=== PATIENT | male | born 1955 | race Caucasian/White ===

== ENCOUNTER 2017-10-03 21:43 | Emergency (ER) | payer MEDICARE, OTHER ==
[~2017-10-03] VITALS: Ht 185.4 cm; Wt 75.0 kg
[2017-10-03 22:13] VITALS: Ht 185.4 cm; Wt 75.0 kg
[2017-10-03] MEDS ORDERED: CEREFOLIN TAB1 TAB PO (22:23)
[2017-10-03] MEDS ORDERED: VIT D (22:23)
[2017-10-03] MEDS ORDERED: IRON PILL (22:23)
[2017-10-03] MEDS ORDERED: VIT C (22:23)
[2017-10-03] MEDS ORDERED: MYSOLINE 50 MG50 MG PO ×2 (22:24→22:31)
[2017-10-03] MEDS ORDERED: GLUCOPHAGE1000 MG PO (22:25)
[2017-10-03] MEDS ORDERED: TOPROL XL200 MG (22:25)
[2017-10-03] MEDS ORDERED: PROTONIX40 MG PO (22:26)
[2017-10-03] MEDS ORDERED: LYRICA100 MG PO (22:27)
[2017-10-03] MEDS ORDERED: BENADRYL25 MG PO (22:28)
[2017-10-03] MEDS ORDERED: LATUDA40 MG PO (22:29)
[2017-10-03] MEDS ORDERED: NORVASC10 MG PO (22:30)
[2017-10-03] MEDS ORDERED: LIPITOR80 MG PO (22:31)
[2017-10-03] MEDS ORDERED: MELATONIN10 M1 PO (22:33)
[2017-10-03] MEDS ORDERED: BAYER CHEWABLE81 MG PO (22:33)
[2017-10-03] MEDS ORDERED: LEVEMIR100 U/M1 SC (22:35)
[2017-10-03] MEDS ORDERED: SYMBICORT 16010.2 GM INH (22:39)
[2017-10-03] MEDS ORDERED: PROVENTIL/2.5 MG/3 M INH (22:39)
[2017-10-03 23:08] LABS: BASOPHILS 0.2 % (0-2); EOSINOPHILS 5.6 % (0-7); HEMATOCRIT 30.4 % (42.0-54.0); HEMOGLOBIN 9.5 g/dL (13.5-17.5); IMMATURE GRANULOCYTES 0.4 % (0-5); LYMPHOCYTES 27.8 % (15-50); MCH 29.9 pg (26.0-34.0); MCHC 31.3 g/dL (31.0-37.0); MCV 95.6 fL (80.0-100.0); MEAN PLATELET VOLUME 13.2 fL (7.4-10.4); MONOCYTES 7.3 % (2-11); NEUTROPHILS 58.7 % (40-80); PLATELET COUNT 94 10x3/uL (130-400); RBC 3.18 10x6/uL (4.20-6.10); RDW 14.5 % (11.5-14.5); WBC 5.3 10x3/uL (4.8-10.8)
[2017-10-03 23:21] LABS: APTT 29.6 SECONDS (22.8-39.4); INR 1.07 (0.85-1.17); PROTIME 13.5 SECONDS (11.6-15.0)
[2017-10-03 23:22] LABS: D-DIMER-QUANTITATIVE 0.76 ug/mLFEU (0.20-0.54)
[2017-10-03 23:38] LABS: ALKALINE PHOSPHATASE 154 U/L (46-116); ALT (SGPT) 38 U/L (10-68); CALC OSMOLALITY 297 mosm/kg (275-300); CALCIUM 8.1 mg/dL (8.5-10.1); CARBON DIOXIDE 25.2 mmol/L (21.0-32.0); CHLORIDE - SERUM 109 mmol/L (98-107); CREATININE - SERUM 1.6 mg/dL (0.6-1.3); GLUCOSE 253 mg/dL (74-106); POTASSIUM - SERUM 4.8 mmol/L (3.5-5.1); PROTEIN - SERUM 6.6 g/dL (6.4-8.2); SODIUM 142 mmol/L (136-145); UREA NITROGEN 28 mg/dL (7-18); eGFR NON AFRICAN AMERICAN 47 mL/min (90-120)
[2017-10-04 00:06] LABS: CKMB 3.9 U/L (0.0-3.6); CREATINE KINASE 236 UL (21-232); PRO BNP 5382 pg/mL (0-125); TROPONIN-I < 0.017 ng/mL (0.000-0.060)
[2017-10-04 01:44] LABS: CREATINE KINASE 210 UL (21-232); PRO BNP 5250 pg/mL (0-125)
[2017-10-04 01:45] LABS: TROPONIN-I < 0.017 ng/mL (0.000-0.060)
[2017-10-04 08:46] VITALS: BP 156/64
[2017-11-17 13:50] VITALS: Ht 185.4 cm; Wt 75.0 kg
== END 2017-10-04 08:48 | disposition other institution (70) ==
LOC: D.ER 21:43
PROVIDERS: Family Medicine
DX: I50.9 Heart failure, unspecified (principal); E87.70 Fluid overload, unspecified; R06.02 Shortness of breath; R00.1 Bradycardia, unspecified

== ENCOUNTER 2017-11-02 19:40 | Emergency (ER) | payer OTHER ==
[~2017-11-02] VITALS: Ht 185.4 cm; Wt 80.9 kg
[~2017-11-02 19:40] MED LIST: BAYER CHEWABLE81 MG PO; BENADRYL25 MG PO; CEREFOLIN TAB1 TAB PO; GLUCOPHAGE1000 MG PO; IRON PILL; LATUDA40 MG PO; LEVEMIR100 U/M1 SC; LIPITOR80 MG PO; LYRICA100 MG PO; MELATONIN10 M1 PO; MYSOLINE 50 MG50 MG PO; NORVASC10 MG PO; PROTONIX40 MG PO; PROVENTIL/2.5 MG/3 M INH; SYMBICORT 16010.2 GM INH; TOPROL XL200 MG; VIT C; VIT D
[2017-11-02 19:55] VITALS: Ht 185.4 cm; Wt 80.9 kg
[2017-11-02] MEDS ORDERED: SPIRIVA18 MCG INH (19:59)
[2017-11-02 22:27] LABS: BASOPHILS 0.2 % (0-2); EOSINOPHILS 7.9 % (0-7); HEMATOCRIT 28.5 % (42.0-54.0); HEMOGLOBIN 9.1 g/dL (13.5-17.5); IMMATURE GRANULOCYTES 0.2 % (0-5); LYMPHOCYTES 33.6 % (15-50); MCH 30.4 pg (26.0-34.0); MCHC 31.9 g/dL (31.0-37.0); MCV 95.3 fL (80.0-100.0); MEAN PLATELET VOLUME 13.3 fL (7.4-10.4); MONOCYTES 7.7 % (2-11); NEUTROPHILS 50.4 % (40-80); RBC 2.99 10x6/uL (4.20-6.10); RDW 15.5 % (11.5-14.5); WBC 4.9 10x3/uL (4.8-10.8)
[2017-11-02 22:31] LABS: PLATELET COUNT 73 10x3/uL (130-400)
[2017-11-02 22:46] LABS: ALBUMIN 2.9 g/dL (3.4-5.0); ALKALINE PHOSPHATASE 143 U/L (46-116); ALT (SGPT) 26 U/L (10-68); BILIRUBIN - TOTAL 0.26 mg/dL (0.2-1.3); CALC OSMOLALITY 299 mosm/kg (275-300); CALCIUM 7.8 mg/dL (8.5-10.1); CARBON DIOXIDE 22.1 mmol/L (21.0-32.0); CHLORIDE - SERUM 110 mmol/L (98-107); CREATININE - SERUM 2.5 mg/dL (0.6-1.3); POTASSIUM - SERUM 5.7 mmol/L (3.5-5.1); PROTEIN - SERUM 6.5 g/dL (6.4-8.2); SODIUM 141 mmol/L (136-145); UREA NITROGEN 55 mg/dL (7-18); eGFR NON AFRICAN AMERICAN 28 mL/min (90-120)
[2017-11-02 22:47] LABS: GLUCOSE 171 mg/dL (74-106)
[2017-11-02 22:49] LABS: AMYLASE - SERUM 44 U/L (25-115); CREATINE KINASE 168 UL (21-232); LIPASE 148 U/L (73-393); MAGNESIUM - SERUM 1.5 mg/dL (1.8-2.4); TROPONIN-I < 0.017 ng/mL (0.000-0.060)
[2017-11-02 23:37] VITALS: BP 142/67
[2017-12-11 13:32] VITALS: Ht 185.4 cm; Wt 80.9 kg
== END 2017-11-02 23:38 | disposition home or self-care (01) ==
LOC: D.ER 19:40
PROVIDERS: Emergency Medicine
DX: R53.1 Weakness (principal); D64.9 Anemia, unspecified; E78.5 Hyperlipidemia, unspecified; N28.9 Disorder of kidney and ureter, unspecified; Z86.73 Personal history of transient ischemic attack (TIA), and cerebral infarction without residual deficits; E11.9 Type 2 diabetes mellitus without complications; I10 Essential (primary) hypertension; J44.9 Chronic obstructive pulmonary disease, unspecified; K21.9 Gastro-esophageal reflux disease without esophagitis; I44.0 Atrioventricular block, first degree

== ENCOUNTER 2017-11-10 17:42 | Emergency (ER) | payer OTHER ==
[~2017-11-10] VITALS: Ht 185.4 cm; Wt 79.5 kg
[~2017-11-10 17:42] MED LIST changes: +SPIRIVA18 MCG INH
[2017-11-10 17:55] VITALS: Ht 185.4 cm; Wt 79.5 kg
[2017-11-10 19:39] LABS: BASOPHILS 0.2 % (0-2); EOSINOPHILS 4.7 % (0-7); HEMATOCRIT 26.1 % (42.0-54.0); HEMOGLOBIN 8.3 g/dL (13.5-17.5); IMMATURE GRANULOCYTES 0.2 % (0-5); LYMPHOCYTES 30.6 % (15-50); MCH 30.5 pg (26.0-34.0); MCHC 31.8 g/dL (31.0-37.0); MEAN PLATELET VOLUME 13.7 fL (7.4-10.4); MONOCYTES 5.4 % (2-11); NEUTROPHILS 58.9 % (40-80); PLATELET COUNT 80 10x3/uL (130-400); RBC 2.72 10x6/uL (4.20-6.10); RDW 14.8 % (11.5-14.5); WBC 4.3 10x3/uL (4.8-10.8)
[2017-11-10 19:40] LABS: APPEARANCE CLEAR (CLEAR); COLOR YELLOW (YELLOW)
[2017-11-10 19:41] LABS: BACTERIA FEW /hpf (NONE SEEN); BILIRUBIN NEGATIVE (NEGATIVE); EPITHELIAL CELLS 0-5 /hpf (0-5); GLUCOSE 250 mg/dL (NEGATIVE); HYALINE CAST 0-5 /lpf (NONE SEEN); KETONE NEGATIVE (NEGATIVE); MUCUS <1+ /lpf (NONE SEEN); NITRITE NEGATIVE (NEGATIVE); PROTEIN 2+ mg/dL (NEGATIVE); RED CELLS - URINE 0-5 /hpf (0-5); UROBILINOGEN NORMAL (NORMAL); WHITE CELLS - URINE 0-5 /hpf (0-5)
[2017-11-10 19:53] LABS: ALBUMIN 2.9 g/dL (3.4-5.0); ANION GAP 8.9 mmol/L (8-16); BILIRUBIN - TOTAL 0.25 mg/dL (0.2-1.3); CALCIUM 7.7 mg/dL (8.5-10.1); CARBON DIOXIDE 29.5 mmol/L (21.0-32.0); CREATININE - SERUM 2.9 mg/dL (0.6-1.3); POTASSIUM - SERUM 4.4 mmol/L (3.5-5.1); PROTEIN - SERUM 6.4 g/dL (6.4-8.2)
[2017-11-10 20:03] LABS: PLATELET ESTIMATE DECREASED
[2017-11-10 22:36] VITALS: BP 154/68
[2017-12-11 13:32] VITALS: Ht 185.4 cm; Wt 79.5 kg
== END 2017-11-10 22:37 | disposition home or self-care (01) ==
LOC: D.ER 17:42
PROVIDERS: Emergency Medicine
DX: R33.9 Retention of urine, unspecified (principal); E11.9 Type 2 diabetes mellitus without complications; I10 Essential (primary) hypertension; I50.9 Heart failure, unspecified

== ENCOUNTER 2017-11-16 15:05 | Inpatient (IN) | payer OTHER ==
[~2017-11-16] VITALS: Ht 185.4 cm; Wt 79.5 kg
--- NOTE | ~2017-11-16 | MORECARE ---
CASE MANAGEMENT DISCHARGE SUMMARY PATIENT: DASHAWN REID UNIT: [id number] ADM DATE: 11/16/17 AGE: 61 : 53 SEX: M ROOM/BED: D.2135 AUTHOR: CASE, SHIRT CREASER PHYSICIAN: REFERRING PHYSICIAN: DONALD AVILES MD DATE OF SERVICE: 11/16/17 Discharge Plan Patient Name: DASHAWN REID Facility: [facility]:[place] : 1955 Planned Disposition: Home Anticipated Discharge Date: 11/18/17 Discharge Date: Expected LOS: 2 Initial Reviewer: [email or web address] Initial Review Date: 11/18/2017 Generated: 11/18/17 2:08 pm Patient Name: DASHAWN REID Page [id number] All edits/amendments must be made on the electronic document DICTATION DATE: 11/18/17 1307 MANAGER INVENTORY CONTROL: 11/18/17 1307 RPT#: [id number] [place] DATE: STATUS: ADM IN [facility] [address] [place] [address] END OF REPORT
[2017-11-16 16:22] LABS: BASOPHILS 0.2 % (0-2); EOSINOPHILS 1.2 % (0-7); HEMATOCRIT 25.2 % (42.0-54.0); HEMOGLOBIN 7.8 g/dL (13.5-17.5); IMMATURE GRANULOCYTES 0.7 % (0-5); LYMPHOCYTES 13.4 % (15-50); MCH 30.1 pg (26.0-34.0); MCV 97.3 fL (80.0-100.0); MEAN PLATELET VOLUME 14.8 fL (7.4-10.4); MONOCYTES 7.5 % (2-11); PLATELET COUNT 71 10x3/uL (130-400); RBC 2.59 10x6/uL (4.20-6.10); RDW 15.7 % (11.5-14.5); WBC 5.8 10x3/uL (4.8-10.8)
[2017-11-16 16:43] LABS: ALBUMIN 2.5 g/dL (3.4-5.0); ANION GAP 15.6 mmol/L (8-16); BILIRUBIN - TOTAL 0.48 mg/dL (0.2-1.3); CALCIUM 7.6 mg/dL (8.5-10.1); CREATININE - SERUM 2.8 mg/dL (0.6-1.3); POTASSIUM - SERUM 4.6 mmol/L (3.5-5.1); PROTEIN - SERUM 5.9 g/dL (6.4-8.2)
[2017-11-16 17:20] LABS: APPEARANCE HAZY (CLEAR); COLOR YELLOW (YELLOW); GLUCOSE 1000 mg/dL (NEGATIVE); NITRITE NEGATIVE (NEGATIVE); PROTEIN 2+ mg/dL (NEGATIVE); SPECIFIC GRAVITY 1.015 (1.005-1.020)
[2017-11-16 17:21] LABS: BILIRUBIN NEGATIVE (NEGATIVE); KETONE NEGATIVE (NEGATIVE); UROBILINOGEN NORMAL (NORMAL)
[2017-11-16 17:23] LABS: BACTERIA MANY /hpf (NONE SEEN); WHITE CELLS - URINE >50 /hpf (0-5)
[2017-11-16 21:35] VITALS: BP 153/63
[2017-11-17 03:23] VITALS: BP 135/65; BMI 23.1
[2017-11-17 06:32] LABS: ANION GAP 15.3 mmol/L (8-16); CARBON DIOXIDE 21.1 mmol/L (21.0-32.0); CREATININE - SERUM 2.4 mg/dL (0.6-1.3); POTASSIUM - SERUM 4.4 mmol/L (3.5-5.1)
[2017-11-17 08:55] VITALS: BP 131/71
[2017-11-17 13:25] VITALS: BP 149/70
[2017-11-17 13:50] VITALS: Ht 185.4 cm; Wt 79.5 kg
[2017-11-17 14:10] LABS: % SATURATION 21 % (15-55); IRON 38 ug/dl (35-150); TOTAL IRON BIND CAPACITY 179 ug/dl (260-445); UNSAT IRON BIND CAPACITY 141 ug/dl (150-375)
[2017-11-17 16:11] VITALS: BP 153/79
[2017-11-17 21:54] VITALS: BP 161/81
[2017-11-18 02:13] VITALS: BP 125/73
[2017-11-18 05:26] VITALS: BP 153/76
[2017-11-18 06:23] LABS: BASOPHILS 0.2 % (0-2); EOSINOPHILS 2.9 % (0-7); HEMATOCRIT 30.2 % (42.0-54.0); IMMATURE GRANULOCYTES 0.5 % (0-5); LYMPHOCYTES 11.9 % (15-50); MCH 30.3 pg (26.0-34.0); MCHC 33.1 g/dL (31.0-37.0); MONOCYTES 9.7 % (2-11); NEUTROPHILS 74.8 % (40-80); RDW 16.1 % (11.5-14.5); WBC 5.5 10x3/uL (4.8-10.8)
[2017-11-18 06:32] LABS: MCV 91.5 fL (80.0-100.0); PLATELET COUNT 89 10x3/uL (130-400)
[2017-11-18 06:44] LABS: ANION GAP 16.4 mmol/L (8-16); CARBON DIOXIDE 20.1 mmol/L (21.0-32.0); CREATININE - SERUM 1.9 mg/dL (0.6-1.3)
[2017-11-18 06:45] LABS: POTASSIUM - SERUM 3.5 mmol/L (3.5-5.1)
[2017-11-18 10:10] VITALS: BP 146/80
[2017-11-18 20:05] VITALS: BP 143/71
[2017-11-19 05:17] VITALS: BP 152/71
[2017-11-19 05:58] LABS: BASOPHILS 0.3 % (0-2); EOSINOPHILS 4.8 % (0-7); HEMATOCRIT 29.6 % (42.0-54.0); HEMOGLOBIN 9.8 g/dL (13.5-17.5); IMMATURE GRANULOCYTES 0.3 % (0-5); LYMPHOCYTES 29.4 % (15-50); MCHC 33.1 g/dL (31.0-37.0); MCV 90.5 fL (80.0-100.0); MEAN PLATELET VOLUME 13.2 fL (7.4-10.4); MONOCYTES 9.6 % (2-11); NEUTROPHILS 55.6 % (40-80); PLATELET COUNT 86 10x3/uL (130-400); RBC 3.27 10x6/uL (4.20-6.10); RDW 15.8 % (11.5-14.5)
[2017-11-19 06:19] LABS: WBC 3.7 10x3/uL (4.8-10.8)
[2017-11-19 06:21] LABS: CALCIUM 7.7 mg/dL (8.5-10.1); CARBON DIOXIDE 24.2 mmol/L (21.0-32.0); CREATININE - SERUM 1.9 mg/dL (0.6-1.3); MAGNESIUM - SERUM 1.5 mg/dL (1.8-2.4); POTASSIUM - SERUM 4.2 mmol/L (3.5-5.1)
[2017-11-19 07:30] LABS: FOLATE (FOLIC ACID) - SERUM >20.0 ng/mL (>3.0)
[2017-11-19 08:17] VITALS: BP 126/75
[2017-11-19 12:05] VITALS: BP 188/100
[2017-11-19 12:18] VITALS: BP 175/99
[2017-11-19] MEDS ORDERED: OMNICEF300 MG PO ×3 (12:40→13:41)
== END 2017-11-19 18:02 | disposition home or self-care (01) | DRG 683 ==
LOC: D.ER 15:05 → D.EDHOLD 20:50 → D.M2 20:50 → D.SDCHOLD 11-18 10:35 → D.M2 11-19 18:02
PROVIDERS: Emergency Medicine; Family Medicine; Internal Medicine Nephrology
DX: N17.9 Acute kidney failure, unspecified (principal); N39.0 Urinary tract infection, site not specified; E11.65 Type 2 diabetes mellitus with hyperglycemia; B96.89 Other specified bacterial agents as the cause of diseases classified elsewhere; D50.9 Iron deficiency anemia, unspecified; D69.6 Thrombocytopenia, unspecified; I10 Essential (primary) hypertension; I25.10 Atherosclerotic heart disease of native coronary artery without angina pectoris; Z95.1 Presence of aortocoronary bypass graft; J44.9 Chronic obstructive pulmonary disease, unspecified; Z86.73 Personal history of transient ischemic attack (TIA), and cerebral infarction without residual deficits

== ENCOUNTER 2017-12-10 08:38 | Inpatient (IN) | payer MEDICARE ==
[2017-12-10] VITALS (7 sets, daily range): BP systolic 153–181; BP diastolic 67–80; BMI 24.4
[~2017-12-10] VITALS: Ht 185.4 cm; Wt 83.9 kg
--- NOTE | ~2017-12-10 | RHP ---
PATIENT: DASHAWN REID MEDICAL RECORD: [id number] ACCOUNT: [id number] LOCATION:[facility]1119 : 51 ADMISSION DATE: 12/10/17 REHABILITATION HISTORY AND PHYSICAL EXAMINATION POST ADMISSION PHYSICIAN EXAMINATION DATE OF ADMISSION: 12/10/2017 ADMITTING DIAGNOSIS: Debility. HISTORY OF PRESENT ILLNESS: The patient admitted to inpatient rehabilitation for debility secondary to failure to thrive. A 61-year-old gentleman who has had multiple ER visits and was recently treated for multiple medical problems, the latest being due to elevated blood sugars. He presented to ED on 12/10/2017 with increased weakness and debility. He has got a history of hypertension, coronary artery disease, diabetes, COPD, and TIA. He has had a continued decline in physical strength and recently required certified ophthalmic assistant with his ADLs. He has only been ambulating short distance with the use of a single point cane. He has had some recent falls. He and his states his blood sugars have been all over the place, stating that they have both been high and low. He has got a UA that was positive in the ER. He was noted to have failure to thrive. His barriers include debility, weakness, immobility, inability to perform ADLs. Needs education on dietary management, also how to use insulin. He needs appropriate DME to be set up for discharge home and home health services also. He is currently set up for mod assist for his ADLs, mod assist to max assist for mobility. He and his plan for him to return home at his prior level of functioning or better if possible. COMORBIDITIES: In this patient include diabetes, failure to thrive, bradycardia, thrombocytopenia, proteinuria, renal insufficiency, hypoalbuminemia, anemia, history of bipolar disorder, TIA, coronary artery disease, COPD, and hypertension. PAST MEDICAL HISTORY: Significant for bipolar disease, TIA, diabetes, COPD, and asthma. PAST SURGICAL HISTORY: Includes gallbladder surgery, hernia, appendectomy and open heart. ALLERGIES: PENICILLIN, MORPHINE AND HEPARIN. CURRENT MEDICATIONS: Include Tudorza inhaler that he uses b.i.d., primidone 50 mg daily, Protonix 40 mg daily, metoprolol 100 mg daily, Levemir 40 units. Apparently, he follows a sliding scale at times for this. He is on a folic acid daily, Advair 2 puffs b.i.d., Lipitor 40 mg daily, aspirin chewable 81 mg daily, Latuda 40 mg at bedtime, Lyrica 100 mg b.i.d., melatonin 3 mg at bedtime, Ventolin updraft and polyethylene glycol 17 grams in 8 ounces of water daily. HABITS: No current alcohol or tobacco use. FAMILY HISTORY: Noncontributory. SOCIAL HISTORY: The patient hopes to return back home and get back to his prior level of functioning. HISTORY AND PHYSICAL [id number] DASHAWN REID REVIEW OF SYSTEMS: GENERAL: He does complain of weakness and fatigue. HEENT: Denies cold, cough, or congestion. CARDIOVASCULAR: He denies chest pain. PHYSICAL EXAMINATION: VITAL SIGNS: Stable, afebrile. Does have some bradycardia at times, but generally a well-developed gentleman in no acute distress, alert upon exam. HEENT: Normocephalic and atraumatic. Mucosa moist. NECK: Supple. No lymphadenopathy. LUNGS: Clear at this time. HEART: Regular rate and rhythm. ABDOMEN: Benign. EXTREMITIES: No clubbing, cyanosis or edema. NEUROLOGIC: He does have noted weakness. LABORATORY DATA: His white count is 3.1, H&H of 10 and 30 and platelet count is noted to be 72. Sodium is 142, potassium 4.0, BUN and creatinine of 31 and 1.8, and blood sugar is noted to be 251. Admit UA did show few bacteria. ASSESSMENT: This is a 61-year-old gentleman admitted to the rehab with a working diagnosis of debility secondary to failure to thrive. The patient has potential to make improvement. We instituted the following multidisciplinary therapies including but not limited to physical, occupational, respiratory, speech, nutritional services, prosthetics and orthotics. Given his complex medical condition and risks for more complications, rehabilitation services cannot be provided at a low level of care such as skilled nurse facility. PLAN: 1. Admit to [facility] for intensive inpatient therapy to include the following disciplines: A. Physical therapy to improve gait, all transfer skills and bed mobility to a modified independent level. B. Occupational therapy to a modified independent level. C. Case management to assist with discharge planning and placement options. D. Nutrition to assist with nutritional needs. E. Rehabilitation nursing to assist in monitoring the patient's underlying medical conditions and to assist with any type of bowel or bladder management. 2. The patient's current medication and medical care will be continued. 3. The patient will be placed on standard fall precautions. 4. The patient estimated length of stay is approximately 7 to 10 days. 5. Discuss this patient during care team staff meeting this week. TRANSINT:[id number] Voice Confirmation ID: [id number] DOCUMENT ID: [id number] ERIC notes whether there has been none or any medical/functional change since admission: - No change since prescreen. ERIC attests patient continues to be appropriate for IRF: - Continues to be appropriate. HISTORY AND PHYSICAL [id number] DASHAWN REID SCOTT MD at 1845 CC: [id number] DICTATION DATE: 12/11/17905 INKING MACHINE TENDER: 12/11/17 1100 ADM IN [place] [id number] [place] [address]
[~2017-12-10 08:38] MED LIST changes: +OMNICEF300 MG PO
[2017-12-10] MEDS ORDERED: LIPITOR40 MG PO (08:48)
[2017-12-10 09:45] LABS: BASOPHILS 0.5 % (0-2); EOSINOPHILS 2.7 % (0-7); HEMATOCRIT 30.6 % (42.0-54.0); HEMOGLOBIN 10.1 g/dL (13.5-17.5); IMMATURE GRANULOCYTES 0.2 % (0-5); MCH 30.3 pg (26.0-34.0); MCV 91.9 fL (80.0-100.0); MEAN PLATELET VOLUME 13.5 fL (7.4-10.4); MONOCYTES 10.2 % (2-11); NEUTROPHILS 64.4 % (40-80); PLATELET COUNT 72 10x3/uL (130-400); RBC 3.33 10x6/uL (4.20-6.10); RDW 15.1 % (11.5-14.5); WBC 4.4 10x3/uL (4.8-10.8)
[2017-12-10 10:00] LABS: ALBUMIN 2.9 g/dL (3.4-5.0); ANION GAP 8.9 mmol/L (8-16); BILIRUBIN - TOTAL 0.33 mg/dL (0.2-1.3); CARBON DIOXIDE 25.9 mmol/L (21.0-32.0); POTASSIUM - SERUM 3.8 mmol/L (3.5-5.1); PROTEIN - SERUM 6.6 g/dL (6.4-8.2)
[2017-12-10 11:25] LABS: APPEARANCE CLEAR (CLEAR); BACTERIA FEW /hpf (NONE SEEN); BILIRUBIN NEGATIVE (NEGATIVE); COLOR YELLOW (YELLOW); EPITHELIAL CELLS OCC /hpf (0-5); GLUCOSE 100 mg/dL (NEGATIVE); KETONE NEGATIVE (NEGATIVE); MUCUS <1+ /lpf (NONE SEEN); NITRITE NEGATIVE (NEGATIVE); PROTEIN 3+ mg/dL (NEGATIVE); RED CELLS - URINE OCC /hpf (0-5); SPECIFIC GRAVITY 1.015 (1.005-1.020); UROBILINOGEN NORMAL (NORMAL)
[2017-12-11 07:03] LABS: BASOPHILS 0.6 % (0-2); EOSINOPHILS 3.9 % (0-7); HEMATOCRIT 29.6 % (42.0-54.0); HEMOGLOBIN 9.9 g/dL (13.5-17.5); LYMPHOCYTES 28.4 % (15-50); MCH 30.3 pg (26.0-34.0); MCHC 33.4 g/dL (31.0-37.0); MCV 90.5 fL (80.0-100.0); MONOCYTES 9.7 % (2-11); NEUTROPHILS 57.4 % (40-80); PLATELET COUNT 72 10x3/uL (130-400); RBC 3.27 10x6/uL (4.20-6.10); RDW 15.1 % (11.5-14.5)
[2017-12-11 07:12] LABS: WBC 3.1 10x3/uL (4.8-10.8)
[2017-12-11 07:15] LABS: ANION GAP 12.6 mmol/L (8-16); CALCIUM 7.8 mg/dL (8.5-10.1); CARBON DIOXIDE 24.4 mmol/L (21.0-32.0); CREATININE - SERUM 1.8 mg/dL (0.6-1.3)
[2017-12-11 07:49] VITALS: BP 111/67
[2017-12-11 13:32] VITALS: Ht 185.4 cm; Wt 83.9 kg
[2017-12-11 19:00] VITALS: BP 153/45
[2017-12-12 08:00] VITALS: BP 125/49
[2017-12-12 19:00] VITALS: BP 140/68
[2017-12-13 06:14] LABS: ANION GAP 12.7 mmol/L (8-16); CALCIUM 7.8 mg/dL (8.5-10.1); CREATININE - SERUM 1.8 mg/dL (0.6-1.3)
[2017-12-13 06:17] LABS: POTASSIUM - SERUM 4.7 mmol/L (3.5-5.1)
[2017-12-13 06:32] LABS: BASOPHILS 0.3 % (0-2); EOSINOPHILS 4.4 % (0-7); HEMATOCRIT 29.1 % (42.0-54.0); HEMOGLOBIN 9.6 g/dL (13.5-17.5); IMMATURE GRANULOCYTES 0.5 % (0-5); MCH 30.1 pg (26.0-34.0); MCV 91.2 fL (80.0-100.0); MONOCYTES 8.2 % (2-11); NEUTROPHILS 51.6 % (40-80); PLATELET COUNT 74 10x3/uL (130-400); RBC 3.19 10x6/uL (4.20-6.10); RDW 15.1 % (11.5-14.5); WBC 3.7 10x3/uL (4.8-10.8)
[2017-12-13 08:00] VITALS: BP 136/77
[2017-12-13 19:00] VITALS: BP 171/72
[2017-12-14 07:25] VITALS: BP 158/80
[2017-12-14 20:15] VITALS: BP 143/79
[2017-12-15 07:10] VITALS: BP 139/74
[2017-12-16 07:51] VITALS: BP 130/63
[2017-12-16 19:06] VITALS: BP 132/62
[2017-12-17 07:45] VITALS: BP 125/59
[2017-12-17 19:00] VITALS: BP 152/68
[2017-12-18 07:19] LABS: BASOPHILS 0.2 % (0-2); EOSINOPHILS 3.8 % (0-7); HEMATOCRIT 27.6 % (42.0-54.0); HEMOGLOBIN 8.8 g/dL (13.5-17.5); IMMATURE GRANULOCYTES 0.4 % (0-5); LYMPHOCYTES 33.1 % (15-50); MCH 29.5 pg (26.0-34.0); MCHC 31.9 g/dL (31.0-37.0); MCV 92.6 fL (80.0-100.0); MEAN PLATELET VOLUME 13.6 fL (7.4-10.4); MONOCYTES 6.6 % (2-11); NEUTROPHILS 55.9 % (40-80); PLATELET COUNT 73 10x3/uL (130-400); RBC 2.98 10x6/uL (4.20-6.10); RDW 15.6 % (11.5-14.5); WBC 4.5 10x3/uL (4.8-10.8)
[2017-12-18 07:45] LABS: ANION GAP 10.4 mmol/L (8-16); CALCIUM 8.1 mg/dL (8.5-10.1); CARBON DIOXIDE 26.2 mmol/L (21.0-32.0); CREATININE - SERUM 1.9 mg/dL (0.6-1.3); POTASSIUM - SERUM 4.6 mmol/L (3.5-5.1)
[2017-12-18 07:51] VITALS: BP 135/67
[2017-12-18] MEDS ORDERED: LEVEMIR100 U/M1 SC (08:49)
[2017-12-18] MEDS ORDERED: HUMALOG 30100 UNITS/ SC (08:50)
== END 2017-12-18 13:44 | disposition home or self-care (01) | DRG 948 ==
LOC: D.ER 08:38 → D.EDHOLD 17:07 → D.REHAB 17:07
PROVIDERS: Emergency Medicine; Family Medicine
DX: R53.81 Other malaise (principal); E11.9 Type 2 diabetes mellitus without complications; R00.1 Bradycardia, unspecified; D69.6 Thrombocytopenia, unspecified; R80.9 Proteinuria, unspecified; E88.09 Other disorders of plasma-protein metabolism, not elsewhere classified; D64.9 Anemia, unspecified; I25.10 Atherosclerotic heart disease of native coronary artery without angina pectoris; I10 Essential (primary) hypertension; J44.9 Chronic obstructive pulmonary disease, unspecified; N28.9 Disorder of kidney and ureter, unspecified; Z86.73 Personal history of transient ischemic attack (TIA), and cerebral infarction without residual deficits

== ENCOUNTER 2018-02-14 18:08 | Emergency (ER) | payer MEDICARE ==
[~2018-02-14] VITALS: Ht 185.4 cm; Wt 81.8 kg
[~2018-02-14 18:08] MED LIST changes: +HUMALOG 30100 UNITS/ SC; +LIPITOR40 MG PO
[2018-02-14 18:43] VITALS: Ht 185.4 cm; Wt 81.8 kg
[2018-02-14] MEDS ORDERED: TORADOL10 MG PO (20:20)
[2018-02-14 22:33] VITALS: BP 145/78
== END 2018-02-14 20:35 | disposition home or self-care (01) ==
LOC: D.ER 18:08
DX: I10 Essential (primary) hypertension (principal); M54.2 Cervicalgia; V43.62XA Car passenger injured in collision with other type car in traffic accident, initial encounter; Y93.89 Activity, other specified; Y92.410 Unspecified street and highway as the place of occurrence of the external cause; M54.6 Pain in thoracic spine; J44.9 Chronic obstructive pulmonary disease, unspecified; K21.9 Gastro-esophageal reflux disease without esophagitis; N42.9 Disorder of prostate, unspecified

== ENCOUNTER 2018-04-04 18:45 | Inpatient (IN) | payer OTHER, MEDICARE ==
[~2018-04-04] VITALS: Ht 185.4 cm; Wt 81.8 kg
--- NOTE | ~2018-04-04 | MORECARE ---
CASE MANAGEMENT DISCHARGE SUMMARY PATIENT: DASHAWN REID UNIT: [id number] ADM DATE: 04/05/18 AGE: 62 : 53 SEX: M ROOM/BED: D.2220 AUTHOR: DONOVAN OCONNELL PHYSICIAN: REFERRING PHYSICIAN: DONALD AVILES MD DATE OF SERVICE: 04/10/18 Discharge Plan Patient Name: DASHAWN REID Facility: [facility]:[place] : 1955 Planned Disposition: Home Anticipated Discharge Date: 04/06/18 Discharge Date: 04/06/2018 Expected LOS: 1 Initial Reviewer: [email or web address] Initial Review Date: 04/06/2018 Generated: 04/10/18 10:45 am Comments DCP- Discharge Planning Updated by [email or web address]: Lamar Ziegler on 04/06/18 2:[address] Patient Name: DASHAWN REID Admission Status: ER Accout number: [id number] Admission Date: 04-05-2018 : 1955 Admission Diagnosis: Attending: DONALD AVILES Current LOS: 1 Anticipated DC Date: 04-06-2018 Planned Disposition: Primary Insurance: [facility] Discharge Planning Comments: CM MET WITH PATIENT ABOUT DC PLANNING/NEEDS. DENIES NEEDS AT THIS TIME. STATES USES A CANE AT HOME. CALLED TO LET KNOW HE IS BEING DISCHARGED TODAY. SHE STATES SHE WILL PICK HIM UP. HER NAME IS WALLY AND HER PHONE NUMBER IS [phone]. CM WILL FOLLOW AND ASSIST NEEDED WITH DC PLANNING/NEEDS. Contracting Support Specialist: Lamar Ziegler Appended by Lamar Ziegler on 04/06/2018 15:41 DIGITAL MEDIA DIRECTOR: STATES THEIR BILLBOARD MECHANIC ORLANDOTER JOE WILL BE PICKING UP HER WHEN DISCHARGED. MR. DIAZ'S PHONE NUMBER IS [phone] , . STATES SHE WILL CALL BILLBOARD MECHANIC TO PICK HIM UP IN APPROX ONE HOUR. DCPIA - Discharge Planning Initial Assessment Updated by [email or web address]: Lamar Ziegler on 04/06/18 3:29 pm * Is the patient Alert and Oriented? Yes * PCP [facility] * Pharmacy WANTS PRESCRIPTIONS ON PAPER * Preadmission Environment Home with Family * ADLs Independent * Equipment Cane * List name and contact numbers for known caregivers / representatives who currently or will assist patient after discharge: MEGAN LO, * Community resources currently utilized None * Additional services required to return to the preadmission environment? No * Can the patient safely return to the preadmission environment? Yes * Has this patient been hospitalized within the prior 30 days at any hospital? No Last DP export: 04/06/18 2:49 Patient Name: DASHAWN REID Page 75606 at 0946 All edits/amendments must be made on the electronic document DICTATION DATE: 04/10/18944 SUPERINTENDENT LOCAL: KATIE 04/10/18944 RPT#: [id number] DC DATE:04/06/18 STATUS: DIS IN [facility] [address] [place] [address] END OF REPORT
--- NOTE | ~2018-04-04 | MORECARE ---
CASE MANAGEMENT DISCHARGE SUMMARY PATIENT: DASHAWN REID UNIT: [id number] ADM DATE: 04/05/18 AGE: 62 : 53 SEX: M ROOM/BED: D.2220 AUTHOR: DONOVAN OCONNELL PHYSICIAN: REFERRING PHYSICIAN: DONALD AVILES MD DATE OF SERVICE: 04/06/18 Discharge Plan Patient Name: DASHAWN REID Facility: [facility]:[place] : 1955 Planned Disposition: Anticipated Discharge Date: 04/06/18 Discharge Date: Expected LOS: 1 Initial Reviewer: [email or web address] Initial Review Date: 04/06/2018 Generated: 04/06/18 4:41 pm Comments DCP- Discharge Planning Updated by [email or web address]: Lamar Ziegler on 04/06/18 2:[address] Patient Name: DASHAWN REID Admission Status: ER Accout number: [id number] Admission Date: 04-05-2018 : 1955 Admission Diagnosis: Attending: DONALD AVILES Current LOS: 1 Anticipated DC Date: 04-06-2018 Planned Disposition: Primary Insurance: [employer] Discharge Planning Comments: CM MET WITH PATIENT ABOUT DC PLANNING/NEEDS. DENIES NEEDS AT THIS TIME. STATES USES A CANE AT HOME. CALLED TO LET KNOW HE IS BEING DISCHARGED TODAY. SHE STATES SHE WILL PICK HIM UP. HER NAME IS WALLY AND HER PHONE NUMBER IS [phone]. CM WILL FOLLOW AND ASSIST NEEDED WITH DC PLANNING/NEEDS. Cyber Security Manager: Lamar Ziegler Appended by Lamar Ziegler on 04/06/2018 15:41 FLORAL ARRANGER: STATES THEIR SKI PATROL ORLANDOTER JOE WILL BE PICKING UP HER WHEN DISCHARGED. MR. DIAZ'S PHONE NUMBER IS [phone] , . STATES SHE WILL CALL SKI PATROL TO PICK HIM UP IN APPROX ONE HOUR. DCPIA - Discharge Planning Initial Assessment Updated by [email or web address]: Lamar Ziegler on 04/06/18 3:29 pm * Is the patient Alert and Oriented? Yes * PCP [facility] * Pharmacy WANTS PRESCRIPTIONS ON PAPER * Preadmission Environment Home with Family * ADLs Independent * Equipment Cane * List name and contact numbers for known caregivers / representatives who currently or will assist patient after discharge: MEGAN LO, * Community resources currently utilized None * Additional services required to return to the preadmission environment? No * Can the patient safely return to the preadmission environment? Yes * Has this patient been hospitalized within the prior 30 days at any hospital? No Last DP export: 04/06/18 2:29 Patient Name: DASHAWN REID Page [phone] at 1542 All edits/amendments must be made on the electronic document DICTATION DATE: 04/06/18 1541 ASSISTED LIVING MANAGER: KATIE 04/06/18 1541 RPT#: [id number] DC DATE: STATUS: ADM IN [facility] [address] [place] [address] END OF REPORT
--- NOTE | ~2018-04-04 | MORECARE ---
CASE MANAGEMENT DISCHARGE SUMMARY PATIENT: DASHAWN REID UNIT: [id number] ADM DATE: 04/05/18 AGE: 62 : 53 SEX: M ROOM/BED: D.2220 AUTHOR: DONOVAN OCONNELL PHYSICIAN: REFERRING PHYSICIAN: DONALD AVILES MD DATE OF SERVICE: 04/06/18 Discharge Plan Patient Name: DASHAWN REID Facility: [facility]:[place] : 1955 Planned Disposition: Anticipated Discharge Date: 04/06/18 Discharge Date: Expected LOS: 1 Initial Reviewer: [email or web address] Initial Review Date: 04/06/2018 Generated: 04/06/18 4:29 pm DCPIA - Discharge Planning Initial Assessment Updated by [email or web address]: Lamar Ziegler on 04/06/18 3:29 pm * Is the patient Alert and Oriented? Yes * PCP OTF * Pharmacy WANTS PRESCRIPTIONS ON PAPER * Preadmission Environment Home with Family * ADLs Independent * Equipment Cane * List name and contact numbers for known caregivers / representatives who currently or will assist patient after discharge: WALLY, , * Community resources currently utilized None * Additional services required to return to the preadmission environment? No * Can the patient safely return to the preadmission environment? Yes * Has this patient been hospitalized within the prior 30 days at any hospital? No Patient Name: DASHAWN REID Page 74108 at 1529 All edits/amendments must be made on the electronic document DICTATION DATE: 04/06/181527 NETWORK CABLER: KATIE 04/06/181527 RPT#: [id number] DC DATE: STATUS: ADM IN [facility] [address] [place] [address] END OF REPORT
--- NOTE | ~2018-04-04 | CN ---
PATIENT NAME:DASHAWN REID MEDICAL RECORD: [id number] : 51 LOCATION:D.MS Lanza2220 ADMIT DATE: 04/05/18 ACCOUNT: [id number] CONSULTING PHYSICIAN: KYLE FLORES MD REFERRING PHYSICIAN: DONALD AVILES MD DATE OF CONSULTATION: 04/05/2018 IDENTIFYING DATA: The patient is 62 years old and he is admitted to the hospital on a voluntary basis. CHIEF COMPLAINT: Visual hallucinations. HISTORY OF PRESENT ILLNESS: For the past 2 days, the patient has had regular ongoing issues with seeing things. It is primarily cats and dogs. He is able to recognize that these are hallucinatory experiences. He knows that what he is seeing is not real, nevertheless, he is experiencing it. He is not distressed by it. He is concerned about it. He does have an established diagnosis of Parkinson disease and has had the disease for 10 years. He also has a history of bipolar illness. He takes Zyprexa and Latuda for that. He has no current problems with any kind of substance abuse. MENTAL STATUS EXAMINATION: The patient is awake, alert and oriented to person, place, time and situation. His mood is euthymic. His affect appropriate. Thought processes are goal directed. Memory, concentration, and abstraction abilities are intact, and he denies any intent to harm himself or others. He denies any current psychotic symptoms. IMPRESSION: Parkinson-related hallucinations. PLAN: At this time, I would recommend no additional treatments. The patient has not had any hallucinations since he has been hospitalized here. He only has a 2-day history of hallucinations that are not frightening or distressing to him. He has not been interacting with hallucinations, that is to say he recognizes that what he is seeing is not real. He is already taking a reasonable dose of Zyprexa. It is my opinion that the hallucinations are related to the Parkinson disease and not his bipolar disorder, which appears to be under adequate control. Because the hallucinations are not distressing or interfering with his daily functioning, I would not increase the dose of his Zyprexa, but would just observe him and if in the future they become constant, frightening, distressing, or something that he is interacting with rather than recognizing that they are not real, that would be an indication to address them pharmacologically. He does not need any kind of inpatient psychiatric care at this point, and he may return and have followup with his outpatient psychiatrist and neurologist. TRANSINT:[id number] Voice Confirmation ID: [id number] DOCUMENT ID: [id number] CONSULT REPORT [id number] DASHAWN REID PETER MD at 1129 CC: [id number] DICTATION DATE: 04/05/18 1001 INTEGRITY SPECIALIST: 04/05/18 1052 ADM IN [place] [address] [place] [address]
--- NOTE | ~2018-04-04 | MORECARE ---
CASE MANAGEMENT DISCHARGE SUMMARY PATIENT: DASHAWN REID UNIT: [id number] ADM DATE: 04/05/18 AGE: 62 : 53 SEX: M ROOM/BED: D.2220 AUTHOR: DONOVAN OCONNELL PHYSICIAN: REFERRING PHYSICIAN: DONALD AVILES MD DATE OF SERVICE: 04/06/18 Discharge Plan Patient Name: DASHAWN REID Facility: [facility]:[place] : 1955 Planned Disposition: Home Anticipated Discharge Date: 04/06/18 Discharge Date: Expected LOS: 1 Initial Reviewer: [email or web address] Initial Review Date: 04/06/2018 Generated: 04/06/18 4:49 pm Comments DCP- Discharge Planning Updated by [email or web address]: Lamar Ziegler on 04/06/18 2:[address] Patient Name: DASHAWN REID Admission Status: ER Accout number: [id number] Admission Date: 04-05-2018 : 1955 Admission Diagnosis: Attending: DONALD AVILES Current LOS: 1 Anticipated DC Date: 04-06-2018 Planned Disposition: Primary Insurance: [employer] Discharge Planning Comments: CM MET WITH PATIENT ABOUT DC PLANNING/NEEDS. DENIES NEEDS AT THIS TIME. STATES USES A CANE AT HOME. CALLED TO LET KNOW HE IS BEING DISCHARGED TODAY. SHE STATES SHE WILL PICK HIM UP. HER NAME IS WALLY AND HER PHONE NUMBER IS [phone]. CM WILL FOLLOW AND ASSIST NEEDED WITH DC PLANNING/NEEDS. Qualification Engineer: Lamar Ziegler Appended by Lamar Ziegler on 04/06/2018 15:41 RAILROAD DINING CAR STEWARDESS: STATES THEIR MARKET RESEARCHER ORLANDOTER JOE WILL BE PICKING UP HER WHEN DISCHARGED. MR. DIAZ'S PHONE NUMBER IS [phone] , . STATES SHE WILL CALL MARKET RESEARCHER TO PICK HIM UP IN APPROX ONE HOUR. DCPIA - Discharge Planning Initial Assessment Updated by [email or web address]: Lamar Ziegler on 04/06/18 3:29 pm * Is the patient Alert and Oriented? Yes * PCP [facility] * Pharmacy WANTS PRESCRIPTIONS ON PAPER * Preadmission Environment Home with Family * ADLs Independent * Equipment Cane * List name and contact numbers for known caregivers / representatives who currently or will assist patient after discharge: MEGAN LO, * Community resources currently utilized None * Additional services required to return to the preadmission environment? No * Can the patient safely return to the preadmission environment? Yes * Has this patient been hospitalized within the prior 30 days at any hospital? No Last DP export: 04/06/18 2:41 Patient Name: DASHAWN REID Page 94003 at 1549 All edits/amendments must be made on the electronic document DICTATION DATE: 04/06/181547 MANGANESE WHEELER: KATIE 04/06/181547 RPT#: [id number] DC DATE: STATUS: ADM IN [facility] [address] [place] [address] END OF REPORT
[~2018-04-04 18:45] MED LIST changes: +TORADOL10 MG PO
[2018-04-04 19:42] LABS: BASOPHILS 0.2 % (0-2); EOSINOPHILS 3.5 % (0-7); HEMATOCRIT 27.9 % (42.0-54.0); HEMOGLOBIN 8.9 g/dL (13.5-17.5); IMMATURE GRANULOCYTES 0.2 % (0-5); LYMPHOCYTES 33.9 % (15-50); MCH 31.2 pg (26.0-34.0); MCHC 31.9 g/dL (31.0-37.0); MCV 97.9 fL (80.0-100.0); MEAN PLATELET VOLUME 13.7 fL (7.4-10.4); MONOCYTES 7.6 % (2-11); NEUTROPHILS 54.6 % (40-80); PLATELET COUNT 72 10x3/uL (130-400); RBC 2.85 10x6/uL (4.20-6.10); RDW 13.7 % (11.5-14.5); WBC 4.9 10x3/uL (4.8-10.8)
[2018-04-04 19:58] LABS: ALBUMIN 2.7 g/dL (3.4-5.0); BILIRUBIN - TOTAL 0.2 mg/dL (0.2-1.3); CALCIUM 7.6 mg/dL (8.5-10.1); CREATININE - SERUM 2.2 mg/dL (0.6-1.3); PROTEIN - SERUM 6.4 g/dL (6.4-8.2)
[2018-04-04 20:10] LABS: PLATELET ESTIMATE DECREASED
[2018-04-04 20:22] LABS: APPEARANCE CLEAR (CLEAR); COLOR YELLOW (YELLOW); SPECIFIC GRAVITY 1.015 (1.005-1.020)
[2018-04-04 20:23] LABS: BILIRUBIN NEGATIVE (NEGATIVE); GLUCOSE 100 mg/dL (NEGATIVE); KETONE NEGATIVE (NEGATIVE); NITRITE NEGATIVE (NEGATIVE); PROTEIN 1+ mg/dL (NEGATIVE); UROBILINOGEN NORMAL (NORMAL)
[2018-04-04 20:37] LABS: UDS - AMPHET NEGATIVE QUAL (NEGATIVE); UDS - BARB POSITIVE QUAL (NEGATIVE); UDS - BENZO NEGATIVE QUAL (NEGATIVE); UDS - COCAINE NEGATIVE QUAL (NEGATIVE); UDS - OPIATE NEGATIVE QUAL (NEGATIVE); UDS - PCP NEGATIVE QUAL (NEGATIVE); UDS - THC NEGATIVE QUAL (NEGATIVE)
[2018-04-04] MEDS ORDERED: NOVOLOG100 UNIT/1 SQ (23:25)
[2018-04-04] MEDS ORDERED: BENADRYL25 MG PO (23:30)
[2018-04-05] VITALS: BP 166/72
[2018-04-05 00:23] VITALS: BP 166/72; BMI 23.8
[2018-04-05 04:00] VITALS: BP 146/72
[2018-04-05 08:30] VITALS: BP 164/74
[2018-04-05 10:15] LABS: BASOPHILS 0.5 % (0-2); EOSINOPHILS 3.3 % (0-7); HEMATOCRIT 25.7 % (42.0-54.0); HEMOGLOBIN 8.1 g/dL (13.5-17.5); IMMATURE GRANULOCYTES 0.2 % (0-5); LYMPHOCYTES 40.8 % (15-50); MCH 30.9 pg (26.0-34.0); MCHC 31.5 g/dL (31.0-37.0); MCV 98.1 fL (80.0-100.0); MEAN PLATELET VOLUME 13.4 fL (7.4-10.4); MONOCYTES 5.6 % (2-11); NEUTROPHILS 49.6 % (40-80); PLATELET COUNT 65 10x3/uL (130-400); RBC 2.62 10x6/uL (4.20-6.10); RDW 13.8 % (11.5-14.5); WBC 4.3 10x3/uL (4.8-10.8)
[2018-04-05 10:16] LABS: ANION GAP 12.4 mmol/L (8-16); CARBON DIOXIDE 24.8 mmol/L (21.0-32.0); CREATININE - SERUM 2.1 mg/dL (0.6-1.3); POTASSIUM - SERUM 4.2 mmol/L (3.5-5.1)
[2018-04-05 12:51] VITALS: Ht 185.4 cm; Wt 81.8 kg
[2018-04-05 14:15] VITALS: BP 158/75
[2018-04-05 15:39] LABS: % SATURATION 21 % (15-55); IRON 42 ug/dl (35-150); TOTAL IRON BIND CAPACITY 197 ug/dl (260-445); UNSAT IRON BIND CAPACITY 155 ug/dl (150-375)
[2018-04-05 20:00] VITALS: BP 165/69
[2018-04-06] VITALS: BP 124/57
[2018-04-06 04:00] VITALS: BP 104/67
[2018-04-06 07:30] LABS: BASOPHILS 0.3 % (0-2); EOSINOPHILS 3.1 % (0-7); HEMATOCRIT 25.5 % (42.0-54.0); HEMOGLOBIN 8.2 g/dL (13.5-17.5); IMMATURE GRANULOCYTES 0.3 % (0-5); LYMPHOCYTES 32.1 % (15-50); MCH 31.5 pg (26.0-34.0); MCHC 32.2 g/dL (31.0-37.0); MCV 98.1 fL (80.0-100.0); MEAN PLATELET VOLUME 13.9 fL (7.4-10.4); MONOCYTES 7.6 % (2-11); NEUTROPHILS 56.6 % (40-80); PLATELET COUNT 63 10x3/uL (130-400); RDW 13.8 % (11.5-14.5); WBC 3.3 10x3/uL (4.8-10.8)
[2018-04-06 07:43] LABS: ANION GAP 13.5 mmol/L (8-16); CALCIUM 7.5 mg/dL (8.5-10.1); CARBON DIOXIDE 22.8 mmol/L (21.0-32.0); CREATININE - SERUM 1.9 mg/dL (0.6-1.3); POTASSIUM - SERUM 4.3 mmol/L (3.5-5.1)
[2018-04-06 09:03] VITALS: BP 109/35
[2018-04-06 12:30] VITALS: BP 108/69
[2018-04-06 17:15] VITALS: BP 108/68
[2018-04-08 07:10] LABS: FOLATE (FOLIC ACID) - SERUM >20.0 ng/mL (>3.0)
== END 2018-04-06 18:22 | disposition home or self-care (01) | DRG 92 ==
LOC: D.ER 18:45 → D.MS 22:42 → OBSVTIME 22:42 → D.MS 04-05 11:57
PROVIDERS: Family Medicine; Internal Medicine Nephrology
DX: G92 Toxic encephalopathy (principal); N17.9 Acute kidney failure, unspecified; T45.0X5A Adverse effect of antiallergic and antiemetic drugs, initial encounter; G20 Parkinson's disease; D64.9 Anemia, unspecified; E86.0 Dehydration; I10 Essential (primary) hypertension; E11.9 Type 2 diabetes mellitus without complications; I25.10 Atherosclerotic heart disease of native coronary artery without angina pectoris; J44.9 Chronic obstructive pulmonary disease, unspecified; F31.9 Bipolar disorder, unspecified

== ENCOUNTER 2018-04-25 22:03 | Inpatient (IN) | payer MEDICARE ==
[~2018-04-25] VITALS: Ht 185.4 cm; Wt 83.9 kg
[~2018-04-25 22:03] MED LIST changes: +NOVOLOG100 UNIT/1 SQ
[2018-04-25 22:53] LABS: BASOPHILS 0.2 % (0-2); EOSINOPHILS 3.8 % (0-7); IMMATURE GRANULOCYTES 0.2 % (0-5); MCH 30.6 pg (26.0-34.0); MCV 98.6 fL (80.0-100.0); MONOCYTES 9.9 % (2-11); NEUTROPHILS 50.9 % (40-80); RBC 2.94 10x6/uL (4.20-6.10); RDW 14.1 % (11.5-14.5); WBC 4.3 10x3/uL (4.8-10.8)
[2018-04-25 22:59] LABS: APPEARANCE CLEAR (CLEAR); BILIRUBIN NEGATIVE (NEGATIVE); COLOR YELLOW (YELLOW); GLUCOSE 50 mg/dL (NEGATIVE); KETONE NEGATIVE (NEGATIVE); NITRITE NEGATIVE (NEGATIVE); PROTEIN TRACE mg/dL (NEGATIVE); UROBILINOGEN NORMAL (NORMAL)
[2018-04-25 23:05] LABS: PLATELET COUNT 86 10x3/uL (130-400)
[2018-04-25 23:06] LABS: APTT 31.4 SECONDS (22.8-39.4); INR 1.11 (0.85-1.17); PROTIME 13.8 SECONDS (11.6-15.0)
[2018-04-25 23:19] LABS: ALBUMIN 2.8 g/dL (3.4-5.0); ANION GAP 15.2 mmol/L (8-16); BILIRUBIN - TOTAL 0.31 mg/dL (0.2-1.3); CALCIUM 7.6 mg/dL (8.5-10.1); CARBON DIOXIDE 22.7 mmol/L (21.0-32.0); CREATININE - SERUM 2.2 mg/dL (0.6-1.3); POTASSIUM - SERUM 3.9 mmol/L (3.5-5.1); PROTEIN - SERUM 6.6 g/dL (6.4-8.2)
[2018-04-25 23:38] LABS: PLATELET ESTIMATE DECREASED
[2018-04-26] VITALS (11 sets, daily range): BP systolic 100–162; BP diastolic 61–86; Ht 185.4 cm; Wt 83.9 kg
[2018-04-26 00:18] LABS: CREATINE KINASE 271 UL (21-232); LIPASE 747 U/L (73-393); PRO BNP 10303 pg/mL (0-125)
[2018-04-26 00:19] LABS: CKMB 2.7 U/L (0.0-3.6); TROPONIN-I < 0.017 ng/mL (0.000-0.060)
--- NOTE | 2018-04-26 01:56 | NUR ---
NO CHANGES NOTED AT THIS TIME. WILL MONITOR
--- NOTE | 2018-04-26 02:26 | NUR ---
EKG COMPLETED AT THIS TIME. PT REQUESTING PAIN MEDICATION, MD AWARE. NO NEW ORDERS AT THIS TIME. MD SIGNED PT EKG, NO NEW ORDERS
--- NOTE | 2018-04-26 03:48 | NUR ---
REPORT GIVEN TO DENNIS ROSEN
--- NOTE | 2018-04-26 04:15 | NUR ---
PT ARRIVED ON UNIT VIA WHEELCHAIR ESCORTED BY ER NURSE. POSITIONED IN BED FOR COMFORT AND ORIENTED TO ROOM AND CALL LIGHT. GAVE SHACK OF DIET LEMON KEWEENAW SODA AND SUGAR FREE JELLO X2. WILL MONITOR FOR NEEDS.
--- NOTE | 2018-04-26 04:31 | NUR ---
ADMISSION ASSESSMENT AND HISTORY COMPLETE. HOME MEDICATION RECONCILLIATION COMPLETE.
--- NOTE | 2018-04-26 07:20 | NUR ---
PATIENT IN BED WIHT NO COMPLAINTS OR SIGNS OF DISTRESS. IV INTACT. CALL LIGHT WITHIN REACH.
[2018-04-26 09:57] LABS: BASOPHILS 0.3 % (0-2); HEMATOCRIT 28.1 % (42.0-54.0); HEMOGLOBIN 8.9 g/dL (13.5-17.5); IMMATURE GRANULOCYTES 0.3 % (0-5); LYMPHOCYTES 29.3 % (15-50); MCHC 31.7 g/dL (31.0-37.0); MCV 97.9 fL (80.0-100.0); MEAN PLATELET VOLUME 13.1 fL (7.4-10.4); MONOCYTES 7.5 % (2-11); NEUTROPHILS 59.6 % (40-80); PLATELET COUNT 84 10x3/uL (130-400); RBC 2.87 10x6/uL (4.20-6.10); RDW 14.1 % (11.5-14.5); WBC 3.6 10x3/uL (4.8-10.8)
[2018-04-26 10:11] LABS: ALBUMIN 2.7 g/dL (3.4-5.0); ANION GAP 15.5 mmol/L (8-16); BILIRUBIN - TOTAL 0.43 mg/dL (0.2-1.3); CALCIUM 7.9 mg/dL (8.5-10.1); CARBON DIOXIDE 24.6 mmol/L (21.0-32.0); POTASSIUM - SERUM 4.1 mmol/L (3.5-5.1); PROTEIN - SERUM 6.4 g/dL (6.4-8.2)
[2018-04-26 11:57] LABS: PLATELET ESTIMATE DECREASED
--- NOTE | 2018-04-26 19:15 | NUR ---
REPORT RECEIVED AND CARE OF PT ASSUMED. PT LYING ON RIGHT SIDE WATCHING TV. IV TO LEFT AC PATENT WITH 1/2 NS INFUSING AT 50 ML / HR. TELEMETRY IN PLACE AND READING SR AT THIS TIME. WILL MONITOR ALESHIALEY FOR NEEDS.
--- NOTE | 2018-04-26 21:27 | NUR ---
HS MEDICATIONS GIVEN. FSBS 207 THIS CHECK REQUIRING COVERAGE WITH 4 UNITS OF INSULIN PER SLIDING SCALE. HS SNACK GIVEN. WILL CONTINUE TO MONITOR FOR NEEDS.
[2018-04-27] VITALS: BP 133/69
[2018-04-27 04:00] VITALS: BP 155/84
[2018-04-27 07:34] LABS: BASOPHILS 0.4 % (0-2); EOSINOPHILS 3.9 % (0-7); HEMATOCRIT 26.6 % (42.0-54.0); HEMOGLOBIN 8.4 g/dL (13.5-17.5); IMMATURE GRANULOCYTES 0.4 % (0-5); LYMPHOCYTES 28.1 % (15-50); MCHC 31.6 g/dL (31.0-37.0); MCV 98.2 fL (80.0-100.0); MEAN PLATELET VOLUME 13.9 fL (7.4-10.4); MONOCYTES 9.3 % (2-11); NEUTROPHILS 57.9 % (40-80); PLATELET COUNT 79 10x3/uL (130-400); RBC 2.71 10x6/uL (4.20-6.10); RDW 14.3 % (11.5-14.5); WBC 2.8 10x3/uL (4.8-10.8)
[2018-04-27 08:00] VITALS: BP 140/66
[2018-04-27 08:02] LABS: ALBUMIN 2.4 g/dL (3.4-5.0); ANION GAP 15.7 mmol/L (8-16); BILIRUBIN - TOTAL 0.32 mg/dL (0.2-1.3); CALCIUM 7.6 mg/dL (8.5-10.1); CARBON DIOXIDE 23.3 mmol/L (21.0-32.0); CREATININE - SERUM 1.8 mg/dL (0.6-1.3); PROTEIN - SERUM 5.7 g/dL (6.4-8.2)
--- NOTE | 2018-04-27 08:31 | NUR ---
PT LAYING IN BED RESTING ON HIS LEFT SIDE, AWAKE AND ALERT. PT IS ALERT AND ORIENTED, AND IS ASKING WHEN HE WILL BE ABLE TO HAVE SOME SOLID FOODS. EXPLAINED TO PT THAT WE WILL WAIT FOR THE CONSULTED GI DOCTOR TO COME AND SPEAK AND EXPLAIN WHAT TESTS HE WOULD LIKE DONE. PT VOICES UNDERSTANDING. RESPIRATIONS EVEN AND UNLABORED, NO S/S OF DISTRESS NOTED, LCTA. BED LOW AND LOCKED, SR UP X2, CL IN EASY REACH. DENIES FURTHER NEEDS. WILL CONTINUE TO MONITOR THROUGHOUT THE DAY.
[2018-04-27 12:00] VITALS: BP 139/82
--- NOTE | 2018-04-27 17:07 | NUR ---
PT SPOKEN WITH ABOUT DR. UNDERWOOD'S PLANS FOR TOMORROW AFTERNOON. CONSENTS SIGNED FOR EGD TOMORROW WITH TIJANETH. PT'S QUESTIONS ANSWERED APPROPRIATELY. DENIES FURTHER NEEDS. CL IN EASY REACH.
--- NOTE | 2018-04-27 18:06 | NUR ---
DENIES ANY ABDOMINAL PAIN OR DISCOMFORT. IVF INFUSING AT PRESCRIBED RATED TEMEMETRY SR 83. ENCOURAGED TO USE CALL LIGHT FOR ASSIST.
--- NOTE | 2018-04-27 19:00 | NUR ---
REPORT RECEIVED AND CARE OF PT ASSUMED. PT LYING IN SUPINE POSITION WATCHING TV. IV IN LEFT AC PATENT WITH 1/2 NS INFUSING AT 50 ML / HR. TELEMETRY IN PLACE. WILL MONITOR FOR NEEDS.
--- NOTE | 2018-04-27 20:29 | NUR ---
HS MEDICATIONS GIVEN. FSBS 245 THIS CHECK REQUIRING COVERAGE WITH 4 UNITS OF INSULIN PER SLIDING SCALE. WILL CONTINUE TO MONITOR FOR NEEDS.
--- NOTE | 2018-04-27 20:40 | NUR ---
GAVE HS SNACK OF PUDDING. WILL CONTINUE TO MONITOR FOR NEEDS.
[2018-04-27 21:02] VITALS: BP 165/87
--- NOTE | 2018-04-27 21:15 | NUR ---
APPLIED LOTION TO LEGS FOR C/O ITCHING.
[2018-04-28 00:43] VITALS: BP 148/74
[2018-04-28 04:00] VITALS: BP 124/79
[2018-04-28 06:01] LABS: BASOPHILS 0.3 % (0-2); EOSINOPHILS 3.4 % (0-7); HEMATOCRIT 26.4 % (42.0-54.0); HEMOGLOBIN 8.2 g/dL (13.5-17.5); LYMPHOCYTES 25.3 % (15-50); MCH 30.4 pg (26.0-34.0); MCHC 31.1 g/dL (31.0-37.0); MCV 97.8 fL (80.0-100.0); MEAN PLATELET VOLUME 13.3 fL (7.4-10.4); MONOCYTES 9.9 % (2-11); NEUTROPHILS 61.1 % (40-80); PLATELET COUNT 71 10x3/uL (130-400); RDW 14.1 % (11.5-14.5); WBC 3.2 10x3/uL (4.8-10.8)
[2018-04-28 06:35] LABS: ALBUMIN 2.4 g/dL (3.4-5.0); ANION GAP 11.3 mmol/L (8-16); BILIRUBIN - TOTAL 0.37 mg/dL (0.2-1.3); CALCIUM 7.8 mg/dL (8.5-10.1); CARBON DIOXIDE 25.7 mmol/L (21.0-32.0); PROTEIN - SERUM 5.7 g/dL (6.4-8.2)
--- NOTE | 2018-04-28 07:46 | NUR ---
PT OFF FLOOR FOR PROCEDURES AT THIS TIME. WAS IN STABLE CONDITION.
--- NOTE | 2018-04-28 08:06 | NUR ---
RETURNING FROM PROCEDURE AWAKE AND ALERT. RESP EVEN AND UNLABORED WITH NO DISTRESS NOTED. NO C/O NOTED OR VOICED. ASSESSMENT COMPLETED. C/L IN REACH AT BEDSIDE.
[2018-04-28 08:45] LABS: PLATELET ESTIMATE DECREASED
[2018-04-28] MEDS ORDERED: Nystatin Oral Susp [ PO (11:19)
[2018-04-28] MEDS ORDERED: LEVOFLOXACIN500 MG PO (11:22)
--- NOTE | 2018-04-28 11:56 | MORECARE ---
CASE MANAGEMENT DISCHARGE SUMMARY PATIENT: DASHAWN REID UNIT: [id number] ADM DATE: 04/26/18 AGE: 62 : 53 SEX: M ROOM/BED: D.2216 AUTHOR: DONOVAN OCONNELL PHYSICIAN: REFERRING PHYSICIAN: MAGALI CLEANING MD DATE OF SERVICE: 04/28/18 Discharge Plan Patient Name: DASHAWN REID Facility: [facility]:[place] : 1955 Planned Disposition: Home Anticipated Discharge Date: Discharge Date: Expected LOS: Initial Reviewer: [email or web address] Initial Review Date: 04/26/2018 Generated: 04/28/18 12:56 pm Comments DCP- Discharge Planning Updated by [email or web address]: Kailey Granger on 04/28/18 10:[address] Patient Name: DASHAWN REID Admission Status: ER Accout number: [id number] Admission Date: 04-26-2018 : 1955 Admission Diagnosis: Attending: MAGALI CLEANING Current LOS: 2 Anticipated DC Date: Planned Disposition: Home Primary Insurance: MEDICARE PART A ONLY Discharge Planning Comments: CM MET WITH PATIENT AND TO ASSESS DSICHARGE PLANNING NEEDS. PATIENT STATED THAT HE IS INDEPENDENT WITH HIS CARE AT HOME AND DENIES ANY NEEDS AT THIS TIME. HE HAS A BEDSIDE COMMODE AND A CANE. HIS IS AT THE BEDSIDE AND STATED THAT THEY HAVE A BACTERIOLOGIST DAIRY TO TAKE THEM HOME. HIS HOME IS SAFE TO RETURN. CM WILL CONTINUE TO FOLLOW AND ASSIST WITH DC PLANNING NEEDED PT DISCHARGING HOME TODAY Truck Shop Supervisor: Kailey Granger DCPIA - Discharge Planning Initial Assessment Updated by [email or web address]: Kailey Granger on 04/28/18 11:51 am * Is the patient Alert and Oriented? Yes * How many steps to enter\exit or inside your home? * [facility]CP [facility]acy [facility] * Preadmission Environment Home with Family * ADLs Independent * Equipment Bedside Commode Cane * List name and contact numbers for known caregivers / representatives who currently or will assist patient after discharge: WALLY REID () [phone] * Verbal permission to speak to the caregivers and representatives has been obtained from the patient. Yes * Community resources currently utilized [facility] * Additional services required to return to the preadmission environment? No * Can the patient safely return to the preadmission environment? Yes * Has this patient been hospitalized within the prior 30 days at any hospital? Yes Patient Name: DASHAWN REID Page [phone] at 1156 All edits/amendments must be made on the electronic document DICTATION DATE: 04/28/18 1156 HOT IRON WORKER: KATIE 04/28/18 1156 RPT#: [id number] DC DATE: STATUS: ADM IN [facility] [address] [place] [address] END OF REPORT
--- NOTE | 2018-04-28 11:58 | NUR ---
PT IS WITHOUT DISTRESS. HE IS READY TO DC HOME
[2018-04-28 12:09] VITALS: BP 153/76
--- NOTE | 2018-04-28 12:26 | NUR ---
PT DC HOME AT THIS TIME WITH NO C/O NOTED OR VOICED. IV DC. VOICE UNDERSTANDING OF DC ORDERS. AT BEDSIDE.
--- NOTE | 2018-04-29 14:32 | MORECARE ---
CASE MANAGEMENT DISCHARGE SUMMARY PATIENT: DASHAWN REID UNIT: [id number] ADM DATE: 04/26/18 AGE: 62 : 51 SEX: M ROOM/BED: D.2216 AUTHOR: DONOVAN OCONNELL PHYSICIAN: REFERRING PHYSICIAN: MAGALI CLEANING MD DATE OF SERVICE: 04/29/18 Discharge Plan Patient Name: DASHAWN REID Facility: [facility]:[place] : 1955 Planned Disposition: Home Anticipated Discharge Date: Discharge Date: 04/28/2018 Expected LOS: 0 Initial Reviewer: [email or web address] Initial Review Date: 04/26/2018 Generated: 04/29/18 3:32 pm Comments DCP- Discharge Planning Updated by [email or web address]: Kailey Granger on 04/28/18 10:[address] Patient Name: DASHAWN REID Admission Status: ER Accout number: [id number] Admission Date: 04-26-2018 : 1955 Admission Diagnosis: Attending: MAGALI CLEANING Current LOS: 2 Anticipated DC Date: Planned Disposition: Home Primary Insurance: MEDICARE PART A ONLY Discharge Planning Comments: CM MET WITH PATIENT AND TO ASSESS DSICHARGE PLANNING NEEDS. PATIENT STATED THAT HE IS INDEPENDENT WITH HIS CARE AT HOME AND DENIES ANY NEEDS AT THIS TIME. HE HAS A BEDSIDE COMMODE AND A CANE. HIS IS AT THE BEDSIDE AND STATED THAT THEY HAVE A HOTEL OFFICE MANAGER TO TAKE THEM HOME. HIS HOME IS SAFE TO RETURN. CM WILL CONTINUE TO FOLLOW AND ASSIST WITH DC PLANNING NEEDED PT DISCHARGING HOME TODAY Stock Broker: Kailey Granger DCPIA - Discharge Planning Initial Assessment Updated by [email or web address]: Kailey Granger on 04/28/18 11:51 am * Is the patient Alert and Oriented? Yes * How many steps to enter\exit or inside your home? * [facility]CP [facility] * Pharmacy [facility] * Preadmission Environment Home with Family * ADLs Independent * Equipment Bedside Commode Cane * List name and contact numbers for known caregivers / representatives who currently or will assist patient after discharge: WALLY REID () [phone] * Verbal permission to speak to the caregivers and representatives has been obtained from the patient. Yes * Community resources currently utilized [facility] Services * Additional services required to return to the preadmission environment? No * Can the patient safely return to the preadmission environment? Yes * Has this patient been hospitalized within the prior 30 days at any hospital? Yes Last DP export: 04/28/18 10:56 a Patient Name: DASHAWN REID Page [phone] at 1432 All edits/amendments must be made on the electronic document DICTATION DATE: 04/29/181431 HOOP PUNCHER: KATIE 04/29/181431 RPT#: [id number] DC DATE:04/28/18 STATUS: DIS IN [facility] [address] [place] [address] END OF REPORT
== END 2018-04-28 12:27 | disposition home or self-care (01) | DRG 377 ==
LOC: D.ER 22:03 → D.EDHOLD 04-26 00:51 → D.MS 04-26 00:51 → OBSVTIME 04-26 00:51 → D.MS 04-26 03:30
PROVIDERS: Emergency Medicine; Family Medicine; Internal Medicine Gastroenterology; ADMIT Family Medicine
PROC: 0DJ08ZZ Inspection of Upper Intestinal Tract, Via Natural or Artificial Opening Endoscopic (ICD-10-PCS; principal; 2018-04-28 07:47)
DX: K92.2 Gastrointestinal hemorrhage, unspecified (principal); J69.0 Pneumonitis due to inhalation of food and vomit; J18.1 Lobar pneumonia, unspecified organism; B37.81 Candidal esophagitis; D61.818 Other pancytopenia; N17.9 Acute kidney failure, unspecified; J44.0 Chronic obstructive pulmonary disease with (acute) lower respiratory infection; I13.0 Hypertensive heart and chronic kidney disease with heart failure and stage 1 through stage 4 chronic kidney disease, or unspecified chronic kidney disease; K21.0 Gastro-esophageal reflux disease with esophagitis; K29.70 Gastritis, unspecified, without bleeding; D64.9 Anemia, unspecified; J44.9 Chronic obstructive pulmonary disease, unspecified; N40.0 Benign prostatic hyperplasia without lower urinary tract symptoms; E11.65 Type 2 diabetes mellitus with hyperglycemia; E11.22 Type 2 diabetes mellitus with diabetic chronic kidney disease; N18.9 Chronic kidney disease, unspecified; I50.9 Heart failure, unspecified; I25.10 Atherosclerotic heart disease of native coronary artery without angina pectoris; G20 Parkinson's disease

== ENCOUNTER 2018-10-18 19:21 | Emergency (ER) | payer OTHER ==
[~2018-10-18] VITALS: Ht 185.4 cm; Wt 85.5 kg
[~2018-10-18 19:21] MED LIST changes: +LEVOFLOXACIN500 MG PO; +Nystatin Oral Susp [ PO
[2018-10-18 19:34] VITALS: Ht 185.4 cm; Wt 85.5 kg
[2018-10-18 19:54] LABS: APPEARANCE CLEAR (CLEAR); BILIRUBIN NEGATIVE (NEGATIVE); COLOR STRAW (YELLOW); GLUCOSE NEGATIVE (NEGATIVE); KETONE NEGATIVE (NEGATIVE); NITRITE NEGATIVE (NEGATIVE); PROTEIN 2+ mg/dL (NEGATIVE); RED CELLS - URINE RARE /hpf (0-5); UROBILINOGEN NORMAL (NORMAL); WHITE CELLS - URINE NSEEN /hpf (0-5)
[2018-10-18 20:14] LABS: BASOPHILS 0 % (0-2); EOSINOPHILS 3.3 % (0-7); HEMATOCRIT 24.9 % (42.0-54.0); HEMOGLOBIN 8.2 g/dL (13.5-17.5); IMMATURE GRANULOCYTES 0.5 % (0-5); LYMPHOCYTES 28.6 % (15-50); MCH 31.2 pg (26.0-34.0); MCHC 32.9 g/dL (31.0-37.0); MCV 94.7 fL (80.0-100.0); MEAN PLATELET VOLUME 13.4 fL (7.4-10.4); MONOCYTES 8.8 % (2-11); NEUTROPHILS 58.8 % (40-80); PLATELET COUNT 74 10x3/uL (130-400); RBC 2.63 10x6/uL (4.20-6.10); RDW 14.2 % (11.5-14.5); WBC 4.2 10x3/uL (4.8-10.8)
[2018-10-18 20:33] LABS: ALBUMIN 2.9 g/dL (3.4-5.0); ANION GAP 13.6 mmol/L (8-16); BILIRUBIN - TOTAL 0.33 mg/dL (0.2-1.3); CALCIUM 7.6 mg/dL (8.5-10.1); CARBON DIOXIDE 24.3 mmol/L (21.0-32.0); CREATININE - SERUM 2.6 mg/dL (0.6-1.3); POTASSIUM - SERUM 4.9 mmol/L (3.5-5.1); PROTEIN - SERUM 6.2 g/dL (6.4-8.2)
[2018-10-18 21:38] VITALS: BP 120/72
== END 2018-10-18 21:39 | disposition home or self-care (01) ==
LOC: D.ER 19:21
PROVIDERS: Emergency Medicine
DX: D64.9 Anemia, unspecified (principal); I12.9 Hypertensive chronic kidney disease with stage 1 through stage 4 chronic kidney disease, or unspecified chronic kidney disease; N18.9 Chronic kidney disease, unspecified; K59.00 Constipation, unspecified; E11.65 Type 2 diabetes mellitus with hyperglycemia; Z79.4 Long term (current) use of insulin

== ENCOUNTER 2018-10-24 00:21 | Emergency (ER) | payer OTHER, MEDICARE ==
[~2018-10-24] VITALS: Ht 185.4 cm; Wt 85.9 kg
[2018-10-24 00:28] VITALS: Ht 185.4 cm; Wt 85.9 kg
[2018-10-24] MEDS ORDERED: PRINIVIL10 MG PO (00:30)
[2018-10-24 01:03] LABS: BASOPHILS 0.2 % (0-2); EOSINOPHILS 3.1 % (0-7); HEMATOCRIT 27.3 % (42.0-54.0); HEMOGLOBIN 8.8 g/dL (13.5-17.5); IMMATURE GRANULOCYTES 0.2 % (0-5); LYMPHOCYTES 32.3 % (15-50); MCH 31.3 pg (26.0-34.0); MCHC 32.2 g/dL (31.0-37.0); MCV 97.2 fL (80.0-100.0); MONOCYTES 10.8 % (2-11); NEUTROPHILS 53.4 % (40-80); PLATELET COUNT 88 10x3/uL (130-400); RBC 2.81 10x6/uL (4.20-6.10); RDW 14.6 % (11.5-14.5); WBC 4.2 10x3/uL (4.8-10.8)
[2018-10-24 01:05] LABS: APPEARANCE CLEAR (CLEAR); COLOR YELLOW (YELLOW); SPECIFIC GRAVITY 1.015 (1.005-1.020)
[2018-10-24 01:06] LABS: BILIRUBIN NEGATIVE (NEGATIVE); GLUCOSE NEGATIVE (NEGATIVE); KETONE NEGATIVE (NEGATIVE); NITRITE NEGATIVE (NEGATIVE); PROTEIN NEGATIVE (NEGATIVE); UROBILINOGEN NORMAL (NORMAL)
[2018-10-24 01:12] LABS: UDS - AMPHET NEGATIVE QUAL (NEGATIVE); UDS - BARB POSITIVE QUAL (NEGATIVE); UDS - BENZO NEGATIVE QUAL (NEGATIVE); UDS - COCAINE NEGATIVE QUAL (NEGATIVE); UDS - OPIATE NEGATIVE QUAL (NEGATIVE); UDS - PCP NEGATIVE QUAL (NEGATIVE); UDS - THC NEGATIVE QUAL (NEGATIVE)
[2018-10-24 01:21] LABS: ANION GAP 13.9 mmol/L (8-16); BILIRUBIN - TOTAL 0.28 mg/dL (0.2-1.3); CALCIUM 7.7 mg/dL (8.5-10.1); CARBON DIOXIDE 25.8 mmol/L (21.0-32.0); CREATININE - SERUM 2.6 mg/dL (0.6-1.3); POTASSIUM - SERUM 4.7 mmol/L (3.5-5.1); PROTEIN - SERUM 6.6 g/dL (6.4-8.2)
[2018-10-24 01:31] LABS: PLATELET ESTIMATE DECREASED
--- NOTE | 2018-10-24 02:34 | NUR ---
DR. FLORES NOTIFIED AND REVIEWED PT'S BEHAVIOR AND ASSESSMENT RESULTS. PT IS A LOW RISK PER DR FLORES. DR FLORES STATED TO GIVE RESOURCES TO PT A TIME OF DISCHARGE. NO FURTHER ORDERS AT THIS TIME. RESOURCES REVIEWED WITH PT AND HE VERBALIZED UNDERSTANDING.
--- NOTE | 2018-10-24 03:12 | NUR ---
PATIENT DENIES SUICIDAL IDEATIONS AT THIS TIME AND IS ABLE TO VOICE POSITIVE REASONS FOR LIVING. RESOURCES GIVEN.
[2018-10-24 09:31] VITALS: BP 147/71
== END 2018-10-24 09:32 | disposition home or self-care (01) ==
LOC: D.ER 00:21
PROVIDERS: Emergency Medicine
DX: F32.9 Major depressive disorder, single episode, unspecified (principal); D64.9 Anemia, unspecified; D69.6 Thrombocytopenia, unspecified

== ENCOUNTER 2018-11-13 19:54 | Emergency (ER) | payer OTHER, MEDICARE ==
[~2018-11-13] VITALS: Ht 185.4 cm; Wt 84.1 kg
[~2018-11-13 19:54] MED LIST changes: +PRINIVIL10 MG PO
[2018-11-13 20:05] VITALS: Ht 185.4 cm; Wt 84.1 kg
[2018-11-13 20:25] LABS: APPEARANCE CLEAR (CLEAR); BILIRUBIN NEGATIVE (NEGATIVE); COLOR STRAW (YELLOW); GLUCOSE 50 mg/dL (NEGATIVE); KETONE NEGATIVE (NEGATIVE); NITRITE NEGATIVE (NEGATIVE); PROTEIN 2+ mg/dL (NEGATIVE); SPECIFIC GRAVITY 1.015 (1.005-1.020); UROBILINOGEN NORMAL (NORMAL)
[2018-11-13 20:27] LABS: BACTERIA FEW /hpf (NONE SEEN); RED CELLS - URINE 0-5 /hpf (0-5); WHITE CELLS - URINE OCC /hpf (0-5)
[2018-11-13 20:55] LABS: BASOPHILS 0.3 % (0-2); EOSINOPHILS 3.2 % (0-7); HEMATOCRIT 26.4 % (42.0-54.0); HEMOGLOBIN 8.7 g/dL (13.5-17.5); IMMATURE GRANULOCYTES 0.3 % (0-5); LYMPHOCYTES 29.6 % (15-50); MCH 31.9 pg (26.0-34.0); MCV 96.7 fL (80.0-100.0); MONOCYTES 5.5 % (2-11); NEUTROPHILS 61.1 % (40-80); PLATELET COUNT 71 10x3/uL (130-400); RBC 2.73 10x6/uL (4.20-6.10); WBC 3.5 10x3/uL (4.8-10.8)
[2018-11-13 21:09] LABS: ANION GAP 14.9 mmol/L (8-16); BILIRUBIN - TOTAL 0.3 mg/dL (0.2-1.3); CALCIUM 7.3 mg/dL (8.5-10.1); CARBON DIOXIDE 22.2 mmol/L (21.0-32.0); CREATININE - SERUM 2.4 mg/dL (0.6-1.3); POTASSIUM - SERUM 5.1 mmol/L (3.5-5.1); PROTEIN - SERUM 6.3 g/dL (6.4-8.2)
[2018-11-13 21:12] LABS: PLATELET ESTIMATE DECREASED
[2018-11-13 23:29] VITALS: BP 153/57
== END 2018-11-13 23:30 | disposition home or self-care (01) ==
LOC: D.ER 19:54
PROVIDERS: Family Medicine
DX: N23 Unspecified renal colic (principal); R31.9 Hematuria, unspecified; Z87.442 Personal history of urinary calculi

== ENCOUNTER 2019-01-11 23:08 | Inpatient (IN) | payer OTHER, MEDICARE ==
[~2019-01-11] VITALS: Ht 185.4 cm; Wt 83.9 kg
--- NOTE | ~2019-01-11 | HEMODYNAMI ---
PATIENT:DASHAWN REID MEDICAL RECORD: [id number] : [birth year] [facility] [id number] ADMISSION DATE: 01/12/19 Generatedon:01/12/201913:04 Patient name: DASHAWN REID Patient #: [id number] SSN: [id number] : 1955 Date of study: 01/12/2019 Page: Of Hemodynamic Procedure Report Patient Data Patient Demographics Procedure consent was obtained First Name: DASHAWN Gender: Male Last Name: FRANKLIN : 1955 Middle Initial: F Age: 63 year(s) Patient #: [id number] Race: SSN: [id number] Additional ID: [id number] Contact details Address: [place] [address] State: [place] City: [place] Zip code: [address] Past Medical History Allergies Allergen Reaction Date Comments Reported Other allergy Other 01/12/2019 penicillins, morhpine, heparin Admission Admission Data Admission Date: 01/12/2019 Admission Time: 2:04 Arrival Date: 01/12/2019 Arrival Time: 2:04 Admit Source: Emergency Insurance Payor: [employer], Medicare Room #: D.2126 Height (in.): 72.83 BSA: 2.08 (m2) Height (cm.): 185 BMI: 24.54 (kg/m2) Weight (lbs.): 185.19 Weight (kg.): 84 Lab Results Lab Result Date: 01/12/2019 Lab Result Time: 0:00 Biochemistry Name Units Result Min Max BUN mg/dl 54 --(----)-* 7 18 Creatinine mg/dl 2.5 --(----)-* 0.6 1.3 eGFR ml/min 28 *-(----)-- 90 120 NONAFRICAN CBC Name Units Result Min Max Hemoglobin g/dl 8.4 *-(----)-- 13.5 17.5 Procedure Procedure Types Cath Procedure Diagnostic Procedure LHC LHC w/Coronaries w/Grafts Sedation Charges Moderate Sedation up to 15 minutes PCI Procedure AMI/SVG/EXPANDER PTCA or Stent SVG-BMS/MODESTO Initial Procedure Description Procedure Date Procedure Date: 01/12/2019 Procedure Start Time: 12:36 Procedure End Time: 12:58 Procedure Staff Name Function Guero Todd MD Performing Physician Na Renteria RT Monitor Kelle Batista RT Monitor Tyler Robison RN Nurse Madhavi Guaman RT Scrub Indication Angina Procedure Data Cath Procedure Fluoroscopy Diagnostic fluoroscopy Total fluoroscopy Time: 4.8 time: 4.8 min min Diagnostic fluoroscopy Total fluoroscopy dose: 943 dose: 943 mGy mGy Contrast Material Contrast Material Type Amount (ml) Isovue 300 127 Entry Location Entry Primary Successful Side Size Upsize Upsize Entry Closure Succes sful Closure Location (Fr) 1 (Fr) 2 (Fr) Remarks Device Remarks Femoral Right 5 Fr 6 Fr Exoseal artery Short Estimated blood loss: 10 ml Diagnostic catheters Device Type Used For End Catheter Placement MULTIPACK Pigtail 5 Fr Procedure catheter MULTIPACK JL 4.0 5Fr Procedure catheter MULTIPACK 3DRC 5Fr Procedure catheter DIAGNOSTIC AR2 MOD 5 Fr Procedure catheter ([id number]) Procedure Complications No complications Procedure Medications Medication Administration Route Dosage 0.9% NaCl I.V. 100 ml/hr Oxygen etCO2 Nasal cannula 2 l/min Heparin Flush Bag added to field 1 bags (1000units/500ml NS) Lidocaine 2% added to field 20 Versed I.V. 1 mg Fentanyl I.V. 50 mcg Heparin Bolus I.V. 4000 units Integrilin (Bolus I.V. 7.3 ml 2mg/ml) Integrilin (Bolus wasted 2.7 ml 2mg/ml) Plavix P.O. 600 mg Hemodynamics Rest BSA: 2.08 (m2) HGB: 8.4 (g/dl) O2 Consumption: Estimated: 239.73 (ml/min) O2 Con sumption indexed: Estimated:115.25 (ml/min/m) Heart Rate: 66 (bpm) Snapshots Pre Cath Intra NCS Post Cath Vital Signs Time Heart Resp SPO2 etCO2 NIBP (mmHg) Rhythm Pain Sedation Rate (ipm) (%) (mmHg) Status Level (bpm) 12:28:09 0 17 100 33.8 168/80(134) NSR 0 (11) 10(A) , No pain 12:32:29 11 14 99 34.6 152/79(126) NSR 0 (11) 10(A) , No pain 12:36:45 17 15 100 36.8 153/78(119) NSR 0 (11) 10(A) , No pain 12:40:59 23 10 100 39.1 159/83(134) NSR 0 (11) 10(A) , No pain 12:45:15 15 18 100 37.6 159/85(127) NSR 0 (11) 10(A) , No pain 12:49:33 18 10 100 36.8 158/79(131) NSR 0 (11) 10(A) , No pain 12:53:49 13 11 100 36.1 162/82(132) NSR 0 (11) 10(A) , No pain 12:58:07 13 12 100 36 166/80(131) NSR 0 (11) 10(A) , No pain Medications Time Medication Route Dose Verified Delivered Reason Notes Effectiveness by by 12:31:18 0.9% NaCl I.V. 100 Tyler Tyler Per physician ml/hr Ricki Robison RN RN 12:31:35 Oxygen etCO2 2 Tyler Tyler for low 02 sats Nasal l/min Ricki Robison cannula RN RN 12:31:55 Heparin Flush added 1 Tyler Tyler used for Bag to bags Ricki Robison procedure (1000units/500ml RN RN NS) 12:32:06 Lidocaine 2% added 20ml Tyler Tyler for local to vial Ricki Robison anesthetic RN RN 12:36:15 Versed I.V. 1 mg Tyler Tyler for sedation Ricki Robison RN RN 12:36:23 Fentanyl I.V. 50 Tyler Tyler for sedation mcg Ricki Robison RN RN 12:48:05 Heparin Bolus I.V. 4000 Tyler Tyler for units Ricki Robison anticoagulation RN RN 12:48:26 Integrilin I.V. 7.3 Tyler Tyler for (Bolus 2mg/ml) ml Ricki Robison antiplatelet RN RN therapy 12:48:42 Integrilin wasted 2.7ml Tyler Tyler to sharp's (Bolus 2mg/ml) Ricki Robison RN RN 12:54:44 Plavix P.O. 600 Tyler Tyler for mg Ricki Robison antiplatelet RN RN therapy Procedure Log Time Note 12::19 Informed consent obtained and on chart 12::39 Diagnostic Cath Status : Urgent 12::44 Indication : Angina 12:09:00 Madhavi Guaman RT(R) sent for patient. Start room use. 12:09:03 Time tracking: Regular hours (M-F 7:00 - 5:00) 12:09:12 Plan of Care:Hemodynamics will remain stable., Cardiac rhythm will remain stable., Comfort level will be maintained., Respiratory function will remain adequate., Patient/ family verbilizes understanding of procedure., Procedure tolerated without complication., Recovers from procedure without complications.. 12::39 ACC Patient presents with Unstable Angina CCS Anginal Class 4--Inability to carry out any physical activity w/o angina. Angina may occur at rest. 12:10:01 ACCPatient has been prescribed/administered the following anti-anginal medication within the last 2 weeks: Beta Holden, Calcium Channel Blockers, Long-Acting Nitrates, BRETT-Inhibitor 12:12:24 Admit Source: Emergency department 12:12:52 Arrival Date: 01/12/2019 2:04:00 AM 12:13:03 Insurance Payor : Medicare, [facility] 12:13:21 Patient Height : 72.83 inches 12:13:26 Patient Weight : 185.19 lbs 12:15:31 Lab Result : BUN 54 mg/dl 12:15:31 Lab Result : eGFR NONAFRICAN 28 ml/min 12:15:31 Lab Result : Hemoglobin 8.4 g/dl 12:15:31 Lab Result : Creatinine 2.5 mg/dl 12:17:44 4) 15-29 Carmitaley reduced kidney function. 12:17:51 Maximum allowable contrast dose (3.7 X eGFR X 0.75)77 ml. 12:18:56 Patient received from Med II to CCL 2 Alert and oriented. Tansferred to table in Supine position. 12:18:58 Warm blankets applied, and sakshi hugger turned on for patient comfort. 12:18:59 Correct patient and procedure confirmed by team. 12:19:00 ECG and BP/O2 sat monitors applied to patient. 12:26:58 Vital chart was started 12:27:01 Baseline sample Acquired. 12:27:12 Rhythm: sinus rhythm 12:27:15 Full Disclosure recording started 12::16 - 12::24 Pre-procedure instructions explained to patient. 12::25 Pre-op teaching completed and patient verbalized understanding. 12::44 Patient NPO since Midnight. 12::42 Patient allergic to Other allergypenicillins, morhpine, heparin 12::58 Family in patients room. 12:29:16 H&P Date Dictated: 01/12/2019 New H&P dictated by physician.. 12:29:25 Is the patient allergic to Iodine/contrast media? No. 12:29:41 Was the patient premedicated? Yes 12::53 Is patient on blood thinner?No 12::58 Patient diabetic? Yes. 12:30:01 If diabetic: On Metformin? No 12:30:10 ----Pre-sedation anethsthesia assessment.---- 12:31:18 0.9% NaCl 100 ml/hr I.V. was administered by Tyler Robison RN; Per physician; Verbal order read back and verified. 12:31:35 Oxygen 2 l/min etCO2 Nasal cannula was administered by Tyler Robison RN; for low 02 sats; Verbal order read back and verified. 12:31:50 Previous problem with sedation/anesthesia? No ? 12:31:53 Snore? No 12:31:55 Heparin Flush Bag (1000units/500ml NS) 1 bags added to field was administered by Tyler Robison RN; used for procedure; Verbal order read back and verified. 12:31:55 Sleep apnea? No 12:31:58 Deviated septum? No 12:32:02 Opens mouth fully? Yes 12:32:04 Sticks out tongue? Yes 12:32:06 Lidocaine 2% 20ml vial added to field was administered by Tyler Robison RN; for local anesthetic; Verbal order read back and verified. 12:32:13 Airway obstruction? Yes copd 12:32:24 Dentures? No ? 12:32:43 Pre procedure: right dorsailis pedis pulse Doppler 12:32:56 Patient pain scale 0/10 ?. 12:33:07 IV patent on arrival in left forearm with 0.9% NaCl at [facility]. 12:33:24 Lab results completed and on chart. 12:33:30 Right groin area was prepped with chlora-prep and draped in sterile fashion 12:33:32 Alarms reviewed by R. N. 12:33:33 Sharps counted by scrub and verified by R.N. 12:33:36 Physician arrived 12:33:37 --------ALL STOP TIME OUT------ 12:33:38 Final Timeout: patient, procedure, and site verified with staff and physician. All members of the team are in agreement. 12:33:40 Right groin site verified by team. 12:33:48 Fire Safety Assessment: A--An alcohol-based skin anteseptic being used preoperatively., C--Open oxygen or nitrous oxide is being used., D--An ESU, laser, or fiber-optic light is being used. 12:34:40 Sedation plan: IV Moderate Sedation Medication:Versed, Fentanyl 12:35:28 Physical assessment completed. ASA score P 4 - A patient with severe systemic disease that is a constant threat to life as per Guero Todd MD. 12:36:14 Use device set Femoral Dx 12:36:15 Versed 1 mg I.V. was administered by Tyler Robison RN; for sedation; Verbal order read back and verified. 12:36:16 ACIST Syringe (99842) opened to sterile field. 12:36:17 Bag Decanter () opened to sterile field. 12:36:18 Medline Cath Pack ([id number]) opened to sterile field. 12:36:22 ACIST Hand Control (92813) opened to sterile field. 12:36:23 Fentanyl 50 mcg I.V. was administered by Tyler Robison RN; for sedation; Verbal order read back and verified. 12:36:23 ACIST Manifold (70585) opened to sterile field. 12:36:26 Tegaderm 4 x 4 (1626W) opened to sterile field. 12:36:29 DIAGNOSTIC Multipack 5Fr catheter set (KC6773) opened to sterile field. 12:36:44 Procedure started. 12:36:51 Local anesthetic to right femoral artery with Lidocaine 2% by Guero Todd MD.INITIAL ACCESS ONLY 12:37:33 A 5 Fr sheath was inserted into the Right Femoral artery 12:38:10 A MULTIPACK Pigtail 5 Fr catheter was advanced over the wire and used for Procedure. 12:38:21 EF : 40 % 12:38:30 Catheter removed. 12:38:42 A MULTIPACK JL 4.0 5Fr catheter was advanced over the wire and used for Procedure. 12:38:49 LCA angiography performed. 12:39:59 A MULTIPACK 3DRC 5Fr catheter was advanced over the wire and used for Procedure. 12:40:07 MOODY to LAD angiography performed. 12:40:28 RCA angiography performed. 12:40:33 Catheter removed. 12:40:42 A DIAGNOSTIC AR2 MOD 5 Fr catheter ([id number]) was advanced over the wire and used for Procedure. 12:41:32 SVG to Circ angiography performed. 12:41:44 SVG to RCA angiography performed. 12:42:37 SHEATH 6FR [place] (WKV813) opened to sterile field. 12:42:45 EMERALD Guide Wire (502-176) opened to sterile field. 12:42:55 INFLATOR Merit BasixCompak (BA3835) opened to sterile field. 12:43:12 CHOICE PT Extra Support 182cm wire ([id number]) opened to sterile field. 12:44:38 GUIDE 6FR ART 4.0 catheter ([id number]) opened to sterile field. 12:48:05 Heparin Bolus 4000 units I.V. was administered by Tyler Robison RN; for anticoagulation; Verbal order read back and verified. 12:48:26 Integrilin (Bolus 2mg/ml) 7.3 ml I.V. was administered by Tyler Robison RN; for antiplatelet therapy; Verbal order read back and verified. 12:48:42 Integrilin (Bolus 2mg/ml) 2.7ml wasted was administered by Tyler Robison RN; to sharp's; Verbal order read back and verified. 12:49:05 Inflate balloon Inflation number: 1 A Immunet Corporationec Rx 2.5 x 30 balloon was prepped and advanced across the Mid CX , then inflated to 13 BILLY for 0:00 (min:sec) . 12:49:19 Balloon removed over the wire. 12:50:51 Place stent Inflation Number: 1 A COBRA RX 2.5 X 24 Stent was prepped and advanced across the Undefined2 90. The stent was deployed at 15 BILLY for 0:00 (min:sec) . 12:51:35 Inflation number: 2 The stent balloon was then re-inflated across the Undefined2 to 21 BILLY for 0:00 (min:sec) . 12:52:42 EXOSEAL 6Fr (EX600) opened to sterile field. 12:53:14 Wire removed. 12:53:15 Guide catheter removed. 12:53:59 Sheath removed intact; hemostasis achieved with Exoseal to the Right Femoral artery. 12:53:59 Sheath upsized to a 6 Fr Short. 12:54:05 Procedure ended.(Physican Out) 12:54:13 Fluoroscopy time 04.80 minutes. 12:54:23 Fluoroscopy dose: 943 mGy 12:54:23 Flurop Dose total: 943 12:54:35 Dose Area Product 07844 mGy/cm. 12:54:43 Contrast amount:Isovue 300 127ml. 12:54:44 Plavix 600 mg P.O. was administered by Tyler Robison RN; for antiplatelet therapy; Verbal order read back and verified. 12:54:51 Maximum allowable dose exceeded? Yes. 12:54:53 Sharps counted by scrub and verified by R.N. 12:54:59 Insertion/operative site no bleeding no hematoma. 12:55:06 Post-op/insertion site Right Femoral artery dressed using a 4 x 4 and Tegaderm. 12:55:09 Post Procedure Pulses reassessed and unchanged 12:55:30 Post-procedure physical assessment completed. ASA score P 4 - A patient with severe systemic disease that is a constant threat to life as per Guero Todd MD. 12:55:40 Post procedure rhythm: unchanged. 12:55:46 Estimated blood loss: 10 ml 12:55:53 Post procedure instruction explained to patient.Patient verbalizes understanding. 12:55:54 Patient needs reinforcement of post procedure teaching. 12:57:09 Procedure type changed to Cath procedure, Diagnostic procedure, LHC, LH C w/Coronaries w/Grafts, Sedation Charges, Moderate Sedation up to 15 minutes, PCI procedure, AMI/SVG/EXPANDER PTCA or Stent, SVG-BMS/MODESTO Initial 12:57:14 Procedure and supply charges have been captured, reviewed, submitted an d are correct. 12:57:24 Procedure Complication : No complications 12:57:38 Vital chart was stopped 12:57:40 See physician's report for complete and final results. 12:57:48 Report given to [facility]. 12:57:53 Patient transfered to [facility] with Bed. 12:58:01 Procedure ended. 12:58:01 Full Disclosure recording stopped 12:58:21 ACC-PCI Only Patient was given prescriptions, or instructed by Guero Todd MD to start/continue the following medications upon discharge: Plavix 12:58:25 End room use (Document Last) 12:59:34 Post PCI Site: Vein Graft mCirc has 0% stenosis. 13:00:26 ACT drawn and resulted at 287 ? seconds. (normal therapeutic range 180-240 seconds). Intervention Summary Intervention Notes Time ActionType Lesion and Equipment Action# Pressure Duration Attributes Used 12:49:05 Inflate Mid CX Mozec Rx 1 13 00:00 balloon 2.5 x 30 balloon 12:50:51 Place stent Undefined2 COBRA RX 1 15 00:00 2.5 X 24 Stent 12:51:35 Reinflate Undefined2 COBRA RX 2 21 00:00 stent 2.5 X 24 balloon Stent Device Usage Item Name Manufacture Quantity Catalog Number Hospital Part Current Minimal Lot# / Charge Number Stock Stock Serial# Code ACIST Syringe Acist 1 45933 453509 407039 669100 20 (85401) Medical Systems Inc Bag Decanter Microtek 1 2001S 670503 86748 747612 5 () Medical Inc. Medline Cath Medline 1 [id number] 409819 44042 351074 5 Pack ([id number]) ACIST Hand Acist 1 22417 229126 669534 595968 5 Control Medical (55230) Systems Inc ACIST Manifold Acist 1 95721 469301 587059 334817 5 (27686) Medical Systems Inc Tegaderm 4 x 4 3M 1 1626W 866722 188527 261837 5 (1626W) DIAGNOSTIC Cardinal 1 [id number] 316060 72755 638484 30 Multipack 5Fr Health catheter set (OF5722) MULTIPACK Cardinal 1 557776 5 Pigtail 5 Fr Health catheter MULTIPACK JL Cardinal 1 719949 5 4.0 5Fr Health catheter MULTIPACK 3DRC Cardinal 1 991515 5 5Fr catheter Health DIAGNOSTIC AR2 Cardinal 1 [id number] 355962 105923 265632 20 MOD 5 Fr Health catheter ([id number]) SHEATH 6FR Terumo 1 XYN229 224215 840528 699125 40 [place] (AWM855) EMERALD Guide Cardinal 1 502-455 480970 174704 872143 5 Wire (502-455) Health INFLATOR Merit Merit 1 EC2421 209184 611848 188988 15 [facility] [facility] Medical (KP8262) CHOICE PT Culver 1 [id number] 415824 444523 071933 5 Extra Support Scientific 182cm wire ([id number]) GUIDE 6FR ART Culver 1 [id number] 769333 328946 506291 0 4.0 catheter Scientific (211852728) Mozec Rx 2.5 x Cardinal 1 [id number] 971037 501866 320032 5 30 balloon Health COBRA RX 2.5 X Celonova 1 348-78-76642 388175 [id number] 4693038 7 [id number] 24 stent Biosciences (683-67-64126) EXOSEAL 6Fr Cardinal 1 EX600 704228 967939 625655 10 (EX600) Health Signature Audit [place] Stage Time Signature Unsigned Intra-Procedure 01/12/2019 Kelle 1:02:56 PM Lynne RT(R) (CV) Intra-Procedure 01/12/2019 Tyler 1:03:45 PM Ricki ROSEN Intra-Procedure 01/12/2019 Guero Todd 1:04:24 PM [address] [facility], [facility]
[2019-01-11 23:29] LABS: HEMATOCRIT 25.7 % (42.0-54.0); HEMOGLOBIN 8.4 g/dL (13.5-17.5); LYMPHOCYTES 23.1 % (15-50); MCH 32.3 pg (26.0-34.0); MCHC 32.7 g/dL (31.0-37.0); MCV 98.8 fL (80.0-100.0); MEAN PLATELET VOLUME 13.5 fL (7.4-10.4); PLATELET COUNT 70 10x3/uL (130-400); RDW 13.3 % (11.5-14.5); WBC 3.9 10x3/uL (4.8-10.8)
[2019-01-11 23:30] LABS: PLATELET ESTIMATE DECREASED
[2019-01-11] MEDS ORDERED: ACETAMINOPHEN500 M1 (23:37)
[2019-01-11] MEDS ORDERED: ALBUTEROL SULF8.5 GM INH (23:38)
[2019-01-11] MEDS ORDERED: NORVASC5 MG PO (23:38)
[2019-01-11] MEDS ORDERED: ascorbic acid (23:39)
[2019-01-11] MEDS ORDERED: LIPITOR40 MG (23:40)
[2019-01-11] MEDS ORDERED: SYMBICORT 80-10.2 GM INH (23:40)
[2019-01-11] MEDS ORDERED: OPTIVE SENSITI1 EACH (23:41)
[2019-01-11 23:44] LABS: ALBUMIN 2.7 g/dL (3.4-5.0); ALKALINE PHOSPHATASE 191 U/L (46-116); ALT (SGPT) 28 U/L (10-68); BILIRUBIN - TOTAL 0.23 mg/dL (0.2-1.3); CALC OSMOLALITY 310 mosm/kg (275-300); CALCIUM 7.6 mg/dL (8.5-10.1); CARBON DIOXIDE 28.2 mmol/L (21.0-32.0); CHLORIDE - SERUM 107 mmol/L (98-107); CREATININE - SERUM 2.5 mg/dL (0.6-1.3); POTASSIUM - SERUM 5.1 mmol/L (3.5-5.1); PROTEIN - SERUM 6.5 g/dL (6.4-8.2); SODIUM 142 mmol/L (136-145); UREA NITROGEN 54 mg/dL (7-18); eGFR NON AFRICAN AMERICAN 28 mL/min (90-120)
[2019-01-11] MEDS ORDERED: VITAMIN B-121000 MCG PO (23:44)
[2019-01-11] MEDS ORDERED: CARIPRAZINE (23:44)
[2019-01-11] MEDS ORDERED: FUROSEMIDE20 MG PO (23:45)
[2019-01-11] MEDS ORDERED: FERROUS SULFAT325 MG PO (23:45)
[2019-01-11] MEDS ORDERED: FLUTICASONE PRO16 GM (23:45)
[2019-01-11] MEDS ORDERED: [UNRECOGNIZED DRUG - OTHER] (23:47)
[2019-01-11] MEDS ORDERED: INSULIN DETEMIR (23:48)
[2019-01-11] MEDS ORDERED: LISINOPRIL10 MG PO (23:48)
[2019-01-11] MEDS ORDERED: IMODIUM2 MG PO (23:48)
[2019-01-11] MEDS ORDERED: TOPROL XL200 MG (23:49)
[2019-01-11] MEDS ORDERED: PROTONIX40 MG PO (23:49)
[2019-01-11] MEDS ORDERED: MELATONIN 3 MG1 TAB (23:49)
[2019-01-11] MEDS ORDERED: SODIUM BICARBO650 MG PO (23:50)
[2019-01-11] MEDS ORDERED: MYSOLINE 50 MG50 MG PO (23:50)
[2019-01-11] MEDS ORDERED: LYRICA150 MG PO (23:50)
[2019-01-11 23:51] LABS: GLUCOSE 341 mg/dL (74-106)
[2019-01-11] MEDS ORDERED: KENALOG 0.1 % O15 GM TOPICAL (23:51)
[2019-01-11] MEDS ORDERED: SPIRIVA RESPIMAT4 G1 INH (23:51)
[2019-01-12 00:05] LABS: CREATINE KINASE 308 UL (21-232); PRO BNP 4496 pg/mL (0-125); TROPONIN-I < 0.017 ng/mL (0.000-0.060)
[2019-01-12 00:08] LABS: CKMB 3.1 U/L (0.0-3.6)
[2019-01-12 00:50] LABS: APPEARANCE CLEAR (CLEAR); BILIRUBIN NEGATIVE (NEGATIVE); COLOR YELLOW (YELLOW); GLUCOSE 250 mg/dL (NEGATIVE); KETONE NEGATIVE (NEGATIVE); NITRITE NEGATIVE (NEGATIVE); PROTEIN 3+ mg/dL (NEGATIVE); UROBILINOGEN NORMAL (NORMAL)
[2019-01-12 01:24] VITALS: BP 140/78
--- NOTE | 2019-01-12 01:24 | NUR ---
PT LAYING IN BED. RESPIRATIONS ARE EVEN AND UNLABORED. NO DISTRESS NOTED. PT VSS. COLOR WNL FOR RACE. WILL CONTINUE TO MONITOR PATIENT.
[2019-01-12 02:37] VITALS: BP 168/65; BMI 24.4
--- NOTE | 2019-01-12 04:10 | NUR ---
DR. FLORES NOTIFIED AND REVIEWED PT'S BEHAVIOR AND ASSESSMENT RESULTS. PT IS A LOW RISK PER DR. FLORES. DR. FLORES STATES TO GIVE RESOURCES TO PT AT TIME OF DISCHARGE. NO FURTHER ORDERS AT THIS TIME. RESOURCES REVIEWED WITH PT AND HE VERBALIZED UNDERSTANDING.
--- NOTE | 2019-01-12 05:10 | NUR ---
PT ARRIVED TO ROOM VIA W/C. O2 2L NC. PIV TO LEFT AC. PT ANSWERS QUESTIONS APPROPRATLY. DENIES CHEST PAIN OR SOB AT THIS TIME. CALL LIGHT IN REACH. WILL CTM
--- NOTE | 2019-01-12 05:11 | NUR ---
PT ASSESSED BY BEHAVIORAL HEALTH NURSE FOR POSITIVE ANSWER TO SUICIDE SCREEN.
--- NOTE | 2019-01-12 07:15 | NUR ---
PT RESTING IN BED, SHIFT ASSESSMENT PERFORMED. DENIES ANY NEEDS AT THIS TIME. WILL CONT TO FOLLOW POC
[2019-01-12 08:02] VITALS: BP 150/72
--- NOTE | 2019-01-12 12:25 | NUR ---
PT LEFT FOR HEART CATH
[2019-01-12 13:09] VITALS: BP 156/68
--- NOTE | 2019-01-12 13:15 | NUR ---
PT RETURNED FROM HEART CATH
--- NOTE | 2019-01-12 13:15 | NUR ---
PT RETURNED TO ROOM FROM HEART CATH, DRESSING TO RIGHT GROIN C/D/I. NO SIGNS OF HEMATOMA FORMATION NOTED AT THIS TIME. PULSES PRESENT. BP 180/100 WITH ORDERS TO RUN NS AT 300ML/HR. CALLED NAPHTHALENE OPERATOR AND NEW ORDER RECIEVED FROM TO GIVE ONE CLONIDINE 0.2MG NOW.
--- NOTE | 2019-01-12 13:30 | NUR ---
PT RESTING IN BED, VSS AND WNL. DRESSING TO RIGHT GROIN C/D/I. NO SIGNS OF HEMATOMA FORMATION NOTED. PULSES PRESENT. DENIES ANY NEEDS AT THIS TIME. WILL CONT TO FOLLOW POC
--- NOTE | 2019-01-12 14:10 | NUR ---
1 UNIT PRBC VERIFIED WITH SECOND NURSE AND STARTED ONCE PRE TRANSFUSION VITALS WERE TAKEN. NURSE AT BEDSIDE. WILL CONT TO FOLLOW POC
--- NOTE | 2019-01-12 14:25 | NUR ---
15MIN POST INFUSION VITALS OBTAINED AND WNL. WILL CONT TO FOLLOW POC
--- NOTE | 2019-01-12 14:34 | HP ---
PATIENT: DASHAWN COSME MEDICAL RECORD: [id number] ACCOUNT: [id number] LOCATION:[address] : [birth year] ADMISSION DATE: 01/12/19 PCP: DOCTOR JANETH HISTORY AND PHYSICAL EXAMINATION ADMITTING DIAGNOSES: 1. Unstable angina, class IV. 2. Coronary artery disease. 3. Previous multivessel PTCA stent, last being 2012. 4. Hypertension. 5. Hyperlipidemia. 6. Family history of coronary artery disease. 7. Shortness of breath, dyspnea on exertion. 8. Lower extremity edema. 9. Insulin-dependent diabetes. HISTORY OF PRESENT ILLNESS: Mr. Cosme presents with chest pain, chest discomfort compatible with angina. This has been going on for 48 hours in a rapidly progressive fashion, just like that of his previous angina. He has a history of coronary artery disease. Last cardiac stents were done in [place] in 2012. He as well has noticed 1 week of increasing lower extremity edema and shortness of breath. He continues to have chest pain this morning at 5/10 despite the addition of nitro paste to his beta-makayla and calcium channel makayla and BRETT inhibitor. PHYSICAL EXAMINATION: CONSTITUTIONAL/GENERAL APPEARANCE: Well nourished, well developed, appears stated age. EYES: Lids and conjunctivae noninjected. No discharge. No pallor. ENT: Lips within normal limit. No cyanosis. No pallor. NECK: Carotid arteries, bilateral normal upstroke. No bruits. No thrills. No jugular venous pressure or distention. CERVICAL LYMPH NODES: Nontender. Nonenlarged. THYROID: Not enlarged. No nodules. CARDIOVASCULAR: Precordial exam, nondisplaced. No heaves or pericardial thrills. Rate and rhythm, regular. Heart sounds, normal S1, normal S2. No S3, no gallop, no rub. Systolic murmur, not heard. Diastolic murmur, not heard. RESPIRATORY: Respiratory effort, unlabored. Normal curvature. No thoracic deformity. No chest wall tenderness. Percussion, resonant. Auscultation, clear. No wheezes, no rales, no rhonchi. ABDOMEN: Soft, nondistended, nontender. No abdominal pain, no vomiting and normal appetite. MUSCULOSKELETAL: No joint tenderness, normal gait, normal tone. SKIN: Warm and dry. OVERALL IMPRESSION: Continued anginal symptomatology, rapidly progressive in an unstable fashion despite medical management of a beta makayla, nitrate, calcium channel makayla, BRETT inhibitor in a patient with a past history of multivessel coronary artery disease, diabetes, hypertension, hyperlipidemia. Most likely, he has recurrent hemodynamically significant disease. We will proceed with coronary angiography. Further care depends upon the findings of the angiography. TRANSINT:[id number] Voice Confirmation ID: [id number] DOCUMENT ID: [id number] HISTORY AND PHYSICAL [id number] DASHAWN COSME, AZIZA MCDANIELS at 1434 CC: [id number] DICTATION DATE: 01/12/19925 LEVELER: 01/12/19 0943 ADM IN [facility] [address] [id number]
[2019-01-12 14:56] VITALS: Ht 185.4 cm; Wt 83.9 kg
[2019-01-12 16:00] VITALS: BP 117/53
--- NOTE | 2019-01-12 16:00 | NUR ---
PT RESTING IN BED, VSS AND WNL. DRESSING TO RIGHT GROIN C/D/I. NO SIGNS OF HEMATOMA FORMATION NOTED. PULSES PRESENT. BLOOD TRANSFUSION COMPLETED. DENIES ANY NEEDS AT THIS TIME. WILL CONT TO FOLLOW POC
--- NOTE | 2019-01-12 19:30 | NUR ---
REPORT RECIEVED FROM SILAS BARR IN BEDSIDE REPORT. PT ALERT AND ORIENTED X4. RR EVEN AND UNLABORED. PT MEDICATIONS RESTARTED PER DR. FERMIN. BED LOW CALL LIGHT WITHIN REACH. WILL CONTINUE TO MONITOR.
[2019-01-12 21:08] VITALS: BP 153/59
--- NOTE | 2019-01-12 22:00 | NUR ---
PT COMPLAINS OF PAIN 8/10 IN LEG AND CHEST. PRN PAIN MED GIVEN. WILL CONTINUE TO MONITOR.
[2019-01-13 00:20] VITALS: BP 131/52
--- NOTE | 2019-01-13 03:59 | NUR ---
I have reviewed this patient and I concur with the Shift Assessment completed by the Licensed Practical Nurse today this shift.
[2019-01-13 04:13] VITALS: BP 115/50
--- NOTE | 2019-01-13 04:28 | NUR ---
PT RESTING IN BED WITH EYES CLOSED. RR EVEN AND UNLABORED. NO S/S OF DISTRESS AT THIS TIME. BED LOW CALL LIGHT WITHIN REACH. WILL CONTINUE TO MONITOR.
[2019-01-13 06:10] LABS: BASOPHILS 0.4 % (0-2); EOSINOPHILS 5.3 % (0-7); HEMATOCRIT 28.4 % (42.0-54.0); HEMOGLOBIN 8.8 g/dL (13.5-17.5); IMMATURE GRANULOCYTES 0.2 % (0-5); LYMPHOCYTES 16.3 % (15-50); MCH 30.3 pg (26.0-34.0); MCV 97.9 fL (80.0-100.0); MEAN PLATELET VOLUME 13.4 fL (7.4-10.4); MONOCYTES 8.6 % (2-11); NEUTROPHILS 69.2 % (40-80); RDW 16.5 % (11.5-14.5)
[2019-01-13 06:21] LABS: PLATELET COUNT 103 10x3/uL (130-400); WBC 5.3 10x3/uL (4.8-10.8)
[2019-01-13 06:28] LABS: ANION GAP 10.7 mmol/L (8-16); CALCIUM 7.6 mg/dL (8.5-10.1); CARBON DIOXIDE 27.4 mmol/L (21.0-32.0); CREATININE - SERUM 2.1 mg/dL (0.6-1.3); POTASSIUM - SERUM 5.1 mmol/L (3.5-5.1)
--- NOTE | 2019-01-13 08:02 | NUR ---
ALERT AND ORIENTED. TELEMERTY SHOWS SR68. CATH SITE WITH DRGS DRY AND INTACT. UP AB HUNTER. LEFT AC SL. DENIES ANY NEEDS. SR UP WITH CALL LIGHT IN REACH. WILL MONITOR
[2019-01-13 09:12] VITALS: BP 155/76
--- NOTE | 2019-01-13 10:39 | EC ---
PATIENT:DASHAWN REID DATE OF SERVICE: 01/12/19 SEX: M MEDICAL RECORD: [id number] DATE OF : [birth year] LOCATION:D.M2 D.212 AGE OF PATIENT: 63 ADMISSION DATE: 01/12/19 REFERRING PHYSICIAN: INTERPRETING PHYSICIAN: AZIZA TODD MD ECHOCARDIOGRAM REPORT ECHO CHARGES 4 ECHO COMPLETE Date: 01/12/19 CLINICAL DIAGNOSIS: SOB; HX: CAD, CABG ECHOCARDIOGRAPHIC MEASUREMENTS (adult normal given) AC root (d.<3.7cm) 3.3 cm LV Septum d (<1.2 cm> 1.0 cm Valve Excursion 1.7 cm LV Septum (systole) 1.5 cm Left Atria (s.<4.0cm> 4.4 cm LVPW d(<1.2cm) 1.5 cm RV (d.<2.3cm) 3.8 cm LVPW (sytole) 2.0 cm LV diastole(<5.6CM) 6.1 cm MV E-F(>70mm/sec) cm LV systole 5.1 cm LVOT Diameter 1.8 cm MV exc.(>10mm) cm Est.ejection fraction (50-75%) % DOPPLER: LVIT cm/sec A 96 cm/sec E 98 cm/sec LA cm/sec RVSP 29.5 mmHg LVOT 100 cm/sec AOP1/2T m/s Asc. Ao 120 cm/sec RVOT 56 cm/sec RA cm/sec PA 100 cm/sec AV Gradient Peak 5.7 mmHg AV Mean 2.9 mmHg AV Area 2.3 cm MV Gradient Peak 7.1 mmHg MV Mean 3.1 mmHg MV Area cm COMMENTS: Information Technology Analyst: Fely YEUNG Instrumental Teacher: 1 Dr. Todd TAPE# PACS Pericardial Effusion N DATE OF SERVICE: 01/12/2019 FINDINGS: 1. Left ventricular chamber size is mildly dilated. Left ventricular systolic function is preserved at 55%. 2. Left atrium is enlarged at 4.4 cm. Right atrium and right ventricular chamber sizes are as well mildly dilated. 3. Valvular structures have normal structure and motion. 4. Doppler interrogation reveals mild mitral regurgitation, mild tricuspid regurgitation, no other valvular insufficiency or stenosis. Pulmonary systolic ECHOCARDIOGRAM REPORT [id number] DASHAWN REID pressure is estimated at 30 mmHg. 5. No evidence of pericardial effusion or left ventricular thrombus. TRANSINT:[id number] Voice Confirmation ID: [id number] DOCUMENT ID: [id number] AZIZA TODD MD at 1039 CC: [id number] DICTATION DATE: 01/12/19 1213 EVP OPERATIONS: 01/12/19 1506 ADM IN [facility] [address] [place] [address]
[2019-01-13] MEDS ORDERED: PLAVIX75 MG (12:33)
--- NOTE | 2019-01-13 12:43 | NUR ---
PER PATIENT REPORT WHEN ASKED IF HE WANTED FLU SHOT, HE STATES "[facility]".
--- NOTE | 2019-01-13 12:45 | MORECARE ---
CASE MANAGEMENT DISCHARGE SUMMARY PATIENT: DASHAWN REID UNIT: [id number] ADM DATE: 01/12/19 AGE: 63 : 51 SEX: M ROOM/BED: D.8306 AUTHOR: DONOVAN OCONNELL PHYSICIAN: REFERRING PHYSICIAN: AZIZA MCKNIGHT MD DATE OF SERVICE: 01/13/19 Discharge Plan Patient Name: DASHAWN REID Facility[facility]:[place] : 1955 Planned Disposition: Home Anticipated Discharge Date: 01/13/19 Discharge Date: Expected LOS: 1 Initial Reviewer: [email or web address] Initial Review Date: 01/13/2019 Generated: 01/13/19 1:45 pm Comments DCP- Discharge Planning Updated by [email or web address]: Rachid Carlin on 01/13/19 11:[address] Patient Name: DASHAWN REID Admission Status: ER Accout number: [id number] Admission Date: 01-12-2019 : 1955 Admission Diagnosis: Attending: JULIO CESAR MCKNIGHT Current LOS: 1 Anticipated DC Date: 01-13-2019 Planned Disposition: Home Primary Insurance: [employer] Discharge Planning Comments: CM MET WITH PT IN ROOM TO DISCUSS DISCHARGE PLANNING AND NEEDS. PT REPORTS LIVING AT HOME INDEPENDENTLY WITH HIS . PT HAS A CANE AND SHOWER CHAIR FROM THE [employer]. PT HAS NO OUTSIDE SERVICES ASSISTING IN THE HOME. CM DISCUSSED AVAILABILITY OF HOME HEALTH, REHAB SERVICES AND MEDICAL EQUIPMENT. [facility] AND DENIES DISCHARGE NEEDS, REPORTS A PAID TRANSPORT SERVICE HE HAS ARRANGED WILL PICK HIM UP FOR DISCHARGE HOME. IMPORTANT MESSAGE FROM MEDICARE PROVIDED AND EXPLAINED. PT ASKED THAT HIS RECORD [facility] TO [facility] TO HELP HIM GET PLAVIX AFTER DISCHARGE TODAY. CM CALLED [facility] [place], , SPOKE TO KIERRA WHO INFORMED CM THAT SHE HAS TALKED TO THE TODAY AND HE WAS ADVISED TO BRING HIS INFORMATION TO THE CLINIC AFTER DISCHARGE TODAY FOR THEM TO ASSIST WITH NEEDED MEDICATIONS. CM FAXED RECORD AND PRESCRIPTION FOR PLAVIX TO THE [facility] AT [phone]. Manager Hospitality: Rachid Carlin DCPIA - Discharge Planning Initial Assessment Updated by [email or web address]: Rachid Carlin on 01/13/19 12:37 pm * Is the patient Alert and Oriented? Yes * How many steps to enter\exit or inside your home? * PCP [facility] * [facility]acy [facility] * Preadmission Environment Home with Family * ADLs Independent * Equipment Cane Shower Chair * Other Equipment [facility] - [facility] EQUIPMENT PROVIDER * List name and contact numbers for known caregivers / representatives who currently or will assist patient after discharge: WALLY REID, SPOUSE, * Verbal permission to speak to the caregivers and representatives has been obtained from the patient. N/A * Community resources currently utilized None * Please name any agencies selected above. NONE * Additional services required to return to the preadmission environment? No * Can the patient safely return to the preadmission environment? Yes * Has this patient been hospitalized within the prior 30 days at any hospital? No External Providers External Provider: OTHER-OTHER Next Contact Date: 01/13/2019 Service Request Date: Service Type: Resolution: Reviewer: Comments: Coverage Notice Reviewer: [email or web address] - Rachid Carlin Notice Issued Date-Time: 01/13/2019 11:35 Notice Type: IM Discharge Notice Notice Delivered To: Patient Relationship to Patient: Wind Tunnel Technician Name: Delivery Method: HAND - Hand Delivered Eleonora Days: Prior Verbal Notification: Recipient Understood Notice: Yes Recipient Signature: Yes Med Rec Note Co-signed by Attending: Coverage Notice Comment: Patient Name: DASHAWN REID Page [phone] at 1245 All edits/amendments must be made on the electronic document DICTATION DATE: 01/13/19 1245 MEDICAL RECORDS CODER: KATIE 01/13/19 1245 RPT#: [id number] DC DATE: STATUS: ADM IN [facility] [address] [place] [address] END OF REPORT
--- NOTE | 2019-01-13 12:59 | NUR ---
I have reviewed this patient and I concur with the Shift Assessment completed by the Licensed Practical Nurse today this shift.
--- NOTE | 2019-01-13 13:24 | NUR ---
I have reviewed this patient and I concur with the Shift Assessment completed by the Licensed Practical Nurse today this shift.
--- NOTE | 2019-01-22 13:30 | DS ---
PATIENT:DASHAWN COSME :[birth year] MEDICAL RECORD: [id number] DISCHARGE SUMMARY ADMISSION DATE: 01/12/19 DISCHARGE DATE: 01/13/19 DISCHARGE DIAGNOSES: 1. Unstable angina. 2. Percutaneous transluminal coronary angioplasty stent of left circumflex this admission. 3. Anemia. 4. Renal insufficiency. 5. Hypertension. 6. Hyperlipidemia. 7. Insulin-dependent diabetes. HOSPITAL COURSE: Mr. Cosme presents with unstable anginal symptomatology, found to have 95% stenosis of a left circumflex. After patent vein graft, underwent successful PTCA stent of the left circumflex through the patent vein graft, was discharged home with the addition of Plavix to his medical regimen. He will follow up with [facility] in 1 month. TRANSINT:[id number] Voice Confirmation ID: [id number] DOCUMENT ID: [id number] AZIZA MCKNIGHT MD at 1330 CC: [id number] DICTATION DATE: 01/13/19 1041 FIRST AID NURSE: 01/14/19 0654 DIS IN 01/13/[address] [place] [address]
--- NOTE | 2019-01-22 13:30 | OP ---
PATIENT NAME: DASHAWN REID MEDICAL RECORD: [id number] :[birth year] LOCATION:D.M2 D.2126 ADMISSION DATE:01/12/19 SURGEON: AZIZA MCKNIGHT MD DATE OF OPERATION: 01/12/2019 PROCEDURES: 1. PTCA stent left circumflex through patent vein graft. 2. Left heart catheterization. 3. Selective coronary angiography. 4. Left ventriculogram. 5. Vein graft angiography. 6. MOODY angiography. INDICATION: Angina and coronary artery disease. PROCEDURE IN DETAIL: After informed consent was obtained and after a detailed description of risks, benefits as well as alternative therapies, the patient elected to proceed with angiogram and angioplasty. The right femoral area was prepped and draped in normal sterile fashion. Right femoral artery was cannulated via modified Seldinger technique with placement of 6-Nepalese sheath. All catheters exchanged through this sheath. FINDINGS: The left ventriculogram was performed in a standard 30-degree PEREZ view, reveals mild LV depression. Ejection fraction 40% range. SELECTIVE CORONARY ANGIOGRAPHY: 1. Left main has no significant angiographic disease. 2. Left anterior descending is totally occluded. 3. MOODY to the LAD is widely patent. Distal LAD is widely patent. 4. Left circumflex has a first obtuse marginal that is totally occluded. 5. Vein graft to the obtuse marginal was patent; however, there is 95+ percent stenosis after the vein graft to the marginal. 6. Right coronary artery is totally occluded. 7. Vein graft to the right coronary artery is widely patent. Distal right coronary artery is widely patent. PTCA STENT OF THE CIRCUMFLEX THROUGH THE VEIN GRAFT: The stent used was a 2.5 x 24 mm Cobra. Result was 0% residual stenosis. OVERALL IMPRESSION: Successful percutaneous transluminal coronary angioplasty stent of the left circumflex going from 95+ percent initial stenosis to 0% residual. TRANSINT:[id number] Voice Confirmation ID: [id number] DOCUMENT ID: [id number] AZIZA MCKNIGHT MD at 1330 CC: [id number] DICTATION DATE: 01/12/19 1256 SOLID PLASTERER: 01/13/19 0022 DIS IN 01/13/[address] [place] [address]
== END 2019-01-13 13:47 | disposition home or self-care (01) | DRG 249 ==
LOC: OBSVTIME → D.ER 23:08 → D.M2 01-12 02:04 → D.ER 01-12 02:04 → D.M2 01-12 02:04 → OBSVTIME 01-12 02:04 → D.M2 01-12 02:15
PROVIDERS: Family Medicine; ADMIT Internal Medicine Interventional Cardiology; ATTEND Internal Medicine Interventional Cardiology
PROC: B2121ZZ Fluoroscopy of Single Coronary Artery Bypass Graft using Low Osmolar Contrast (ICD-10-PCS; 2019-01-12)
PROC: B2181ZZ Fluoroscopy of Left Internal Mammary Bypass Graft using Low Osmolar Contrast (ICD-10-PCS; 2019-01-12)
PROC: B2111ZZ Fluoroscopy of Multiple Coronary Arteries using Low Osmolar Contrast (ICD-10-PCS; 2019-01-12)
PROC: B2151ZZ Fluoroscopy of Left Heart using Low Osmolar Contrast (ICD-10-PCS; 2019-01-12)
PROC: 02703DZ Dilation of Coronary Artery, One Artery with Intraluminal Device, Percutaneous Approach (ICD-10-PCS; principal; 2019-01-12 12:18)
PROC: 4A023N7 Measurement of Cardiac Sampling and Pressure, Left Heart, Percutaneous Approach (ICD-10-PCS; 2019-01-12 12:18)
DX: I25.110 Atherosclerotic heart disease of native coronary artery with unstable angina pectoris (principal); I10 Essential (primary) hypertension; E78.5 Hyperlipidemia, unspecified; E11.9 Type 2 diabetes mellitus without complications; D64.9 Anemia, unspecified; N28.9 Disorder of kidney and ureter, unspecified; J44.9 Chronic obstructive pulmonary disease, unspecified; G20 Parkinson's disease

== ENCOUNTER 2019-02-21 23:24 | Inpatient (IN) | payer MEDICARE ==
[~2019-02-21] VITALS: Ht 185.4 cm; Wt 83.9 kg
[~2019-02-21 23:24] MED LIST changes: +ACETAMINOPHEN500 M1; +ALBUTEROL SULF8.5 GM INH; +CARIPRAZINE; +FERROUS SULFAT325 MG PO; +FLUTICASONE PRO16 GM; +FUROSEMIDE20 MG PO; +IMODIUM2 MG PO; +INSULIN DETEMIR; +KENALOG 0.1 % O15 GM TOPICAL; +LIPITOR40 MG; +LISINOPRIL10 MG PO; +LYRICA150 MG PO; +MELATONIN 3 MG1 TAB; +NORVASC5 MG PO; +OPTIVE SENSITI1 EACH; +PLAVIX75 MG; +SODIUM BICARBO650 MG PO; +SPIRIVA RESPIMAT4 G1 INH; +SYMBICORT 80-10.2 GM INH; +VITAMIN B-121000 MCG PO; +[UNRECOGNIZED DRUG - OTHER]; +ascorbic acid
[2019-02-21 23:43] LABS: APPEARANCE CLEAR (CLEAR); COLOR YELLOW (YELLOW)
[2019-02-21 23:44] LABS: BILIRUBIN NEGATIVE (NEGATIVE); GLUCOSE NEGATIVE (NEGATIVE); KETONE NEGATIVE (NEGATIVE); NITRITE NEGATIVE (NEGATIVE); PROTEIN NEGATIVE (NEGATIVE); UROBILINOGEN NORMAL (NORMAL)
--- NOTE | 2019-02-22 | NUR ---
PT STANDING AT BEDSIDE WITH MINIMAL ASSISTANCE USING URINAL. PT VOIDED 400ML CLEAR YELLOW URINE.
--- NOTE | 2019-02-22 00:08 | NUR ---
PT BACK FROM CT AT THIS TIME.
[2019-02-22 00:24] LABS: BASOPHILS 0.2 % (0-2); EOSINOPHILS 3.6 % (0-7); HEMATOCRIT 30.1 % (42.0-54.0); HEMOGLOBIN 9.4 g/dL (13.5-17.5); IMMATURE GRANULOCYTES 0.2 % (0-5); LYMPHOCYTES 32.5 % (15-50); MCH 31.3 pg (26.0-34.0); MCHC 31.2 g/dL (31.0-37.0); MCV 100.3 fL (80.0-100.0); MEAN PLATELET VOLUME 13.3 fL (7.4-10.4); MONOCYTES 7.9 % (2-11); NEUTROPHILS 55.6 % (40-80); PLATELET COUNT 86 10x3/uL (130-400); RDW 15.9 % (11.5-14.5); WBC 4.2 10x3/uL (4.8-10.8)
[2019-02-22 00:37] LABS: CALC OSMOLALITY 296 mosm/kg (275-300); CALCIUM 8.3 mg/dL (8.5-10.1); CARBON DIOXIDE 26.1 mmol/L (21.0-32.0); CHLORIDE - SERUM 108 mmol/L (98-107); CREATININE - SERUM 2.1 mg/dL (0.6-1.3); GLUCOSE 76 mg/dL (74-106); POTASSIUM - SERUM 4.3 mmol/L (3.5-5.1); SODIUM 144 mmol/L (136-145); UREA NITROGEN 42 mg/dL (7-18); eGFR NON AFRICAN AMERICAN 34 mL/min (90-120)
[2019-02-22 00:40] LABS: PLATELET ESTIMATE DECREASED
[2019-02-22 00:41] LABS: APTT 28.5 SECONDS (22.8-39.4); INR 1.1 (0.85-1.17); PROTIME 13.7 SECONDS (11.6-15.0)
[2019-02-22 01:01] LABS: ALBUMIN 3.3 g/dL (3.4-5.0); ALKALINE PHOSPHATASE 190 U/L (46-116); ALT (SGPT) 37 U/L (10-68); BILIRUBIN - TOTAL 0.23 mg/dL (0.2-1.3); CREATINE KINASE 326 UL (21-232); LIPASE 988 U/L (73-393); MAGNESIUM - SERUM 1.9 mg/dL (1.8-2.4); PRO BNP 2165 pg/mL (0-125); PROTEIN - SERUM 7.1 g/dL (6.4-8.2); THYROID STIMULATING HORMONE 0.67 uIU/mL (0.36-3.74); TROPONIN-I < 0.017 ng/mL (0.000-0.060)
[2019-02-22 01:02] LABS: CKMB 4.8 U/L (0.0-3.6)
--- NOTE | 2019-02-22 01:24 | NUR ---
PT STANDING AT BEDSIDE WITH ASSISTANCE USING URINAL . PT VOIDED 300ML CLEAR YELLOW URINE
[2019-02-22 01:30] VITALS: BP 141/87
[2019-02-22 04:03] VITALS: BP 163/83; BMI 24.4
--- NOTE | 2019-02-22 05:20 | NUR ---
PT ARRIVED TO FLOOR VIA STRECHER ALERT AND ORIENTED X4 ON 2L O2 AT 100%. PT PLACED ON TELEMETRY AT THIS TIME. [id number] PT GIVEN CRANBERRY JUICE, JIM CRACKERS, AND PEANUT BUTTER. PT DENIES ANY PAIN AT THIS TIME. NO S/S OF DISTRESS. BEDD LOW CALL LIGHT WITHIN REACH FALL PERCAUTIONS IN PLACE. WILL CONTINUE TO MONITOR.
--- NOTE | 2019-02-22 07:30 | NUR ---
RECIEVED REPORT. ALERT AND ORIENTED X4. SITTING UP IN BED TALKING ON PHONE. CONTROLLED AFIB ON TELEMETRY. DENIES ANY NEEDS AT THIS TIME. CONTINUE PLAN OF CARE AND SAFETY PRECAUTIONS.
[2019-02-22 08:31] VITALS: BP 149/67
[2019-02-22 11:57] VITALS: BP 148/78
--- NOTE | 2019-02-22 19:50 | NUR ---
PATIENT RESTING IN BED WITH NO S/S OF DISTRESS. REVIEWED MEDS PER PATIENT REQUEST. PATIENT DENIES OTHER NEEDS AT THIS TIME. ENCOURAGED THE PATIENT TO CALL IF SHE HAS NEEDS. WILL CONTINUE TO MONITOR.
[2019-02-22 20:26] VITALS: BP 161/59
--- NOTE | 2019-02-23 00:43 | NUR ---
PATIENT RESTING IN BED WITH EYES CLOSED AND NO S/S OF DISTRESS. BED IN LOWEST POSITION AND CALL LIGHT WITHIN REACH. WILL CONTINUE TO MONITOR.
--- NOTE | 2019-02-23 02:23 | NUR ---
PATIENT RESTING IN BED WITH EYES CLOSED AND NO S/S OF DISTRESS. BED IN LOWEST POSITION AND CALL LIGHT WITHIN REACH. WILL CONTINUE TO MONITOR.
[2019-02-23 04:42] VITALS: BP 118/57
[2019-02-23 06:45] LABS: BASOPHILS 0.2 % (0-2); EOSINOPHILS 2.4 % (0-7); HEMATOCRIT 28.7 % (42.0-54.0); HEMOGLOBIN 8.8 g/dL (13.5-17.5); IMMATURE GRANULOCYTES 0.2 % (0-5); LYMPHOCYTES 23.7 % (15-50); MCH 30.6 pg (26.0-34.0); MCHC 30.7 g/dL (31.0-37.0); MCV 99.7 fL (80.0-100.0); MEAN PLATELET VOLUME 13.5 fL (7.4-10.4); NEUTROPHILS 65.5 % (40-80); PLATELET COUNT 94 10x3/uL (130-400); RBC 2.88 10x6/uL (4.20-6.10); WBC 4.6 10x3/uL (4.8-10.8)
[2019-02-23 06:48] LABS: ANION GAP 14.2 mmol/L (8-16); CALCIUM 7.7 mg/dL (8.5-10.1); CARBON DIOXIDE 25.4 mmol/L (21.0-32.0); POTASSIUM - SERUM 4.6 mmol/L (3.5-5.1)
--- NOTE | 2019-02-23 07:20 | NUR ---
RECIEVE REPORT. ALERT AND ORIENTED X4. SITTING UP IN BED EATING. DENIES PAIN OR SOB. DENIES ANY NEEDS AT THIS TIME. CONTINUE PLAN OF CARE AND SAFETY PRECAUTIONS. SINUS RYTHM ON TELEMETRY.
[2019-02-23 08:02] VITALS: BP 138/70
[2019-02-23 12:17] VITALS: BP 131/67
[2019-02-23 16:00] VITALS: Ht 185.4 cm; Wt 83.9 kg
[2019-02-23 16:30] VITALS: BP 96/54
--- NOTE | 2019-02-23 17:15 | NUR ---
ALERT AND OREINTED X4. SITTING UP ON SIDE OF BED TALKING ON PHONE. DENIES PAIN OR SOB. CONTINUE PLAN OF CARE AND SAFETY PRECAUTIONS.
--- NOTE | 2019-02-23 19:45 | NUR ---
PATIENT RESTING IN BED AND DENIES NEEDS AT THIS TIME. BED IN LOWEST POSITION AND CALL LIGHT WITHIN REACH. ENCOURAGED THE PATIENT TO CALL IF HE HAS NEEDS. WILL CONTINUE TO MONITOR.
[2019-02-23 20:18] VITALS: BP 133/50
--- NOTE | 2019-02-23 23:43 | NUR ---
PATIENT RESTING IN BED WITH EYES CLOSED. NO S/S OF DISTRESS. PATIENT REQUESTED NOT TO BE WOKEN UP FOR MIDNIGHT VITALS.
[2019-02-24 04:43] VITALS: BP 101/44
[2019-02-24 05:58] LABS: BASOPHILS 0 % (0-2); EOSINOPHILS 2.7 % (0-7); HEMOGLOBIN 8.4 g/dL (13.5-17.5); IMMATURE GRANULOCYTES 0.3 % (0-5); LYMPHOCYTES 29.8 % (15-50); MCH 30.8 pg (26.0-34.0); MCHC 31.1 g/dL (31.0-37.0); MCV 98.9 fL (80.0-100.0); MEAN PLATELET VOLUME 13.2 fL (7.4-10.4); MONOCYTES 9.7 % (2-11); NEUTROPHILS 57.5 % (40-80); RBC 2.73 10x6/uL (4.20-6.10); RDW 16.1 % (11.5-14.5)
[2019-02-24 06:19] LABS: ANION GAP 12.7 mmol/L (8-16); CALCIUM 7.9 mg/dL (8.5-10.1); CARBON DIOXIDE 24.8 mmol/L (21.0-32.0); POTASSIUM - SERUM 4.5 mmol/L (3.5-5.1)
[2019-02-24 06:21] LABS: CREATININE - SERUM 2.6 mg/dL (0.6-1.3)
[2019-02-24 06:23] LABS: PLATELET COUNT 74 10x3/uL (130-400); WBC 3.3 10x3/uL (4.8-10.8)
--- NOTE | 2019-02-24 07:20 | NUR ---
RECIEVE REPORT. ALERT AND ORIENTED X4. AMBULATING IN SOTELO. DENIES PAIN OR SOB. CONTINUE PLAN OF CARE AND SAFETY PRECAUTIONS.
[2019-02-24 07:58] VITALS: BP 112/51
[2019-02-24 08:28] LABS: PLATELET ESTIMATE DECREASED
--- NOTE | 2019-02-24 16:52 | NUR ---
ALERT AND ORIENTED X4. UP AMBULATING IN SOTELO. TOTAL OUTPUT 600mL. REPORTS URGE TO URINATE BUT UNABLE. BLADDER SCAN AGAIN. BLADDER SCAN SHOWS 700ml. INSERT 16Fr VALLECILLO. SECURE STAT LOCK TO INNER LT THIGH. URINE CLEAR YELLOW. DENIES ANY NEEDS AT THIS TIME. CONTINUE PLAN OF CARE AND SAFETY PRECAUTIONS.
--- NOTE | 2019-02-24 17:25 | NUR ---
ALERT AND ORIENTED X4. REPORT GIVEN TO RACHAEL TORRES. TRANSFER TO 2227 VIA WHEELCHAIR.
--- NOTE | 2019-02-24 17:41 | NUR ---
PATIENT ADMITTED TO ROOM 2227.
--- NOTE | 2019-02-24 17:49 | NUR ---
PATIENT REFUSES SCDS. REQUESTED AND GIVEN ICE WATER. NOTIFIED OF TRANSFER.
--- NOTE | 2019-02-24 18:52 | NUR ---
RESTING IN BED. DENIES NEEDS. FAMILY AT BEDSIDE. BED LOW. CALL GÓMEZ AND PERSONAL ITEMS IN REACH.
--- NOTE | 2019-02-24 20:00 | NUR ---
ASSESSMENT PER FLOWSHEET. IV SALINE LOCK TO RT AC. VALLECILLO TO BS DRAINAGE WITH YELLOW UA. BEDSIDE RT TX GIVEN
[2019-02-24 20:31] VITALS: BP 134/55
--- NOTE | 2019-02-24 21:30 | NUR ---
MEDS PER [facility] [id number] NO COVERAGE.
--- NOTE | 2019-02-24 23:23 | MORECARE ---
CASE MANAGEMENT DISCHARGE SUMMARY PATIENT: DASHAWN REID UNIT: [id number] ADM DATE: 02/22/19 AGE: 63 : 51 SEX: M ROOM/BED: D.2227 AUTHOR: DONOVAN OCONNELL PHYSICIAN: REFERRING PHYSICIAN: DONALD AVILES MD DATE OF SERVICE: 02/24/19 Discharge Plan Patient Name: DASHAWN REID [facility] [facility] 1955 Planned Disposition: Home Anticipated Discharge Date: Discharge Date: Expected LOS: Initial Reviewer: [email or web address] Initial Review Date: 02/24/2019 Generated: 02/25/19 12:22 am DCPIA - Discharge Planning Initial Assessment Updated by [email or web address]: Darcy Magdaleno on 02/24/19 11:22 pm * Is the patient Alert and Oriented? Yes * How many steps to enter\exit or inside your home? * [facility] * Preadmission Environment Home with Family * ADLs Independent * Equipment None * List name and contact numbers for known caregivers / representatives who currently or will assist patient after discharge: WALLY REID - - [phone] * Verbal permission to speak to the caregivers and representatives has been obtained from the patient. Yes * Community resources currently utilized None * Additional services required to return to the preadmission environment? No * Can the patient safely return to the preadmission environment? Yes * Has this patient been hospitalized within the prior 30 days at any hospital? No Patient Name: DASHAWN REID Page 09489 at 2323 All edits/amendments must be made on the electronic document DICTATION DATE: 02/24/192321 COUNSELOR SUPERVISOR: KATIE 02/24/192321 RPT#: [id number] DC DATE: STATUS: ADM IN [facility] [address] [place] [address] END OF REPORT
--- NOTE | 2019-02-24 23:29 | MORECARE ---
CASE MANAGEMENT DISCHARGE SUMMARY PATIENT: DASHAWN REID UNIT: [id number] ADM DATE: 02/22/19 AGE: 63 : 51 SEX: M ROOM/BED: D.2227 AUTHOR: DONOVAN OCONNELL PHYSICIAN: REFERRING PHYSICIAN: DONALD AVILES MD DATE OF SERVICE: 02/24/19 Discharge Plan Patient Name: DASHAWN REID Facility: [facility]:[place] : 1955 Planned Disposition: Home Anticipated Discharge Date: Discharge Date: Expected LOS: Initial Reviewer: [email or web address] Initial Review Date: 02/24/2019 Generated: 02/25/19 12:29 am Comments DCP- Discharge Planning Updated by [email or web address]: Darcy Magdaleno on 02/24/19 10:[address] Patient Name: DASHAWN REID Admission Status: ER Accout number: [id number] Admission Date: 02-22-2019 : 1955 Admission Diagnosis:TRANSIENT CEREBRAL ISCHEMIC ATTACK, UNSPECIFIED Attending: DONALD AVILES Current LOS: 2 Anticipated DC Date: Planned Disposition: Home Primary Insurance: MEDICARE PART A ONLY Discharge Planning Comments: CM met with patient at bedside after explaining CM role and obtaining verbal consent. Patient lives at home with his Cat where he is independent with his care and plans to return there upon discharge. Patient feels this would be a safe discharge. CM discussed availability / needs of home health and medical equipment. Patient states he needs a nebulizer. Patient states he is on 3 inhalers and thinks a nebulizer would be better. Patient states he will have his family drive him home upon discharge. CM will continue to follow and assist as needed with discharge planning / needs. Wall Worker: Darcy Magdaleno DCPIA - Discharge Planning Initial Assessment Updated by [email or web address]: Darcy Magdaleno on 02/24/19 11:22 pm * Is the patient Alert and Oriented? Yes * How many steps to enter\exit or inside your home? * [facility] * Preadmission Environment Home with Family * ADLs Independent * Equipment None * List name and contact numbers for known caregivers / representatives who currently or will assist patient after discharge: CAT REID - - [phone] * Verbal permission to speak to the caregivers and representatives has been obtained from the patient. Yes * Community resources currently utilized None * Additional services required to return to the preadmission environment? No * Can the patient safely return to the preadmission environment? Yes * Has this patient been hospitalized within the prior 30 days at any hospital? No Last DP export: 02/24/19 10:23 Patient Name: DASHAWN REID Page 12242 at 2322 All edits/amendments must be made on the electronic document DICTATION DATE: 02/24/192328 HELP DESK REPRESENTATIVE: KATIE 02/24/192328 RPT#: [id number] [place] DATE: STATUS: ADM IN [facility] [address] [place] [address] END OF REPORT
--- NOTE | 2019-02-25 | NUR ---
RESTIN IN BED SR UP X2 CALL LIGHT WITHIN REACH.
[2019-02-25 00:22] VITALS: BP 104/60
--- NOTE | 2019-02-25 01:19 | NUR ---
C/O BLADDER DISCOMFORT. TYLENOL 650MG GIVEN FOR BLADDER PAIN.
[2019-02-25 03:58] VITALS: BP 124/64
--- NOTE | 2019-02-25 05:07 | NUR ---
AWAKE WATCHING TV DENIES NEEDS.
[2019-02-25 06:27] LABS: BASOPHILS 0.3 % (0-2); EOSINOPHILS 2.1 % (0-7); HEMOGLOBIN 7.9 g/dL (13.5-17.5); IMMATURE GRANULOCYTES 0.3 % (0-5); LYMPHOCYTES 21.3 % (15-50); MCH 31.3 pg (26.0-34.0); MCHC 31.6 g/dL (31.0-37.0); MCV 99.2 fL (80.0-100.0); MONOCYTES 7.3 % (2-11); NEUTROPHILS 68.7 % (40-80); PLATELET COUNT 80 10x3/uL (130-400); RBC 2.52 10x6/uL (4.20-6.10); RDW 16.1 % (11.5-14.5); WBC 3.8 10x3/uL (4.8-10.8)
[2019-02-25 06:31] LABS: ANION GAP 12.8 mmol/L (8-16); CALCIUM 7.5 mg/dL (8.5-10.1); CARBON DIOXIDE 25.7 mmol/L (21.0-32.0); CREATININE - SERUM 2.3 mg/dL (0.6-1.3); POTASSIUM - SERUM 5.5 mmol/L (3.5-5.1)
--- NOTE | 2019-02-25 07:55 | NUR ---
PT SITTING UP IN BED. RESP EVEN AND UNLABORED. PT VERY TALKATIVE. ALERT AND ORIENTED. SALINE LOC TO RIGHT FOREARM, SITE WITHOUT REDNESS OR EDEMA. DENIES PAIN AT THIS TIME. F/C PATENT TO GRAVITY DRAINING YELLOW URINE. PT DENIES FURTHER NEEDS AT THIS TIME. CL WITHIN REACH. ENCOURAGED TO CALL WITH NEEDS. CONTINUE POC
[2019-02-25 09:13] VITALS: BP 134/69
--- NOTE | 2019-02-25 09:47 | MORECARE ---
CASE MANAGEMENT DISCHARGE SUMMARY PATIENT: DASHAWN REID UNIT: [id number] ADM DATE: 02/22/19 AGE: 63 : 51 SEX: M ROOM/BED: D.2227 AUTHOR: DONOVAN OCONNELL PHYSICIAN: REFERRING PHYSICIAN: DONALD AVILES MD DATE OF SERVICE: 02/25/19 Discharge Plan Patient Name: DASHAWN REID Facility: [facility]:[place] : 1955 Planned Disposition: Home Anticipated Discharge Date: Discharge Date: Expected LOS: Initial Reviewer: [email or web address] Initial Review Date: 02/24/2019 Generated: 02/25/19 10:46 am DCP- Discharge Planning Updated by [email or web address]: Harleen Goetz on 02/25/19 8:[address] Patient has [facility] for [facility]. He will need to go through the VA for a nebulizer and nebulizer medications if he wants them covered under his insurance. He states that he will need to go through the VA for his nebulizer then. He states all his medicine go through the VA as well. Esha Alvarado is the VA doctor he sees at [facility]. CM will continue to follow and assist with discharge planning/needs. DCP- Discharge Planning Updated by [email or web address]: Darcy Magdaleno on 02/24/19 10:[address] Patient Name: DASHAWN REID Admission Status: ER Accout number: [id number] Admission Date: 02-22-2019 : 1955 Admission Diagnosis:TRANSIENT CEREBRAL ISCHEMIC ATTACK, UNSPECIFIED Attending: DONALD AVILES Current LOS: 2 Anticipated DC Date: Planned Disposition: Home Primary Insurance: MEDICARE PART A ONLY Discharge Planning Comments: CM met with patient at bedside after explaining CM role and obtaining verbal consent. Patient lives at home with his Cat where he is independent with his care and plans to return there upon discharge. Patient feels this would be a safe discharge. CM discussed availability / needs of home health and medical equipment. Patient states he needs a nebulizer. Patient states he is on 3 inhalers and thinks a nebulizer would be better. Patient states he will have his family drive him home upon discharge. CM will continue to follow and assist as needed with discharge planning / needs. Asbestos Siding Mechanic: Darcy Magdaleno DCPIA - Discharge Planning Initial Assessment Updated by [email or web address]: Darcy Magdaleno on 02/24/19 11:22 pm * Is the patient Alert and Oriented? Yes * How many steps to enter\exit or inside your home? * PCP [facility] * Pharmacy [facility] * Preadmission Environment Home with Family * ADLs Independent * Equipment None * List name and contact numbers for known caregivers / representatives who currently or will assist patient after discharge: CAT REID - - [phone] * Verbal permission to speak to the caregivers and representatives has been obtained from the patient. Yes * Community resources currently utilized None * Additional services required to return to the preadmission environment? No * Can the patient safely return to the preadmission environment? Yes * Has this patient been hospitalized within the prior 30 days at any hospital? No Last DP export: 02/24/19 10:29 Patient Name: DASHAWN REID Page [phone] at 0947 All edits/amendments must be made on the electronic document DICTATION DATE: 02/25/19945 DETONATOR MAKER: KATIE 02/25/19945 RPT#: [id number] [place] DATE: STATUS: ADM IN [facility] [address] [place] [address] END OF REPORT
--- NOTE | 2019-02-25 11:51 | MORECARE ---
CASE MANAGEMENT DISCHARGE SUMMARY PATIENT: DASHAWN REID UNIT: [id number] ADM DATE: 02/22/19 AGE: 63 : 51 SEX: M ROOM/BED: D.2227 AUTHOR: DONOVAN OCONNELL PHYSICIAN: REFERRING PHYSICIAN: DONALD AVILES MD DATE OF SERVICE: 02/25/19 Discharge Plan Patient Name: DASHAWN REID Facility: [facility]:[place] : 1955 Planned Disposition: Home Anticipated Discharge Date: Discharge Date: Expected LOS: Initial Reviewer: [email or web address] Initial Review Date: 02/24/2019 Generated: 02/25/19 12:51 pm Comments DCP- Discharge Planning Updated by [email or web address]: Harleen Scottkary on 02/25/19 10:[address] Spoke with VA technology recruiter, Renae, she has placed him on the VA list. CM will continue to follow and assist with discharge planning/needs. DCP- Discharge Planning Updated by [id number]: Harleen Goetz on 02/25/19 8:[address] Patient has [facility] for Medications and PCP. He will need to go through the VA for a nebulizer and nebulizer medications if he wants them covered under his insurance. He states that he will need to go through the VA for his nebulizer then. He states all his medicine go through the VA as well. Esha Alvarado is the VA doctor he sees at [facility]. CM will continue to follow and assist with discharge planning/needs. DCP- Discharge Planning Updated by [email or web address]: Darcy Magdaleno on 02/24/19 10:[address] Patient Name: DASHAWN REID Admission Status: ER Accout number: [id number] Admission Date: 02-22-2019 : 1955 Admission Diagnosis:TRANSIENT CEREBRAL ISCHEMIC ATTACK, UNSPECIFIED Attending: DONALD AVILES Current LOS: 2 Anticipated DC Date: Planned Disposition: Home Primary Insurance: MEDICARE PART A ONLY Discharge Planning Comments: CM met with patient at bedside after explaining CM role and obtaining verbal consent. Patient lives at home with his Cat where he is independent with his care and plans to return there upon discharge. Patient feels this would be a safe discharge. CM discussed availability / needs of home health and medical equipment. Patient states he needs a nebulizer. Patient states he is on 3 inhalers and thinks a nebulizer would be better. Patient states he will have his family drive him home upon discharge. CM will continue to follow and assist as needed with discharge planning / needs. Funeral Arrangement Director: Darcy Magdaleno DCPIA - Discharge Planning Initial Assessment Updated by [email or web address]: Darcy Magdaleno on 02/24/19 11:22 pm * Is the patient Alert and Oriented? Yes * How many steps to enter\exit or inside your home? * PCP [facility] * Pharmacy [facility] * Preadmission Environment Home with Family * ADLs Independent * Equipment None * List name and contact numbers for known caregivers / representatives who currently or will assist patient after discharge: CAT REID - - [phone] * Verbal permission to speak to the caregivers and representatives has been obtained from the patient. Yes * Community resources currently utilized None * Additional services required to return to the preadmission environment? No * Can the patient safely return to the preadmission environment? Yes * Has this patient been hospitalized within the prior 30 days at any hospital? No Last DP export: 02/25/19 8:47 Patient Name: DASHAWN REID Page [phone] at 1151 All edits/amendments must be made on the electronic document DICTATION DATE: 02/25/19 115 BIBLE WORKER: KATIE 02/25/19 1150 RPT#: [id number] PA DATE: STATUS: ADM IN [facility] [address] [place] [address] END OF REPORT
[2019-02-25 12:26] VITALS: BP 133/64
[2019-02-25 16:22] VITALS: BP 134/65
[2019-02-25 19:30] VITALS: BP 138/68
--- NOTE | 2019-02-25 20:00 | NUR ---
A&O X 4. DENIES PAIN AT THIS TIME. REQUESTS NIGHTLY MEDS BE GIVEN LATE POSSIBLE. NO S/SX OF DISTRESS, WILL MONITOR CLOSELY.
[2019-02-26 00:30] VITALS: BP 142/74
--- NOTE | 2019-02-26 04:09 | NUR ---
I have reviewed this patient and I concur with the Shift Assessment completed by the Licensed Practical Nurse today this shift.
[2019-02-26 04:30] VITALS: BP 131/69
[2019-02-26 06:37] LABS: BASOPHILS 0.3 % (0-2); HEMATOCRIT 27.2 % (42.0-54.0); HEMOGLOBIN 8.4 g/dL (13.5-17.5); IMMATURE GRANULOCYTES 0.3 % (0-5); LYMPHOCYTES 19.7 % (15-50); MCH 31.2 pg (26.0-34.0); MCHC 30.9 g/dL (31.0-37.0); MCV 101.1 fL (80.0-100.0); MEAN PLATELET VOLUME 13.4 fL (7.4-10.4); MONOCYTES 7.6 % (2-11); NEUTROPHILS 69.1 % (40-80); PLATELET COUNT 77 10x3/uL (130-400); RBC 2.69 10x6/uL (4.20-6.10); RDW 16.4 % (11.5-14.5); WBC 3.7 10x3/uL (4.8-10.8)
[2019-02-26 07:04] LABS: ANION GAP 14.3 mmol/L (8-16); CARBON DIOXIDE 21.3 mmol/L (21.0-32.0); CREATININE - SERUM 2.2 mg/dL (0.6-1.3); POTASSIUM - SERUM 5.6 mmol/L (3.5-5.1)
[2019-02-26 09:02] VITALS: BP 144/66
[2019-02-26 10:09] LABS: PLATELET ESTIMATE DECREASED
[2019-02-26 10:10] LABS: ANISOCYTOSIS OCC
--- NOTE | 2019-02-26 11:33 | MORECARE ---
CASE MANAGEMENT DISCHARGE SUMMARY PATIENT: DASHAWN REID UNIT: [id number] ADM DATE: 02/22/19 AGE: 63 : 51 SEX: M ROOM/BED: D.2227 AUTHOR: DONOVAN OCONNELL PHYSICIAN: REFERRING PHYSICIAN: DONALD AVILES MD DATE OF SERVICE: 02/26/19 Discharge Plan Patient Name: DASHAWN REID Facility: [facility]:[place] : 1955 Planned Disposition: Home Anticipated Discharge Date: Discharge Date: Expected LOS: Initial Reviewer: [email or web address] Initial Review Date: 02/24/2019 Generated: 02/26/19 12:32 pm Comments DCP- Discharge Planning Updated by [email or web address]: Harleen Bishnu on 02/25/19 10:[address] Spoke with VA blasting helper, Renae, she has placed him on the VA list. CM will continue to follow and assist with discharge planning/needs. DCP- Discharge Planning Updated by [email or web address]: Harleen Scottkary on 02/25/19 8:[address] Patient has [facility] for Medications and PCP. He will need to go through the VA for a nebulizer and nebulizer medications if he wants them covered under his insurance. He states that he will need to go through the VA for his nebulizer then. He states all his medicine go through the VA as well. Esha Alvarado is the VA doctor he sees at [facility]. CM will continue to follow and assist with discharge planning/needs. DCP- Discharge Planning Updated by [email or web address]: Darcy Magdaleno on 02/24/19 10:[address] Patient Name: DASHAWN REID Admission Status: ER Accout number: [id number] Admission Date: 02-22-2019 : 1955 Admission Diagnosis:TRANSIENT CEREBRAL ISCHEMIC ATTACK, UNSPECIFIED Attending: DONALD AVILES Current LOS: 2 Anticipated DC Date: Planned Disposition: Home Primary Insurance: MEDICARE PART A ONLY Discharge Planning Comments: CM met with patient at bedside after explaining CM role and obtaining verbal consent. Patient lives at home with his Cat where he is independent with his care and plans to return there upon discharge. Patient feels this would be a safe discharge. CM discussed availability / needs of home health and medical equipment. Patient states he needs a nebulizer. Patient states he is on 3 inhalers and thinks a nebulizer would be better. Patient states he will have his family drive him home upon discharge. CM will continue to follow and assist as needed with discharge planning / needs. Paid Search Marketing Strategist: Darcy Magdaleno DCPIA - Discharge Planning Initial Assessment Updated by [email or web address]: Darcy Magdaleno on 02/24/19 11:22 pm * Is the patient Alert and Oriented? Yes * How many steps to enter\exit or inside your home? * PCP VA * Pharmacy VA * Preadmission Environment Home with Family * ADLs Independent * Equipment None * List name and contact numbers for known caregivers / representatives who currently or will assist patient after discharge: CAT REID - - [phone] * Verbal permission to speak to the caregivers and representatives has been obtained from the patient. Yes * Community resources currently utilized None * Additional services required to return to the preadmission environment? No * Can the patient safely return to the preadmission environment? Yes * Has this patient been hospitalized within the prior 30 days at any hospital? No External Providers External Provider: OTHER-OTHER Next Contact Date: Service Request Date: Service Type: Resolution: Reviewer: Comments: Last DP export: 02/25/19 10:51 Patient Name: DASHAWN REID Page 48665 at 1133 All edits/amendments must be made on the electronic document DICTATION DATE: 02/26/191131 METER ATTENDANT: KATIE 02/26/191131 RPT#: [id number] DC DATE: STATUS: ADM IN [facility] [address] [place] [address] END OF REPORT
--- NOTE | 2019-02-26 11:34 | NUR ---
ASSISTED UP TO BATHROOM VOID AT THIS TIME AND HAD BM. C/L IN REACH AT BEDSIDE.
--- NOTE | 2019-02-26 11:54 | MORECARE ---
CASE MANAGEMENT DISCHARGE SUMMARY PATIENT: DASHAWN REID UNIT: [id number] ADM DATE: 02/22/19 AGE: 63 : 51 SEX: M ROOM/BED: D.2227 AUTHOR: DONOVAN OCONNELL PHYSICIAN: REFERRING PHYSICIAN: DONALD AVILES MD DATE OF SERVICE: 02/26/19 Discharge Plan Patient Name: DASHAWN REID Facility: [facility]:[place] : 1955 Planned Disposition: Home Anticipated Discharge Date: Discharge Date: Expected LOS: Initial Reviewer: [email or web address] Initial Review Date: 02/24/2019 Generated: 02/26/19 12:53 pm Comments DCP- Discharge Planning Updated by [email or web address]: Harleen Goetz on 02/26/19 10:[address] Received discharge orders. I do not have hand written Rx yet to fax to the VA for his new RX. I called the VA and spoke to Nadira, she will have the nurse return my call concerning his new RX. She states they will need approval from the VA doctor. I met with the patient and he is in agreement to going home, but states he will need about a weeks worth of his new Rx. He also would like the pneumonia vaccine, I notified the billing coordinator (Bailey). DCP- Discharge Planning Updated by [id number]: Harleen Goetz on 02/25/19 10:[address] Spoke with VA Renae johnson, she has placed him on the VA list. CM will continue to follow and assist with discharge planning/needs. DCP- Discharge Planning Updated by [email or web address]: Harleen Bishnu on 02/25/19 8:[address] Patient has VA for Medications and PCP. He will need to go through the VA for a nebulizer and nebulizer medications if he wants them covered under his insurance. He states that he will need to go through the VA for his nebulizer then. He states all his medicine go through the VA as well. Esha Alvarado is the VA doctor he sees at [facility]. CM will continue to follow and assist with discharge planning/needs. DCP- Discharge Planning Updated by [email or web address]: Darcy Magdaleno on 02/24/19 10:[address] Patient Name: DASHAWN REID Admission Status: ER Accout number: [id number] Admission Date: 02-22-2019 : 1955 Admission Diagnosis:TRANSIENT CEREBRAL ISCHEMIC ATTACK, UNSPECIFIED Attending: DONALD AVILES Current LOS: 2 Anticipated DC Date: Planned Disposition: Home Primary Insurance: MEDICARE PART A ONLY Discharge Planning Comments: CM met with patient at bedside after explaining CM role and obtaining verbal consent. Patient lives at home with his Cat where he is independent with his care and plans to return there upon discharge. Patient feels this would be a safe discharge. CM discussed availability / needs of home health and medical equipment. Patient states he needs a nebulizer. Patient states he is on 3 inhalers and thinks a nebulizer would be better. Patient states he will have his family drive him home upon discharge. CM will continue to follow and assist as needed with discharge planning / needs. Mechanical Designer: Darcy Magdaleno DCA - Discharge Planning Initial Assessment Updated by [id number]: Darcy Magdaleno on 02/24/19 11:22 pm * Is the patient Alert and Oriented? Yes * How many steps to enter\exit or inside your home? * PCP [facility] * Pharmacy [facility] * Preadmission Environment Home with Family * ADLs Independent * Equipment None * List name and contact numbers for known caregivers / representatives who currently or will assist patient after discharge: CAT REID - - [phone] * Verbal permission to speak to the caregivers and representatives has been obtained from the patient. Yes * Community resources currently utilized None * Additional services required to return to the preadmission environment? No * Can the patient safely return to the preadmission environment? Yes * Has this patient been hospitalized within the prior 30 days at any hospital? No Coverage Notice Reviewer: [id number] Rk Goetz Notice Issued Date-Time: 02/26/2019 11:50 Notice Type: IM Discharge Notice Notice Delivered To: Patient Relationship to Patient: Self Supervisor Inspection Department Name: Delivery Method: HAND - Hand Delivered Eleonora Days: Prior Verbal Notification: Recipient Understood Notice: Yes Recipient Signature: Yes Med Rec Note Co-signed by Attending: Coverage Notice Comment: IMM explained, signed, given, copy placed in MR Last DP export: 02/26/19 10:33 Patient Name: DASHAWN REID Page [id number] at 1154 All edits/amendments must be made on the electronic document DICTATION DATE: 02/26/191152 ECONOMICS INSTRUCTOR: KATIE 02/26/191152 RPT#: [id number] DC DATE: STATUS: ADM IN [facility] [address] [place] [address] END OF REPORT
[2019-02-26 13:07] VITALS: BP 137/58
--- NOTE | 2019-02-26 13:30 | NUR ---
VALLECILLO CATH DC AT THIS TIME WITH 1000 ML NOTED TO COLLECTION DEVICE. C/L IN REACH AT BEDSIDE.
--- NOTE | 2019-02-26 14:11 | MORECARE ---
CASE MANAGEMENT DISCHARGE SUMMARY PATIENT: DASHAWN REID UNIT: [id number] ADM DATE: 02/22/19 AGE: 63 : 51 SEX: M ROOM/BED: D.2227 AUTHOR: DONOVAN OCONNELL PHYSICIAN: REFERRING PHYSICIAN: DONALD AVILES MD DATE OF SERVICE: 02/26/19 Discharge Plan Patient Name: DASHAWN REID Facility: [facility]:[place] : 1955 Planned Disposition: Home Anticipated Discharge Date: Discharge Date: Expected LOS: Initial Reviewer: [email or web address] Initial Review Date: 02/24/2019 Generated: 02/26/19 3:10 pm Comments DCP- Discharge Planning Updated by [email or web address]: Harleen Goetz on 02/26/19 1:[address] Written Rx given to marketing operations coordinator to give at discharge. I called in RX to [facility] for new medications. I informed him that Camila Tafoya CM plant supervisor has approved 7 day supply and he is to pick it up before they close at 6:30 today. He voices understanding. He states "his stock driver" is picking him up. Home today. He states he [facility]. DCP- Discharge Planning Updated by [id number]: Harleen Goetz on 02/26/19 10:[address] Received discharge orders. I do not have hand written Rx yet to fax to the VA for his new RX. I called the VA and spoke to Nadira, she will have the nurse return my call concerning his new RX. She states they will need approval from the VA doctor. I met with the patient and he is in agreement to going home, but states he will need about a weeks worth of his new Rx. He also would like the pneumonia vaccine, I notified the marketing operations coordinator (Bailey). DCP- Discharge Planning Updated by [email or web address]: Harleen Goetz on 02/25/19 10:[address] Spoke with VA self sealing fuel tank repairerRenae, she has placed him on the VA list. CM will continue to follow and assist with discharge planning/needs. DCP- Discharge Planning Updated by [email or web address]: Harleen Goetz on 02/25/19 8:[address] Patient has [facility] for Medications and PCP. He will need to go through the VA for a nebulizer and nebulizer medications if he wants them covered under his insurance. He states that he will need to go through the VA for his nebulizer then. He states all his medicine go through the VA as well. Esha Alvarado is the [place] doctor he sees at [facility]. CM will continue to follow and assist with discharge planning/needs. DCP- Discharge Planning Updated by [email or web address]: Darcy Magdaleno on 02/24/19 10:[address] Patient Name: DASHAWN REID Admission Status: ER Accout number: [id number] Admission Date: 02-22-2019 : 1955 Admission Diagnosis:TRANSIENT CEREBRAL ISCHEMIC ATTACK, UNSPECIFIED Attending: DONALD AVILES Current LOS: 2 Anticipated DC Date: Planned Disposition: Home Primary Insurance: MEDICARE PART A ONLY Discharge Planning Comments: CM met with patient at bedside after explaining CM role and obtaining verbal consent. Patient lives at home with his Cat where he is independent with his care and plans to return there upon discharge. Patient feels this would be a safe discharge. CM discussed availability / needs of home health and medical equipment. Patient states he needs a nebulizer. Patient states he is on 3 inhalers and thinks a nebulizer would be better. Patient states he will have his family drive him home upon discharge. CM will continue to follow and assist as needed with discharge planning / needs. Vice President Of Talent Acquisition: Darcy Magdaleno DCPIA - Discharge Planning Initial Assessment Updated by [email or web address]: Darcy Magdaleno on 02/24/19 11:22 pm * Is the patient Alert and Oriented? Yes * How many steps to enter\\exit or inside your home? * PCP VA * Pharmacy VA * Preadmission Environment Home with Family * ADLs Independent * Equipment None * List name and contact numbers for known caregivers / representatives who currently or will assist patient after discharge: CAT REID - - [phone] * Verbal permission to speak to the caregivers and representatives has been obtained from the patient. Yes * Community resources currently utilized None * Additional services required to return to the preadmission environment? No * Can the patient safely return to the preadmission environment? Yes * Has this patient been hospitalized within the prior 30 days at any hospital? No Coverage Notice Reviewer: [email or web address] Rk Goetz Notice Issued Date-Time: 02/26/2019 11:50 Notice Type: IM Discharge Notice Notice Delivered To: Patient Relationship to Patient: Self Ski Top Trimmer Name: Delivery Method: HAND - Hand Delivered Eleonora Days: Prior Verbal Notification: Recipient Understood Notice: Yes Recipient Signature: Yes Med Rec Note Co-signed by Attending: Coverage Notice Comment: IMM explained, signed, given, copy placed in MR Last DP export: 02/26/19 10:53 Patient Name: DASHAWN REID Page 60514 at 1411 All edits/amendments must be made on the electronic document DICTATION DATE: 02/26/191409 TRAINING DEVELOPMENT DIRECTOR: KATIE 02/26/191409 RPT#: [id number] DC DATE: STATUS: ADM IN [facility] [address] [place] [address] END OF REPORT
--- NOTE | 2019-02-26 15:24 | NUR ---
I have reviewed this patient and I concur with the Shift Assessment completed by the Licensed Practical Nurse today this shift.
--- NOTE | 2019-02-26 15:50 | NUR ---
PT DC HOME AT THIS [facility] IN STABLE CONDITION. VOICE UNDERSTANDING OF DC ORDERS. VOICES UNDERSTANDING WELL.
--- NOTE | 2019-02-27 16:51 | MORECARE ---
CASE MANAGEMENT DISCHARGE SUMMARY PATIENT: DASHAWN REID UNIT: [id number] ADM DATE: 02/22/19 AGE: 63 : 51 SEX: M ROOM/BED: D.2227 AUTHOR: DONOVAN OCONNELL PHYSICIAN: REFERRING PHYSICIAN: DONALD AVILES MD DATE OF SERVICE: 02/27/19 Discharge Plan Patient Name: DASHAWN REID Facility: [facility]:[place] : 1955 Planned Disposition: Home Anticipated Discharge Date: Discharge Date: 02/26/2019 Expected LOS: 0 Initial Reviewer: [email or web address] Initial Review Date: 02/24/2019 Generated: 02/27/19 5:51 pm Comments DCP- Discharge Planning Updated by [id number]: Harleen Goetz on 02/26/19 1:[address] Written Rx given to flow machine operator to give at discharge. I called in RX to [facility] for new medications. I informed him that Camila Tafoya CM coding clerks supervisor has approved 7 day supply and he is to pick it up before they close at 6:30 today. He voices understanding. He states "his marine engine driver" is picking him up. Home today. [facility] DCP- Discharge Planning Updated by [email or web address]: Harleen Goetz on 02/26/19 10:[address] Received discharge orders. I do not have hand written Rx yet to fax to the [facility] for his new RX. I called the [facility] and spoke to Nadira, she will have the nurse return my call concerning his new RX. She states they will need approval from the [facility] doctor. I met with the patient and he is in agreement to going home, but states he will need about a weeks worth of his new Rx. He also would like the pneumonia vaccine, I notified the flow machine operator (Bailey). DCP- Discharge Planning Updated by [id number]: Harleen Goetz on 02/25/19 10:[address] Spoke with [facility] customer serviceRenae, she has placed him on the VA list. CM will continue to follow and assist with discharge planning/needs. DCP- Discharge Planning Updated by [email or web address]: Harleen Goetz on 02/25/19 8:[address] Patient has [facility] for Medications and PCP. He will need to go through the VA for a nebulizer and nebulizer medications if he wants them covered under his insurance. He states that he will need to go through the VA for his nebulizer then. He states all his medicine go through the VA as well. Esha Alvarado is the [facility] doctor he sees at [facility]. CM will continue to follow and assist with discharge planning/needs. DCP- Discharge Planning Updated by [email or web address]: Darcy Magdaleno on 02/24/19 10:[address] Patient Name: DASHAWN REID Admission Status: ER Accout number: [id number] Admission Date: 02-22-2019 : 1955 Admission Diagnosis:TRANSIENT CEREBRAL ISCHEMIC ATTACK, UNSPECIFIED Attending: DONALD AVILES Current LOS: 2 Anticipated DC Date: Planned Disposition: Home Primary Insurance: MEDICARE PART A ONLY Discharge Planning Comments: CM met with patient at bedside after explaining CM role and obtaining verbal consent. Patient lives at home with his Cat where he is independent with his care and plans to return there upon discharge. Patient feels this would be a safe discharge. CM discussed availability / needs of home health and medical equipment. Patient states he needs a nebulizer. Patient states he is on 3 inhalers and thinks a nebulizer would be better. Patient states he will have his family drive him home upon discharge. CM will continue to follow and assist as needed with discharge planning / needs. Mental Health Specialist: Darcy Magdaleno DCPIA - Discharge Planning Initial Assessment Updated by [email or web address]: Darcy Magdaleno on 02/24/19 11:22 pm * Is the patient Alert and Oriented? Yes * How many steps to enter\\exit or inside your home? * PCP [facility] * Pharmacy [facility] * Preadmission Environment Home with Family * ADLs Independent * Equipment None * List name and contact numbers for known caregivers / representatives who currently or will assist patient after discharge: CAT REID - - [phone] * Verbal permission to speak to the caregivers and representatives has been obtained from the patient. Yes * Community resources currently utilized None * Additional services required to return to the preadmission environment? No * Can the patient safely return to the preadmission environment? Yes * Has this patient been hospitalized within the prior 30 days at any hospital? No Coverage Notice Reviewer: [id number] Rk Harleen Bishnu Notice Issued Date-Time: 02/26/2019 11:50 Notice Type: IM Discharge Notice Notice Delivered To: Patient Relationship to Patient: Self Exterminator Termite Name: Delivery Method: HAND - Hand Delivered Eleonora Days: Prior Verbal Notification: Recipient Understood Notice: Yes Recipient Signature: Yes Med Rec Note Co-signed by Attending: Coverage Notice Comment: IMM explained, signed, given, copy placed in MR Last DP export: 02/26/19 1:11 Patient Name: DASHAWN REID Page [phone] at 1651 All edits/amendments must be made on the electronic document DICTATION DATE: 02/27/191650 SANITIZER: KATIE 02/27/191650 RPT#: [id number] DC DATE:02/26/19 STATUS: DIS IN [facility] [address] [place] [address] END OF REPORT
== END 2019-02-26 15:51 | disposition home or self-care (01) | DRG 69 ==
LOC: D.ER 23:24 → D.M3 02-22 01:46 → D.MS 02-24 17:26
PROVIDERS: Family Medicine; ADMIT Internal Medicine Nephrology; ATTEND Internal Medicine Nephrology
DX: G45.9 Transient cerebral ischemic attack, unspecified (principal); I50.31 Acute diastolic (congestive) heart failure; G93.41 Metabolic encephalopathy; D61.818 Other pancytopenia; I13.0 Hypertensive heart and chronic kidney disease with heart failure and stage 1 through stage 4 chronic kidney disease, or unspecified chronic kidney disease; N17.9 Acute kidney failure, unspecified; D53.9 Nutritional anemia, unspecified; E11.22 Type 2 diabetes mellitus with diabetic chronic kidney disease; I25.10 Atherosclerotic heart disease of native coronary artery without angina pectoris; G20 Parkinson's disease; J44.9 Chronic obstructive pulmonary disease, unspecified; N40.0 Benign prostatic hyperplasia without lower urinary tract symptoms; N18.3 Chronic kidney disease, stage 3 (moderate); E78.5 Hyperlipidemia, unspecified

== ENCOUNTER 2019-04-03 15:23 | Inpatient (IN) | payer MEDICARE ==
[~2019-04-03] VITALS: Ht 185.4 cm; Wt 75.8 kg
[~2019-04-03 15:23] MED LIST changes: -CARIPRAZINE; +CARIPRAZINE PO; -INSULIN DETEMIR; +INSULIN DETEMIR SQ; -MELATONIN 3 MG1 TAB; +MELATONIN 3 MG1 TAB PO; -PLAVIX75 MG; +PLAVIX75 MG PO; +TOPROL XL200 MG PO; -[UNRECOGNIZED DRUG - OTHER]; +[UNRECOGNIZED DRUG - OTHER] SQ
--- NOTE | 2019-04-03 15:55 | NUR ---
[facility] CALLED FOR ALONSO HADLEY
[2019-04-03 16:09] LABS: CALCIUM 7.9 mg/dL (8.5-10.1); CARBON DIOXIDE 18.9 mmol/L (21.0-32.0); CREATININE - SERUM 2.4 mg/dL (0.6-1.3); POTASSIUM - SERUM 5.9 mmol/L (3.5-5.1)
[2019-04-03 16:15] LABS: ALBUMIN 3.1 g/dL (3.4-5.0); BILIRUBIN - TOTAL 0.22 mg/dL (0.2-1.3); PROTEIN - SERUM 6.7 g/dL (6.4-8.2)
[2019-04-03 16:22] LABS: BASOPHILS 0.3 % (0-2); EOSINOPHILS 2.8 % (0-7); HEMATOCRIT 26.2 % (42.0-54.0); HEMOGLOBIN 8.2 g/dL (13.5-17.5); IMMATURE GRANULOCYTES 0.3 % (0-5); LYMPHOCYTES 24.5 % (15-50); MCH 30.8 pg (26.0-34.0); MCHC 31.3 g/dL (31.0-37.0); MCV 98.5 fL (80.0-100.0); MEAN PLATELET VOLUME 13.4 fL (7.4-10.4); MONOCYTES 8.4 % (2-11); NEUTROPHILS 63.7 % (40-80); PLATELET COUNT 83 10x3/uL (130-400); RBC 2.66 10x6/uL (4.20-6.10); RDW 14.8 % (11.5-14.5); WBC 3.2 10x3/uL (4.8-10.8)
--- NOTE | 2019-04-03 16:32 | NUR ---
DR FLORES NOTIFIED AND REVIEWED PT's BEHAVIOR AND ASSESSMENT RESULTS. PT IS A ;OW RISK PER DR FLORES. DR FLORES STATED TO GIVE RESOURCES TO PT AT TIME OF DISCHARGE. NO FURTHER ORDERS AT THIS TIME. REVIEWED RESOURCES WITH PT AND HE VERBALIZED UNDERSTANDING.
[2019-04-03 16:47] VITALS: BP 144/59
[2019-04-03 16:47] LABS: PLATELET ESTIMATE DECREASED
--- NOTE | 2019-04-03 16:48 | NUR ---
VOIDED 600ML CLEAR YELLOW URINE VIA URINAL
[2019-04-03 16:51] LABS: APPEARANCE CLEAR (CLEAR); BILIRUBIN NEGATIVE (NEGATIVE); COLOR YELLOW (YELLOW); GLUCOSE 50 mg/dL (NEGATIVE); KETONE NEGATIVE (NEGATIVE); NITRITE NEGATIVE (NEGATIVE); PROTEIN TRACE mg/dL (NEGATIVE); UROBILINOGEN NORMAL (NORMAL)
[2019-04-03 17:13] VITALS: BP 143/66
--- NOTE | 2019-04-03 17:24 | NUR ---
CM met with patient regarding [facility] to the [facility] for [facility]. CM eudcated the patient on the CM role and patient gave verbal consent for cm assistance. Patient verified he had VA affiliation but declined to transfer to the VA for further treatment. Patient signed decline to transfer form and watch caser faxed the form back to the [facility]
--- NOTE | 2019-04-03 17:57 | NUR ---
ATTEMPTED TO CALL REPORT, RN UNAVAILABLE
--- NOTE | 2019-04-03 18:15 | NUR ---
REPORT TO SILAS ARTIS
--- NOTE | 2019-04-03 18:26 | NUR ---
PATIENT RESTING COMFORTABLY. PATIENT IS STABLE AND VSS. PATIENT DENIES ANY NEEDS OR PAIN. WILL CONTINUE TO MONITOR. SR UP X 2 BED IN LOW POSITION AND CALL LIGHT IN REACH.
[2019-04-03 18:45] VITALS: BP 119/49
--- NOTE | 2019-04-03 18:45 | NUR ---
WHILE TRANSPORTING PT TO FLOOR, PT C/O "I FEEL REAL DIZZY" RESP EVEN/UNLABORED. SKIN W/D/P. A/OX3. IFSBS= 36 MG/DL. SILAS ARTIS AT AND INSTA GLUCOSE GIVEN PO AND SANDWICH AND MILK GIVEN. PT EATING WELL.
[2019-04-03 20:30] VITALS: BP 131/54
[2019-04-03] MEDS ORDERED: FEOSOL LIQ300 MG/5 M PO (20:37)
[2019-04-03] MEDS ORDERED: KEPPRA250 MG PO (20:44)
[2019-04-03] MEDS ORDERED: XALATAN 0.0052.5 ML EACH EYE (20:48)
[2019-04-03] MEDS ORDERED: KEPPRA750 MG PO (20:49)
[2019-04-03 22:44] VITALS: BP 131/54; BMI 22.0
--- NOTE | 2019-04-03 23:39 | NUR ---
RECEIVED REPORT FROM OFFGOING. UP IN BED WITH EYES OPEN. ALERT AND ORIENTED X4. UP AD HUNTER. VERY ANXIOUS AND QUESTIONING. ANSWER QUESTIONS WHEN ABLE. WANTED TO KNOW IF HIS CAROTID WAS BLOCKED BECAUSE THE SIDE OF HIS NECK HURT. ALSO, STATED HE HAD A STENT IN HIS RIGHT ARM. ANSWERS QUESTIONS APPROPRIATLY. LUNG SOUNDS CLEAR BILATERALLY. ABS X4. REPORTED FSBS IN 30'S EARLIER AND GLUCOSE GIVE AND SANDWICH BOX WITH 2 MILKS. RECHECKED AND ABOVE 200. INSULIN GIVEN PER ORDERS. RECHECKED AGAIN AND FSBS 230. JIM CRACKER AND PEANUT BUTTER CUP ON OVERBED TABLE. REQUESTED MORE TO EAT AND EXPLAINED HIS FSBS WAS TO HIGH AT THAT TIME. VERBALIZED UNDERSTANDING. REQUESTING TYLENOL. LORI TORRES APN AND AWAITING CALL BACK.
--- NOTE | 2019-04-04 00:09 | NUR ---
NEW ORDER RECEIVED FOR TYLENOL. WHEN REASSESSING PAIN HE WAS ASLEEP. DID NOT WAKE HIM.
[2019-04-04 00:30] VITALS: BP 153/66
--- NOTE | 2019-04-04 04:15 | NUR ---
C/O NOSE BLEED. STATED " I JUST WOKE UP AND IT WAS BLEEDING. IT HAPPENS SOMETIMES." DRIED BLOOD UNDER LEFT HAND INDEX FINGER NAIL. NO BLOOD ON SHEETS OR GOWN.
[2019-04-04 05:05] LABS: BASOPHILS 0.3 % (0-2); EOSINOPHILS 3.4 % (0-7); HEMATOCRIT 26.2 % (42.0-54.0); HEMOGLOBIN 8.2 g/dL (13.5-17.5); IMMATURE GRANULOCYTES 0.3 % (0-5); LYMPHOCYTES 24.6 % (15-50); MCH 30.7 pg (26.0-34.0); MCHC 31.3 g/dL (31.0-37.0); MCV 98.1 fL (80.0-100.0); MEAN PLATELET VOLUME 12.9 fL (7.4-10.4); MONOCYTES 7.3 % (2-11); NEUTROPHILS 64.1 % (40-80); PLATELET COUNT 80 10x3/uL (130-400); RBC 2.67 10x6/uL (4.20-6.10); RDW 14.7 % (11.5-14.5); WBC 3.9 10x3/uL (4.8-10.8)
[2019-04-04 05:15] LABS: APTT 31.2 SECONDS (22.8-39.4); INR 1.22 (0.85-1.17); PROTIME 14.9 SECONDS (11.6-15.0)
[2019-04-04 05:29] LABS: ALBUMIN 2.8 g/dL (3.4-5.0); BILIRUBIN - TOTAL 0.19 mg/dL (0.2-1.3); CREATININE - SERUM 2.2 mg/dL (0.6-1.3); MAGNESIUM - SERUM 1.6 mg/dL (1.8-2.4); PHOSPHOROUS 3.4 mg/dL (2.5-4.9); PROTEIN - SERUM 6.2 g/dL (6.4-8.2)
[2019-04-04 06:42] VITALS: BP 146/54
[2019-04-04 08:06] VITALS: BP 165/66
--- NOTE | 2019-04-04 09:17 | NUR ---
AM MEDS GIVEN AT THIS TIME. PT IN BED, DENIES ANY NEEDS AT THIS TIME. CALL LIGHT IN REACH, NAD NOTED, WILL CONTINUE TO MONITOR.
[2019-04-04 10:46] VITALS: BMI 22.0
[2019-04-04 11:33] VITALS: BP 160/82
[2019-04-04 14:13] LABS: CALCIUM 8.3 mg/dL (8.5-10.1); CARBON DIOXIDE 19.2 mmol/L (21.0-32.0); CREATININE - SERUM 2.3 mg/dL (0.6-1.3); POTASSIUM - SERUM 5.2 mmol/L (3.5-5.1)
[2019-04-04 15:31] VITALS: BP 132/84
--- NOTE | 2019-04-04 16:19 | NUR ---
BLOOD SUGAR OF 289, 6UNITS OF INSULIN GIVEN PER S/S. PT UP TO SIDE OF BED, DENIES ANY NEEDS AT THIS TIME. [facility].
--- NOTE | 2019-04-04 16:20 | NUR ---
BLOOD SUGAR OF 289, 6UNITS GIVEN AT THIS TIME. PER S/S. PT UP TO SIDE OF BED, EATING DINNER, DENIES ANY NEEDS AT THIS TIME. CALL LIGHT IN REACH, NAD NOTED.
--- NOTE | 2019-04-04 19:30 | NUR ---
REPORT RECIEVED AND ROUNDING COMPLETE. PATIENT SITTING ON THE SIDE OF HIS BED TALKING ON THE PHONE. PATIENT STATES HE HAS NO NEEDS AT THIS TIME. PATIENT HAS A RIGHT WRIST PIV THAT IS PATENT AND RUNNING FLUIDS AT THIS TIME. PIV SHOWS NO S/SX OF INFILTRATION AT THIS TIME. PATIENT STATES HE IS STARTING TO GET A HEAD ACHE AND ASKS TO BE BROUGHT PAIN MEDS WITH PM MED [facility]ASS. WILL CHECK MAR AND GIVE MEDS. PATIENT SHOWS NO S/SX OF DISTRESS AT THIS TIME. CALL LIGHT WITHIN REACH AND BED IN LOWEST LOCKED POSITION.
[2019-04-04 20:30] VITALS: BP 155/85
[2019-04-05 00:26] VITALS: BP 103/66
[2019-04-05 05:18] LABS: BASOPHILS 0.5 % (0-2); EOSINOPHILS 3.1 % (0-7); HEMATOCRIT 26.8 % (42.0-54.0); HEMOGLOBIN 8.3 g/dL (13.5-17.5); IMMATURE GRANULOCYTES 0.3 % (0-5); LYMPHOCYTES 19.9 % (15-50); MCH 30.6 pg (26.0-34.0); MCV 98.9 fL (80.0-100.0); MEAN PLATELET VOLUME 12.9 fL (7.4-10.4); NEUTROPHILS 67.2 % (40-80); PLATELET COUNT 78 10x3/uL (130-400); RBC 2.71 10x6/uL (4.20-6.10); RDW 14.8 % (11.5-14.5); WBC 3.9 10x3/uL (4.8-10.8)
[2019-04-05 05:30] LABS: ANION GAP 16.5 mmol/L (8-16); CALCIUM 7.7 mg/dL (8.5-10.1); CARBON DIOXIDE 20.1 mmol/L (21.0-32.0); CREATININE - SERUM 2.1 mg/dL (0.6-1.3); MAGNESIUM - SERUM 1.4 mg/dL (1.8-2.4); POTASSIUM - SERUM 4.6 mmol/L (3.5-5.1)
[2019-04-05 05:34] LABS: PHOSPHOROUS 4.4 mg/dL (2.5-4.9)
[2019-04-05 05:53] LABS: PLATELET ESTIMATE DECREASED
--- NOTE | 2019-04-05 06:24 | NUR ---
PATIENT'S FSBS WAS 161 THIS AM, PATIENT ASKED IF HE SHOULD TAKE HIS INSULIN, INFORMED PATIENT THAT HE WAS GOING TO EAT SOON SO HE SHOULD TAKE, HE AGRRED, NO OTHER NEEDS AT THIST TIME. CALL LIGHT WITHIN REACH.
[2019-04-05 09:25] LABS: % SATURATION 11 % (15-55); IRON 22 ug/dl (35-150); TOTAL IRON BIND CAPACITY 188 ug/dl (260-445); UNSAT IRON BIND CAPACITY 166 ug/dl (150-375)
[2019-04-05 10:07] VITALS: Ht 185.4 cm; Wt 75.8 kg
[2019-04-05 10:28] VITALS: BP 120/65
[2019-04-05 14:02] VITALS: BP 139/54
[2019-04-05 17:10] VITALS: BP 135/79
--- NOTE | 2019-04-05 19:16 | NUR ---
ATTEMPTED TO ANSWER QUESTIONS AND TO ASSIST WITH COMFORT BED LOW AND LOCKED AND CALL LIGHT WITH PT PT CO IV BUT APPEARS TO BE PATENT SL FOR NOW TO MAINTAIN SITE
[2019-04-05 20:29] VITALS: BP 135/89
[2019-04-06 00:30] VITALS: BP 142/70
--- NOTE | 2019-04-06 01:25 | NUR ---
I have reviewed this patient and I concur with the Shift Assessment completed by the Licensed Practical Nurse today this shift.
[2019-04-06 04:03] VITALS: BP 131/55
--- NOTE | 2019-04-06 07:57 | NUR ---
PATIENT IS ALERT AND AWAKE. DENIES ANY NEEDS AT THIS TIME.
[2019-04-06 08:05] LABS: BASOPHILS 0.3 % (0-2); EOSINOPHILS 4.9 % (0-7); HEMATOCRIT 26.5 % (42.0-54.0); HEMOGLOBIN 8.3 g/dL (13.5-17.5); IMMATURE GRANULOCYTES 0.3 % (0-5); LYMPHOCYTES 27.5 % (15-50); MCH 30.9 pg (26.0-34.0); MCHC 31.3 g/dL (31.0-37.0); MCV 98.5 fL (80.0-100.0); MEAN PLATELET VOLUME 13.1 fL (7.4-10.4); PLATELET COUNT 83 10x3/uL (130-400); RBC 2.69 10x6/uL (4.20-6.10); RDW 14.5 % (11.5-14.5); WBC 3.7 10x3/uL (4.8-10.8)
[2019-04-06 08:12] LABS: ANION GAP 15.4 mmol/L (8-16); CREATININE - SERUM 1.9 mg/dL (0.6-1.3); MAGNESIUM - SERUM 1.5 mg/dL (1.8-2.4); PHOSPHOROUS 3.3 mg/dL (2.5-4.9); POTASSIUM - SERUM 4.4 mmol/L (3.5-5.1)
[2019-04-06 08:40] VITALS: BP 150/69
[2019-04-06] MEDS ORDERED: FLOMAX0.4 MG PO (11:57)
[2019-04-06] MEDS ORDERED: SODIUM BICARBO650 MG PO (11:57)
[2019-04-06 13:01] VITALS: BP 131/60
--- NOTE | 2019-04-06 13:27 | NUR ---
DISCHARGE COMPLETE , DISCHARGE TEACHING DONE AND PAPERS SIGNED. IV REMOVED FROM LEFT WRIST, PATIENT TOLERATED. ALL HIS BELONGINGS HAVE BEEN PACKED IN A PERSONAL BAG. WHEN HIS FAMILY ARRIVES HE WILL GO DOWNSTAIRS BY WHEELCHAIR.
--- NOTE | 2019-04-06 13:33 | MORECARE ---
CASE MANAGEMENT DISCHARGE SUMMARY PATIENT: DASHAWN REID UNIT: [id number] ADM DATE: 04/03/19 AGE: 63 : 51 SEX: M ROOM/BED: D.2113 AUTHOR: DONOVAN OCONNELL PHYSICIAN: REFERRING PHYSICIAN: DONALD AVILES MD DATE OF SERVICE: 04/06/19 Discharge Plan Patient Name: DASHAWN REID Facility: [facility]:[place] : 1955 Planned Disposition: Home Anticipated Discharge Date: 04/06/19 Discharge Date: Expected LOS: 3 Initial Reviewer: [email or web address] Initial Review Date: 04/06/2019 Generated: 04/06/19 2:33 pm DCP- Discharge Planning Updated by [email or web address]: Wilma Clay on 04/03/19 5:[address] CM met with patient regarding transfer to the [place] for treatment. CM eudcated the patient on the CM role and patient gave verbal consent for cm assistance. Patient verified he had VA affiliation but declined to transfer to the [place] for DCPIA - Discharge Planning Initial Assessment Updated by [email or web address]: Rachid Carlin on 04/06/19 1:33 pm * Is the patient Alert and Oriented? Yes * How many steps to enter\exit or inside your home? NONE * PCP [facility] * [facility] [address] Patient Name: DASHAWN REID Page [phone] at 1333 All edits/amendments must be made on the electronic document DICTATION DATE: 04/06/19 1333 SENIOR CIVIL ENGINEER: KATIE 04/06/19 1333 RPT#: [id number] DC DATE: STATUS: ADM IN [facility] [address] [place] [address] END OF REPORT
--- NOTE | 2019-04-06 13:42 | NUR ---
GAVE PATIENT HIS TWO MEDICATIONS, EYEDROPS FROM THE [place], AND HSI CAPSULES VALAR, FROM THE [place]. HIS RIDE WILL BE HERE SOON.
--- NOTE | 2019-04-06 13:43 | MORECARE ---
CASE MANAGEMENT DISCHARGE SUMMARY PATIENT: DASHAWN REID UNIT: [id number] ADM DATE: 04/03/19 AGE: 63 : 51 SEX: M ROOM/BED: D.3733 AUTHOR: DONOVAN OCONNELL PHYSICIAN: REFERRING PHYSICIAN: DONALD AVILES MD DATE OF SERVICE: 04/06/19 Discharge Plan Patient Name: DASHAWN REID Facility: [facility]:[place] : 1955 Planned Disposition: Home Anticipated Discharge Date: 04/06/19 Discharge Date: Expected LOS: 3 Initial Reviewer: [email or web address] Initial Review Date: 04/06/2019 Generated: 04/06/19 2:43 pm Comments DCP- Discharge Planning Updated by [email or web address]: Rachid Cotton on 04/06/19 12:[address] Patient Name: DASHAWN REID Admission Status: ER Accout number: [id number] Admission Date: 04-03-2019 : 1955 Admission Diagnosis: Attending: DONALD AVILES Current LOS: 3 Anticipated DC Date: 04-06-2019 Planned Disposition: Home Primary Insurance: MEDICARE PART A ONLY Discharge Planning Comments: CM RECEIVED [facility], THAT [facility] AND THAT PT MAY HAVE NEPHROLOGY APPOINTMENT IN [place] WITH [facility]. CM MET WITH PT IN ROOM TO DISCUSS DISCHARGE PLANNING AND NEEDS. PT REPORTS LIVING AT HOME INDEPENDENTLY WITH SPOUSE; PT REPORTS HIS KEEPS HIS MEDICATIONS LOCKED UP AND PROVIDES THEM TO HIM WHEN HE IS TO TAKE THEM. . PT HAS A CANE AND HAD A CPAP TEST IN 2002, BUT IS NOT AWARE THAT THEY ARE WORKING TO GET HIM A CPAP NOW. PT REPROTS HE DOES HAVE A NEPHROLOGY APPOINTMENT WITH [facility] [place], PT REPORTS HIS TAKES HIM TO HIS APPOINTMENTS. PT HAS A CANE AND IF HE NEEDS FURTHER EQUIPMENT, HE WOULD USE THE VA. PT DOES NOT KNOW IF HE IS ON THE VA TRANSFER LIST STATING HE DOES NOT NEED TO BE ON IT AND THE VA COVERS HIM 100%. PT HAS NO OUTSIDE SERVICES ASSISTING IN THE HOME. CM DISCUSSED AVAILABILITY OF HOME HEALTH, REHAB SERVICES AND MEDICAL EQUIPMENT. PT DENIES DISCHARGE NEEDS, REPORTS HIS WILL PICK HIM UP FOR DISCHARGE HOME. IMPORTANT MESSAGE FROM MEDICARE PROVIDED AND EXPLAINED. MANAGER HRIS NURSE NOTIFIED. RACHID COTTON, CASE MANAGEMENT DCP- Discharge Planning Updated by [id number]: Wilma Clay on 04/03/19 5:[address] CM met with patient regarding [facility] the [facility]. CM eudcated the patient on the CM role and patient gave verbal consent for cm assistance. Patient verified he had VA affiliation but declined to transfer to the [facility] for DCPIA - Discharge Planning Initial Assessment Updated by [id number]: Rachid Cotton on 04/06/19 1:33 pm * Is the patient Alert and Oriented? Yes * How many steps to enter\exit or inside your home? NONE * PCP [facility] * [facility] [address] [address] * Preadmission Environment Home with Family * ADLs Partial Dependent * Partial ADLs (Assistance needed) Medication Management * Equipment Cane * Other Equipment [facility] * List name and contact numbers for known caregivers / representatives who currently or will assist patient after discharge: WALLY SYLVESTER, SPOUSE, * Verbal permission to speak to the caregivers and representatives has been obtained from the patient. N/A * Community resources currently utilized None * Please name any agencies selected above. NONE * Additional services required to return to the preadmission environment? No * Can the patient safely return to the preadmission environment? Yes * Has this patient been hospitalized within the prior 30 days at any hospital? No Coverage Notice Reviewer: [id number] - Rachid Cotton Notice Issued Date-Time: 04/06/2019 13:05 Notice Type: IM Discharge Notice Notice Delivered To: Patient Relationship to Patient: Structural Engineer Name: Delivery Method: HAND - Hand Delivered Eleonora Days: Prior Verbal Notification: Recipient Understood Notice: Yes Recipient Signature: Yes Med Rec Note Co-signed by Attending: Coverage Notice Comment: Last DP export: 04/06/19 12:33 Patient Name: DASHAWN REID Page [phone] at 1343 All edits/amendments must be made on the electronic document DICTATION DATE: 04/06/19 1343 SPORTING GOODS SALES ASSOCIATE: KATIE 04/06/19 1343 RPT#: [id number] DC DATE: STATUS: ADM IN [facility] [address] [place] [address] END OF REPORT
== END 2019-04-06 14:30 | disposition home or self-care (01) | DRG 682 ==
LOC: D.ER 15:23 → D.M2 17:08
PROVIDERS: Family Medicine; ADMIT Internal Medicine Nephrology; ATTEND Internal Medicine Nephrology
DX: N17.9 Acute kidney failure, unspecified (principal); I50.31 Acute diastolic (congestive) heart failure; D61.818 Other pancytopenia; I13.0 Hypertensive heart and chronic kidney disease with heart failure and stage 1 through stage 4 chronic kidney disease, or unspecified chronic kidney disease; E87.5 Hyperkalemia; E11.22 Type 2 diabetes mellitus with diabetic chronic kidney disease; E11.65 Type 2 diabetes mellitus with hyperglycemia; N18.3 Chronic kidney disease, stage 3 (moderate); D63.1 Anemia in chronic kidney disease; J44.9 Chronic obstructive pulmonary disease, unspecified; G47.33 Obstructive sleep apnea (adult) (pediatric); E78.5 Hyperlipidemia, unspecified; N40.0 Benign prostatic hyperplasia without lower urinary tract symptoms; G20 Parkinson's disease; I25.10 Atherosclerotic heart disease of native coronary artery without angina pectoris; Z86.73 Personal history of transient ischemic attack (TIA), and cerebral infarction without residual deficits; D46.9 Myelodysplastic syndrome, unspecified

== ENCOUNTER 2019-04-11 21:55 | Inpatient (IN) | payer MEDICARE ==
[~2019-04-11] VITALS: Ht 185.4 cm; Wt 73.2 kg
[~2019-04-11 21:55] MED LIST changes: +FEOSOL LIQ300 MG/5 M PO; +FLOMAX0.4 MG PO; +KEPPRA250 MG PO; +KEPPRA750 MG PO; +XALATAN 0.0052.5 ML EACH EYE
--- NOTE | 2019-04-11 22:35 | NUR ---
IV ATTEMPTS X 2 WITHOUT SUCCESS.
[2019-04-11 22:44] LABS: BASOPHILS 0.4 % (0-2); EOSINOPHILS 3.8 % (0-7); HEMATOCRIT 24.4 % (42.0-54.0); HEMOGLOBIN 7.6 g/dL (13.5-17.5); IMMATURE GRANULOCYTES 0.2 % (0-5); LYMPHOCYTES 30.1 % (15-50); MCH 30.9 pg (26.0-34.0); MCHC 31.1 g/dL (31.0-37.0); MCV 99.2 fL (80.0-100.0); MEAN PLATELET VOLUME 12.6 fL (7.4-10.4); MONOCYTES 11.1 % (2-11); NEUTROPHILS 54.4 % (40-80); PLATELET COUNT 90 10x3/uL (130-400); RBC 2.46 10x6/uL (4.20-6.10); RDW 14.4 % (11.5-14.5); WBC 4.7 10x3/uL (4.8-10.8)
[2019-04-11 22:52] LABS: INR 1.18 (0.85-1.17); PROTIME 14.5 SECONDS (11.6-15.0)
[2019-04-11 22:53] LABS: CALC OSMOLALITY 299 mosm/kg (275-300); CALCIUM 7.5 mg/dL (8.5-10.1); CHLORIDE - SERUM 106 mmol/L (98-107); CREATININE - SERUM 2.7 mg/dL (0.6-1.3); GLUCOSE 165 mg/dL (74-106); POTASSIUM - SERUM 4.3 mmol/L (3.5-5.1); SODIUM 140 mmol/L (136-145); UREA NITROGEN 59 mg/dL (7-18); eGFR NON AFRICAN AMERICAN 25 mL/min (90-120)
[2019-04-11 23:02] LABS: PLATELET ESTIMATE DECREASED
[2019-04-11 23:04] VITALS: BP 139/72
[2019-04-11 23:06] LABS: ALBUMIN 2.7 g/dL (3.4-5.0); ALKALINE PHOSPHATASE 157 U/L (46-116); ALT (SGPT) 41 U/L (10-68); BILIRUBIN - TOTAL 0.22 mg/dL (0.2-1.3); CKMB 6.5 U/L (0.0-3.6); CREATINE KINASE 396 UL (21-232); MAGNESIUM - SERUM 1.4 mg/dL (1.8-2.4); PROTEIN - SERUM 6.2 g/dL (6.4-8.2); TROPONIN-I 0.021 ng/mL (0.000-0.060)
--- NOTE | 2019-04-12 00:05 | NUR ---
ADVISED EDP OF NEGATIVE OCCULT STOOL
--- NOTE | 2019-04-12 00:05 | NUR ---
OCCULT STOOL NEGATIVE
[2019-04-12 00:14] VITALS: BP 141/79
--- NOTE | 2019-04-12 00:29 | NUR ---
PT LAYING IN BED. RESPIRATIONS ARE EVEN AND UNLABORED. NO DISTRESS NOTED. PT IS PALE. IV PATENT AND INFUSING PRBC AT THIS TIME. VSS. PT TOLERATING WELL. WILL CONTINUE TO MONITOR.
[2019-04-12] MEDS ORDERED: TRAZODONE HCL150 MG PO (01:26)
--- NOTE | 2019-04-12 01:33 | NUR ---
PATIENT TO FLOOR. FIRST UNIT OF BLOOD INFUSING AT 75 ML/HR. RECEIVED IN REPORT FROM DANIEL IN RN THAT SHE IS INFUSING BLOOD SLOWLY DUE TO SOME BILATERAL LOWER EXTREMETY SWELLING. ASSESSED SWELLING AND IT IS VERY MILD. NO RATE CHANGE AT THIS TIME. PATIENT VITAL SIGNS ARE STABLE WHILE BLOOD IS INFUSING. ASSISTED TO BATHROOM. ONE PERSON ASSIST. DENIES FURTHER NEEDS. INSTRUCTED ON USE OF CALL LIGHT. CPOC.
[2019-04-12 02:31] VITALS: BP 139/81; Ht 185.4 cm; Wt 73.2 kg
[2019-04-12 04:00] VITALS: BP 115/88
--- NOTE | 2019-04-12 05:09 | NUR ---
PATRICIA HURTADO RN STARTED BLOOD TRANSFUSION
[2019-04-12 08:42] VITALS: BP 150/80
--- NOTE | 2019-04-12 09:45 | NUR ---
PATIENT BLOOD FINISHED AT THIS TIME. VS STABLE. NO COMPLAINTS OR SIGNS OF DISTRESS. CALL LIGHT WITHIN REACH.
--- NOTE | 2019-04-12 12:30 | NUR ---
PATIENT IN BED WITH IV INTACT. NO COMPLAINTS OR SIGNS OF DISTRESS. SITTING UP ON SIDE OF BED EATING. CALL LIGHT WITHIN REACH.
[2019-04-12 13:44] VITALS: BP 164/73
[2019-04-12 15:06] LABS: % SATURATION 39 % (15-55); IRON 75 ug/dl (35-150); TOTAL IRON BIND CAPACITY 190 ug/dl (260-445); UNSAT IRON BIND CAPACITY 115 ug/dl (150-375)
[2019-04-12 17:48] VITALS: BP 150/69
--- NOTE | 2019-04-12 18:45 | NUR ---
PATIENT IN BED WITH IV INTACT. NO COMPLAINTS OR SIGNS OF DISTRESS. AWAITING DC PAPERS. CALL LIGHT WITHIN REACH.
--- NOTE | 2019-04-12 19:30 | NUR ---
NOTIFIED PATIENT THAT HIS DISCHARGE ORDER WAS ENTERED. D/C'S PATIENT'S PIV. TIP INTACT. PATIENT STATED HIS WILL PICK HIM UP. PATIENT DENIES NEEDS AT THIS TIME. BED IN LOWEST POSITION AND CALL LIGHT WITHIN REACH. ENCOURAGED THE PATIENT TO CALL IF HE HAS NEEDS.
--- NOTE | 2019-04-12 20:45 | NUR ---
D/C'D PATIENT VIA WHEELCHAIR TO THE FRONT DOOR WITH HIS AND GUEST.
== END 2019-04-12 20:45 | disposition home or self-care (01) | DRG 812 ==
LOC: D.ER 21:55 → D.MS 04-12 00:02
PROVIDERS: Family Medicine; ADMIT Internal Medicine Nephrology; ATTEND Internal Medicine Nephrology
DX: D64.9 Anemia, unspecified (principal); I12.9 Hypertensive chronic kidney disease with stage 1 through stage 4 chronic kidney disease, or unspecified chronic kidney disease; E11.22 Type 2 diabetes mellitus with diabetic chronic kidney disease; E11.65 Type 2 diabetes mellitus with hyperglycemia; N18.9 Chronic kidney disease, unspecified; Z86.73 Personal history of transient ischemic attack (TIA), and cerebral infarction without residual deficits; G20 Parkinson's disease; E11.40 Type 2 diabetes mellitus with diabetic neuropathy, unspecified; G40.909 Epilepsy, unspecified, not intractable, without status epilepticus; I25.10 Atherosclerotic heart disease of native coronary artery without angina pectoris; J44.9 Chronic obstructive pulmonary disease, unspecified; G47.33 Obstructive sleep apnea (adult) (pediatric); N40.0 Benign prostatic hyperplasia without lower urinary tract symptoms; F31.9 Bipolar disorder, unspecified

== ENCOUNTER 2019-04-15 23:42 | Inpatient (IN) | payer MEDICARE ==
[~2019-04-15] VITALS: Ht 185.4 cm; Wt 68.6 kg
--- NOTE | ~2019-04-15 | OP ---
PATIENT NAME: DASHAWN REID MEDICAL RECORD: [id number] :[birth year] LOCATION:D.M2 D.2116 ADMISSION DATE:04/16/19 SURGEON: RAY FAITH MD DATE OF OPERATION: 04/16/2019 PROCEDURE: Left heart catheterization, selective coronary angiography, right femoral artery approach. CATHETERS: A 5-English sheath, 5/4 left and right Maninder, 5/4 pig. The procedure was well tolerated. We proceeded with PTCA stenting of saphenous vein graft to circumflex. Procedure finished. FINDINGS: Left ventriculography in 30-degree PEREZ view shows marked inferior basilar hypokinesis. Overall, function reduced 40% to 45%. CORONARY ANATOMY: LEFT MAIN: Left main fills for a short period of time. Free of disease. LAD: LAD fills for a short period of time. Seen filling via competitive flow from the MOODY. CIRCUMFLEX: The true circumflex itself has some distal disease, nothing flow restrictive. Right coronary totally occluded as per previous and fills well via the MOODY to the MOODY of the LAD, saphenous vein graft to this OM1 and 2 shows distal stenosis, basically subtotal OM2, somewhat diffusely diseased vessel; however, MOODY to LAD widely patent throughout its course with no evidence of post-anastomotic stenosis and fills via left to right collaterals. IMPRESSION: Plan intervention OM2 through the saphenous vein graft. DESCRIPTION OF PROCEDURE: A 5-English sheath was exchanged for a 6-English sheath. LCB guiding catheter provided fair guide catheter support to the followed initially by 300 Whisper wire was placed across the occluded vessel. Pre-deployment balloon was 2.0 x 15 Windham balloon. Stent was a 2.5 x 15 mm Integrity stent up to 14 atmospheres. Final angiography shows excellent resolution of the stenosis still some distal disease with residual 90% stenosis, no significant residual. GAYLE flow was 3 throughout the procedure. Sheath closed with ExoSeal device. TRANSINT:[id number] Voice Confirmation ID: [id number] DOCUMENT ID: [id number] RAY FAITH MD CC: [id number] DICTATION DATE: 04/16/19 1129 MILK INSPECTOR: 04/16/19 2140 DIS IN 04/16/19 [id number] [place] [address]
--- NOTE | ~2019-04-15 | HEMODYNAMI ---
PATIENT:DASHAWN REID MEDICAL RECORD: [id number] : 51 LOCATION:[facility] D.[address] [facility]# [id number] ADMISSION DATE: 04/16/19 Generatedon:04/16/201911:26 Patient name: DASHAWN REID Patient #: [id number] SSN: [id number] : 1955 Date of study: 04/16/2019 Page: Of Hemodynamic Procedure Report Patient Data Patient Demographics Procedure consent was obtained First Name: DASHAWN Gender: Male Last Name: FRANKLIN : 1955 Middle Initial: F Age: 63 year(s) Patient #: [id number] Race: SSN: [id number] Additional ID: [id number] Contact details Address: [place] [address] State: [place] City: [place] Zip code: [address] Past Medical History Allergies Allergen Reaction Date Comments Reported Other allergy Other 01/12/2019 penicillins, morhpine, heparin Admission Admission Data Admission Date: 04/16/2019 Admission Time: 0:39 Arrival Date: 04/16/2019 Arrival Time: 0:39 Admit Source: Emergency Insurance Payor: Medicare department [facility] #: [id number] Room #: D.[facility]6 Height (in.): 72.83 BSA: 1.91 (m2) Height (cm.): 185 BMI: 20.16 (kg/m2) Weight (lbs.): 152.12 Weight (kg.): 69 Lab Results Lab Result Date: 04/16/2019 Lab Result Time: 0:00 Biochemistry Name Units Result Min Max BUN mg/dl 38 --(----)-* 7 18 Creatinine mg/dl 1.8 --(----)-* 0.6 1.3 eGFR ml/min 40 *-(----)-- 90 120 NONAFRICAN CBC Name Units Result Min Max Hemoglobin g/dl 9.6 *-(----)-- 13.5 17.5 Procedure Procedure Types Cath Procedure Diagnostic Procedure [facility] w/Coronaries w/Grafts Sedation Charges Moderate Sedation up to 15 minutes PCI Procedure AMI/SVG/TECHNICAL SUPPORT SPECIALIST PTCA or Stent SVG-BMS/MODESTO Initial Hemochron ACT Test Procedure Description Procedure Date Procedure Date: 04/16/2019 Procedure Start Time: 10:54 Procedure End Time: 11:19 Procedure Staff Name Function Ector Balderas MD Performing Physician Na Renteria RT Monitor Madhavi Guaman RT Scrub Janette Pablo RN Nurse Procedure Data Cath Procedure Fluoroscopy Diagnostic fluoroscopy Total fluoroscopy Time: 7.7 time: 7.7 min min Diagnostic fluoroscopy Total fluoroscopy dose: dose: 1380 mGy 1380 mGy Contrast Material Contrast Material Type Amount (ml) Isovue 300 176 Entry Location Entry Primary Successful Side Size Upsize Upsize Entry Closure Succes sful Closure Location (Fr) 1 (Fr) 2 (Fr) Remarks Device Remarks Femoral Right 5 Fr Exoseal artery Estimated blood loss: 5 ml Diagnostic catheters Device Type Used For End Catheter Placement MULTIPACK JL 4.0 5Fr Left Coronary catheter Angiography MULTIPACK 3DRC 5Fr Right Coronary catheter Angiography MULTIPACK Pigtail 5 Fr LV Angiography catheter Procedure Complications No complications Procedure Medications Medication Administration Route Dosage 0.9% NaCl I.V. 100 ml/hr Oxygen etCO2 Nasal cannula 2 l/min Lidocaine 2% added to field 20 Heparin Flush Bag added to field 2 bags (1000units/500ml NS) Versed I.V. 2 mg Fentanyl I.V. 50 mcg Heparin Bolus I.V. 5000 units Plavix P.O. 75 mg Nitroglycerin IC/IA I.C. 200 mcg Hemodynamics Rest BSA: 1.91 (m2) HGB: 9.6 (g/dl) O2 Consumption: Estimated: 230.25 (ml/min) O2 Con sumption indexed: Estimated:120.55 (ml/min/m) Heart Rate: 80 (bpm) Pressure Samples Time Site Value (mmHg) Purpose Heart Use Rate(bpm) 11:00 LV 164/4,15 Snapshot 73 11:01 AO 171/76(116) Pullback 73 11:01 LV 161/8,19 Pullback 73 Gradients Valve Time Site 1 Site 2 Mean SEP/DFP Peak To Heart Use (mmHg) (sec/min) Peak Rate (mmHg) (bpm) Aortic 11:01 LV AO 0 8 0 73 161/8,19 171/76(116) Calculations Valve P-P Mean Valve Index Valve Source Name Gradient Area Flow (cm2) Aortic 0 0 0 0 Snapshots Pre Cath Intra NCS Post Cath Vital Signs Time Heart Resp SPO2 etCO2 NIBP (mmHg) Rhythm Pain Sedation Rate (ipm) (%) (mmHg) Status Level (bpm) 10:42:14 78 21 98 31 173/95(147) NSR 0 (11) 10(A) , No pain 10:46:37 76 24 99 26.7 168/86(137) NSR 0 (11) 10(A) , No pain 10:50:57 75 13 100 26.7 157/87(128) NSR 0 (11) 10(A) , No pain 10:55:11 72 13 100 20.7 159/98(137) NSR 0 (11) 10(A) , No pain 10:59:26 72 13 100 14.1 158/87(128) NSR 0 (11) 10(A) , No pain 11:04:25 74 14 100 12.6 Measuring NSR 0 (11) 10(A) , No pain 11:04:54 74 12 100 14.1 154/79(99) NSR 0 (11) 10(A) , No pain 11:09:12 72 13 100 9.6 148/74(115) NSR 0 (11) 10(A) , No pain 11:13:30 68 12 100 9.6 141/72(120) NSR 0 (11) 10(A) , No pain 11:17:42 72 12 99 12.6 143/81(106) NSR 0 (11) 10(A) , No pain Medications Time Medication Route Dose Verified Delivered Reason Notes Effectiveness by by 10:42:48 0.9% NaCl I.V. 100 Ector Savage used for ml/hr Sherrie Samy procedure RN 10:42:55 Oxygen etCO2 2 Ector Savage used for Nasal l/min Sherrie Samy procedure cannula RN 10:43:00 Lidocaine 2% added 20ml Ector Barney for local to vial [facility] anesthetic field MD MCDANIELS 10:43:04 Heparin Flush added 2 Ector Barney used for Bag to bags Sherrie Sherrie procedure (1000units/500ml field MD MCDANIELS NS) 10:49:31 Versed I.V. 2 mg Ector Savage for sedation St Wilmer Pablo MD RN 10:49:39 Fentanyl I.V. 50 Ector Savage for sedation mcg [facility] Wilmer Pablo MD RN 11:02:21 Heparin Bolus I.V. 5000 Ector Savage for verif ied units St Wilmer Pablo anticoagulation with Dr. MCDANIELS RN [facility] 11:02:41 Plavix P.O. 75 mg [address] Savage for [facility] Wilmer Pablo antiplatelet RN therapy 11:15:36 Nitroglycerin I.C. 200 Ector Savage for IC/IA mcg St Wilmer kennedy MD inclusion paraeducator Log Time Note 18:40:47 ACCDominant side:Co-Dominant 10:29:52 Informed consent obtained and on chart 10:31:58 Admit Source: Emergency department 10:32:02 Arrival Date: 04/16/2019 12:39:00 AM 10:32:27 Insurance Payor : Medicare 10:32:52 Patient Height : 72.83 inches 10:32:56 Patient Weight : 152.12 lbs 10:33:37 Lab Result : BUN 38 mg/dl 10:33:37 Lab Result : eGFR NONAFRICAN 40 ml/min 10:33:37 Lab Result : Creatinine 1.8 mg/dl 10:33:37 Lab Result : Hemoglobin 9.6 g/dl 10:33:42 Diagnostic Cath Status : Urgent 10:34:05 Procedure Status Urgent Heart Cath (IP). 10:34:08 Janette Pablo RN sent for patient. Start room use. 10:34:09 Time tracking: Regular hours (M-F 7:00 - 5:00) 10:34:15 Plan of Care:Hemodynamics will remain stable., Cardiac rhythm will remain stable., Comfort level will be maintained., Respiratory function will remain adequate., Patient/ family verbilizes understanding of procedure., Procedure tolerated without complication., Recovers from procedure without complications.. 10:34:55 Patient received from Med II to CCL 2 Alert and oriented. Tansferred to table in Supine position. 10:34:57 Warm blankets applied, and sakshi hugger turned on for patient comfort. 10:34:58 Correct patient and procedure confirmed by team. 10:34:58 ECG and BP/O2 sat monitors applied to patient. 10:41:07 Vital chart was started 10:42:08 Baseline sample Acquired. 10:42:11 Rhythm: sinus rhythm 10:42:13 Full Disclosure recording started 10:42:48 0.9% NaCl 100 ml/hr I.V. was administered by Janette Pablo RN; used for procedure; Verbal order read back and verified. 10:42:55 Oxygen 2 l/min etCO2 Nasal cannula was administered by Janette Pablo RN; used for procedure; Verbal order read back and verified. 10:43:00 Lidocaine 2% 20ml vial added to field was administered by Ector Balderas MD; for local anesthetic; Verbal order read back and verified. 10:43:04 Heparin Flush Bag (1000units/500ml NS) 2 bags added to field was administered by Ector Balderas MD; used for procedure; Verbal order read back and verified. 10:43:58 H&P Date Dictated: 04/16/2019 New H&P dictated by physician.. 10:44:00 Pre-procedure instructions explained to patient. 10:44:00 Pre-op teaching completed and patient verbalized understanding. 10:44:03 Family unavailable. 10:44:04 Patient NPO since Midnight. 10:44:10 Is the patient allergic to Iodine/contrast media? No. 10:44:11 Was the patient premedicated? Yes 10:44:13 Is patient on blood thinner?Yes 10:44:16 ACC The patient was administered the following blood thiners within the last 24 hours: ACCPlavix 10:44:18 Patient diabetic? Yes. 10:44:19 If diabetic: On Metformin? No 10:44:23 Previous problem with sedation/anesthesia? No ? 10:44:26 Snore? Yes 10:44:27 Sleep apnea? Yes 10:44:29 Deviated septum? No 10:44:29 Opens mouth fully? Yes 10:44:30 Sticks out tongue? Yes 10:44:32 Airway obstruction? No ? 10:44:35 Dentures? No ? 10:44:38 Pre procedure: right dorsailis pedis pulse 2+ Normal; easily identifiable; not easily obliterated 10:44:40 Pre procedure: left dorsailis pedis pulse 2+ Normal; easily identifiable; not easily obliterated 10:44:43 Patient pain scale 0/10 ?. 10:44:48 IV patent on arrival in left forearm with 0.9% NaCl at [facility]. 10:44:51 Lab results completed and on chart. 10:45:08 Risk of Mortality: ? 10:48:18 Risk of blood transfusion: 34.1 10:48:22 Risk of MAGY: 27.3 10:48:26 Right groin area was prepped with chlora-prep and draped in sterile fashion 10:48:28 Alarms reviewed by R. N. 10:48:28 Sharps counted by scrub and verified by R.N. 10:48:29 Physician arrived 10:48:29 --------ALL STOP TIME OUT------ 10:48:31 Final Timeout: patient, procedure, and site verified with staff and physician. All members of the team are in agreement. 10:48:35 Right Radial & Right Groin site verified by team. 10:48:39 Fire Safety Assessment: A--An alcohol-based skin anteseptic being used preoperatively., C--Open oxygen or nitrous oxide is being used., D--An ESU, laser, or fiber-optic light is being used. 10:48:43 Physical assessment completed. ASA score P 2 - A patient with mild systemic disease as per Ector Balderas MD. 10:49:05 3b) 30-44 Moderately reduced kidney function. 10:49:10 Maximum allowable contrast dose (3.7 X eGFR X 0.75)81 ml. 10:49:15 Sedation plan: IV Moderate Sedation Medication:Versed, Fentanyl 10:49:31 Versed 2 mg I.V. was administered by Janette Pablo RN; for sedation; Verbal order read back and verified. 10:49:39 Fentanyl 50 mcg I.V. was administered by Janette Pablo RN; for sedation; Verbal order read back and verified. 10:54:44 Use device set Femoral Dx 10:54:45 ACIST Syringe (74882) opened to sterile field. 10:54:45 Bag Decanter () opened to sterile field. 10:54:45 Medline Cath Pack ([id number]) opened to sterile field. 10:54:46 ACIST Hand Control (51170) opened to sterile field. 10:54:47 ACIST Manifold (58912) opened to sterile field. 10:54:47 DIAGNOSTIC Multipack 5Fr catheter set (ZZ3210) opened to sterile field. 10:54:48 Tegaderm 4 x 4 (1626W) opened to sterile field. 10:54:49 SHEATH 5FR Galliano (ORF800) opened to sterile field. 10:54:49 EMERALD Guide Wire (876-553) opened to sterile field. 10:54:52 Procedure started. 10:54:56 Local anesthetic to right femoral artery with Lidocaine 2% by Ector Balderas MD.INITIAL ACCESS ONLY 10:55:04 A 5 Fr sheath was inserted into the Right Femoral artery 10:55:12 A MULTIPACK JL 4.0 5Fr catheter was advanced over the wire and used for Left Coronary Angiography. 10:55:41 LCA angiography performed. 10:55:44 Injector settings: Ml/sec: 3, Volume: 6, 10:56:44 Catheter removed. 10:56:59 A MULTIPACK 3DRC 5Fr catheter was advanced over the wire and used for Right Coronary Angiography. 10:57:22 RCA angiography performed. 10:57:25 Injector settings: Ml/sec: 3, Volume: 6, 10:58:24 SVG to Circ angiography performed. 10:59:30 MOODY to LAD angiography performed. 10:59:47 Catheter removed. 10:59:55 A MULTIPACK Pigtail 5 Fr catheter was advanced over the wire and used for LV Angiography. 11:01:09 LV hemodynamics recorded. 11:01:10 LV gram done using PEREZ 11:01:13 Injector settings: Ml/sec: 5, Volume: 15, 11:01:19 EF : 40 % 11:01:31 Catheter removed. 11:01:39 SHEATH 6FR Galliano (EUX614) opened to sterile field. 11:01:56 INFLATOR Merit BasixCompak (ES5360) opened to sterile field. 11:01:57 WHISPER 300cm guide wire ([id number]) opened to sterile field. 11:02:17 GUIDE 6FR LCB catheter (LA6LCB) opened to sterile field. 11:02:21 Heparin Bolus 5000 units I.V. was administered by Janette Pablo RN; for anticoagulation; verified with Dr. Yeboah Verbal order read back and verified. 11:02:31 Proceeding to intervention. 11:02:41 Plavix 75 mg P.O. was administered by Janette Pablo RN; for antiplatelet therapy; Verbal order read back and verified. 11:05:39 whisper wire advanced. 11:06:56 Inflate balloon Inflation number: 1 A EMERGE OTW 2.5 x 15 balloon ([id number]) was prepped and advanced across the Aorta Left -> Mid CX 90, then inflated to 14 BILLY for 0:10 (min:sec) . 11:07:05 Inflation number: 2 The EMERGE OTW 2.5 x 15 balloon ([id number]) was reinflated across the Aorta Left -> Mid CX , to 14 BILLY for 0:10 (min:sec) . 11:10:33 Balloon removed over the wire. 11:12:40 Place stent Inflation Number: 3 A INTEGRITY RX 2.5 x 14 stent ([id number]) was prepped and advanced across the Aorta Left -> Mid CX 90. The stent was deployed at 14 BILLY for 0:30 (min:sec) 0. 11:12:58 Inflation number: 4 The stent balloon was then re-inflated across the Aorta Left -> Mid CX 0 to 8 BILLY for 0:10 (min:sec) . 11:13:53 Stent catheter was removed intact over wire. 11:13:54 Wire removed. 11:13:54 Guide catheter removed. 11:14:19 Sheath removed intact; hemostasis achieved with Exoseal to the Right Femoral artery. 11:15:36 Nitroglycerin IC/IA 200 mcg I.C. was administered by Janette Pablo RN; for vasodilation; Verbal order read back and verified. 11:16:30 Procedure ended.(Physican Out) 11:17:11 Fluoroscopy time 07.70 minutes. 11:17:18 Fluoroscopy dose: 1380 mGy 11:17:18 Flurop Dose total: 1380 11:17:25 Dose Area Product 1380 mGy/cm. 11:17:32 Contrast amount:Isovue 300 176ml. 11:17:34 Maximum allowable dose exceeded? No. 11:17:35 Sharps counted by scrub and verified by R.N. 11:17:39 Insertion/operative site no bleeding no hematoma. 11:17:43 Post-op/insertion site Right Femoral artery dressed using a 4 x 4 and Tegaderm. 11:17:45 Post Procedure Pulses reassessed and unchanged 11:17:50 Post procedure rhythm: unchanged. 11:17:54 Estimated blood loss: 5 ml 11:17:56 Post procedure instruction explained to patient.Patient verbalizes understanding. 11:17:56 Patient needs reinforcement of post procedure teaching. 11:18:57 Procedure type changed to Cath procedure, Diagnostic procedure, LHC, LHC w/Coronaries w/Grafts, Sedation Charges, Moderate Sedation up to 15 minutes, PCI procedure, AMI/SVG/TECHNICAL SUPPORT SPECIALIST PTCA or Stent, SVG-BMS/MODESTO Initial, Hemochron ACT Test 11:18:58 Procedure and supply charges have been captured, reviewed, submitted and are correct. 11:19:04 Procedure Complication : No complications 11:19:06 Vital chart was stopped 11:19:08 [facility] Findings: MVD- PCI performed (see procedure note) 11:19:10 Operative report dictated upon procedure completion. 11:19:11 See physician's report for complete and final results. 11:19:13 Report given to [facility]. 11:19:24 Patient transfered to [facility] with Stretcher. 11:19:27 Procedure ended. 11:19:27 Full Disclosure recording stopped 11:19:44 ACC-PCI Only Patient was given prescriptions, or instructed by Ector Balderas MD to start/continue the following medications upon discharge: Plavix 11:19:46 End room use (Document Last) 11:20:52 ACT drawn and resulted at 253 seconds. (normal therapeutic range 180-240 seconds). 11:25:30 End room use (Document Last) 11:25:51 End room use (Document Last) Intervention Summary Intervention Notes Time ActionType Lesion and Equipment Action# Pressure Duration Attributes Used 11:06:56 Inflate Aorta Left EMERGE OTW 1 14 00:10 balloon -> Mid CX 2.5 x 15 balloon ([id number]) 11:07:05 Reinflate Aorta Left EMERGE OTW 2 14 00:10 balloon -> Mid CX 2.5 x 15 balloon ([id number]) 11:12:40 Place stent Aorta Left INTEGRITY RX 3 14 00:30 -> Mid CX 2.5 x 14 stent ([id number]) 11:12:58 Reinflate Aorta Left INTEGRITY RX 4 8 00:10 stent -> Mid CX 2.5 x 14 balloon stent ([id number]) Device Usage Item Name Manufacture Quantity Catalog Number Hospital Part Current Min imal Lot# / Charge Number Stock Stock Serial# Code ACIST Acist 1 41769 969231 166026 853468 20 Syringe Medical (26940) Systems Inc Bag Decanter Microtek 1 2001S 267440 85161 540989 5 () Medical Inc. Medline Cath Medline 1 [id number] 635441 95863 848761 5 Pack ([id number]) ACIST Hand Acist 1 41135 801319 416383 426557 5 Control Medical (11789) Systems Inc ACIST Acist 1 30782 641893 497991 864776 5 Manifold Medical (08792) Systems Inc DIAGNOSTIC Cardinal 1 YY1100 402549 18063 366097 30 Multipitravel 5Fr catheter set (UR7927) Tegaderm 4 x 3M 1 1626W 620430 366085 890062 5 4 (1626W) SHEATH 5FR Terumo 1 HAS489 218668 250563 336329 5 Galliano (WPP412) EMERALD Cardinal 1 502-455 633792 996472 167675 5 Guide Wire trivago (502-455) MULTIPACK JL Cardinal 1 581613 5 4.0 5Fr Health catheter MULTIPACK Cardinal 1 446850 5 3DRC 5Fr Health catheter MULTIPACK Cardinal 1 388811 5 Pigtail 5 Fr Health catheter SHEATH 6FR Terumo 1 NOU081 002497 404272 947913 40 Galliano (OMV228) INFLATOR [facility] 1 QZ0834 383531 191455 774717 15 [facility] BasixCompak (JF0222) WHISPER Bartholomew 1 [id number] 703519 600084 303014 5 300cm guide Vascular wire ([id number]) GUIDE 6FR Medtronic 1 LA6LCB 196603 06364 715387 1 LCB catheter (LA6LCB) EMERGE OTW Mallie 1 [id number] 238219 549211 499720 5 [id number] 2.5 x 15 Scientific balloon ([id number]) INTEGRITY RX Medtronic 1 [id number] 471972 406893 554730 5 [id number] 2.5 x 14 stent ([id number]) Signature Audit [place] Stage Time Signature Unsigned Intra-Procedure 04/16/2019 Madhavi Guaman 11:25:30 AM RT(R) Intra-Procedure 04/16/2019 Janette Pablo 11:25:51 AM RN Intra-Procedure 04/16/2019 Ector Araujo 11:26:14 AM Wilmer Donahue Performing Physician : Signature : Ector Balderas MD Date : Time : Monitor : Na Renteria Signature : RT Date : Time : Nurse : Janette Pablo RN Signature : Date : Time : [facility] [address] [place] [address]
--- NOTE | ~2019-04-15 | CN ---
PATIENT NAME:DASHAWN REID MEDICAL RECORD: [id number] : 51 LOCATION:D. D.2116 ADMIT DATE: 04/16/19 ACCOUNT: [id number] CONSULTING PHYSICIAN: RAY FAITH MD REFERRING PHYSICIAN: MAGALI CLEANING MD DATE OF CONSULTATION: 04/16/2019 HISTORY OF PRESENT ILLNESS: A 63-year-old gentleman with extensive cardiac history, last intervention via Dr. Todd, has a history of hypertension, hyperlipidemia, statin intolerance, presented with a chest pressure or tightness, reminiscent of his previous angina, had a most recent intervention was a PTCA to the circumflex to the vein graft. We are asked to see him concerning his cardiovascular status. PAST MEDICAL HISTORY: Includes; 1. History of obstructive pulmonary disease. 2. Hypertension. 3. Hyperlipidemia. 4. Coronary artery disease as described above. ALLERGIES: PENICILLIN, OPIATES, MORPHINE, HEPARIN. MEDICATIONS: Include albuterol 2 puffs b.i.d., Flomax 0.4 every day, Spiriva 2 puffs every day, lisinopril 10 mg every day, Plavix 75 every day, metoprolol 100 every day, amlodipine 5 every day, aspirin 81 every day, Keppra 750 mcg b.i.d., Lyrica 150 b.i.d., primidone 150 at bedtime, trazodone 150 at bedtime. SOCIAL HISTORY: Nonsmoker, nondrinker. No set exercise program. He is able to take care of all his ADLs. REVIEW OF SYSTEMS: The patient reports easy bruising but reports no swollen glands. The patient reports no fever, no night sweats, no significant weight gain, no significant weight loss. No significant exercise tolerance. The patient reports no dry eyes, no irritation, no vision change. Patient reports no difficulty hearing and no ear pain. Patient reports no frequent nose bleeds or nose and sinus problems. Patient reports on arm pain on exertion. No shortness of breath while lying down. No history of heart murmur. Patient reports no cough, no wheezing or coughing up blood. Patient reports no abdominal pain, no vomiting. Normal appetite. No diarrhea and not vomiting blood. No nausea and no constipation. Patient reports no incontinence. No difficulty urinating. No hematuria. No increased frequency. Patient reports no muscle aches. No weakness, no arthralgias, no back pain. No swelling of the extremities. Patient reports no abnormal mole, no jaundice, no rashes. Reports no loss of consciousness. No weakness and no numbness. No seizures, dizziness, or headaches. The patient reports no depression, no sleep disturbance, feeling safe in a relationship and no alcohol abuse. Patient reports on fatigue. Reports no runny nose or sinus pressure. No itching, no hives, and no frequent sneezing. PHYSICAL EXAMINATION: GENERAL: Pleasant gentleman, in no acute distress, appears stated age. VITAL SIGNS: Blood pressure 150/79, pulse 84 and regular. HEENT: Normocephalic, atraumatic. NECK: No bruits. HEART: Regular, II/ systolic ejection murmur. CONSULT REPORT [id number] DASHAWN REID LUNGS: Good air excursion. ABDOMEN: Soft, nontender. EXTREMITIES: Pulse 2+ with no edema. DIAGNOSTIC DATA: ECG shows nonspecific ST-T changes. IMPRESSION: Acute coronary syndrome, questionable aortic stenosis versus de fanta lesion. PLAN: For angiography, intervention based on above. TRANSINT:[id number] Voice Confirmation ID: [id number] DOCUMENT ID: [id number] RAY FAITH MD CC: [id number] DICTATION DATE: 04/16/19945 BINDING CUTTER: 04/16/19 1219 ADM IN [place] [id number] [place] [id number]
[~2019-04-15 23:42] MED LIST changes: +TRAZODONE HCL150 MG PO
[2019-04-16 00:12] LABS: BASOPHILS 0.7 % (0-2); EOSINOPHILS 3.5 % (0-7); HEMATOCRIT 32.5 % (42.0-54.0); HEMOGLOBIN 10.1 g/dL (13.5-17.5); IMMATURE GRANULOCYTES 0.7 % (0-5); LYMPHOCYTES 20.8 % (15-50); MCH 30.1 pg (26.0-34.0); MCHC 31.1 g/dL (31.0-37.0); MCV 96.7 fL (80.0-100.0); MEAN PLATELET VOLUME 12.7 fL (7.4-10.4); MONOCYTES 8.7 % (2-11); NEUTROPHILS 65.6 % (40-80); PLATELET COUNT 98 10x3/uL (130-400); RBC 3.36 10x6/uL (4.20-6.10); RDW 15.6 % (11.5-14.5); WBC 4.6 10x3/uL (4.8-10.8)
[2019-04-16 00:19] LABS: CALC OSMOLALITY 305 mosm/kg (275-300); CALCIUM 7.6 mg/dL (8.5-10.1); CARBON DIOXIDE 25.8 mmol/L (21.0-32.0); CHLORIDE - SERUM 108 mmol/L (98-107); POTASSIUM - SERUM 4.8 mmol/L (3.5-5.1); SODIUM 144 mmol/L (136-145); UREA NITROGEN 39 mg/dL (7-18); eGFR NON AFRICAN AMERICAN 36 mL/min (90-120)
[2019-04-16 00:20] LABS: APTT 29.4 SECONDS (22.8-39.4)
[2019-04-16 00:21] LABS: GLUCOSE 274 mg/dL (74-106); INR 1.12 (0.85-1.17); PROTIME 13.9 SECONDS (11.6-15.0)
[2019-04-16 00:29] LABS: ALBUMIN 2.8 g/dL (3.4-5.0); ALKALINE PHOSPHATASE 173 U/L (46-116); ALT (SGPT) 39 U/L (10-68); BILIRUBIN - TOTAL 0.23 mg/dL (0.2-1.3); CKMB 6.3 U/L (0.0-3.6); CREATINE KINASE 469 UL (21-232); MAGNESIUM - SERUM 1.5 mg/dL (1.8-2.4); PROTEIN - SERUM 6.3 g/dL (6.4-8.2); TROPONIN-I 0.058 ng/mL (0.000-0.060)
--- NOTE | 2019-04-16 00:33 | NUR ---
PT GIVEN WARM BLANKETS, ALSO REQUESTING PAIN MEDICATION, EDP NOTIFIED. CALL LIGHT WITHIN REACH, WILL CONTINUE TO MONITOR.
[2019-04-16 01:13] LABS: APPEARANCE CLEAR (CLEAR); BILIRUBIN NEGATIVE (NEGATIVE); COLOR STRAW (YELLOW); GLUCOSE 500 mg/dL (NEGATIVE); KETONE NEGATIVE (NEGATIVE); NITRITE NEGATIVE (NEGATIVE); PROTEIN 3+ mg/dL (NEGATIVE); UROBILINOGEN NORMAL (NORMAL)
[2019-04-16 01:14] LABS: BACTERIA FEW /hpf (NEGATIVE); EPITHELIAL CELLS 0-5 /hpf (0-5); RED CELLS - URINE 0-5 /hpf (0-5); WHITE CELLS - URINE 0-5 /hpf (NEGATIVE)
[2019-04-16 01:58] VITALS: BP 149/79; Ht 185.4 cm; Wt 68.6 kg
[2019-04-16 04:30] VITALS: BP 151/74
--- NOTE | 2019-04-16 08:30 | NUR ---
CONSENTS SIGNED FOR [facility]. WILL CONT. PLAN OF CARE.
[2019-04-16 08:31] VITALS: BP 150/79
[2019-04-16 08:59] LABS: BASOPHILS 0.3 % (0-2); EOSINOPHILS 4.5 % (0-7); HEMATOCRIT 30.6 % (42.0-54.0); HEMOGLOBIN 9.6 g/dL (13.5-17.5); IMMATURE GRANULOCYTES 0.3 % (0-5); LYMPHOCYTES 21.7 % (15-50); MCH 30.6 pg (26.0-34.0); MCHC 31.4 g/dL (31.0-37.0); MCV 97.5 fL (80.0-100.0); MEAN PLATELET VOLUME 12.1 fL (7.4-10.4); MONOCYTES 8.6 % (2-11); NEUTROPHILS 64.6 % (40-80); PLATELET COUNT 92 10x3/uL (130-400); RBC 3.14 10x6/uL (4.20-6.10); RDW 15.5 % (11.5-14.5)
[2019-04-16 09:16] LABS: ANION GAP 13.3 mmol/L (8-16); CALCIUM 7.1 mg/dL (8.5-10.1); CARBON DIOXIDE 24.7 mmol/L (21.0-32.0); CHOL - HDL RATIO 2.6 ratio (2.3-4.9); CREATININE - SERUM 1.8 mg/dL (0.6-1.3); LDL-HDL RATIO 0.7 ratio (1.5-3.5)
--- NOTE | 2019-04-16 10:31 | NUR ---
PRE-OPS GIVEN. TO JUNIOR WEB DESIGNER BY BED.
--- NOTE | 2019-04-16 11:43 | NUR ---
BACK FROM FIXTURE RELAMPER. VS WNL. RIGHT GROIN STABLE WITHOUT BLEEDING OR HEMATOMA NOTED. WILL MONITOR.
[2019-04-16 11:52] LABS: PLATELET ESTIMATE NORMAL
[2019-04-16 14:08] LABS: % SATURATION 29 % (15-55); IRON 54 ug/dl (35-150); TOTAL IRON BIND CAPACITY 181 ug/dl (260-445); UNSAT IRON BIND CAPACITY 127 ug/dl (150-375)
--- NOTE | 2019-04-16 15:39 | NUR ---
BED REST UP. GROIN STABLE.
[2019-04-16 15:51] VITALS: BP 163/77
--- NOTE | 2019-04-16 17:10 | NUR ---
IV AND TELEMETRY SCD. DC PLANS GIVEN. UNDERSTANDING VOICED.
--- NOTE | 2019-04-16 17:19 | MORECARE ---
CASE MANAGEMENT DISCHARGE SUMMARY PATIENT: DASHAWN REID UNIT: [id number] ADM DATE: 04/16/19 AGE: 63 : 53 SEX: M ROOM/BED: D.2116 AUTHOR: DONOVAN OCONNELL PHYSICIAN: REFERRING PHYSICIAN: MAGALI CLEANING MD DATE OF SERVICE: 04/16/19 Discharge Plan Patient Name: DASHAWN REID Facility: [facility]:[place] : 1955 Planned Disposition: Home Anticipated Discharge Date: 04/16/19 Discharge Date: Expected LOS: 1 Initial Reviewer: KANA Initial Review Date: 04/16/2019 Generated: 04/16/19 6:18 pm Comments DCP- Discharge Planning Updated by [email or web address]: Rachid Carlin on 04/16/19 4:[address] Patient Name: DASHAWN REID Admission Status: ER Accout number: [id number] Admission Date: 04-16-2019 : 1955 Admission Diagnosis: Attending: MAGALI CLEANING Current LOS: 1 Anticipated DC Date: 04-16-2019 Planned Disposition: Home Primary Insurance: MEDICARE PART A ONLY Discharge Planning Comments: CM MET WITH PT IN ROOM TO DISCUSS DISCHARGE PLANNING AND NEEDS. PT REPORTS LIVING AT HOME INDEPENDENTLY WITH SPOUSE. PT HAS A CANE FROM THE [employer] WITH NO OUTSIDE SERVICES ASSISTING IN THE HOME. CM DISCUSSED AVAILABILITY OF HOME HEALTH, REHAB SERVICES AND MEDICAL EQUIPMENT. PT DENIES DISCHARGE NEEDS, REPORTS HIS WILL PICK HIM UP FOR DISCHARGE HOME. PT LATER ASKED TO SEE CM, INFORMED CM THAT HE IS OUT OF HIS SEIZURE MEDICATION AND IT IS BEING MAILED FROM [facility] TODAY. CM SPOKE TO METROLOGIST NURSE WHO ADVISED THAT PT WILL NEED TO FOLLOW UP WITH PRIMARY CARE DOCTOR AND THAT DR. CLEANING HAS GONE FOR THE DAY. CM NOTIFIED PT WHO REPORTS HE WILL FOLLOW UP WITH [facility] IN THE MORNING AND ASKED CM TO FAX HIS INFORMATION TO [facility]. CM FAXED TO [facility] AT [phone], ATTENTION PAC TEAM 3. Yarder Boss: Rachid Carlin DCPIA - Discharge Planning Initial Assessment Updated by [email or web address]: Rachid Carlin on 04/16/19 5:14 pm * Is the patient Alert and Oriented? Yes * How many steps to enter\exit or inside your home? NONE * PCP [facility] PAC TEAM 3 * [facility] [address] * Preadmission Environment Home with Family * ADLs Independent * Equipment Cane * Other Equipment [facility] - MEDICAL EQUIPMENT PROVIDER * List name and contact numbers for known caregivers / representatives who currently or will assist patient after discharge: WALLY REID, SPOUSE, * Verbal permission to speak to the caregivers and representatives has been obtained from the patient. N/A * Community resources currently utilized None * Please name any agencies selected above. NONE * Additional services required to return to the preadmission environment? No * Can the patient safely return to the preadmission environment? Yes * Has this patient been hospitalized within the prior 30 days at any hospital? Yes External Providers External Provider: OTHER-OTHER Next Contact Date: 04/16/2019 Service Request Date: Service Type: Resolution: Reviewer: Comments: Patient Name: DASHAWN REID Page [phone] at 1719 All edits/amendments must be made on the electronic document DICTATION DATE: 04/16/191717 SQL SERVER CONSULTANT: KATIE 04/16/191717 RPT#: [id number] DC DATE: STATUS: ADM IN [facility] [address] [place] [address] END OF REPORT
--- NOTE | 2019-04-16 17:20 | NUR ---
ESCORTED TO CAR BY W/C.
== END 2019-04-16 17:21 | disposition home or self-care (01) | DRG 249 ==
LOC: D.ER 23:42 → D.M2 04-16 00:39
PROVIDERS: Family Medicine; Internal Medicine Interventional Cardiology; ADMIT Family Medicine; ATTEND Family Medicine
PROC: B2181ZZ Fluoroscopy of Left Internal Mammary Bypass Graft using Low Osmolar Contrast (ICD-10-PCS; 2019-04-16)
PROC: B2111ZZ Fluoroscopy of Multiple Coronary Arteries using Low Osmolar Contrast (ICD-10-PCS; 2019-04-16)
PROC: B2151ZZ Fluoroscopy of Left Heart using Low Osmolar Contrast (ICD-10-PCS; 2019-04-16)
PROC: 02703DZ Dilation of Coronary Artery, One Artery with Intraluminal Device, Percutaneous Approach (ICD-10-PCS; principal; 2019-04-16 10:30)
PROC: 4A023N7 Measurement of Cardiac Sampling and Pressure, Left Heart, Percutaneous Approach (ICD-10-PCS; 2019-04-16 10:30)
DX: I25.110 Atherosclerotic heart disease of native coronary artery with unstable angina pectoris (principal); D61.818 Other pancytopenia; N17.9 Acute kidney failure, unspecified; I11.0 Hypertensive heart disease with heart failure; I50.9 Heart failure, unspecified; J44.9 Chronic obstructive pulmonary disease, unspecified; K21.9 Gastro-esophageal reflux disease without esophagitis; E11.65 Type 2 diabetes mellitus with hyperglycemia; D64.9 Anemia, unspecified; E83.42 Hypomagnesemia; Z86.73 Personal history of transient ischemic attack (TIA), and cerebral infarction without residual deficits

== ENCOUNTER 2019-04-20 16:32 | Inpatient (IN) | payer MEDICARE ==
[~2019-04-20] VITALS: Ht 185.4 cm; Wt 76.8 kg
[2019-04-20 17:29] VITALS: BP 160/75
[2019-04-20 17:34] VITALS: BP 116/68
[2019-04-20 17:42] LABS: CALC OSMOLALITY 299 mosm/kg (275-300); CARBON DIOXIDE 23.2 mmol/L (21.0-32.0); CHLORIDE - SERUM 109 mmol/L (98-107); POTASSIUM - SERUM 4.3 mmol/L (3.5-5.1); SODIUM 144 mmol/L (136-145); UREA NITROGEN 41 mg/dL (7-18); eGFR NON AFRICAN AMERICAN 36 mL/min (90-120)
[2019-04-20 17:53] VITALS: BP 132/64
[2019-04-20 17:54] LABS: GLUCOSE 147 mg/dL (74-106)
[2019-04-20 17:59] LABS: ALKALINE PHOSPHATASE 161 U/L (46-116); ALT (SGPT) 35 U/L (10-68); BILIRUBIN - TOTAL 0.27 mg/dL (0.2-1.3); CKMB 6.5 U/L (0.0-3.6); CREATINE KINASE 331 UL (21-232); PRO BNP 4949 pg/mL (0-125); PROTEIN - SERUM 6.7 g/dL (6.4-8.2); TROPONIN-I 0.027 ng/mL (0.000-0.060)
[2019-04-20 18:20] LABS: BASOPHILS 0.9 % (0-2); EOSINOPHILS 2.4 % (0-7); HEMATOCRIT 32.8 % (42.0-54.0); HEMOGLOBIN 10.1 g/dL (13.5-17.5); IMMATURE GRANULOCYTES 0.4 % (0-5); LYMPHOCYTES 23.5 % (15-50); MCH 30.4 pg (26.0-34.0); MCHC 30.8 g/dL (31.0-37.0); MCV 98.8 fL (80.0-100.0); MEAN PLATELET VOLUME 13.6 fL (7.4-10.4); MONOCYTES 8.4 % (2-11); NEUTROPHILS 64.4 % (40-80); PLATELET COUNT 91 10x3/uL (130-400); RBC 3.32 10x6/uL (4.20-6.10); RDW 15.2 % (11.5-14.5); WBC 4.5 10x3/uL (4.8-10.8)
[2019-04-20 18:32] VITALS: BP 119/67
[2019-04-20 18:33] LABS: PLATELET ESTIMATE DECREASED
--- NOTE | 2019-04-20 19:02 | NUR ---
FSBS= 53 MG/DL PRETTY SPIVEY AT BS AND INSTR TO GIVE OJ. OJ WITH SUGAR GIVEN
--- NOTE | 2019-04-20 19:28 | NUR ---
REPORT TO SILAS BECKER
[2019-04-21 00:33] LABS: CREATINE KINASE 311 UL (21-232); TROPONIN-I 0.031 ng/mL (0.000-0.060)
[2019-04-21 00:35] VITALS: BP 171/94
[2019-04-21 01:12] LABS: CKMB 5.9 U/L (0.0-3.6)
[2019-04-21 04:00] VITALS: BP 116/56
[2019-04-21 06:01] LABS: APTT 30.8 SECONDS (22.8-39.4); INR 1.12 (0.85-1.17); PROTIME 13.9 SECONDS (11.6-15.0)
[2019-04-21 06:20] LABS: ALBUMIN 2.5 g/dL (3.4-5.0); ALKALINE PHOSPHATASE 143 U/L (46-116); ALT (SGPT) 30 U/L (10-68); BILIRUBIN - TOTAL 0.24 mg/dL (0.2-1.3); CALC OSMOLALITY 298 mosm/kg (275-300); CALCIUM 7.6 mg/dL (8.5-10.1); CARBON DIOXIDE 24.2 mmol/L (21.0-32.0); CHLORIDE - SERUM 110 mmol/L (98-107); CKMB 3.6 U/L (0.0-3.6); CREATINE KINASE 224 UL (21-232); CREATININE - SERUM 2.2 mg/dL (0.6-1.3); GLUCOSE 120 mg/dL (74-106); MAGNESIUM - SERUM 1.6 mg/dL (1.8-2.4); PHOSPHOROUS 4.3 mg/dL (2.5-4.9); POTASSIUM - SERUM 4.5 mmol/L (3.5-5.1); PROTEIN - SERUM 5.8 g/dL (6.4-8.2); SODIUM 144 mmol/L (136-145); TROPONIN-I 0.028 ng/mL (0.000-0.060); UREA NITROGEN 43 mg/dL (7-18); eGFR NON AFRICAN AMERICAN 32 mL/min (90-120)
--- NOTE | 2019-04-21 07:15 | NUR ---
RECEIVED PT IN BED AAOX4 RESP UNLABORED SKIN W/D COLOR WNL DENIES ANY NEEDS OR DISCOMFORT AT THIS TIME
--- NOTE | 2019-04-21 07:17 | MORECARE ---
CASE MANAGEMENT DISCHARGE SUMMARY PATIENT: DASHAWN COSME UNIT: [id number] ADM DATE: 04/20/19 AGE: 63 : 53 SEX: M ROOM/BED: D.2116 AUTHOR: DONOVAN OCONNELL PHYSICIAN: REFERRING PHYSICIAN: RAY RANDALL MD DATE OF SERVICE: 04/21/19 Discharge Plan Patient Name: DASHAWN COSME Facility: [facility]:[place] : 1955 Planned Disposition: Home Anticipated Discharge Date: 04/23/19 Discharge Date: Expected LOS: 3 Initial Reviewer: [email or web address] Initial Review Date: 04/20/2019 Generated: 04/21/19 8:17 am DCPIA - Discharge Planning Initial Assessment Updated by [email or web address]: Wilma Clay on 04/21/19 7:16 am * Is the patient Alert and Oriented? Yes * How many steps to enter\exit or inside your home? * [facility] [place] [facility] * Preadmission Environment Home with Family * ADLs Partial Dependent * Partial ADLs (Assistance needed) Medication Management * Equipment Bedside Commode Cane Glucometer * Other Equipment Blood pressure machine * List name and contact numbers for known caregivers / representatives who currently or will assist patient after discharge: Cat Cosme - - [phone] * Verbal permission to speak to the caregivers and representatives has been obtained from the patient. Yes * Community resources currently utilized None * Additional services required to return to the preadmission environment? No * Can the patient safely return to the preadmission environment? Yes * Has this patient been hospitalized within the prior 30 days at any hospital? No Patient Name: DASHAWN COSME Page [phone] at 0717 All edits/amendments must be made on the electronic document DICTATION DATE: 04/21/19716 BILL CUTTER: KATIE 04/21/19716 RPT#: [id number] DC DATE: STATUS: ADM IN [facility] [address] [place] [address] END OF REPORT
--- NOTE | 2019-04-21 07:24 | MORECARE ---
CASE MANAGEMENT DISCHARGE SUMMARY PATIENT: DASHAWN COSME UNIT: [id number] ADM DATE: 04/20/19 AGE: 63 : 53 SEX: M ROOM/BED: D.2116 AUTHOR: DONOVAN OCONNELL PHYSICIAN: REFERRING PHYSICIAN: RAY RANDALL MD DATE OF SERVICE: 04/21/19 Discharge Plan Patient Name: DASHAWN COSME Facility: [facility]:[place] : 1955 Planned Disposition: Home Anticipated Discharge Date: 04/23/19 Discharge Date: Expected LOS: 3 Initial Reviewer: [email or web address] Initial Review Date: 04/20/2019 Generated: 04/21/19 8:24 am DCP- Discharge Planning Updated by [email or web address]: Wilma Clay on 04/21/19 6:[address] DC PLAN: Return home with . ANTICIPATED DC NEEDS: denied known dc needs at time of assessment in the ER. CM met with patient and his to complete initial dc planning assessment. CM educated patient on the CM role and verbal consent given by patient to complete assessment. CM verified patient's address, phone number, and emergency contact phone numbers. Patient lives at home with his . At discharge patient plans to return home and feels this is a safe discharge. Patient reports he [facility] not [facility] the [facility]. He has requested to stay at [facility] for treatment. CM discussed availability of home health, rehab services, and medical equipment. Patient denied known discharge needs at this time. Transportation provider at discharge will be his auto haulaway driver. His does not drive and he stated his auto haulaway driver of other family will transport. CM will continue to follow and will assist as needed with dc plans/needs. Wilma Clay RN, [facility] DCPIA - Discharge Planning Initial Assessment Updated by [email or web address]: Wilma Clay on 04/21/19 7:16 am * Is the patient Alert and Oriented? Yes * How many steps to enter\exit or inside your home? * [facility]CP [facility] * [facility] [place] [facility] * Preadmission Environment Home with Family * ADLs Partial Dependent * Partial ADLs (Assistance needed) Medication Management * Equipment Bedside Commode Cane Glucometer * Other Equipment Blood pressure machine * List name and contact numbers for known caregivers / representatives who currently or will assist patient after discharge: Cat Cosme - - [phone] * Verbal permission to speak to the caregivers and representatives has been obtained from the patient. Yes * Community resources currently utilized None * Additional services required to return to the preadmission environment? No * Can the patient safely return to the preadmission environment? Yes * Has this patient been hospitalized within the prior 30 days at any hospital? No Last DP export: 04/21/19 6:17 am Patient Name: DASHAWN COSME Page [phone] at 0724 All edits/amendments must be made on the electronic document DICTATION DATE: 04/21/19723 PLANT ASSIGNER: KATIE 04/21/19723 RPT#: [id number] DC DATE: STATUS: ADM IN [facility] [address] [place] [address] END OF REPORT
[2019-04-21 07:27] LABS: BASOPHILS 0.2 % (0-2); EOSINOPHILS 3.5 % (0-7); HEMATOCRIT 33.1 % (42.0-54.0); HEMOGLOBIN 10.3 g/dL (13.5-17.5); IMMATURE GRANULOCYTES 0.2 % (0-5); LYMPHOCYTES 36.5 % (15-50); MCH 30.3 pg (26.0-34.0); MCHC 31.1 g/dL (31.0-37.0); MCV 97.4 fL (80.0-100.0); MEAN PLATELET VOLUME 13.4 fL (7.4-10.4); NEUTROPHILS 49.6 % (40-80); PLATELET COUNT 92 10x3/uL (130-400); WBC 5.4 10x3/uL (4.8-10.8)
--- NOTE | 2019-04-21 08:27 | NUR ---
DR ODEN HERE AND STATES PATIENT CAN HAVE BREAKFAST TRAY. GIVEN.
[2019-04-21 10:01] LABS: ANISOCYTOSIS OCC; PLATELET ESTIMATE DECREASED
[2019-04-21 11:01] VITALS: BP 98/51
[2019-04-21 11:50] LABS: CKMB 4.2 U/L (0.0-3.6); CREATINE KINASE 266 UL (21-232); TROPONIN-I < 0.017 ng/mL (0.000-0.060)
[2019-04-21 12:53] LABS: % SATURATION 34 % (15-55); IRON 72 ug/dl (35-150); TOTAL IRON BIND CAPACITY 208 ug/dl (260-445); UNSAT IRON BIND CAPACITY 136 ug/dl (150-375)
[2019-04-21 13:30] VITALS: Ht 185.4 cm; Wt 76.8 kg
[2019-04-21 20:00] VITALS: BP 137/75
[2019-04-22] VITALS: BP 104/51
[2019-04-22 05:03] VITALS: BP 102/57
[2019-04-22 07:38] LABS: ANION GAP 16.4 mmol/L (8-16); CALCIUM 7.5 mg/dL (8.5-10.1); CARBON DIOXIDE 22.6 mmol/L (21.0-32.0); CREATININE - SERUM 2.4 mg/dL (0.6-1.3); MAGNESIUM - SERUM 1.6 mg/dL (1.8-2.4); PHOSPHOROUS 4.7 mg/dL (2.5-4.9)
[2019-04-22 08:00] VITALS: BP 108/50
[2019-04-22 08:17] LABS: BASOPHILS 0.2 % (0-2); EOSINOPHILS 2.9 % (0-7); HEMATOCRIT 28.8 % (42.0-54.0); HEMOGLOBIN 8.9 g/dL (13.5-17.5); LYMPHOCYTES 27.4 % (15-50); MCH 30.1 pg (26.0-34.0); MCHC 30.9 g/dL (31.0-37.0); MCV 97.3 fL (80.0-100.0); MONOCYTES 10.5 % (2-11); PLATELET COUNT 83 10x3/uL (130-400); RBC 2.96 10x6/uL (4.20-6.10); RDW 15.2 % (11.5-14.5); WBC 4.1 10x3/uL (4.8-10.8)
--- NOTE | 2019-04-22 09:09 | CN ---
PATIENT NAME:DASHAWN REID MEDICAL RECORD: [id number] : 51 LOCATION:DMarj D.2116 ADMIT DATE: 04/20/19 ACCOUNT: [id number] CONSULTING PHYSICIAN: RAY FAITH MD REFERRING PHYSICIAN: RAY RANDALL MD DATE OF CONSULTATION: 04/21/2019 HISTORY OF PRESENT ILLNESS: A 63-year-old gentleman with a history of coronary artery disease, status post recent intervention of the circumflex, has a history of cardiomyopathy, EF of 40%, diabetes mellitus, presented with volume overload, lower extremity edema. It is a fairly rapid onset since about , does have renal insufficiency as well as history of diabetes mellitus. Albumin mildly decreased to 3.0. We are asked to see him concerning cardiovascular status. PAST MEDICAL HISTORY: Includes; 1. History of hypertension. 2. Hyperlipidemia. 3. Coronary artery disease as described above. 4. Cardiomyopathy, ejection fraction 40% to 45%. 5. Diabetes mellitus. ALLERGIES: MORPHINE, HEPARIN, PENICILLIN. SOCIAL HISTORY: Nonsmoker, nondrinker. Easily takes care of all his ADLs. No set exercise program. REVIEW OF SYSTEMS: The patient reports easy bruising but reports no swollen glands. The patient reports no fever, no night sweats, no significant weight gain, no significant weight loss. No significant exercise tolerance. The patient reports no dry eyes, no irritation, no vision change. Patient reports no difficulty hearing and no ear pain. Patient reports no frequent nose bleeds or nose and sinus problems. Patient reports on arm pain on exertion. No shortness of breath while lying down. No history of heart murmur. Patient reports no cough, no wheezing or coughing up blood. Patient reports no abdominal pain, no vomiting. Normal appetite. No diarrhea and not vomiting blood. No nausea and no constipation. Patient reports no incontinence. No difficulty urinating. No hematuria. No increased frequency. Patient reports no muscle aches. No weakness, no arthralgias, no back pain. No swelling of the extremities. Patient reports no abnormal mole, no jaundice, no rashes. Reports no loss of consciousness. No weakness and no numbness. No seizures, dizziness, or headaches. The patient reports no depression, no sleep disturbance, feeling safe in a relationship and no alcohol abuse. Patient reports on fatigue. Reports no runny nose or sinus pressure. No itching, no hives, and no frequent sneezing. PHYSICAL EXAMINATION: GENERAL: Pleasant gentleman in no acute distress. VITAL SIGNS: Blood pressure 116/56, pulse 73 and regular. HEENT: Normocephalic, atraumatic. NECK: No JVD or bruit. HEART: Regular. S3 gallop is noted. LUNGS: Good air excursion. ABDOMEN: Soft, nontender. EXTREMITIES: Pulses 2+, 1+ edema by his report, this is down from marked up to CONSULT REPORT [id number] DASHAWN REID F 2 to 3+. IMPRESSION: Cardiomyopathy, volume overload, wjxqi-ev-zklciuk systolic failure. We will add Aldactone, could consider switching BRETT to Entresto depending on clinical course. Currently, cardiac enzymes are negative, so doubt acute stent thrombosis. TRANSINT:[id number] Voice Confirmation ID: [id number] DOCUMENT ID: [id number] RAY FAITH MD at 0909 CC: [id number] DICTATION DATE: 04/21/19 0850 OPERATIONS INTELLIGENCE SUPERINTENDENT: 04/21/19 0946 ADM IN [facility] [address] [place] [address]
--- NOTE | 2019-04-22 11:28 | NUR ---
TELEMETRY SR. AMBULATING HALLWAY ADLIB. GAIT STEADY.
[2019-04-22] MEDS ORDERED: ALDACTONE25 MG PO (12:14)
[2019-04-22 12:23] VITALS: BP 103/46
--- NOTE | 2019-04-22 14:20 | MORECARE ---
CASE MANAGEMENT DISCHARGE SUMMARY PATIENT: DASHAWN COSME UNIT: [id number] ADM DATE: 04/20/19 AGE: 63 : 51 SEX: M ROOM/BED: D.7556 AUTHOR: DONOVAN OCONNELL PHYSICIAN: REFERRING PHYSICIAN: RAY RNADALL MD DATE OF SERVICE: 04/22/19 Discharge Plan Patient Name: DASHAWN COSME Facility: [facility]:[place] : 1955 Planned Disposition: Home Anticipated Discharge Date: 04/23/19 Discharge Date: Expected LOS: 3 Initial Reviewer: [email or web address] Initial Review Date: 04/20/2019 Generated: 04/22/19 3:20 pm Comments DCP- Discharge Planning Updated by [email or web address]: Lamar Ziegler on 04/22/19 1:[address] Patient Name: DASHAWN COSME Admission Status: ER Accout number: [id number] Admission Date: 04-20-2019 : 1955 Admission Diagnosis: Attending: SUHA Current LOS: 2 Anticipated DC Date: 04-23-2019 Planned Disposition: Home Primary Insurance: MEDICARE PART A ONLY Discharge Planning Comments: GOOD RX CARD GIVEN TO PATIENT IN CASE HIS INSURANCE DOESN'T COVER HIS ALDACTONE. WITH GOOD RX WILL COST LESS THAN 10 DOLLARS. PATIENT IN UNDERSTANDING. Pin Machine Tender: Lamar Ziegler DCP- Discharge Planning Updated by [email or web address]: Wilma Clay on 04/21/19 6:[address] DC PLAN: Return home with . ANTICIPATED DC NEEDS: denied known dc needs at time of assessment in the ER. CM met with patient and his to complete initial dc planning assessment. CM educated patient on the CM role and verbal consent given by patient to complete assessment. CM verified patient's address, phone number, and emergency contact phone numbers. Patient lives at home with his . At discharge patient plans to return home and feels this is a safe discharge. Patient reports he does not [facility] to [facility] the [facility] for [facility]. He has requested to stay at [facility] for treatment. CM discussed availability of home health, rehab services, and medical equipment. Patient denied known discharge needs at this time. Transportation provider at discharge will be his wheat combine driver. His does not drive and he stated his wheat combine driver of other family will transport. CM will continue to follow and will assist as needed with dc plans/needs. Wilma Clay RN, [facility] DCPIA - Discharge Planning Initial Assessment Updated by [email or web address]: Wilma Clay on 04/21/19 7:16 am * Is the patient Alert and Oriented? Yes * How many steps to enter\exit or inside your home? * PCP [facility] MD * [facility] * Preadmission Environment Home with Family * ADLs Partial Dependent * Partial ADLs (Assistance needed) Medication Management * Equipment Bedside Commode Cane Glucometer * Other Equipment Blood pressure machine * List name and contact numbers for known caregivers / representatives who currently or will assist patient after discharge: Cat Cosme - - [phone] * Verbal permission to speak to the caregivers and representatives has been obtained from the patient. Yes * Community resources currently utilized None * Additional services required to return to the preadmission environment? No * Can the patient safely return to the preadmission environment? Yes * Has this patient been hospitalized within the prior 30 days at any hospital? No Last DP export: 04/21/19 6:24 am Patient Name: DASHAWN COSME Page 44567 at 1420 All edits/amendments must be made on the electronic document DICTATION DATE: 04/22/191419 GLASS INSPECTOR: KATIE 04/22/191419 RPT#: [id number] DC DATE: STATUS: ADM IN [facility] [address] [place] [address] END OF REPORT
--- NOTE | 2019-04-22 15:02 | NUR ---
IV AND TELEMETRY DCD. DC PLANS GIVEN. UNDERSTANDING VOICED. ESCORTED TO CAR.
--- NOTE | 2019-04-23 09:25 | MORECARE ---
CASE MANAGEMENT DISCHARGE SUMMARY PATIENT: DASHAWN COSME UNIT: [id number] ADM DATE: 04/20/19 AGE: 63 : 51 SEX: M ROOM/BED: D.5096 AUTHOR: DONOVAN OCONNELL PHYSICIAN: REFERRING PHYSICIAN: RAY RANDALL MD DATE OF SERVICE: 04/23/19 Discharge Plan Patient Name: DASHAWN COSME Facility: [facility]:[place] : 1955 Planned Disposition: Home Anticipated Discharge Date: 04/23/19 Discharge Date: 04/22/2019 Expected LOS: 3 Initial Reviewer: [email or web address] Initial Review Date: 04/20/2019 Generated: 04/23/19 10:24 am Comments DCP- Discharge Planning Updated by [email or web address]: Lamar Ziegler on 04/22/19 1:[address] Patient Name: DASHAWN COSME Admission Status: ER Accout number: [id number] Admission Date: 04-20-2019 : 1955 Admission Diagnosis: Attending: SUHA Current LOS: 2 Anticipated DC Date: 04-23-2019 Planned Disposition: Home Primary Insurance: MEDICARE PART A ONLY Discharge Planning Comments: GOOD RX CARD GIVEN TO PATIENT IN CASE HIS INSURANCE DOESN'T COVER HIS ALDACTONE. WITH GOOD RX WILL COST LESS THAN 10 DOLLARS. PATIENT IN UNDERSTANDING. Journeyman Press Operator: Lamar Ziegler DCP- Discharge Planning Updated by [email or web address]: Wilma Clay on 04/21/19 6:[address] DC PLAN: Return home with . ANTICIPATED DC NEEDS: denied known dc needs at time of assessment in the ER. CM met with patient and his to complete initial dc planning assessment. CM educated patient on the CM role and verbal consent given by patient to complete assessment. CM verified patient's address, phone number, and emergency contact phone numbers. Patient lives at home with his . At discharge patient plans to return home and feels this is a safe discharge. Patient reports he does not [facility] the [facility]. He has requested to stay at [facility] for treatment. CM discussed availability of home health, rehab services, and medical equipment. Patient denied known discharge needs at this time. Transportation provider at discharge will be his van cdl driver. His does not drive and he stated his van cdl driver of other family will transport. CM will continue to follow and will assist as needed with dc plans/needs. Wilma Clay RN, [facility] DCPIA - Discharge Planning Initial Assessment Updated by [email or web address]: Wilma Clay on 04/21/19 7:16 am * Is the patient Alert and Oriented? Yes * How many steps to enter\exit or inside your home? * [facility] * Preadmission Environment Home with Family * ADLs Partial Dependent * Partial ADLs (Assistance needed) Medication Management * Equipment Bedside Commode Cane Glucometer * Other Equipment Blood pressure machine * List name and contact numbers for known caregivers / representatives who currently or will assist patient after discharge: Cat Cosme - - [phone] * Verbal permission to speak to the caregivers and representatives has been obtained from the patient. Yes * Community resources currently utilized None * Additional services required to return to the preadmission environment? No * Can the patient safely return to the preadmission environment? Yes * Has this patient been hospitalized within the prior 30 days at any hospital? No Last DP export: 04/22/19 1:20 pm Patient Name: DASHAWN COSME Page 00640 at 0925 All edits/amendments must be made on the electronic document DICTATION DATE: 04/23/19923 CHIEF STRATEGY OFFICER: KATIE 04/23/19923 RPT#: [id number] DC DATE:04/22/19 STATUS: DIS IN [facility] [address] [place] [address] END OF REPORT
[2019-04-23] MEDS ORDERED: LEVEMIR IN100 UNITS/ (11:46)
== END 2019-04-22 15:03 | disposition home or self-care (01) | DRG 291 ==
LOC: D.ER 16:32 → D.M2 18:48 → D.SDCHOLD 04-21 13:12 → D.M2 04-22 15:03
PROVIDERS: Family Medicine; ADMIT Family Medicine; ATTEND Family Medicine
DX: I13.0 Hypertensive heart and chronic kidney disease with heart failure and stage 1 through stage 4 chronic kidney disease, or unspecified chronic kidney disease (principal); I50.23 Acute on chronic systolic (congestive) heart failure; D61.818 Other pancytopenia; N18.3 Chronic kidney disease, stage 3 (moderate); J44.9 Chronic obstructive pulmonary disease, unspecified; G20 Parkinson's disease; I25.10 Atherosclerotic heart disease of native coronary artery without angina pectoris; E78.5 Hyperlipidemia, unspecified; I42.9 Cardiomyopathy, unspecified; D63.1 Anemia in chronic kidney disease; Z86.73 Personal history of transient ischemic attack (TIA), and cerebral infarction without residual deficits

== ENCOUNTER 2019-04-23 11:14 | Inpatient (IN) | payer MEDICARE ==
[2019-04-23] VITALS (7 sets, daily range): BP systolic 140–153; BP diastolic 68–83
[~2019-04-23] VITALS: Ht 185.4 cm; Wt 74.1 kg
[~2019-04-23 11:14] MED LIST changes: +ALDACTONE25 MG PO
[2019-04-23] MEDS ORDERED: LEVEMIR IN100 UNITS/ (11:46)
[2019-04-23 12:47] LABS: ANION GAP 16.4 mmol/L (8-16); CALCIUM 7.8 mg/dL (8.5-10.1); CARBON DIOXIDE 20.9 mmol/L (21.0-32.0); POTASSIUM - SERUM 5.3 mmol/L (3.5-5.1)
[2019-04-23 12:52] LABS: BASOPHILS 0 % (0-2); CREATININE - SERUM 3.1 mg/dL (0.6-1.3); EOSINOPHILS 0.9 % (0-7); HEMATOCRIT 32.6 % (42.0-54.0); IMMATURE GRANULOCYTES 0.3 % (0-5); LYMPHOCYTES 13.8 % (15-50); MCH 29.8 pg (26.0-34.0); MCHC 30.7 g/dL (31.0-37.0); MEAN PLATELET VOLUME 13.7 fL (7.4-10.4); MONOCYTES 5.6 % (2-11); NEUTROPHILS 79.4 % (40-80); PLATELET COUNT 77 10x3/uL (130-400); RBC 3.36 10x6/uL (4.20-6.10); RDW 15.6 % (11.5-14.5)
[2019-04-23 12:53] LABS: ALBUMIN 2.7 g/dL (3.4-5.0); BILIRUBIN - TOTAL 0.5 mg/dL (0.2-1.3); PROTEIN - SERUM 6.2 g/dL (6.4-8.2)
[2019-04-23 12:55] LABS: WBC 5.9 10x3/uL (4.8-10.8)
[2019-04-23 17:32] LABS: APPEARANCE HAZY (CLEAR); BACTERIA FEW /hpf (NEGATIVE); BILIRUBIN NEGATIVE (NEGATIVE); COLOR YELLOW (YELLOW); EPITHELIAL CELLS RARE /hpf (0-5); GLUCOSE 250 mg/dL (NEGATIVE); KETONE NEGATIVE (NEGATIVE); NITRITE NEGATIVE (NEGATIVE); PROTEIN 1+ mg/dL (NEGATIVE); RED CELLS - URINE RARE /hpf (0-5); SPECIFIC GRAVITY 1.015 (1.005-1.020); UROBILINOGEN NORMAL (NORMAL); WHITE CELLS - URINE NSEEN /hpf (NEGATIVE)
--- NOTE | 2019-04-23 18:57 | NUR ---
PT GIVEN MEAL TRAY PER DIETARY ORDERS AT THIS TIME. PT SITTING UPRIGHT IN BED, EATING. NO SIGNS OF DISTRESS. PT DENIES ANY PAIN. PT AWARE HE IS BEING ADMITTED TO [facility]. CALL LIGHT IN REACH.
[2019-04-23 20:14] LABS: APTT 30.3 SECONDS (22.8-39.4)
[2019-04-23 20:15] LABS: D-DIMER-QUANTITATIVE 0.95 ug/mLFEU (0.20-0.54)
[2019-04-23 20:53] LABS: CKMB 3.5 U/L (0.0-3.6); CREATINE KINASE 341 UL (21-232); MAGNESIUM - SERUM 1.6 mg/dL (1.8-2.4)
[2019-04-23 20:56] LABS: TROPONIN-I < 0.017 ng/mL (0.000-0.060)
--- NOTE | 2019-04-23 22:59 | NUR ---
PATIENT TO ROOM 2112 VIA W/C @ 1939. ASSISTED PATIENT TO BATHROOM AND THEN TO BED. NO S/S OF DISTRESS OBSERVED, RR EVEN AND UNLABORED ON ROOM AIR, VSS. PIV TO LT AC, PATENT, INFUSING NS @100ML/HR, DRSG C/D/I. QUICK START, MED REC, ADULT HX, AND SRS COMPLETE. PATIENT NOW C/O OF HEADACHE AND NAUSEA, PERCOCET AND ZORFRAN ADMINISTERED PER EMAR. PATIENT DENIES FURTHER NEEDS AT THIS TIME. CL IN REACH, BED LOCKED AND LOWERED. WILL CTM
--- NOTE | 2019-04-23 23:50 | NUR ---
PATIENT ADMITTED TO 2112 FOR N/V. PATIENT DENIES BEING SUICIDIAL AND HAS NOT BEEN SUICIDAL IN YEARS. 1-800 NUMBER GIVEN TO HIM TO USE FOR THE FUTURE A REFERENCE IN CASE HE NEEDED IT. PATIENT VERBALIZED UNDERSTANDING.
[2019-04-24 01:34] VITALS: BP 148/75; BMI 21.5
[2019-04-24 03:31] LABS: BASOPHILS 0 % (0-2); EOSINOPHILS 5.2 % (0-7); HEMATOCRIT 29.7 % (42.0-54.0); HEMOGLOBIN 9.3 g/dL (13.5-17.5); IMMATURE GRANULOCYTES 0.3 % (0-5); LYMPHOCYTES 27.8 % (15-50); MCH 30.2 pg (26.0-34.0); MCHC 31.3 g/dL (31.0-37.0); MCV 96.4 fL (80.0-100.0); MONOCYTES 8.3 % (2-11); NEUTROPHILS 58.4 % (40-80); PLATELET COUNT 62 10x3/uL (130-400); RBC 3.08 10x6/uL (4.20-6.10); RDW 15.6 % (11.5-14.5); WBC 3.3 10x3/uL (4.8-10.8)
[2019-04-24 04:00] VITALS: BP 138/68
[2019-04-24 04:00] LABS: CALC OSMOLALITY 305 mosm/kg (275-300); CALCIUM 7.5 mg/dL (8.5-10.1); CARBON DIOXIDE 22.2 mmol/L (21.0-32.0); CHLORIDE - SERUM 111 mmol/L (98-107); CKMB 3.1 U/L (0.0-3.6); CREATINE KINASE 281 UL (21-232); GLUCOSE 236 mg/dL (74-106); MAGNESIUM - SERUM 1.6 mg/dL (1.8-2.4); POTASSIUM - SERUM 5.3 mmol/L (3.5-5.1); SODIUM 140 mmol/L (136-145); UREA NITROGEN 65 mg/dL (7-18)
[2019-04-24 04:01] LABS: CREATININE - SERUM 2.3 mg/dL (0.6-1.3); PHOSPHOROUS 3.3 mg/dL (2.5-4.9); TROPONIN-I < 0.017 ng/mL (0.000-0.060); eGFR NON AFRICAN AMERICAN 30 mL/min (90-120)
--- NOTE | 2019-04-24 05:36 | NUR ---
PATIENT UP TO BATHROOM AND BACK TO BED. AM MEDS ADMINISTERED. PATIENT DENIES NEEDS AT THIS TIME.
--- NOTE | 2019-04-24 07:31 | NUR ---
PT SITTING UP IN BED. RR EVEN AND UNLABORED. STANDBY ASSISTED TO THE RESTROOM, PT HAS STEADY GAIT. IV NOTED TO LEFT AC INFUSING NS @ 50MLS/HR. WATER RECIEVED PER REQUEST. DENIES FURTHER NEEDS OR PAIN AT THIS TIME. BED IN LOWEST POSITION. CALL LIGHT WITHIN REACH. WILL CONTINUE TO MONITOR.
[2019-04-24 08:48] VITALS: BP 167/92
[2019-04-24 10:04] LABS: CKMB 3.1 U/L (0.0-3.6); CREATINE KINASE 246 UL (21-232)
[2019-04-24 10:05] LABS: TROPONIN-I < 0.017 ng/mL (0.000-0.060)
[2019-04-24 13:18] VITALS: BP 157/75
[2019-04-24 14:43] VITALS: Ht 185.4 cm; Wt 74.1 kg
[2019-04-24 17:14] VITALS: BP 142/67
--- NOTE | 2019-04-24 17:59 | MORECARE ---
CASE MANAGEMENT DISCHARGE SUMMARY PATIENT: DASHAWN REID UNIT: [id number] ADM DATE: 04/23/19 AGE: 63 : 53 SEX: M ROOM/BED: D.[facility] AUTHOR: DONOVAN OCONNELL PHYSICIAN: REFERRING PHYSICIAN: EDREK CHEATHAM MD DATE OF SERVICE: 04/24/19 Discharge Plan Patient Name: DASHAWN REID Facility: [facility]:[place] : 1955 Planned Disposition: Inpatient Rehab Anticipated Discharge Date: 04/25/19 Discharge Date: Expected LOS: 2 Initial Reviewer: [email or web address] Initial Review Date: 04/24/2019 Generated: 04/24/19 6:59 pm Patient Name: DASHAWN REID Page [phone] at 1759 All edits/amendments must be made on the electronic document DICTATION DATE: 04/24/191758 RECESSING MACHINE OPERATOR: KATIE 04/24/191758 RPT#: [id number] DC DATE: STATUS: REG I [facility] [address] [place] [address] END OF REPORT
--- NOTE | 2019-04-24 18:06 | MORECARE ---
CASE MANAGEMENT DISCHARGE SUMMARY PATIENT: DASHAWN REID UNIT: [id number] ADM DATE: 04/23/19 AGE: 63 : 51 SEX: M ROOM/BED: D.2113 AUTHOR: DONOVAN OCONNELL PHYSICIAN: REFERRING PHYSICIAN: DEREK CHEATHAM MD DATE OF SERVICE: 04/24/19 Discharge Plan Patient Name: DASHAWN REID Facility: [facility]:[place] : 1955 Planned Disposition: Inpatient Rehab Anticipated Discharge Date: 04/25/19 Discharge Date: Expected LOS: 2 Initial Reviewer: [id number] Initial Review Date: 04/24/2019 Generated: 04/24/19 7:06 pm Comments DCP- Discharge Planning Updated by [email or web address]: Rachid Carlin on 04/24/19 5:[address] Patient Name: DASHAWN REID Admission Status: ER Accout number: [id number] Admission Date: 04-23-2019 : 1955 Admission Diagnosis: Attending: FLOR Current LOS: 1 Anticipated DC Date: 04-25-2019 Planned Disposition: Inpatient Rehab Primary Insurance: MEDICARE PART A ONLY PLANNED EXTERNAL PROVIDER: [facility] INPATIENT REHAB Discharge Planning Comments: CM RECEIVED REQUEST TO SEE PT HE WANTS REHAB AT [place]. CM MET WITH PT IN ROOM TO DISCUSS DISCHARGE PLANNING AND NEEDS. PT REPORTS LIVING AT HOME DEPENDENTLY WITH WHO ASSISTS WITH HIS MEDICATION MANAGEMENT. PT HAS BEDSIDE COMMMODE, CANE, GLUCOMETER AND BLOOD PRESSURE MACHINE FROM [place]. PT HAS NO OUTSIDE SERVICES ASSISTING IN THE HOME STATING THE [place] WILL NOT PROVIDE THEM TO HIM. PT DOES NOT WANT TRANSFER TO [place] HOSPITAL OR REHAB. CM DISCUSSED AVAILABILITY OF HOME HEALTH, REHAB SERVICES AND MEDICAL EQUIPMENT. PT WANTS REHAB AT [place], UNDERSTANDS HIS INSURANCE WILL NOT PAY FOR HOME HEALTH OR ALF FACILITY. PT STATES HIS FAMILY WILL PICK HIM UP FOR DISCHARGE HOME. CHOICE SIGNED FOR [facility] INPATIENT REHAB. CM NOTIFIED BEDSIDE NURSE TO REQUEST ORDER FOR INPATIENT REHAB PRESCREENING. CM SPOKE TO [facility] OF INPATIENT REHAB AND REQUESTED SCREENING FOR THIS WEEKEND PT IS READY TO DISCHARGE PER DR. RANDALL. Sole Cutter: Rachid Carlin DCPIA - Discharge Planning Initial Assessment Updated by [id number]: Rachid Carlin on 04/24/19 5:59 pm * Is the patient Alert and Oriented? Yes * How many steps to enter\exit or inside your home? NONE * [facility] * Preadmission Environment Home with Family * ADLs Partial Dependent * Partial ADLs (Assistance needed) Medication Management * Equipment Bedside Commode Cane Glucometer * Other Equipment BLOOD PRESSURE MACHINE * List name and contact numbers for known caregivers / representatives who currently or will assist patient after discharge: WALLY REID, SPOUSE, * Verbal permission to speak to the caregivers and representatives has been obtained from the patient. N/A * Community resources currently utilized None * Please name any agencies selected above. NONE * Additional services required to return to the preadmission environment? No * Can the patient safely return to the preadmission environment? Yes * Has this patient been hospitalized within the prior 30 days at any hospital? Yes Coverage Notice Reviewer: [id number] - Rachid Carlin Notice Issued Date-Time: 04/24/2019 16:50 Notice Type: Patient Choice Letter Notice Delivered To: Patient Relationship to Patient: Pickle Water Pump Operator Name: Delivery Method: HAND - Hand Delivered Eleonora Days: Prior Verbal Notification: Recipient Understood Notice: Yes Recipient Signature: Yes Med Rec Note Co-signed by Attending: Coverage Notice Comment: [facility] INPATIENT REHAB Last DP export: 04/24/19 4:59 p Patient Name: DASHAWN REID Page [phone] at 1806 All edits/amendments must be made on the electronic document DICTATION DATE: 04/24/191805 NATIONAL FACILITIES MANAGER: KATIE 04/24/191805 RPT#: [id number] DC DATE: STATUS: REG CLI [facility] [address] [place] [address] END OF REPORT
[2019-04-24 20:00] VITALS: BP 118/58
--- NOTE | 2019-04-24 23:00 | NUR ---
PATIENT C/O PAIN, PAIN MED ADMINISTERED PER ORDERS.
[2019-04-25] VITALS (7 sets, daily range): BP systolic 99–140; BP diastolic 42–69
--- NOTE | 2019-04-25 05:11 | NUR ---
I have reviewed this patient and I concur with the Shift Assessment completed by the Licensed Practical Nurse today this shift.
[2019-04-25 06:02] LABS: ANION GAP 12.9 mmol/L (8-16); CALCIUM 7.7 mg/dL (8.5-10.1); CARBON DIOXIDE 23.8 mmol/L (21.0-32.0); CREATININE - SERUM 2.2 mg/dL (0.6-1.3); MAGNESIUM - SERUM 1.5 mg/dL (1.8-2.4); POTASSIUM - SERUM 4.7 mmol/L (3.5-5.1)
[2019-04-25 06:03] LABS: BASOPHILS 0.4 % (0-2); EOSINOPHILS 8.2 % (0-7); HEMATOCRIT 28.5 % (42.0-54.0); HEMOGLOBIN 8.9 g/dL (13.5-17.5); IMMATURE GRANULOCYTES 0.4 % (0-5); LYMPHOCYTES 36.5 % (15-50); MCH 30.2 pg (26.0-34.0); MCHC 31.2 g/dL (31.0-37.0); MCV 96.6 fL (80.0-100.0); MEAN PLATELET VOLUME 13.3 fL (7.4-10.4); MONOCYTES 10.3 % (2-11); NEUTROPHILS 44.2 % (40-80); RBC 2.95 10x6/uL (4.20-6.10); RDW 15.4 % (11.5-14.5); WBC 2.8 10x3/uL (4.8-10.8)
[2019-04-25 06:29] LABS: PLATELET COUNT 78 10x3/uL (130-400)
[2019-04-25 07:31] LABS: PLATELET ESTIMATE DECREASED
--- NOTE | 2019-04-25 07:38 | NUR ---
REPORT RECIEVED. PT SITTING UP IN BED. RR EVEN AND NON LABORED. PT HAS A L AC PIV INFUSING NS @ 50. BED LOCKED AND IN LOWEST POSITION, CALL LIGHT WITHIN REACH. WILL CTM
--- NOTE | 2019-04-25 19:10 | NUR ---
REPORT RECEIVED. PT CARE ASSUMED. PT A&O IN ROOM, RR EVEN AND UNLABORED ON RA. DENIES CHEST PAIN. NO S/SX OF DISTRESS OBSERVED. CALL LIGHT IN REACH. WILL CTM.
--- NOTE | 2019-04-26 01:10 | NUR ---
PT REFUSING IVF.
[2019-04-26 06:22] LABS: ANION GAP 11.8 mmol/L (8-16); CALCIUM 7.5 mg/dL (8.5-10.1); CARBON DIOXIDE 24.2 mmol/L (21.0-32.0); CREATININE - SERUM 2.3 mg/dL (0.6-1.3); MAGNESIUM - SERUM 1.5 mg/dL (1.8-2.4)
--- NOTE | 2019-04-26 06:34 | NUR ---
PT STATES HE HAS BLOOD IN HIS URINE THIS AM
[2019-04-26 06:35] LABS: BASOPHILS 0.4 % (0-2); EOSINOPHILS 5.3 % (0-7); HEMOGLOBIN 8.1 g/dL (13.5-17.5); LYMPHOCYTES 37.6 % (15-50); MCHC 31.2 g/dL (31.0-37.0); MCV 96.3 fL (80.0-100.0); MONOCYTES 9.6 % (2-11); NEUTROPHILS 47.1 % (40-80); PLATELET COUNT 84 10x3/uL (130-400); RDW 15.4 % (11.5-14.5); WBC 2.8 10x3/uL (4.8-10.8)
[2019-04-26 08:00] VITALS: BP 107/50
--- NOTE | 2019-04-26 08:13 | NUR ---
REPORT RECIEVED. UPON ENTERING THE ROOM THE PT STATES HE WANTS TO BE DC SO THAT HE CAN GO TO [facility] HE HAS BLOOD IN HIS URINE. RR EVEN AND NONLABORED. HE HAS A L AC PIV INFUSING NS @ 50. BED LOCKED AND IN LOWEST POSITION, CALL LIGHT WITHIN REACH. WILL CTM
[2019-04-26 11:29] LABS: APPEARANCE CLEAR (CLEAR); COLOR STRAW (YELLOW)
[2019-04-26 11:30] LABS: BILIRUBIN NEGATIVE (NEGATIVE); GLUCOSE 50 mg/dL (NEGATIVE); KETONE NEGATIVE (NEGATIVE); NITRITE NEGATIVE (NEGATIVE); PROTEIN 2+ mg/dL (NEGATIVE); SPECIFIC GRAVITY 1.015 (1.005-1.020); UROBILINOGEN NORMAL (NORMAL)
[2019-04-26 11:36] LABS: BACTERIA NONE SEEN /hpf (NEGATIVE); EPITHELIAL CELLS NSEEN /hpf (0-5); RED CELLS - URINE NONE SEEN /hpf (0-5); WHITE CELLS - URINE NSEEN /hpf (NEGATIVE)
[2019-04-26 12:00] VITALS: BP 115/53
[2019-04-26 16:00] VITALS: BP 141/55
[2019-04-26 20:30] VITALS: BP 139/66
[2019-04-27 04:30] VITALS: BP 122/63
[2019-04-27 05:44] LABS: ANION GAP 8.5 mmol/L (8-16); CALCIUM 7.3 mg/dL (8.5-10.1); CARBON DIOXIDE 26.4 mmol/L (21.0-32.0); CREATININE - SERUM 2.1 mg/dL (0.6-1.3); MAGNESIUM - SERUM 1.6 mg/dL (1.8-2.4); POTASSIUM - SERUM 4.9 mmol/L (3.5-5.1)
[2019-04-27 06:01] LABS: BASOPHILS 0 % (0-2); EOSINOPHILS 5.2 % (0-7); HEMATOCRIT 25.6 % (42.0-54.0); HEMOGLOBIN 7.9 g/dL (13.5-17.5); IMMATURE GRANULOCYTES 0.4 % (0-5); LYMPHOCYTES 42.5 % (15-50); MCH 29.9 pg (26.0-34.0); MCHC 30.9 g/dL (31.0-37.0); MEAN PLATELET VOLUME 13.6 fL (7.4-10.4); MONOCYTES 7.5 % (2-11); NEUTROPHILS 44.4 % (40-80); PLATELET COUNT 76 10x3/uL (130-400); RBC 2.64 10x6/uL (4.20-6.10); RDW 15.3 % (11.5-14.5); WBC 2.7 10x3/uL (4.8-10.8)
[2019-04-27 08:09] VITALS: BP 137/56
[2019-04-27 08:12] LABS: PLATELET ESTIMATE DECREASED
--- NOTE | 2019-04-27 10:39 | NUR ---
Rehab Note- Acute Inpatient Rehab prescreen order received. The patient has a pending OT Eval at this time. Will follow at this time to see if has therapy requirements for inpatient acute rehab stay. Thank you for this referral! Thalia Maxwell RN CLinical Liaison, [facility] Rehab
--- NOTE | 2019-04-27 10:54 | NUR ---
PT WITH COMPLAINT OF NO BM FOR SEVERAL DAYS. ASKING FOR SOMETHING TO HELP, HE IS PASSING GAS. ALSO STATES HE IS HAVING BLOODY URINE, BUT EMPTIED URINAL X2 AND SEEMS NORMAL YELLOW TO ME. INSTRUCTED TO KEEP USING URINAL THOUGH.
[2019-04-27 11:32] VITALS: BP 132/56
--- NOTE | 2019-04-27 13:44 | MORECARE ---
CASE MANAGEMENT DISCHARGE SUMMARY PATIENT: DASHAWN REID UNIT: [id number] ADM DATE: 04/25/19 AGE: 63 : 51 SEX: M ROOM/BED: D.[facility] AUTHOR: DONOVAN OCONNELL PHYSICIAN: REFERRING PHYSICIAN: DEREK CHEATHAM MD DATE OF SERVICE: 04/27/19 Discharge Plan Patient Name: DASHAWN REID Facility: [facility]:[place] : 1955 Planned Disposition: Inpatient Rehab Anticipated Discharge Date: 04/27/19 Discharge Date: Expected LOS: 2 Initial Reviewer: [email or web address] Initial Review Date: 04/24/2019 Generated: 04/27/19 2:44 pm Comments DCP- Discharge Planning Updated by [id number]: Rachid Carlin on 04/27/19 12:[address] Patient Name: DASHAWN REID Encounter No: [id number] : 1955 Primary Insurance: MEDICARE PART A ONLY Anticipated DC Date: 04-27-2019 Planned Disposition: Inpatient Rehab External Planned Provider: [facility] INPATIENT REH[facility] DCP follow-up note: CM REVIEWED CHART, OCCUPATIONAL THERAPY EVALUATION IS ENTERED. CM PROVIDED PT UPDATE. CM NOTIFIED [facility] INPATIENT REHAB VIA VOICE MAIL ASKING FOR ADMISSION DETERMINATION AT EXTENSION 1156. IMPORTANT MESSAGE FROM MEDICARE PROVIDED AND EXPLAINED. CM WAITING ADMISSION DETERMINATION FROM [facility]PAT[facility] RE[facility]. DONTRELL Briones DCP- Discharge Planning Updated by [id number]: Rachid Carlin on 04/24/19 5:[address] Patient Name: DASHAWN REID Admission Status: ER Accout number: [id number] Admission Date: 04-23-2019 : 1955 Admission Diagnosis: Attending: FLOR Current LOS: 1 Anticipated DC Date: 04-25-2019 Planned Disposition: Inpatient Rehab Primary Insurance: MEDICARE PART A ONLY PLANNED EXTERNAL PROVIDER: [facility] INPATIENT REH[facility] Discharge Planning Comments: CM RECEIVED REQUEST TO SEE PT HE WANTS REHAB AT [place]. CM MET WITH PT IN ROOM TO DISCUSS DISCHARGE PLANNING AND NEEDS. PT REPORTS LIVING AT HOME DEPENDENTLY WITH WHO ASSISTS WITH HIS MEDICATION MANAGEMENT. PT HAS BEDSIDE COMMJULIANOE, JON, GLUCOMETER AND BLOOD PRESSURE MACHINE FROM [place]. PT HAS NO OUTSIDE SERVICES ASSISTING IN THE HOME STATING THE [place] WILL NOT PROVIDE THEM TO HIM. PT DOES NOT WANT TRANSFER TO [place] [facility] OR REHAB. CM DISCUSSED AVAILABILITY OF HOME HEALTH, REHAB SERVICES AND MEDICAL EQUIPMENT. PT WANTS REHAB AT [place], UNDERSTANDS HIS INSURANCE WILL NOT PAY FOR HOME HEALTH OR [facility] FACILITY. PT STATES HIS FAMILY WILL PICK HIM UP FOR DISCHARGE HOME. CHOICE SIGNED FOR [facility] INPATIENT REH[facility]. CM NOTIFIED BEDSIDE NURSE TO REQUEST ORDER FOR INPATIENT REHAB PRESCREENING. CM SPOKE TO [facility] OF INPATIENT REHAB AND REQUESTED SCREENING FOR THIS WEEKEND PT IS READY TO DISCHARGE PER DR. RANDALL. Carbide Grinder: Rachid Carlin DCPIA - Discharge Planning Initial Assessment Updated by [id number]: Rachid Carlin on 04/24/19 5:59 pm * Is the patient Alert and Oriented? Yes * How many steps to enter\exit or inside your home? NONE * [facility] [place] * Preadmission Environment Home with Family * ADLs Partial Dependent * Partial ADLs (Assistance needed) Medication Management * Equipment Bedside Commode Cane Glucometer * Other Equipment BLOOD PRESSURE MACHINE * List name and contact numbers for known caregivers / representatives who currently or will assist patient after discharge: WALLY REID, SPOUSE, * Verbal permission to speak to the caregivers and representatives has been obtained from the patient. N/A * Community resources currently utilized None * Please name any agencies selected above. NONE * Additional services required to return to the preadmission environment? No * Can the patient safely return to the preadmission environment? Yes * Has this patient been hospitalized within the prior 30 days at any hospital? Yes Coverage Notice Reviewer: [id number] Rk Carlin Notice Issued Date-Time: 04/24/2019 16:50 Notice Type: Patient Choice Letter Notice Delivered To: Patient Relationship to Patient: Deer Farm Worker Name: Delivery Method: HAND - Hand Delivered Eleonora Days: Prior Verbal Notification: Recipient Understood Notice: Yes Recipient Signature: Yes Med Rec Note Co-signed by Attending: Coverage Notice Comment: [facility] IN[facility] Reviewer: [id number] Rk Carlin Notice Issued Date-Time: 04/27/2019 13:35 Notice Type: IM Discharge Notice Notice Delivered To: Patient Relationship to Patient: Deer Farm Worker Name: Delivery Method: HAND - Hand Delivered Eleonora Days: Prior Verbal Notification: Recipient Understood Notice: Yes Recipient Signature: Yes Med Rec Note Co-signed by Attending: Coverage Notice Comment: Last DP export: 04/24/19 5:06 p Patient Name: DASHAWN REID Page [id number] at 1344 All edits/amendments must be made on the electronic document DICTATION DATE: 04/27/19 134 CLUTCH MECHANIC: KATIE 04/27/19 1344 RPT#: [id number] DC DATE: STATUS: ADM IN [facility] [address] [place] [address] END OF REPORT
--- NOTE | 2019-04-27 14:00 | NUR ---
Nutrition Follow-up: Eating well. C/o constipation; passing gas. No teeth/dentures. Difficulty cutting food 2/2 Parkinson's. Diet: Renal ADA PO intake: 75-100% Wt: 163# (04/25) Labs noted: GFR 34, K+ 4.9, Glu 178, Ca 7.3, Mg 1.6 Meds noted: Lantus, Humalog, Lasix, Zofran, MagOx -Will add dental soft, chopped to current diet. -Need new wt; noted daily wts ordered. -RD following.
--- NOTE | 2019-04-27 14:34 | NUR ---
Rehab Note- Per PT & OT Evals the patient is independent. Spoke with RENE Mercedes. Thank you for this referral! Thalia Maxwell RN Clinical Liaison, [facility] Rehab
--- NOTE | 2019-04-27 15:11 | NUR ---
PT STATES HE TALKED TO [facility] AND THEY STATE NO TRAZADONE DUE TO STENTS. WILL RECOMMEND NEW MED FOR ANXIETY. NUMBER FOR NURSE AT [facility] IS [phone], DR GALLAGHER IS PSYCHIATRIST.
[2019-04-27 15:22] VITALS: BP 128/54
--- NOTE | 2019-04-27 16:01 | MORECARE ---
CASE MANAGEMENT DISCHARGE SUMMARY PATIENT: DASHAWN REID UNIT: [id number] ADM DATE: 04/25/19 AGE: 63 : 51 SEX: M ROOM/BED: D.2113 AUTHOR: DONOVAN OCONNELL PHYSICIAN: REFERRING PHYSICIAN: DEREK CHEATHAM MD DATE OF SERVICE: 04/27/19 Discharge Plan Patient Name: DASHAWN REID Facility: [facility]:[place] : 1955 Planned Disposition: Inpatient Rehab Anticipated Discharge Date: 04/27/19 Discharge Date: Expected LOS: 2 Initial Reviewer: [id number] Initial Review Date: 04/24/2019 Generated: 04/27/19 5:01 pm Comments DCP- Discharge Planning Updated by [id number]: Rachid Carlin on 04/27/19 2:[address] Patient Name: DASHAWN REID Encounter No: [id number] : 1955 Primary Insurance: MEDICARE PART A ONLY Anticipated DC Date: 04-27-2019 Planned Disposition: HOME DCP follow-up note: CM SPOKE TO [facility] OF INPATIENT REHAB, THEY DECLINED PT HE IS TOO HIGH LEVEL AND AT HIS PRIOR LEVEL OF FUNCTIONING PER THERAPY NOTES. CM SPOKE TO PT IN ROOM, PT STATES HE WILL GO HOME TODAY, DENIES FURTHER NEEDS. PT WILL CALL FAMILY FOR TRANSPORT HOME AFTER 5:30PM TODAY. DR. AVILES NOTIFIED. DIRECTOR LEARNING NURSE NOTIFIED. DONTRELL Briones DCP- Discharge Planning Updated by [email or web address]: Rachid Carlin on 04/27/19 12:[address] Patient Name: DASHAWN REID Encounter No: [id number] : 1955 Primary Insurance: MEDICARE PART A ONLY Anticipated DC Date: 04-27-2019 Planned Disposition: Inpatient Rehab External Planned Provider: [facility] INPATIENT REHAB DCP follow-up note: CM REVIEWED CHART, OCCUPATIONAL THERAPY EVALUATION IS ENTERED. CM PROVIDED PT UPDATE. CM NOTIFIED [facility] INPATIENT REHAB VIA VOICE MAIL ASKING FOR ADMISSION DETERMINATION AT EXTENSION 1156. IMPORTANT MESSAGE FROM MEDICARE PROVIDED AND EXPLAINED. CM WAITING ADMISSION DETERMINATION FROM [facility] INPATIENT REHAB. Rachid [place], CASE MANAGEMENT DCP- Discharge Planning Updated by [id number]: Rachid Carlin on 04/24/19 5:[address] Patient Name: DASHAWN REID Admission Status: ER Accout number: [id number] Admission Date: 04-23-2019 : 1955 Admission Diagnosis: Attending: FLOR Current LOS: 1 Anticipated DC Date: 04-25-2019 Planned Disposition: Inpatient Rehab Primary Insurance: MEDICARE PART A ONLY PLANNED EXTERNAL PROVIDER: [facility] INPATIENT REHAB Discharge Planning Comments: CM RECEIVED REQUEST TO SEE PT HE WANTS REHAB AT [place]. CM MET WITH PT IN ROOM TO DISCUSS DISCHARGE PLANNING AND NEEDS. PT REPORTS LIVING AT HOME DEPENDENTLY WITH WHO ASSISTS WITH HIS MEDICATION MANAGEMENT. PT HAS BEDSIDE COMMMODE, CANE, GLUCOMETER AND [place]OD PRESS[place]INE [place]. PT HAS NO OUTSIDE SERVICES ASSISTING IN THE HOME STATING THE [place] WILL NOT PROVIDE THEM TO HIM. PT DOES NOT WANT TRANSFER TO IN HOSPITAL OR REHAB. CM DISCUSSED AVAILABILITY OF HOME HEALTH, REHAB SERVICES AND MEDICAL EQUIPMENT. PT WANTS REHAB AT [place], UNDERSTANDS HIS INSURANCE WILL NOT PAY FOR HOME HEALTH OR [facility] FACILITY. PT STATES HIS FAMILY WILL PICK HIM UP FOR DISCHARGE HOME. CHOICE SIGNED FOR [facility] INPATIENT REHAB. CM NOTIFIED BEDSIDE NURSE TO REQUEST ORDER FOR INPATIENT REHAB PRESCREENING. CM SPOKE TO [facility] OF INPATIENT REHAB AND REQUESTED SCREENING FOR THIS WEEKEND PT IS READY TO DISCHARGE PER DR. RANDALL. Claims Processor: Rachid Carlin DCPIA - Discharge Planning Initial Assessment Updated by [id number]: Rachid Carlin on 04/24/19 5:59 pm * Is the patient Alert and Oriented? Yes * How many steps to enter\exit or inside your home? NONE * [place]CP [place] * Preadmission Environment Home with Family * ADLs Partial Dependent * Partial ADLs (Assistance needed) Medication Management * Equipment Bedside Commode Cane Glucometer * Other Equipment BLOOD PRESSURE MACHINE * List name and contact numbers for known caregivers / representatives who currently or will assist patient after discharge: WALLY REID, SPOUSE, * Verbal permission to speak to the caregivers and representatives has been obtained from the patient. N/A * Community resources currently utilized None * Please name any agencies selected above. NONE * Additional services required to return to the preadmission environment? No * Can the patient safely return to the preadmission environment? Yes * Has this patient been hospitalized within the prior 30 days at any hospital? Yes Coverage Notice Reviewer: [email or web address] Rk Carlin Notice Issued Date-Time: 04/24/2019 16:50 Notice Type: Patient Choice Letter Notice Delivered To: Patient Relationship to Patient: Stove Tender Name: Delivery Method: HAND - Hand Delivered Eleonora Days: Prior Verbal Notification: Recipient Understood Notice: Yes Recipient Signature: Yes Med Rec Note Co-signed by Attending: Coverage Notice Comment: [facility] INPATIENT REH[facility] Reviewer: [id number] Rk Carlin Notice Issued Date-Time: 04/27/2019 13:35 Notice Type: IM Discharge Notice Notice Delivered To: Patient Relationship to Patient: Stove Tender Name: Delivery Method: HAND - Hand Delivered Eleonora Days: Prior Verbal Notification: Recipient Understood Notice: Yes Recipient Signature: Yes Med Rec Note Co-signed by Attending: Coverage Notice Comment: Last DP export: 04/27/19 12:44 p Patient Name: DASHAWN REID Page 42570 at 1601 All edits/amendments must be made on the electronic document DICTATION DATE: 04/27/19 160 ACUTE SPECIALIST: KATIE 04/27/19 1601 RPT#: [id number] DC DATE: STATUS: ADM IN [facility] [address] [place] [address] END OF REPORT
== END 2019-04-27 18:28 | disposition home or self-care (01) | DRG 683 ==
LOC: D.ER 11:14 → D.M2 11:14 → D.ER 16:27 → D.M2 16:27 → EDSTATUS 17:05 → D.M2 04-25 14:21
PROVIDERS: Family Medicine; ADMIT Family Medicine; ATTEND Family Medicine
DX: N17.9 Acute kidney failure, unspecified (principal); I50.32 Chronic diastolic (congestive) heart failure; I13.0 Hypertensive heart and chronic kidney disease with heart failure and stage 1 through stage 4 chronic kidney disease, or unspecified chronic kidney disease; D61.818 Other pancytopenia; N28.9 Disorder of kidney and ureter, unspecified; E86.0 Dehydration; E11.22 Type 2 diabetes mellitus with diabetic chronic kidney disease; N18.3 Chronic kidney disease, stage 3 (moderate); D63.1 Anemia in chronic kidney disease; G20 Parkinson's disease; I25.10 Atherosclerotic heart disease of native coronary artery without angina pectoris; E78.5 Hyperlipidemia, unspecified; J44.9 Chronic obstructive pulmonary disease, unspecified; E11.65 Type 2 diabetes mellitus with hyperglycemia; E87.5 Hyperkalemia; Z86.73 Personal history of transient ischemic attack (TIA), and cerebral infarction without residual deficits

== ENCOUNTER 2019-04-30 13:42 | Inpatient (IN) | payer OTHER ==
[~2019-04-30] VITALS: Ht 185.4 cm; Wt 72.3 kg
[~2019-04-30 13:42] MED LIST changes: +LEVEMIR IN100 UNITS/
[2019-04-30 14:19] LABS: BASOPHILS 0.2 % (0-2); EOSINOPHILS 2.8 % (0-7); HEMATOCRIT 31.1 % (42.0-54.0); HEMOGLOBIN 9.6 g/dL (13.5-17.5); IMMATURE GRANULOCYTES 0.7 % (0-5); LYMPHOCYTES 32.7 % (15-50); MCH 30.4 pg (26.0-34.0); MCHC 30.9 g/dL (31.0-37.0); MCV 98.4 fL (80.0-100.0); MEAN PLATELET VOLUME 12.3 fL (7.4-10.4); MONOCYTES 7.8 % (2-11); NEUTROPHILS 55.8 % (40-80); RBC 3.16 10x6/uL (4.20-6.10); RDW 15.4 % (11.5-14.5); WBC 5.6 10x3/uL (4.8-10.8)
[2019-04-30 14:27] LABS: INR 1.03 (0.85-1.17); PROTIME 13.5 SECONDS (11.6-15.0)
[2019-04-30 14:28] LABS: APTT 28.4 SECONDS (22.8-39.4)
[2019-04-30 14:39] LABS: PLATELET COUNT 112 10x3/uL (130-400)
[2019-04-30 14:50] LABS: ALBUMIN 2.8 g/dL (3.4-5.0); ALKALINE PHOSPHATASE 165 U/L (46-116); ALT (SGPT) 40 U/L (10-68); BILIRUBIN - TOTAL 0.18 mg/dL (0.2-1.3); CALC OSMOLALITY 299 mosm/kg (275-300); CALCIUM 7.7 mg/dL (8.5-10.1); CARBON DIOXIDE 26.7 mmol/L (21.0-32.0); CHLORIDE - SERUM 110 mmol/L (98-107); CKMB 5.3 U/L (0.0-3.6); CREATINE KINASE 232 UL (21-232); MAGNESIUM - SERUM 1.8 mg/dL (1.8-2.4); POTASSIUM - SERUM 4.6 mmol/L (3.5-5.1); PROTEIN - SERUM 6.4 g/dL (6.4-8.2); SODIUM 145 mmol/L (136-145); TROPONIN-I < 0.017 ng/mL (0.000-0.060); UREA NITROGEN 53 mg/dL (7-18); eGFR NON AFRICAN AMERICAN 36 mL/min (90-120)
--- NOTE | 2019-04-30 14:50 | NUR ---
ERP INFORMED OF GLUCOSE OF 39 FROM BLOOD DRAW.
[2019-04-30 14:54] LABS: GLUCOSE 39 mg/dL (74-106)
--- NOTE | 2019-04-30 18:44 | NUR ---
1832-RECEIVED REPORT FROM FREDDY IN THE ER.
--- NOTE | 2019-04-30 21:00 | NUR ---
PATIENT ARRIVED FROM ER. PATIENT IS ALERT AND ORIENTED, SITTING IN BED. RESPIRATIONS ARE EVEN AND UNLABORED. NO S/S OF DISTRESS. NO C/O PAIN. CALL LIGHT WITHIN REACH. WILL CPOC.
[2019-05-01 00:13] LABS: CKMB 5.4 U/L (0.0-3.6); CREATINE KINASE 216 UL (21-232); TROPONIN-I 0.016 ng/mL (0.000-0.060)
[2019-05-01 01:58] VITALS: BP 135/84; Ht 185.4 cm; Wt 72.3 kg
--- NOTE | 2019-05-01 02:34 | NUR ---
PATIENT AWAKE WATCHING TV. RESPIRATIONS EVEN AND UNLABORED. NO S/S IF DISTRESS. NO C/O PAIN. CALL LIGHT WITHIN REACH. NEEDS MET. WILL CPOC.
[2019-05-01 03:21] LABS: APPEARANCE CLEAR (CLEAR); BILIRUBIN NEGATIVE (NEGATIVE); COLOR YELLOW (YELLOW); GLUCOSE 50 mg/dL (NEGATIVE); KETONE NEGATIVE (NEGATIVE); NITRITE NEGATIVE (NEGATIVE); PROTEIN 3+ mg/dL (NEGATIVE); UROBILINOGEN NORMAL (NORMAL)
[2019-05-01 04:00] VITALS: BP 144/47
[2019-05-01 06:30] LABS: BASOPHILS 0.2 % (0-2); EOSINOPHILS 4.1 % (0-7); HEMATOCRIT 31.4 % (42.0-54.0); HEMOGLOBIN 9.7 g/dL (13.5-17.5); IMMATURE GRANULOCYTES 0.7 % (0-5); LYMPHOCYTES 27.8 % (15-50); MCH 30.3 pg (26.0-34.0); MCHC 30.9 g/dL (31.0-37.0); MCV 98.1 fL (80.0-100.0); MEAN PLATELET VOLUME 13.1 fL (7.4-10.4); MONOCYTES 7.6 % (2-11); NEUTROPHILS 59.6 % (40-80); PLATELET COUNT 103 10x3/uL (130-400); WBC 4.6 10x3/uL (4.8-10.8)
[2019-05-01 07:03] LABS: CALC OSMOLALITY 303 mosm/kg (275-300); CALCIUM 7.9 mg/dL (8.5-10.1); CARBON DIOXIDE 28.1 mmol/L (21.0-32.0); CHLORIDE - SERUM 110 mmol/L (98-107); CKMB 4.1 U/L (0.0-3.6); CREATINE KINASE 174 UL (21-232); MAGNESIUM - SERUM 1.7 mg/dL (1.8-2.4); PHOSPHOROUS 4.4 mg/dL (2.5-4.9); POTASSIUM - SERUM 5.1 mmol/L (3.5-5.1); SODIUM 144 mmol/L (136-145); TROPONIN-I < 0.017 ng/mL (0.000-0.060); UREA NITROGEN 49 mg/dL (7-18); eGFR NON AFRICAN AMERICAN 36 mL/min (90-120)
[2019-05-01 07:08] LABS: GLUCOSE 167 mg/dL (74-106)
--- NOTE | 2019-05-01 07:15 | NUR ---
RECEIVED PT IN BED AAOX4 RESP UNLABORED SKIN W/D DENIES ANY PAIN OR NEEDS NAD NOTED
--- NOTE | 2019-05-01 09:37 | NUR ---
rwefused to take keppra states "i do not have seizures i had a tia"
[2019-05-01 09:46] VITALS: BP 155/71
--- NOTE | 2019-05-01 13:51 | MORECARE ---
CASE MANAGEMENT DISCHARGE SUMMARY PATIENT: DASHAWN REID UNIT: [id number] ADM DATE: 04/30/19 AGE: 63 : 51 SEX: M ROOM/BED: D.2117 AUTHOR: DONOVAN OCONNELL PHYSICIAN: REFERRING PHYSICIAN: DONALD AVILES MD DATE OF SERVICE: 05/01/19 Discharge Plan Patient Name: DASHAWN REID Facility: [facility]:[place] : 1955 Planned Disposition: Home Anticipated Discharge Date: Discharge Date: Expected LOS: Initial Reviewer: [id number] Initial Review Date: 05/01/2019 Generated: 05/01/19 2:50 pm DCPIA - Discharge Planning Initial Assessment Updated by [id number]: Lamar Ziegler on 05/01/19 1:49 pm * Is the patient Alert and Oriented? Yes * [facility]CP [facility] * Preadmission Environment Home with Family * ADLs Independent * Other Equipment BC,CANE, GLUCOMETER * List name and contact numbers for known caregivers / representatives who currently or will assist patient after discharge: MS. REID, , * Community resources currently utilized None * Additional services required to return to the preadmission environment? No * Can the patient safely return to the preadmission environment? Yes * Has this patient been hospitalized within the prior 30 days at any hospital? Yes Patient Name: DASHAWN REID Page 57714 at 1351 All edits/amendments must be made on the electronic document DICTATION DATE: 05/01/19 1350 RAW SAMPLER: DM 05/01/19 1350 RPT#: [id number] DC DATE: STATUS: ADM IN [facility] [address] [place] [address] END OF REPORT
--- NOTE | 2019-05-01 14:01 | MORECARE ---
CASE MANAGEMENT DISCHARGE SUMMARY PATIENT: DASHAWN REID UNIT: [id number] ADM DATE: 04/30/19 AGE: 63 : 51 SEX: M ROOM/BED: D.0197 AUTHOR: DONOVAN OCONNELL PHYSICIAN: REFERRING PHYSICIAN: DONALD AVILES MD DATE OF SERVICE: 05/01/19 Discharge Plan Patient Name: DASHAWN REID Facility: [facility]:[place] : 1955 Planned Disposition: Home Anticipated Discharge Date: Discharge Date: Expected LOS: Initial Reviewer: [id number] Initial Review Date: 05/01/2019 Generated: 05/01/19 3:00 pm Comments DCP- Discharge Planning Updated by [email or web address]: Lamar Ziegler on 05/01/19 12:[address] Patient Name: DASHAWN REID Admission Status: ER Accout number: [id number] Admission Date: 04-30-2019 : 1955 Admission Diagnosis: Attending: DONALD AVILES Current LOS: 1 Anticipated DC Date: Planned Disposition: Home Primary Insurance: [employer] Discharge Planning Comments: CM MET WITH PATIENT AFTER OBTAINING VERBAL CONSENT. STATES PLANS TO DC TO HOME WITH FAMILY. DENIES NEEDS FOR HH, REHAB OR EQUIPMENT. HE DOESN'T HAVE ANYONE THAT CAN PICK HIM UP TODAY. I SPOKE WITH HIS AND SHE IS TRYING TO FIND SOMEONE. HIS ADDRESS IS [address] [place] [address]. STATES HE CAN NOT AFFORD TO TAKE A [place] HOME BECAUSE IT IS ABOUT [address] FROM HERE. I AM TO FOLLOW UP WITH AT 2PM TODAY. Senior Account Director: Lamar Ziegler DCPIA - Discharge Planning Initial Assessment Updated by [id number]: Lamar Ziegler on 05/01/19 1:49 pm * Is the patient Alert and Oriented? Yes * PCP [facility] * [facility]acy [facility] * Preadmission Environment Home with Family * ADLs Independent * Other Equipment BC,CANE, GLUCOMETER * List name and contact numbers for known caregivers / representatives who currently or will assist patient after discharge: MS. REID, , * Community resources currently utilized None * Additional services required to return to the preadmission environment? No * Can the patient safely return to the preadmission environment? Yes * Has this patient been hospitalized within the prior 30 days at any hospital? Yes Last DP export: 05/01/19 12:51 p Patient Name: DASHAWN REID Page 56379 at 1401 All edits/amendments must be made on the electronic document DICTATION DATE: 05/01/19 1400 THEATER MANAGER: KATIE 05/01/19 1400 RPT#: [id number] DC DATE: STATUS: ADM IN [facility] [address] [place] [address] END OF REPORT
--- NOTE | 2019-05-01 14:10 | MORECARE ---
CASE MANAGEMENT DISCHARGE SUMMARY PATIENT: DASHAWN REID UNIT: [id number] ADM DATE: 04/30/19 AGE: 63 : 51 SEX: M ROOM/BED: D.2227 AUTHOR: DONOVAN OCONNELL PHYSICIAN: REFERRING PHYSICIAN: DONALD AVILES MD DATE OF SERVICE: 05/01/19 Discharge Plan Patient Name: DASHAWN REID Facility: [facility]:[place] : 1955 Planned Disposition: Home Anticipated Discharge Date: Discharge Date: Expected LOS: Initial Reviewer: [email or web address] Initial Review Date: 05/01/2019 Generated: 05/01/19 3:10 pm Comments DCP- Discharge Planning Updated by [email or web address]: Lamar Ziegler on 05/01/19 1:[address] Patient Name: DASHAWN REID Admission Status: ER Accout number: [id number] Admission Date: 04-30-2019 : 1955 Admission Diagnosis: Attending: DONALD AVILES Current LOS: 1 Anticipated DC Date: Planned Disposition: Home Primary Insurance: [employer] Discharge Planning Comments: CM MET WITH PATIENT AFTER OBTAINING VERBAL CONSENT. STATES PLANS TO DC TO HOME WITH FAMILY. DENIES NEEDS FOR HH, REHAB OR EQUIPMENT. HE DOESN'T HAVE ANYONE THAT CAN PICK HIM UP TODAY. I SPOKE WITH HIS AND SHE IS TRYING TO FIND SOMEONE. HIS ADDRESS IS [address] [place] [address]. STATES HE CAN NOT AFFORD TO TAKE A [place] HOME BECAUSE IT IS ABOUT [address] FROM HERE. I AM TO FOLLOW UP WITH AT 2PM TODAY. Vp Account Director: Lamar Ziegler Appended by Lamar Ziegler on 05/01/2019 14:05 ASSISTANT AT SURGERY: PATIENT'S WILL BE ON HER WAY TO PICK HIM UP. DCPIA - Discharge Planning Initial Assessment Updated by [email or web address]: Lamar Ziegler on 05/01/19 1:49 pm * Is the patient Alert and Oriented? Yes * [facility] * Preadmission Environment Home with Family * ADLs Independent * Other Equipment BC,CANE, GLUCOMETER * List name and contact numbers for known caregivers / representatives who currently or will assist patient after discharge: MS. REID, , * Community resources currently utilized None * Additional services required to return to the preadmission environment? No * Can the patient safely return to the preadmission environment? Yes * Has this patient been hospitalized within the prior 30 days at any hospital? Yes Last DP export: 05/01/19 1:01 p Patient Name: DASHAWN REID Page [id number] at 1410 All edits/amendments must be made on the electronic document DICTATION DATE: 05/01/191409 MIDDLEWARE CONSULTANT: KATIE 05/01/191409 RPT#: [id number] DC DATE: STATUS: ADM IN [facility] [address] [place] [address] END OF REPORT
--- NOTE | 2019-05-01 14:40 | CN ---
PATIENT NAME:DASHAWN REID MEDICAL RECORD: [id number] : [birth year] LOCATION:[facility] D.[id number] ADMIT DATE: 04/30/19 ACCOUNT: [id number] CONSULTING PHYSICIAN: RAY FAITH MD REFERRING PHYSICIAN: DONALD AVILES MD DATE OF CONSULTATION: 05/01/2019 HISTORY OF PRESENT ILLNESS: A 63-year-old gentleman with a history of coronary artery disease, mild ischemic cardiomyopathy, EF 40% to 45% with chest pain. This is in the face of hypoglycemia, pain somewhat atypical he is a somewhat vague in description at this point, sharp, nonradiating, it was associated hypoglycemic symptoms with some mild confusion, sweatiness is back to normal, chest pain free. Cardiac enzymes are negative. We are asked to see him for chronic cardiovascular status. PAST MEDICAL HISTORY: Includes; 1. History of chronic renal insufficiency. 2. Hypertension. 3. Dyslipidemia. 4. Coronary artery disease as described above. 5. Gastroesophageal reflux disease. ALLERGIES: PENICILLIN, MORPHINE, HEPARIN. MEDICATIONS: Include insulin per scale, Protonix 40 mg p.o. every day, Symbicort 2 puffs b.i.d., Lasix 20 mg p.o. every day, trazodone 150 mg at bedtime, primidone 150 mg at bedtime, Lyrica 150 b.i.d., aspirin 81 every day, Keppra 250 b.i.d., Aldactone 25 mg p.o. every day, metoprolol 100 mg daily, lisinopril 10 daily, amlodipine 5 every day, Plavix 75 every day. SOCIAL HISTORY: , lives in [place], nonsmoker, nondrinker. By his report, does exercise regularly. REVIEW OF SYSTEMS: The patient reports easy bruising but reports no swollen glands. The patient reports no fever, no night sweats, no significant weight gain, no significant weight loss. No significant exercise tolerance. The patient reports no dry eyes, no irritation, no vision change. Patient reports no difficulty hearing and no ear pain. Patient reports no frequent nose bleeds or nose and sinus problems. Patient reports on arm pain on exertion. No shortness of breath while lying down. No history of heart murmur. Patient reports no cough, no wheezing or coughing up blood. Patient reports no abdominal pain, no vomiting. Normal appetite. No diarrhea and not vomiting blood. No nausea and no constipation. Patient reports no incontinence. No difficulty urinating. No hematuria. No increased frequency. Patient reports no muscle aches. No weakness, no arthralgias, no back pain. No swelling of the extremities. Patient reports no abnormal mole, no jaundice, no rashes. Reports no loss of consciousness. No weakness and no numbness. No seizures, dizziness, or headaches. The patient reports no depression, no sleep disturbance, feeling safe in a relationship and no alcohol abuse. Patient reports on fatigue. Reports no runny nose or sinus pressure. No itching, no hives, and no frequent sneezing. PHYSICAL EXAMINATION: GENERAL: Pleasant gentleman, appears stated age, in no distress. VITAL SIGNS: Blood pressure 144/47, pulse 60 and regular. CONSULT REPORT [id number] DASHAWN REID HEENT: Normocephalic, atraumatic. NECK: No JVD or bruit. HEART: Regular, II/ systolic ejection murmur. LUNGS: Good air excursion. ABDOMEN: Soft, nontender. EXTREMITIES: Pulses 2+. There is no edema. IMPRESSION: Somewhat atypical pain this in the face of hypoglycemia. At this point in time, the patient appears to be at baseline euvolemic. Creatinine is stable. Okay to discharge from my standpoint. Thank you for the consultation. TRANSINT:[id number] Voice Confirmation ID: [id number] DOCUMENT ID: [id number] RAY FAITH MD at 1440 CC: [id number] DICTATION DATE: 05/01/19 0848 INSURANCE AGENCY MANAGER: 05/01/19 1210 ADM IN [facility] [address] [place] [id number]
[2019-05-01 14:56] VITALS: BP 117/72
--- NOTE | 2019-05-01 15:40 | NUR ---
REVIEWED DISCHARGE INSTRUCTIONS WITH PT STATES UNDERSTANDING COPY GIVEN DCD SALINE LOCK TO RFA WITH IV CATHETER INTACT SITE FREE OF REDNESS OR EDEMA PT DISCHARGED HOME IN STABLE CONDITION WITH ALL PERSONAL BELONGINGS
--- NOTE | 2019-05-01 17:09 | MORECARE ---
CASE MANAGEMENT DISCHARGE SUMMARY PATIENT: DASHAWN REID UNIT: [id number] ADM DATE: 04/30/19 AGE: 63 : 51 SEX: M ROOM/BED: D.0937 AUTHOR: DONOVAN OCONNELL PHYSICIAN: REFERRING PHYSICIAN: DONALD AVILES MD DATE OF SERVICE: 05/01/19 Discharge Plan Patient Name: DASHAWN REID Facility: [facility]:[place] : 1955 Planned Disposition: Home Anticipated Discharge Date: Discharge Date: 05/01/2019 Expected LOS: Initial Reviewer: [email or web address] Initial Review Date: 05/01/2019 Generated: 05/01/19 6:08 pm Comments DCP- Discharge Planning Updated by [email or web address]: Lamar Ziegler on 05/01/19 1:[address] Patient Name: DASHAWN REID Admission Status: ER Accout number: [id number] Admission Date: 04-30-2019 : 1955 Admission Diagnosis: Attending: DONALD AVILES Current LOS: 1 Anticipated DC Date: Planned Disposition: Home Primary Insurance: [employer] Discharge Planning Comments: CM MET WITH PATIENT AFTER OBTAINING VERBAL CONSENT. STATES PLANS TO DC TO HOME WITH FAMILY. DENIES NEEDS FOR HH, REHAB OR EQUIPMENT. HE DOESN'T HAVE ANYONE THAT CAN PICK HIM UP TODAY. I SPOKE WITH HIS AND SHE IS TRYING TO FIND SOMEONE. HIS ADDRESS IS [address] [place] [address]. STATES HE CAN NOT AFFORD TO TAKE A [place] HOME BECAUSE IT IS ABOUT 60 [address]ES FROM HERE. I AM TO FOLLOW UP WITH AT 2PM TODAY. Visual Merchandising Assistant: Lamar Ziegler Appended by Lamar Ziegler on 05/01/2019 14:05 COMMERCIAL PROJECT MANAGER: PATIENT'S WILL BE ON HER WAY TO PICK HIM UP. DCPIA - Discharge Planning Initial Assessment Updated by [id number]: Lamar Ziegler on 05/01/19 1:49 pm * Is the patient Alert and Oriented? Yes * [facility]CP [facility] * Preadmission Environment Home with Family * ADLs Independent * Other Equipment BC,CANE, GLUCOMETER * List name and contact numbers for known caregivers / representatives who currently or will assist patient after discharge: MS. REID, , * Community resources currently utilized None * Additional services required to return to the preadmission environment? No * Can the patient safely return to the preadmission environment? Yes * Has this patient been hospitalized within the prior 30 days at any hospital? Yes Last DP export: 05/01/19 1:10 p Patient Name: DASHAWN REID Page 60081 at 1709 All edits/amendments must be made on the electronic document DICTATION DATE: 05/01/191707 PLANTING MATERIAL CARRIER: KATIE 05/01/191707 RPT#: [id number] DC DATE:05/01/19 STATUS: DIS IN [facility] [address] [place] [address] END OF REPORT
== END 2019-05-01 15:40 | disposition home or self-care (01) | DRG 313 ==
LOC: D.ER 13:42 → D.M2 16:31
PROVIDERS: Emergency Medicine; ADMIT Internal Medicine Nephrology; ATTEND Internal Medicine Nephrology
DX: R07.89 Other chest pain (principal); D61.818 Other pancytopenia; I13.0 Hypertensive heart and chronic kidney disease with heart failure and stage 1 through stage 4 chronic kidney disease, or unspecified chronic kidney disease; N17.9 Acute kidney failure, unspecified; I25.110 Atherosclerotic heart disease of native coronary artery with unstable angina pectoris; G20 Parkinson's disease; I50.9 Heart failure, unspecified; J44.9 Chronic obstructive pulmonary disease, unspecified; E11.22 Type 2 diabetes mellitus with diabetic chronic kidney disease; N18.3 Chronic kidney disease, stage 3 (moderate); E11.649 Type 2 diabetes mellitus with hypoglycemia without coma; G47.33 Obstructive sleep apnea (adult) (pediatric); D63.1 Anemia in chronic kidney disease; Z86.73 Personal history of transient ischemic attack (TIA), and cerebral infarction without residual deficits

== ENCOUNTER 2019-05-03 00:01 | Emergency (ER) | payer OTHER ==
[~2019-05-03] VITALS: Ht 185.4 cm; Wt 72.7 kg
[2019-05-03 00:02] VITALS: Ht 185.4 cm; Wt 72.7 kg
[2019-05-03 00:39] LABS: BASOPHILS 0.4 % (0-2); EOSINOPHILS 3.7 % (0-7); HEMATOCRIT 31.9 % (42.0-54.0); IMMATURE GRANULOCYTES 0.2 % (0-5); MCH 30.8 pg (26.0-34.0); MCHC 31.3 g/dL (31.0-37.0); MCV 98.2 fL (80.0-100.0); MEAN PLATELET VOLUME 13.1 fL (7.4-10.4); MONOCYTES 8.7 % (2-11); PLATELET COUNT 113 10x3/uL (130-400); RBC 3.25 10x6/uL (4.20-6.10); RDW 15.4 % (11.5-14.5); WBC 4.8 10x3/uL (4.8-10.8)
[2019-05-03 00:40] LABS: CALC OSMOLALITY 306 mosm/kg (275-300); CALCIUM 7.7 mg/dL (8.5-10.1); CARBON DIOXIDE 27.4 mmol/L (21.0-32.0); CHLORIDE - SERUM 111 mmol/L (98-107); CREATININE - SERUM 2.4 mg/dL (0.6-1.3); GLUCOSE 154 mg/dL (74-106); POTASSIUM - SERUM 5.1 mmol/L (3.5-5.1); SODIUM 145 mmol/L (136-145); UREA NITROGEN 55 mg/dL (7-18); eGFR NON AFRICAN AMERICAN 29 mL/min (90-120)
[2019-05-03 00:46] LABS: APTT 27.4 SECONDS (22.8-39.4); INR 1.03 (0.85-1.17); PROTIME 13.5 SECONDS (11.6-15.0)
[2019-05-03 00:57] LABS: ALKALINE PHOSPHATASE 181 U/L (46-116); ALT (SGPT) 47 U/L (10-68); BILIRUBIN - TOTAL 0.21 mg/dL (0.2-1.3); LIPASE 237 U/L (73-393); MAGNESIUM - SERUM 1.7 mg/dL (1.8-2.4); PRO BNP 1999 pg/mL (0-125); PROTEIN - SERUM 6.6 g/dL (6.4-8.2); THYROID STIMULATING HORMONE 2.34 uIU/mL (0.36-3.74); TROPONIN-I < 0.017 ng/mL (0.000-0.060)
--- NOTE | 2019-05-03 00:57 | NUR ---
DR FLORES NOTIFIED AND REVIEWED PT'S BEHAVIOR AND ASSESSMENT RESULTS. PT IS LOW RISK. RESOURCES GIVEN AND HE VERBALIZES UNDERSTANDING.
[2019-05-03 01:32] VITALS: BP 136/84
== END 2019-05-03 01:33 | disposition home or self-care (01) ==
LOC: D.ER 00:01
PROVIDERS: Family Medicine
DX: R07.9 Chest pain, unspecified (principal); I25.10 Atherosclerotic heart disease of native coronary artery without angina pectoris; D53.9 Nutritional anemia, unspecified; I50.9 Heart failure, unspecified; N28.9 Disorder of kidney and ureter, unspecified; E11.9 Type 2 diabetes mellitus without complications; Z95.1 Presence of aortocoronary bypass graft; J44.9 Chronic obstructive pulmonary disease, unspecified; Z79.4 Long term (current) use of insulin; Z86.73 Personal history of transient ischemic attack (TIA), and cerebral infarction without residual deficits; G20 Parkinson's disease; I11.0 Hypertensive heart disease with heart failure

== ENCOUNTER 2019-05-29 22:16 | Inpatient (IN) | payer OTHER ==
[~2019-05-29] VITALS: Ht 185.4 cm; Wt 76.5 kg
--- NOTE | ~2019-05-29 | HEMODYNAMI ---
PATIENT:DASHAWN REID MEDICAL RECORD: [id number] : 51 [id number] ADMISSION DATE: 05/30/19 Generatedon:06/04/20199:18 Patient name: DASHAWN REID Patient #: [id number] SSN: [id number] : 1955 Date of study: 06/04/2019 Page: Of Hemodynamic Procedure Report Patient Data Patient Demographics Procedure consent was obtained First Name: DASHAWN Gender: Male Last Name: FRANKLIN : 1955 Middle Initial: F Age: 63 year(s) Patient #: [id number] Race: SSN: [id number] Additional ID: [id number] Contact details Address: [place] [address] State: [place] City: [place] Zip code: [address] Past Medical History Allergies Allergen Reaction Date Comments Reported Other allergy Other 01/12/2019 penicillins, morhpine, heparin Admission Admission Data Admission Date: 05/30/2019 Admission Time: 17:30 Arrival Date: 05/30/2019 Arrival Time: 17:30 Admit Source: Emergency Insurance Payor: Medicare department [facility] #: [id number] Room #: [facility] Height (in.): 72.83 BSA: 1.98 (m2) Height (cm.): 185 BMI: 21.91 (kg/m2) Weight (lbs.): 165.35 Weight (kg.): 75 Lab Results Lab Result Date: 06/04/2019 Lab Result Time: 0:00 Biochemistry Name Units Result Min Max BUN mg/dl 61 --(----)-* 7 18 Creatinine mg/dl 2.8 --(----)-* 0.6 1.3 eGFR ml/min 24 *-(----)-- 90 120 NONAFRICAN CBC Name Units Result Min Max Hemoglobin g/dl 9 *-(----)-- 13.5 17.5 Procedure Procedure Types Cath Procedure Diagnostic Procedure [facility] w/Coronaries Sedation Charges Moderate Sedation up to 15 minutes Procedure Description Procedure Date Procedure Date: 06/04/2019 Procedure Start Time: 8:50 Procedure End Time: 9:15 Procedure Staff Name Function Carl Partida MD Performing Physician Na Renteria RT Scrub Ni Rodgers RN Nurse Madhavi Guaman RT Monitor Janette Pablo RN Nurse Procedure Data Cath Procedure Fluoroscopy Diagnostic fluoroscopy Total fluoroscopy Time: 5 time: 5 min min Diagnostic fluoroscopy Total fluoroscopy dose: 816 dose: 816 mGy mGy Contrast Material Contrast Material Type Amount (ml) Isovue 300 90 Entry Location Entry Primary Successful Side Size Upsize Upsize Entry Closure Succes sful Closure Location (Fr) 1 (Fr) 2 (Fr) Remarks Device Remarks Femoral Right 5 Fr Exoseal artery Estimated blood loss: 5 ml Diagnostic catheters Device Type Used For End Catheter Placement MULTIPACK JL 4.0 5Fr Left Coronary catheter Angiography MULTIPACK 3DRC 5Fr Right Coronary catheter Angiography DIAGNOSTIC AR MOD 5Fr Multi-vessel Catheter ([id number]) Angiography DIAGNOSTIC LCB 5Fr Multi-vessel catheter ([id number]) Angiography DIAGNOSTIC IM 5Fr SVG Angiography catheter ([id number]) MULTIPACK Pigtail 5 Fr LV Angiography catheter Procedure Complications No complications Procedure Medications Medication Administration Route Dosage 0.9% NaCl I.V. 100 ml/hr Oxygen etCO2 Nasal cannula 2 l/min Lidocaine 2% added to field 20 Heparin Flush Bag added to field 2 bags (1000units/500ml NS) Versed I.V. 2 mg Fentanyl I.V. 50 mcg Fentanyl I.V. 50 mcg Hemodynamics Rest BSA: 1.98 (m2) HGB: 9 (g/dl) O2 Consumption: Estimated: 231.02 (ml/min) O2 Consu mption indexed: Estimated:116.68 (ml/min/m) Heart Rate: 70 (bpm) Pressure Samples Time Site Value (mmHg) Purpose Heart Use Rate(bpm) 9:09 LV 166/0,13 Snapshot 66 9:09 AO 132/58(88) Pullback 65 9:09 LV 133/2,16 Pullback 65 Gradients Valve Time Site 1 Site 2 Mean SEP/DFP Peak To Heart Use (mmHg) (sec/min) Peak Rate (mmHg) (bpm) Aortic 9:09 LV AO 5 22 1 65 133/2,16 132/58(88) Calculations Valve P-P Mean Valve Index Valve Source Name Gradient Area Flow (cm2) Aortic 1 5 1 5 Snapshots Pre Cath Intra NCS Post Cath Vital Signs Time Heart Resp SPO2 etCO2 NIBP (mmHg) Rhythm Pain Sedation Rate (ipm) (%) (mmHg) Status Level (bpm) 8:34:11 65 20 98 30.4 152/78(122) NSR 0 (11) 10(A) , No pain 8:38:29 67 14 100 35.8 141/75(114) NSR 0 (11) 10(A) , No pain 8:42:41 66 13 100 10.6 152/81(123) NSR 0 (11) 10(A) , No pain 8:46:59 70 11 97 13.8 145/74(114) NSR 0 (11) 10(A) , No pain 8:51:15 69 18 97 3.8 147/75(112) NSR 0 (11) 9(A) , No pain 8:55:33 69 14 96 16.7 134/71(105) NSR 0 (11) 9(A) , No pain 8:59:45 69 10 96 18 139/75(106) NSR 0 (11) 9(A) , No pain 9:04:01 68 11 98 15.2 139/69(106) NSR 0 (11) 9(A) , No pain 9:08:17 67 11 96 16 137/64(107) NSR 0 (11) 9(A) , No pain 9:12:29 67 11 97 12.9 142/75(110) NSR 0 (11) 10(A) , No pain Medications Time Medication Route Dose Verified Delivered Reason Notes Effe ctiveness by by 8:33:33 0.9% NaCl I.V. 100 Carl Janette used for ml/hr Jaquan Pablo catechist 8:33:39 Oxygen etCO2 2 Carl Janette used for Nasal l/min Jaquan Pablo procedure cannula RN 8:33:44 Lidocaine 2% added 20ml Carl Carl for local to vial Jaquan Partida MD anesthetic field 8:33:49 Heparin Flush added 2 Carl Carl used for Bag to bags Jaquan Partida MD procedure (1000units/500ml field NS) 8:38:28 Versed I.V. 2 mg Carl Janette for Jaquan Pablo sedation RN 8:38:40 Fentanyl I.V. 50 Carl Janette for mcg Jaquan Pablo sedation RN 8:45:52 Fentanyl I.V. 50 Carl Janette for mcg Jaquan Pablo sedation wallpaper remover steam Log Time Note 8:26:07 Diagnostic Cath Status : Urgent 8:27:32 Procedure Status Urgent Heart Cath (IP). 8:27:38 Ni Rodgers RN sent for patient. Start room use. 8:27:38 Time tracking: Regular hours (M-F 7:00 - 5:00) 8:27:43 Plan of Care:Hemodynamics will remain stable., Cardiac rhythm will remain stable., Comfort level will be maintained., Respiratory function will remain adequate., Patient/ family verbilizes understanding of procedure., Procedure tolerated without complication., Recovers from procedure without complications.. 8:30:04 Patient received from Med II to CCL 2 Alert and oriented. Tansferred to table in Supine position. 8:30:06 Warm blankets applied, and sakshi hugger turned on for patient comfort. 8:30:07 Signed procedure consent form obtained from patient. 8:30:08 Correct patient and procedure confirmed by team. 8:30:08 ECG and BP/O2 sat monitors applied to patient. 8:30:13 Full Disclosure recording started 8:30:17 H&P Date Dictated: 06/04/2019 New H&P dictated by physician.. 8:30:18 Pre-procedure instructions explained to patient. 8:30:18 Pre-op teaching completed and patient verbalized understanding. 8:30:29 Family in patients room. 8:30:30 Patient NPO since Midnight. 8:30:55 Is the patient allergic to Iodine/contrast media? No. 8:30:56 Was the patient premedicated? Yes 8:32:20 Patient diabetic? Yes. 8:32:21 If diabetic: On Metformin? No 8:32:26 Previous problem with sedation/anesthesia? No ? 8:32:27 Snore? Yes 8:32:28 Sleep apnea? Yes 8:32:29 Deviated septum? No 8:32:30 Opens mouth fully? Yes 8:32:31 Sticks out tongue? Yes 8:32:39 Airway obstruction? Yes copd asthma 8:32:51 Dentures? No ? 8:32:56 Vital chart was started 8:33:21 Rhythm: sinus rhythm 8:33:26 Pre procedure: right dorsailis pedis pulse 1+ Palpable, but thready & weak; easily obliterated 8:33:28 Pre procedure: left dorsailis pedis pulse 1+ Palpable, but thready & weak; easily obliterated 8:33:30 Patient pain scale 0/10 ?. 8:33:33 0.9% NaCl 100 ml/hr I.V. was administered by Janette Pablo RN; used for procedure; Verbal order read back and verified. 8:33:39 Oxygen 2 l/min etCO2 Nasal cannula was administered by Janette Pablo RN; used for procedure; Verbal order read back and verified. 8:33:40 IV patent on arrival in right hand with 0.9% NaCl at [facility]. 8:33:44 Lidocaine 2% 20ml vial added to field was administered by Carl Partida MD; for local anesthetic; Verbal order read back and verified. 8:33:49 Heparin Flush Bag (1000units/500ml NS) 2 bags added to field was administered by Carl Partida MD; used for procedure; Verbal order read back and verified. 8:34:24 Lab Result : BUN 61 mg/dl 8:34:24 Lab Result : Creatinine 2.8 mg/dl 8:34:24 Lab Result : eGFR NONAFRICAN 24 ml/min 8:34:24 Lab Result : Hemoglobin 9 g/dl 8:34:28 Lab results completed and on chart. 8:34:32 Stress Test: no; N/A ? 8:36:30 Pt lists Heparin as allergy stating "It makes me bleed too much." It has been determined by past procedures that Heparin is not an allergy for the pt and the pt has not experienced any adverse effects from being given Heparin. Okay to use per Dr. Partida and will remove from pt allergy list. 8:37:11 Risk of Mortality: 1.4 8:37:19 Risk of blood transfusion: 22.3 8:37:31 Risk of MAGY: 16.2 8:37:35 Right groin area was prepped with chlora-prep and draped in sterile fashion 8:37:36 Alarms reviewed by R. N. 8:37:36 Sharps counted by scrub and verified by R.N. 8:37:38 Physician arrived 8:37:38 --------ALL STOP TIME OUT------ 8:37:39 Final Timeout: patient, procedure, and site verified with staff and physician. All members of the team are in agreement. 8:37:41 Right groin site verified by team. 8:37:44 Fire Safety Assessment: A--An alcohol-based skin anteseptic being used preoperatively., C--Open oxygen or nitrous oxide is being used., D--An ESU, laser, or fiber-optic light is being used. 8:37:46 Physical assessment completed. ASA score P 2 - A patient with mild systemic disease as per Carl Partida MD. 8:38:28 Versed 2 mg I.V. was administered by Janette Pablo RN; for sedation; Verbal order read back and verified. 8:38:40 Fentanyl 50 mcg I.V. was administered by Janette Pablo RN; for sedation; Verbal order read back and verified. 8:38:43 4) 15-29 Severley reduced kidney function. 8:38:48 Maximum allowable contrast dose (3.7 X eGFR X 0.75)66.6 ml. 8:38:52 Sedation plan: IV Moderate Sedation Medication:Versed, Fentanyl 8:38:55 Use device set Femoral Dx 8:38:56 ACIST Syringe (30184) opened to sterile field. 8:38:56 Bag Decanter (2002S) opened to sterile field. 8:38:57 Medline Cath Pack ([id number]) opened to sterile field. 8:38:58 ACIST Hand Control (08568) opened to sterile field. 8:38:58 ACIST Manifold (35400) opened to sterile field. 8:38:59 DIAGNOSTIC Multipack 5Fr catheter set ([id number]) opened to sterile field. 8:39:07 Tegaderm 4 x 4 (1626W) opened to sterile field. 8:39:09 SHEATH 5FR Kelayres ([id number]) opened to sterile field. 8:39:09 EMERALD Guide Wire (535-531) opened to sterile field. 8:40:58 Admit Source: Emergency department 8:41:06 Arrival Date: 05/30/2019 5:30:00 PM 8:41:27 Insurance Payor : Medicare 8:41:34 Patient Height : 72.83 inches 8:41:38 Patient Weight : 165.35 lbs 8:45:52 Fentanyl 50 mcg I.V. was administered by Janette Pablo RN; for sedation; Verbal order read back and verified. 8:50:35 Procedure started. 8:50:38 Local anesthetic to right femoral artery with Lidocaine 2% by Carl Partida MD.INITIAL ACCESS ONLY 8:50:40 Zero performed for pressure channel P1 8:51:02 A 5 Fr sheath was inserted into the Right Femoral artery 8:52:03 A MULTIPACK JL 4.0 5Fr catheter was advanced over the wire and used for Left Coronary Angiography. 8:52:40 Baseline sample Acquired. 8:57:50 LCA angiography performed. 8:57:53 Injector settings: Ml/sec: 3, Volume: 6, 8:57:57 Catheter removed. 8:58:03 A MULTIPACK 3DRC 5Fr catheter was advanced over the wire and used for Right Coronary Angiography. 8:59:03 RCA angiography performed. 8:59:06 Injector settings: Ml/sec: 3, Volume: 6, 8:59:11 Catheter removed. 9:00:07 A DIAGNOSTIC AR MOD 5Fr Catheter ([id number]) was advanced over the wire and used for Multi-vessel Angiography. 9:01:39 SVG to RCA angiography performed. 9:03:58 Catheter removed. 9:04:23 A DIAGNOSTIC LCB 5Fr catheter ([id number]) was advanced over the wire and used for Multi-vessel Angiography. 9:06:21 SVG to Circ angiography performed. 9:06:25 Catheter removed. 9:06:34 A DIAGNOSTIC IM 5Fr catheter ([id number]) was advanced over the wire and used for SVG Angiography. 9:07:38 SVG to LAD angiography performed. 9:07:49 Catheter removed. 9:09:04 A MULTIPACK Pigtail 5 Fr catheter was advanced over the wire and used for LV Angiography. 9:09:12 LV hemodynamics recorded. 9:09:13 LV gram done using PEREZ 9:09:16 Injector settings: Ml/sec: 5, Volume: 15, 9:09:34 EF : 25 % 9:10:17 Catheter removed. 9:12:04 EXOSEAL 5Fr (EX500) opened to sterile field. 9:12:21 Sheath removed intact; hemostasis achieved with Exoseal to the Right Femoral artery. 9:12:23 Procedure ended.(Physican Out) 9:12:43 Fluoroscopy time 05.00 minutes. 9:12:47 Flurop Dose total: 816 9:12:47 Fluoroscopy dose: 816 mGy 9:12:53 Dose Area Product 58564 mGy/cm. 9:12:56 Contrast amount:Isovue 300 90ml. 9:12:58 Maximum allowable dose exceeded? Yes. 9:13:06 Sharps counted by scrub and verified by R.N. 9:13:09 Insertion/operative site no bleeding no hematoma. 9:13:16 Post-op/insertion site Right Femoral artery dressed using a 4 x 4 and Tegaderm. 9:13:20 Post Procedure Pulses reassessed and unchanged 9:13:23 Post procedure rhythm: unchanged. 9:13:37 Estimated blood loss: 5 ml 9:13:39 Post procedure instruction explained to patient.Patient verbalizes understanding. 9:13:39 Patient needs reinforcement of post procedure teaching. 9:14:08 Procedure type changed to Cath procedure, Diagnostic procedure, LHC, [facility] w/Coronaries, Sedation Charges, Moderate Sedation up to 15 minutes 9:14:09 Procedure and supply charges have been captured, reviewed, submitted and are correct. 9:14:14 Procedure Complication : No complications 9:15:00 Vital chart was stopped 9:15:04 [facility] Findings: MVD- MD will discuss options w/ pt 9:15:07 Operative report dictated upon procedure completion. 9:15:08 See physician's report for complete and final results. 9:15:19 Report given to Med II. 9:15:21 Patient transfered to Med II with Stretcher. 9:15:23 Procedure ended. 9:15:23 Full Disclosure recording stopped 9:15:29 End room use (Document Last) Device Usage Item Name Manufacture Quantity Catalog Hospital Part Current Minimal L ot# / Number Charge Number Stock Stock Serial# Code ACIST Acist 1 60281 545554 839533 193325 20 Syringe [employer] (11226) Systems Inc Bag Microtek 1 979502 00993 028205 5 Decanter [employer] Inc. (2002S) Medline Medline 1 [id number] 231376 73722 524427 5 Cath Pack ([id number]) ACIST Hand Acist 1 25767 113060 304202 017532 5 Control Medical (16640) Systems Inc ACIST Acist 1 89042 632220 040671 893231 5 Manifold Medical (40881) Systems Inc DIAGNOSTIC Cardinal 1 [id number] 700701 95497 762931 30 Multipack Health 5Fr catheter set (DZ9480) Tegaderm 4 3M 1 1626W 259831 494565 697152 5 x 4 (1626W) SHEATH 5FR Terumo 1 ZAN747 109873 716605 741076 5 Kelayres (CIU757) EMERALD Cardinal 1 502455 176428 680896 474923 5 Guide Wire Health (502455) MULTIPACK Cardinal 1 546509 5 JL 4.0 5Fr Health catheter MULTIPACK Cardinal 1 926694 5 3DRC 5Fr Health catheter DIAGNOSTIC Cardinal 1 [id number] 739486 660146 165351 15 AR MOD 5Fr Health Catheter (135849P) DIAGNOSTIC Cardinal 1 [id number] 663090 739069 487338 5 LCB 5Fr Health catheter (901350Q) DIAGNOSTIC Cardinal 1 299127L 433259 821244 375247 5 IM 5Fr Health catheter (177236S) MULTIPACK Cardinal 1 352437 5 Pigtail 5 Health Fr catheter EXOSEAL 5Fr Cardinal 1 EX500 724337 956114 113666 10 (EX500) Health Signature Audit Jackson Stage Time Signature Unsigned Intra-Procedure 06/04/2019 Madhavi Guaman 9:16:57 AM RT(R) Intra-Procedure 06/04/2019 Janette Pablo 9:17:51 AM RN Intra-Procedure 06/04/2019 Carl Partida MD 9:18:29 AM Signatures Performing Physician : Signature : Carl Partida MD Date : Time : Nurse : Ni Rodgers RN Signature : Date : Time : Monitor : Madhavi Deniz RT Signature : Date : Time : Nurse : Janette Samy RN Signature : Date : Time : [address] [place] [address]
[2019-05-29 22:43] LABS: BASOPHILS 0.2 % (0-2); EOSINOPHILS 1.1 % (0-7); HEMATOCRIT 28.6 % (42.0-54.0); HEMOGLOBIN 8.9 g/dL (13.5-17.5); IMMATURE GRANULOCYTES 0.2 % (0-5); LYMPHOCYTES 13.4 % (15-50); MCH 30.5 pg (26.0-34.0); MCHC 31.1 g/dL (31.0-37.0); MCV 97.9 fL (80.0-100.0); MEAN PLATELET VOLUME 12.8 fL (7.4-10.4); MONOCYTES 9.9 % (2-11); NEUTROPHILS 75.2 % (40-80); PLATELET COUNT 98 10x3/uL (130-400); RBC 2.92 10x6/uL (4.20-6.10); RDW 15.2 % (11.5-14.5); WBC 5.4 10x3/uL (4.8-10.8)
[2019-05-29 22:49] LABS: APTT 30.1 SECONDS (22.8-39.4); INR 1.14 (0.85-1.17); PROTIME 14.6 SECONDS (11.6-15.0)
[2019-05-29 23:06] LABS: ALBUMIN 2.9 g/dL (3.4-5.0); ALKALINE PHOSPHATASE 177 U/L (30-120); ALT (SGPT) 39 U/L (10-68); BILIRUBIN - TOTAL 0.21 mg/dL (0.2-1.3); CALC OSMOLALITY 302 mosm/kg (275-300); CALCIUM 7.7 mg/dL (8.5-10.1); CARBON DIOXIDE 21.5 mmol/L (21.0-32.0); CHLORIDE - SERUM 112 mmol/L (98-107); CREATINE KINASE 581 UL (21-232); CREATININE - SERUM 2.2 mg/dL (0.6-1.3); GLUCOSE 182 mg/dL (74-106); MAGNESIUM - SERUM 1.3 mg/dL (1.8-2.4); PROTEIN - SERUM 6.5 g/dL (6.4-8.2); SODIUM 141 mmol/L (136-145); TROPONIN-I < 0.017 ng/mL (0.000-0.060); UREA NITROGEN 60 mg/dL (7-18); eGFR NON AFRICAN AMERICAN 32 mL/min (90-120)
[2019-05-29 23:07] LABS: POTASSIUM - SERUM 6.6 mmol/L (3.5-5.1)
--- NOTE | 2019-05-29 23:12 | NUR ---
PT GIVEN URINAL
[2019-05-29 23:16] LABS: PLATELET ESTIMATE DECREASED
--- NOTE | 2019-05-29 23:20 | NUR ---
PT GIVEN PHONE IN ROOM, CALL LIGHT WITHIN REACH, WILL CONTINUE TO MONITOR.
[2019-05-29 23:27] VITALS: BP 155/76
--- NOTE | 2019-05-30 00:36 | NUR ---
DR FLORES NOTIFIED AND REVIEWED PT's BEHAVIOR AND ASSESSMENT RESULTS. PT IS ALOW RISK PER DR FLORES. DR FLORES STATED TO GIVE RESOURCES TO PT AT TIME OF DISCHARGE. NO FURTHER ORDERS AT THIS TIME, RESOURCES REVIEWED WITH PT AND HE VERBALIZED UNDERSTANDING.
--- NOTE | 2019-05-30 01:15 | NUR ---
[facility] MD AND REGISTRATION INFORMED. PT WANTS TO STAY AT THIS FACLITY
--- NOTE | 2019-05-30 01:30 | NUR ---
ADMIT TO ROOM 2124 FROM ER. ALERT/ORIENTED/HYPERTALKATIVE. SODIUM BICARB INFUSING AT 100ML/HR TO LEFT A/C PIV. CALCIUM IVPB COMPLETED TO RIGHT A/C PIV. ADMISSION HISTORY AND ASSESSMENT COMPLETED. PLAN OF CARE INITIATED.
[2019-05-30 02:26] LABS: CKMB 9.9 U/L (0.0-3.6); CREATINE KINASE 555 UL (21-232)
[2019-05-30 02:27] LABS: GLUCOSE 50 mg/dL (74-106); TROPONIN-I < 0.017 ng/mL (0.000-0.060)
--- NOTE | 2019-05-30 03:26 | NUR ---
PT C/O BLOOD SUGAR BEING LOW. POTASSIUM BEING RECHECKED AND HAD BLOOD GLUCOSE CHECKED AT SAME TIME. PT NOW 6.4, GLUCOSE IS 50. PROVIDED DRINK AND SNACK. PT NOW FEELING BETTER. TELEMETRY SHOWING ST 101.
--- NOTE | 2019-05-30 03:30 | NUR ---
ER SENT NEW ORDERS AND PT CAN NOW HAVE TORADOL IV FOR PAIN. DOSE HAS NOW BEEN ADMINISTERED. PT REQUEST O2 @ 2L/NC FOR FEELING SOB. O2 INITIATED.
[2019-05-30 04:30] VITALS: BP 166/90
--- NOTE | 2019-05-30 06:38 | NUR ---
PT REFUSED THE 5 KAYEXALATE. HE WANTS TO KNOW WHAT HIS POTASSIUM LEVEL IS BEFORE HE DRINKS ANYMORE KAYEXALATE. HE IS ALSO REQUESTING PAIN MEDS NOW. NEXT TIME TORADOL IS AVAILABLE IS 0900. PT STATES HE WILL ASK MD IF HE CAN HAVE PERCOCETT SINCE THAT IS WHAT WAS GIVEN TO HIM LAST TIME HE WAS HERE.
--- NOTE | 2019-05-30 07:21 | NUR ---
PT AWAKE AND ORIENTED, LYING IN BED. PT ASKS "WHEN ARE THEY GOING TO CATH ME THIS MORNING BECAUSE I KNOW I'M GOING TO NEED IT". I INFORMED PT WE WOULD HAVE TO WAIT FOR DR. FERMIN TO SEE HIM. HE THEN TOLD ME [facility]KS A[facility] COLESTEROL MEDICATION AND THATS HOW HE KNOWS HE'S GOING TO BE CATHED TODAY. ALL QUESTIONS ANSWERED TO THE BEST OF MY ABILITY. NO FAMILY AT BEDSIDE. CL IN REACH, SRX2.
[2019-05-30 08:33] LABS: CKMB 9.1 U/L (0.0-3.6); CREATINE KINASE 453 UL (21-232); TROPONIN-I 0.026 ng/mL (0.000-0.060)
[2019-05-30 09:12] VITALS: BP 172/96
--- NOTE | 2019-05-30 10:00 | NUR ---
PT AWAKE AND ORIETNED. C/O GENERALIZED PAIN AND STATING THAT THE TORDOL DOESNT HELP. PT STATES "I WOULD PREFER TO HAVE PERCOCET. LAST TIME I WAS HERE THEY GAVE ME PERCOCET AND I LIKED THAT". PT THEN PROCEDED TO ASK A WHOLE BUNCH OF QUESTIONS, ANSWERED ALL TO THE BEST OF MY ABILITY. CL IN REACH, SRX2.
[2019-05-30 13:23] VITALS: BP 159/90
[2019-05-30 13:53] LABS: CREATINE KINASE 369 UL (21-232)
[2019-05-30 13:54] LABS: TROPONIN-I < 0.017 ng/mL (0.000-0.060)
[2019-05-30 15:31] VITALS: BP 159/90; BMI 19.3
[2019-05-30 15:54] VITALS: BMI 19.2
[2019-05-30 17:06] VITALS: BP 141/69
--- NOTE | 2019-05-30 19:30 | NUR ---
REPORT RECIEVED AND INITIAL ROUNDS COMPLETED. PT UP AND ABOUT, ALL OVER HIS ROOM. CLOTHES OFF, TELEMETRY OFF. HYPERTALKATIVE. SETTLED PT. HE GAVE A LIST OF WANTS/NEEDS/WISHES. ATTEMPTING TO FULFILL HIS NEEDS AT THIS TIME.
[2019-05-30 20:00] VITALS: BP 168/69
--- NOTE | 2019-05-30 20:44 | NUR ---
PT REFUSED HIS KAYEXALATE, STATES IT MAKES HIM SICK. REFUSED TYLENOL, STATES HE IS DEATHLY ALLERGIC, BUT WANTS PERCOCETT. REFUSED NITRO PASTE, STATES IT MAKES HIS HEAD HURT. WANTS TRAZADONE SINCE HE CANNOT GET HIS HOME PSYCH MED HERE AND WANTS MELATONIN PAGE TO [facility]LE[facility]ARSON AP[facility] AND REPORTED ABOVE. NEW ORDERS RECIEVED. PT HAS PERMISSION TO BRING HIS PSYCH MED FROM HOME AND TAKE, BUT IT HAS NOT BEEN BROUGHT TO UNIT YET.
--- NOTE | 2019-05-30 20:51 | NUR ---
NOTIFIED HOUSE SUP OF NEED FOR NEWLY ORDERED MEDS.
--- NOTE | 2019-05-30 23:09 | NUR ---
PROVIDED PATIENT WITH [facility]CO FOR PAIN, EYE DROPS ADMINISTERED. TRAZADONE AND MELATONIN GIVEN. INSTRUCTED PT TO HAVE HIS PSYCH MED BROUGHT UP HERE TOMORROW AND THEN IT CAN BE ISSUED TO HIM FROM OUR PHARMACY. PT NOW SAYING HE CANNOT SLEEP WITH THE IV TUBING IN HIS WAY AND THE IV ALWAYS BEEPING BECAUSE HE BENDS HIS ARM. PT REQUEST IVF OFF FOR THE NIGHTTIME. CAPPED IVF AT THIS TIME. FSBS 237, PT WOULD ONLY TAKE 4 UNITS OF SLIDING SCALE. STATES HE TAKES NO INSULIN IF BLOOD SUGAR IS BELOW 200.
[2019-05-31] VITALS: BP 154/59
[2019-05-31 04:00] VITALS: BP 109/57
--- NOTE | 2019-05-31 05:02 | NUR ---
PT INSTRUCTED ON NEED FOR URINE SPECIMEN. COLLECTION CONTAINER PROVIDED.
[2019-05-31 06:13] LABS: BASOPHILS 0.2 % (0-2); HEMATOCRIT 25.2 % (42.0-54.0); IMMATURE GRANULOCYTES 0.4 % (0-5); MCH 30.8 pg (26.0-34.0); MCHC 31.7 g/dL (31.0-37.0); MCV 96.9 fL (80.0-100.0); MEAN PLATELET VOLUME 13.5 fL (7.4-10.4); MONOCYTES 6.6 % (2-11); NEUTROPHILS 57.8 % (40-80); PLATELET COUNT 98 10x3/uL (130-400); RDW 15.3 % (11.5-14.5)
[2019-05-31 06:36] LABS: CALC OSMOLALITY 300 mosm/kg (275-300); CALCIUM 7.3 mg/dL (8.5-10.1); CARBON DIOXIDE 21.1 mmol/L (21.0-32.0); CHLORIDE - SERUM 112 mmol/L (98-107); CREATINE KINASE 221 UL (21-232); CREATININE - SERUM 2.5 mg/dL (0.6-1.3); MAGNESIUM - SERUM 1.3 mg/dL (1.8-2.4); POTASSIUM - SERUM 5.7 mmol/L (3.5-5.1); SODIUM 142 mmol/L (136-145); TROPONIN-I 0.021 ng/mL (0.000-0.060); UREA NITROGEN 62 mg/dL (7-18); eGFR NON AFRICAN AMERICAN 28 mL/min (90-120)
[2019-05-31 06:37] LABS: GLUCOSE 102 mg/dL (74-106)
[2019-05-31 07:19] LABS: PLATELET ESTIMATE DECREASED
--- NOTE | 2019-05-31 07:41 | NUR ---
PT RESTING COMFORTABLY IN BED. A/OX 4, RESP EVEN AND NONLABORED ON RA. LT AC INFUSING SODIUM BICARB AT 100CC/HR. HEART MONITOR SHOWING SR WITH RATE OF 62. INFORMED PT THAT HIS K LEVEL IS STILL HIGH AT 5.7 THIS AM. RT AC IV SL. PT DENIES ANY NEEDS AT THIS TIME. CALL LIGHT IN REACH, BEDSIDE RAILS X2, NAD NOTED, WILL CONTINUE PLAN OF CARE.
[2019-05-31 08:30] VITALS: BP 129/60
--- NOTE | 2019-05-31 08:54 | NUR ---
AM MEDS GIVEN AT THIS TIME. PT EATING BREAKFAST AND TALKING ON THE PHONE, EXPLAINED TO PT THE IMPORTANCE OF TAKING HIS KAYEXALATE, PT TOOK AM DOSE BUT STATED THAT HE WOULD NOT TAKE NEXT DOSE BECAUSE HE HAS FAMILY COMING TO SEE HIM AND DOES NOT WANT TO BE UP AND DOWN TO THE BATHROOM WHEN HIS FAMILY IS IN THE ROOM. ORDERED PT ROSALBA PARMAR, PT DENIES ANY OTHER NEEDS AT THIS TIME. CALL LIGHT IN REACH, NAD NOTED, WILL CONTINUE TO MONITOR.
[2019-05-31 09:44] LABS: BILIRUBIN NEGATIVE (NEGATIVE); GLUCOSE NEGATIVE (NEGATIVE); KETONE NEGATIVE (NEGATIVE); NITRITE NEGATIVE (NEGATIVE); UROBILINOGEN NORMAL (NORMAL)
[2019-05-31 09:53] LABS: BACTERIA FEW /hpf (NEGATIVE); EPITHELIAL CELLS 0-5 /hpf (0-5); RED CELLS - URINE NONE SEEN /hpf (0-5); WHITE CELLS - URINE 0-5 /hpf (NEGATIVE)
[2019-05-31 12:59] VITALS: BP 136/91
[2019-05-31 17:25] VITALS: BP 140/69
--- NOTE | 2019-05-31 19:45 | NUR ---
REPORT RECIEVED AND INITIAL ROUNDS COMPLETED. PT RESTING IN BED. NONLABORED RESPIRATIONS ON ROOM AIR. SR PER TELEMETRY. IV TO LEFT A/C WITH BICARB AT 100ML/HR. PT CURRENT POTASSIUM LEVEL IS 4.7. HE STATES HE ASKED DR PETERS IF HE HAD TO TAKE ANYMORE KAYEXALATE AND THAT THE DOCTOR SAID NO. HE IS ALSO REFUSING TOPICAL NITRO SINCE HE HAS NO CHEST PAIN. WILL MONITOR. CPOC.
[2019-05-31 20:00] VITALS: BP 138/51
[2019-06-01] VITALS: BP 151/79
[2019-06-01 04:00] VITALS: BP 137/69
[2019-06-01 05:37] LABS: BASOPHILS 0.3 % (0-2); EOSINOPHILS 4.4 % (0-7); HEMATOCRIT 24.9 % (42.0-54.0); HEMOGLOBIN 7.8 g/dL (13.5-17.5); IMMATURE GRANULOCYTES 0.3 % (0-5); LYMPHOCYTES 30.6 % (15-50); MCH 30.5 pg (26.0-34.0); MCHC 31.3 g/dL (31.0-37.0); MCV 97.3 fL (80.0-100.0); MEAN PLATELET VOLUME 13.1 fL (7.4-10.4); MONOCYTES 8.3 % (2-11); NEUTROPHILS 56.1 % (40-80); RBC 2.56 10x6/uL (4.20-6.10); RDW 15.1 % (11.5-14.5)
[2019-06-01 05:52] LABS: PLATELET COUNT 76 10x3/uL (130-400); WBC 3.6 10x3/uL (4.8-10.8)
[2019-06-01 06:02] LABS: ANION GAP 12.4 mmol/L (8-16); CALCIUM 7.3 mg/dL (8.5-10.1); CARBON DIOXIDE 24.5 mmol/L (21.0-32.0); CREATININE - SERUM 2.3 mg/dL (0.6-1.3); MAGNESIUM - SERUM 1.5 mg/dL (1.8-2.4); POTASSIUM - SERUM 4.9 mmol/L (3.5-5.1)
[2019-06-01 08:07] VITALS: BP 126/81
--- NOTE | 2019-06-01 08:27 | NUR ---
AM MEDS GIVEN AT THIS TIME. PT IN BED, EATING BREAKFAST. PT A/O X4, RESP EVEN AND NONLABORED ON RA. LT AC INFUSING SODIUM BICARB AT 100CC/HR. PT DENIES ANY NEEDS AT THIS TIME. CALL LIGHT IN REACH, NAD NOTED,W IL CONTINUE TO MONITOR.
[2019-06-01 11:55] VITALS: BP 150/66
--- NOTE | 2019-06-01 12:19 | NUR ---
BLOOD SUGAR OF 418, 12UNITS GIVEN PER S/S. PT UP TO SIDE OF BED, EATING LUNCH, DENIES ANY NEEDS AT THIS TIME. CALL LIGHT IN REACH.
--- NOTE | 2019-06-01 13:18 | NUR ---
UNIT OF PRBCS STARTED INFUSING AT THIS TIME. VITAL SIGNS STABLE. WILL MONITOR PT FOR THE FIRST 15MIN.
[2019-06-01 15:12] VITALS: Ht 185.4 cm; Wt 76.5 kg
[2019-06-01 16:13] VITALS: BP 125/59
--- NOTE | 2019-06-01 19:39 | NUR ---
ASSESSMENT COMPLETE, PT A&O. RESPERATIONS NONLABORED ON RA. IV TO LEFT AC WITH IRON INFUSIN, SITE CLEAN AND DRY. PT CURRENTLY DENIES PAIN OR NEEDS, BED LOW, CL IN REACH.
[2019-06-01 20:23] VITALS: BP 136/78
[2019-06-02 00:11] VITALS: BP 151/75
--- NOTE | 2019-06-02 02:26 | NUR ---
RESTING WITH EYES CLOSED, RESPERATIONS EVEN, NO S/S DISTRESS NOTED.
--- NOTE | 2019-06-02 04:20 | NUR ---
I have reviewed this patient and I concur with the Shift Assessment completed by the Licensed Practical Nurse today this shift.
[2019-06-02 05:03] VITALS: BP 153/84
[2019-06-02 06:00] LABS: ANION GAP 11.1 mmol/L (8-16); CALCIUM 7.7 mg/dL (8.5-10.1); CARBON DIOXIDE 25.1 mmol/L (21.0-32.0); CREATININE - SERUM 2.1 mg/dL (0.6-1.3); MAGNESIUM - SERUM 1.6 mg/dL (1.8-2.4); POTASSIUM - SERUM 5.2 mmol/L (3.5-5.1)
[2019-06-02 06:21] LABS: BASOPHILS 0.4 % (0-2); EOSINOPHILS 5.8 % (0-7); HEMATOCRIT 28.1 % (42.0-54.0); IMMATURE GRANULOCYTES 0.2 % (0-5); LYMPHOCYTES 24.3 % (15-50); MCH 29.8 pg (26.0-34.0); MEAN PLATELET VOLUME 12.6 fL (7.4-10.4); MONOCYTES 7.2 % (2-11); NEUTROPHILS 62.1 % (40-80); PLATELET COUNT 79 10x3/uL (130-400); RBC 3.02 10x6/uL (4.20-6.10); RDW 16.5 % (11.5-14.5)
[2019-06-02 06:22] LABS: WBC 4.9 10x3/uL (4.8-10.8)
[2019-06-02 08:00] VITALS: BP 95/75
[2019-06-02 09:07] LABS: PLATELET ESTIMATE DECREASED
[2019-06-02 09:09] LABS: ANISOCYTOSIS OCC
[2019-06-02 12:44] VITALS: BP 144/70
--- NOTE | 2019-06-02 14:23 | NUR ---
Nutrition Follow-up: Eating well. Drinking Nepro TID. Has difficulty cutting foods 2/2 Parkinson's. Diet: Renal ADA, Nepro TID PO intake: 50-100% Wt: 171.9# (06/02); 169# (05/31) Last BM: 06/01 Labs noted: K+ 5.2, Glu 163, Ca 7.7, Mg 1.6 Meds noted: Lasix, Ferrlecit, Humalog, MagOx, Protonix, Carafate, Duoneb -Will have kitchen chop all foods. -May consider decreasing Nepro to QD 2/2 CKD not on dialysis. -Monitor wt; noted daily wts ordered. -RD following.
[2019-06-02 16:00] VITALS: BP 141/64
--- NOTE | 2019-06-02 18:09 | NUR ---
I have reviewed this patient and I concur with the Shift Assessment completed by the Licensed Practical Nurse today this shift.
[2019-06-02 20:50] VITALS: BP 164/73
[2019-06-03 00:09] VITALS: BP 134/59
--- NOTE | 2019-06-03 03:30 | NUR ---
I have reviewed this patient and I concur with the Shift Assessment completed by the Licensed Practical Nurse today this shift.
[2019-06-03 05:25] LABS: BASOPHILS 0.3 % (0-2); EOSINOPHILS 5.2 % (0-7); IMMATURE GRANULOCYTES 0.3 % (0-5); LYMPHOCYTES 24.3 % (15-50); MCH 29.9 pg (26.0-34.0); MEAN PLATELET VOLUME 12.7 fL (7.4-10.4); MONOCYTES 7.2 % (2-11); NEUTROPHILS 62.7 % (40-80); PLATELET COUNT 82 10x3/uL (130-400); RBC 3.01 10x6/uL (4.20-6.10); RDW 16.6 % (11.5-14.5); WBC 3.9 10x3/uL (4.8-10.8)
[2019-06-03 05:40] LABS: ANION GAP 13.8 mmol/L (8-16); CALCIUM 7.8 mg/dL (8.5-10.1); CARBON DIOXIDE 25.4 mmol/L (21.0-32.0); MAGNESIUM - SERUM 1.6 mg/dL (1.8-2.4); POTASSIUM - SERUM 5.2 mmol/L (3.5-5.1)
[2019-06-03 05:42] LABS: MCV 96.3 fL (80.0-100.0)
[2019-06-03 06:24] VITALS: BP 133/61
--- NOTE | 2019-06-03 08:17 | NUR ---
ASSESSMENT DONE. DENIES NEEDS
[2019-06-03 09:17] VITALS: BP 134/76
--- NOTE | 2019-06-03 09:46 | NUR ---
I have reviewed this patient and I concur with the Shift Assessment completed by the Licensed Practical Nurse today this shift.
[2019-06-03 14:14] VITALS: BP 140/57
[2019-06-03 16:41] LABS: BASOPHILS 0.2 % (0-2); EOSINOPHILS 3.8 % (0-7); HEMATOCRIT 32.1 % (42.0-54.0); IMMATURE GRANULOCYTES 0.2 % (0-5); LYMPHOCYTES 21.1 % (15-50); MCH 30.2 pg (26.0-34.0); MCHC 31.2 g/dL (31.0-37.0); MEAN PLATELET VOLUME 12.7 fL (7.4-10.4); MONOCYTES 8.5 % (2-11); NEUTROPHILS 66.2 % (40-80); PLATELET COUNT 87 10x3/uL (130-400); RBC 3.31 10x6/uL (4.20-6.10); RDW 16.6 % (11.5-14.5)
[2019-06-03 17:01] VITALS: BP 113/63
[2019-06-03 17:25] LABS: ANION GAP 13.6 mmol/L (8-16); CHOL - HDL RATIO 2.6 ratio (2.3-4.9); CREATININE - SERUM 2.4 mg/dL (0.6-1.3); LDL-HDL RATIO 1.1 ratio (1.5-3.5); POTASSIUM - SERUM 5.6 mmol/L (3.5-5.1)
[2019-06-03 21:33] VITALS: BP 151/70
[2019-06-04] VITALS: BP 99/52
[2019-06-04 00:34] LABS: CREATININE - URINE 31.1 mg/dL (30-125); PROTEIN - URINE 91.2 mg/dL (0.0-11.9)
--- NOTE | 2019-06-04 00:53 | NUR ---
NITRO PATCH REMOVED DUE TO PTS BLOOD PRESSURE OF 99/52. PT DENIES PAIN OR NEEDS AT THIS TIME.
[2019-06-04 04:00] VITALS: BP 117/57
[2019-06-04 05:55] LABS: ANION GAP 13.4 mmol/L (8-16); CALCIUM 7.9 mg/dL (8.5-10.1); CREATININE - SERUM 2.8 mg/dL (0.6-1.3); POTASSIUM - SERUM 5.4 mmol/L (3.5-5.1)
[2019-06-04 05:56] LABS: MAGNESIUM - SERUM 2.1 mg/dL (1.8-2.4)
[2019-06-04 06:12] LABS: BASOPHILS 0.2 % (0-2); EOSINOPHILS 4.1 % (0-7); HEMATOCRIT 29.1 % (42.0-54.0); IMMATURE GRANULOCYTES 0.4 % (0-5); LYMPHOCYTES 26.6 % (15-50); MCH 29.8 pg (26.0-34.0); MCHC 30.9 g/dL (31.0-37.0); MCV 96.4 fL (80.0-100.0); MEAN PLATELET VOLUME 13.3 fL (7.4-10.4); MONOCYTES 9.2 % (2-11); NEUTROPHILS 59.5 % (40-80); PLATELET COUNT 83 10x3/uL (130-400); RBC 3.02 10x6/uL (4.20-6.10); RDW 16.6 % (11.5-14.5); WBC 4.7 10x3/uL (4.8-10.8)
--- NOTE | 2019-06-04 07:36 | NUR ---
ASSESSMENT DONE. DENIES NEEDS
--- NOTE | 2019-06-04 09:14 | NUR ---
TO CAMOUFLAGE ASSEMBLER PER BED
--- NOTE | 2019-06-04 09:43 | NUR ---
I have reviewed this patient and I concur with the Shift Assessment completed by the Licensed Practical Nurse today this shift.
[2019-06-04 10:44] LABS: PLATELET ESTIMATE DECREASED
[2019-06-04 10:46] LABS: ANISOCYTOSIS OCC; HYPOCHROMASIA OCC; ROULEAUX OCC
[2019-06-04 12:46] LABS: PATH REVIEW PERIPHERAL SMEAR REVIEWED
[2019-06-04 12:47] VITALS: BP 118/53
[2019-06-04 15:57] LABS: ANION GAP 14.2 mmol/L (8-16); CALCIUM 7.9 mg/dL (8.5-10.1); CREATININE - SERUM 2.8 mg/dL (0.6-1.3); POTASSIUM - SERUM 5.2 mmol/L (3.5-5.1)
[2019-06-04 16:45] VITALS: BP 138/67
--- NOTE | 2019-06-04 17:05 | NUR ---
WITHOUT CHANGES OR DISTRESS NOTED AT THIS TIME DENIES NEEDS
--- NOTE | 2019-06-04 19:59 | NUR ---
AWAKE AND ALERT AND DENIES NEEDS AT THIS TIME BED LOW AND LOCKED AND PT HAS CALL LIGHT
[2019-06-04 20:00] VITALS: BP 115/53
--- NOTE | 2019-06-04 20:07 | NUR ---
DRSG TO RT GROIN IS DRY AND INTACT
[2019-06-05] VITALS: BP 108/49
--- NOTE | 2019-06-05 03:47 | NUR ---
I have reviewed this patient and I concur with the Shift Assessment completed by the Licensed Practical Nurse today this shift.
[2019-06-05 04:00] VITALS: BP 118/56
[2019-06-05 05:30] LABS: ANION GAP 11.5 mmol/L (8-16); CALCIUM 7.6 mg/dL (8.5-10.1); MAGNESIUM - SERUM 2.1 mg/dL (1.8-2.4); POTASSIUM - SERUM 5.5 mmol/L (3.5-5.1)
--- NOTE | 2019-06-05 07:59 | NUR ---
ASSESSSMENT DONE. DENIES NEEDS
[2019-06-05 10:20] VITALS: BP 119/39
--- NOTE | 2019-06-05 14:20 | NUR ---
Nutrition Follow-up: Eating well. Noted possible d/c. Diet: Renal ADA PO intake: 100% x 4 meals Wt: 168# (06/05); 171.9# (06/02); 169# (05/31) Labs noted: K+ 5.5, Glu 193, Ca 7.6 Meds noted: Pepcid, Lasix, Lantus, Humalog, Carafate, Zofran -Continue current diet as tolerated. -Monitor wt; noted daily wts ordered. -RD following.
--- NOTE | 2019-06-05 16:08 | NUR ---
WITHOUT CHANGES OR DISTRESS NOTED AT THIS TIME DENIES NEEDS
--- NOTE | 2019-06-05 16:54 | NUR ---
DC GIVEN TO PT, DC HOME PER PERSONAL CAR
--- NOTE | 2019-06-05 19:06 | MORECARE ---
CASE MANAGEMENT DISCHARGE SUMMARY PATIENT: DASHAWN REID UNIT: [id number] ADM DATE: 05/30/19 AGE: 63 : 51 SEX: M ROOM/BED: D.2124 AUTHOR: DONOVAN OCONNELL PHYSICIAN: REFERRING PHYSICIAN: DONALD AVILES MD DATE OF SERVICE: 06/05/19 Discharge Plan Patient Name: DASHAWN REID Facility: [facility]:[place] : 1955 Planned Disposition: Home Anticipated Discharge Date: 06/05/19 Discharge Date: 06/05/2019 Expected LOS: 6 Initial Reviewer: [id number] Initial Review Date: 06/05/2019 Generated: 06/05/19 8:05 pm DCPIA - Discharge Planning Initial Assessment Updated by KANA: Rachid Carlin on 06/05/19 7:03 pm * Is the patient Alert and Oriented? Yes * How many steps to enter\exit or inside your home? NONE * [facility] * Preadmission Environment Home with Family * ADLs Independent * Equipment Bedside Commode Cane Glucometer * Other Equipment [facility] * List name and contact numbers for known caregivers / representatives who currently or will assist patient after discharge: WALLY REID, SPOUSE, * Verbal permission to speak to the caregivers and representatives has been obtained from the patient. N/A * Community resources currently utilized None * Please name any agencies selected above. NONE * Additional services required to return to the preadmission environment? No * Can the patient safely return to the preadmission environment? Yes * Has this patient been hospitalized within the prior 30 days at any hospital? Yes Coverage Notice Reviewer: [id number] - Rachid Carlin Notice Issued Date-Time: 06/05/2019 9:35 Notice Type: IM Discharge Notice Notice Delivered To: Patient Relationship to Patient: Rubber Liner Name: Delivery Method: HAND - Hand Delivered Eleonora Days: Prior Verbal Notification: Recipient Understood Notice: Yes Recipient Signature: Yes Med Rec Note Co-signed by Attending: Coverage Notice Comment: Patient Name: DASHAWN REID Page [id number] at 1906 All edits/amendments must be made on the electronic document DICTATION DATE: 06/05/191904 [address] SECURITY: KATIE 06/05/191904 RPT#: [id number] DC DATE:06/05/19 STATUS: DIS IN [facility] [address] [facility] [place] [address] END OF REPORT
--- NOTE | 2019-06-05 19:13 | MORECARE ---
CASE MANAGEMENT DISCHARGE SUMMARY PATIENT: DASHAWN REID UNIT: [id number] ADM DATE: 05/30/19 AGE: 63 : 53 SEX: M ROOM/BED: D.6957 AUTHOR: DONOVAN OCONNELL PHYSICIAN: REFERRING PHYSICIAN: DONALD AVILES MD DATE OF SERVICE: 06/05/19 Discharge Plan Patient Name: DASHAWN REID Facility: [facility]:[place] : 1955 Planned Disposition: Home Anticipated Discharge Date: 06/05/19 Discharge Date: 06/05/2019 Expected LOS: 6 Initial Reviewer: [email or web address] Initial Review Date: 06/05/2019 Generated: 06/05/19 8:13 pm Comments DCP- Discharge Planning Updated by [email or web address]: Rachid Carlin on 06/05/19 6:[address] Patient Name: DASHAWN REID Admission Status: ER Accout number: [id number] Admission Date: 05-30-2019 : 1955 Admission Diagnosis: Attending: DONALD AVILES Current LOS: 6 Anticipated DC Date: 06-05-2019 Planned Disposition: Home Primary Insurance: MEDICARE PART A ONLY Discharge Planning Comments: CM MET WITH PT IN ROOM TO DISCUSS DISCHARGE PLANNING AND NEEDS. PT REPORTS LIVING AT HOME INDEPENDENTLY WITH HIS . PT HAS BEDSIDE COMMODE, CANE AND GLUCOMETER FROM [facility] WHERE PT GETS ALL OF HIS PRIMARY CARE. PT HAS RENAL APPOINTMENT AT [place] FIRST WEEK OF JUNE. PT HAS NO OUTSIDE SERVICES ASSISTING IN THE HOME. CM DISCUSSED AVAILABILITY OF HOME HEALTH, REHAB SERVICES AND MEDICAL EQUIPMENT. PT DENIES DISCHARGE NEEDS, REPORTS HIS WILL PICK HIM UP FOR DISCHARGE HOME TODAY. IMPORTANT MESSAGE FROM MEDICARE PROVIDED AND EXPLAINED. PT STATES THAT THE LADY RENAL DOCTOR TOLD HIM THEY WOULD GIVE HIM VALTAS[employer] SAMPLES TO USE TO GIVE HIM TIME TO [facility]LLOW UP WITH [facility]. CM SPOKE TO EH GAUTHIER WHO OBTAINED VALTASA SAMPLES THAT WERE PROVIDED TO PT FOR DISCHARGE HOME. PT REPORTS TO CM THAT HE DID REF[facility] TO [facility] BUT WAS NOTIFIED BY [facility] HE HAS RIGHT TO STAY HERE AND THAT HIS BILL IS COVERED BY [place]. PT DENIES FURTHER NEEDS FOR DISCHARGE. Bench Tool Maker: Rachid Carlin DCPIA - Discharge Planning Initial Assessment Updated by [email or web address]: Rachid Carlin on 06/05/19 7:03 pm * Is the patient Alert and Oriented? Yes * How many steps to enter\exit or inside your home? NONE * [facility] * Preadmission Environment Home with Family * ADLs Independent * Equipment Bedside Commode Cane Glucometer * Other Equipment [employer] [facility] * List name and contact numbers for known caregivers / representatives who currently or will assist patient after discharge: WALLY REID, SPOUSE, * Verbal permission to speak to the caregivers and representatives has been obtained from the patient. N/A * Community resources currently utilized None * Please name any agencies selected above. NONE * Additional services required to return to the preadmission environment? No * Can the patient safely return to the preadmission environment? Yes * Has this patient been hospitalized within the prior 30 days at any hospital? Yes Coverage Notice Reviewer: [id number] - Rachid Carlin Notice Issued Date-Time: 06/05/2019 9:35 Notice Type: IM Discharge Notice Notice Delivered To: Patient Relationship to Patient: Fluxer Name: Delivery Method: HAND - Hand Delivered Eleonora Days: Prior Verbal Notification: Recipient Understood Notice: Yes Recipient Signature: Yes Med Rec Note Co-signed by Attending: Coverage Notice Comment: Last DP export: 06/05/19 6:06 p Patient Name: DASHAWN REID Page [id number] at 1913 All edits/amendments must be made on the electronic document DICTATION DATE: 06/05/191912 REEL OPERATOR: KATIE 06/05/191912 RPT#: [id number] DC DATE:06/05/19 STATUS: DIS IN [facility] [address] [place] [address] END OF REPORT
== END 2019-06-05 16:55 | disposition home or self-care (01) | DRG 641 ==
LOC: D.ER 22:16 → OBSVTIME 05-30 00:08 → D.M2 05-30 00:08
PROVIDERS: Emergency Medicine; Internal Medicine; Internal Medicine Cardiovascular Disease; ADMIT Internal Medicine Nephrology; ATTEND Internal Medicine Nephrology
DX: E87.5 Hyperkalemia (principal); I25.110 Atherosclerotic heart disease of native coronary artery with unstable angina pectoris; I42.9 Cardiomyopathy, unspecified; E83.42 Hypomagnesemia; D64.9 Anemia, unspecified; D69.6 Thrombocytopenia, unspecified; E11.22 Type 2 diabetes mellitus with diabetic chronic kidney disease; I12.9 Hypertensive chronic kidney disease with stage 1 through stage 4 chronic kidney disease, or unspecified chronic kidney disease; N18.9 Chronic kidney disease, unspecified; E11.65 Type 2 diabetes mellitus with hyperglycemia; I25.10 Atherosclerotic heart disease of native coronary artery without angina pectoris; J44.9 Chronic obstructive pulmonary disease, unspecified; G20 Parkinson's disease; E78.5 Hyperlipidemia, unspecified; G47.33 Obstructive sleep apnea (adult) (pediatric); Z86.73 Personal history of transient ischemic attack (TIA), and cerebral infarction without residual deficits

== ENCOUNTER 2019-06-29 18:09 | Emergency (ER) | payer OTHER ==
[~2019-06-29] VITALS: Ht 185.4 cm; Wt 74.1 kg
[~2019-06-29 18:09] MED LIST changes: +CARAFATE1 G PO; +LASIX40 MG PO; +PEPCID40 MG PO; +VIBRAMYCIN 100100 MG PO
[2019-06-29 18:14] VITALS: Ht 185.4 cm; Wt 74.1 kg
[2019-06-29 19:53] LABS: BASOPHILS 0.4 % (0-2); EOSINOPHILS 2.8 % (0-7); HEMATOCRIT 33.6 % (42.0-54.0); HEMOGLOBIN 10.3 g/dL (13.5-17.5); IMMATURE GRANULOCYTES 0.4 % (0-5); LYMPHOCYTES 31.5 % (15-50); MCH 30.2 pg (26.0-34.0); MCHC 30.7 g/dL (31.0-37.0); MCV 98.5 fL (80.0-100.0); MEAN PLATELET VOLUME 14.2 fL (7.4-10.4); NEUTROPHILS 56.9 % (40-80); PLATELET COUNT 99 10x3/uL (130-400); RBC 3.41 10x6/uL (4.20-6.10); RDW 15.4 % (11.5-14.5); WBC 5.4 10x3/uL (4.8-10.8)
[2019-06-29 20:08] LABS: CALC OSMOLALITY 304 mosm/kg (275-300); CALCIUM 8.9 mg/dL (8.5-10.1); CARBON DIOXIDE 25.8 mmol/L (21.0-32.0); CHLORIDE - SERUM 104 mmol/L (98-107); CREATININE - SERUM 2.8 mg/dL (0.6-1.3); POTASSIUM - SERUM 4.2 mmol/L (3.5-5.1); SODIUM 139 mmol/L (136-145); UREA NITROGEN 63 mg/dL (7-18); eGFR NON AFRICAN AMERICAN 24 mL/min (90-120)
[2019-06-29 20:09] LABS: GLUCOSE 255 mg/dL (74-106)
[2019-06-29 20:12] LABS: PLATELET ESTIMATE DECREASED
[2019-06-29 20:14] LABS: APTT 30.7 SECONDS (22.8-39.4); INR 1.05 (0.85-1.17); PROTIME 13.6 SECONDS (11.6-15.0)
[2019-06-29 20:25] LABS: ALBUMIN 3.3 g/dL (3.4-5.0); ALKALINE PHOSPHATASE 202 U/L (30-120); ALT (SGPT) 40 U/L (10-68); BILIRUBIN - TOTAL 0.43 mg/dL (0.2-1.3); CKMB 3.5 U/L (0.0-3.6); CREATINE KINASE 156 UL (21-232); MAGNESIUM - SERUM 1.5 mg/dL (1.8-2.4); PROTEIN - SERUM 7.2 g/dL (6.4-8.2); TROPONIN-I 0.053 ng/mL (0.000-0.060)
[2019-06-29 20:51] VITALS: BP 157/71
== END 2019-06-29 20:51 | disposition home or self-care (01) ==
LOC: D.ER 18:09
PROVIDERS: Family Medicine
DX: R07.9 Chest pain, unspecified (principal); E11.9 Type 2 diabetes mellitus without complications; Z95.1 Presence of aortocoronary bypass graft; J44.9 Chronic obstructive pulmonary disease, unspecified; Z79.4 Long term (current) use of insulin; G20 Parkinson's disease

== ENCOUNTER 2019-07-03 20:32 | Emergency (ER) | payer OTHER ==
[~2019-07-03] VITALS: Ht 185.4 cm; Wt 75.9 kg
[2019-07-03 20:34] VITALS: Ht 185.4 cm; Wt 75.9 kg
[2019-07-03 20:55] LABS: BASOPHILS 0.2 % (0-2); EOSINOPHILS 3.1 % (0-7); HEMATOCRIT 32.6 % (42.0-54.0); HEMOGLOBIN 9.9 g/dL (13.5-17.5); IMMATURE GRANULOCYTES 0.4 % (0-5); LYMPHOCYTES 27.3 % (15-50); MCH 30.7 pg (26.0-34.0); MCHC 30.4 g/dL (31.0-37.0); MCV 100.9 fL (80.0-100.0); MEAN PLATELET VOLUME 13.5 fL (7.4-10.4); MONOCYTES 9.1 % (2-11); NEUTROPHILS 59.9 % (40-80); PLATELET COUNT 85 10x3/uL (130-400); RBC 3.23 10x6/uL (4.20-6.10); RDW 15.7 % (11.5-14.5); WBC 4.8 10x3/uL (4.8-10.8)
[2019-07-03 21:19] LABS: BILIRUBIN NEGATIVE (NEGATIVE); GLUCOSE 1000 mg/dL (NEGATIVE); KETONE NEGATIVE (NEGATIVE); NITRITE NEGATIVE (NEGATIVE); SPECIFIC GRAVITY 1.015 (1.005-1.020); UROBILINOGEN NORMAL (NORMAL)
[2019-07-03 21:20] LABS: ALKALINE PHOSPHATASE 245 U/L (30-120); ALT (SGPT) 44 U/L (10-68); BILIRUBIN - TOTAL 0.49 mg/dL (0.2-1.3); CALCIUM 7.9 mg/dL (8.5-10.1); CARBON DIOXIDE 30.4 mmol/L (21.0-32.0); CHLORIDE - SERUM 99 mmol/L (98-107); CKMB 6.3 U/L (0.0-3.6); CREATINE KINASE 250 UL (21-232); CREATININE - SERUM 2.7 mg/dL (0.6-1.3); MAGNESIUM - SERUM 1.5 mg/dL (1.8-2.4); POTASSIUM - SERUM 4.1 mmol/L (3.5-5.1); PROTEIN - SERUM 6.8 g/dL (6.4-8.2); SODIUM 138 mmol/L (136-145); UREA NITROGEN 73 mg/dL (7-18); eGFR NON AFRICAN AMERICAN 25 mL/min (90-120)
[2019-07-03 21:21] LABS: PROTIME 13.1 SECONDS (11.6-15.0)
[2019-07-03 21:22] LABS: APTT 29.9 SECONDS (22.8-39.4)
[2019-07-03 21:25] LABS: CALC OSMOLALITY 314 mosm/kg (275-300); GLUCOSE 397 mg/dL (74-106); TROPONIN-I < 0.017 ng/mL (0.000-0.060)
[2019-07-03 21:29] LABS: PLATELET ESTIMATE DECREASED
[2019-07-03 23:34] VITALS: BP 131/68
== END 2019-07-03 23:35 | disposition home or self-care (01) ==
LOC: D.ER 20:32
PROVIDERS: Family Medicine
DX: R73.9 Hyperglycemia, unspecified (principal); G20 Parkinson's disease; J44.9 Chronic obstructive pulmonary disease, unspecified

== ENCOUNTER 2019-10-20 18:14 | Observation (INO) | payer OTHER ==
[~2019-10-20] VITALS: Ht 182.9 cm; Wt 77.6 kg
--- NOTE | ~2019-10-20 | OP ---
PATIENT NAME: DASHAWN REID MEDICAL RECORD: [id number] :[birth year] LOCATION:D.M2 D.2119 ADMISSION DATE:10/20/19 SURGEON: RAY FAITH MD DATE OF OPERATION: 10/21/2019 PROCEDURE: Left heart catheterization, selective coronary angiography, right femoral artery approach. CATHETERS: A 5-Maltese sheath, 5/4 left and right Maninder, 5/4 pig. The procedure was well tolerated. The patient returned to the spaulding. Sheath removed. ExoSeal device placed. FINDINGS: Left ventriculography 30-degree PEREZ view shows global hypokinesis. Overall, function reduced 30% to 35%. CORONARY ANATOMY: LEFT MAIN: Left main is free of disease. LAD: Fills for a short period of time and is seen filling via competitive flow. CIRCUMFLEX: Has 2 occluded OM. Distal circumflex itself has luminal irregularities, but no flow obstructive. RIGHT CORONARY ARTERY: Has totally occluded distal PDA. BYPASS GRAFTS 1. MOODY to LAD: This is widely patent throughout its course without evidence of post-anastomotic stenosis. 2. SAPHENOUS VEIN GRAFT TO PDA: Widely patent. 3. SAPHENOUS VEIN GRAFT TO CIRCUMFLEX: This has a previously placed stent distally. Right past that anastomotic site with 90% in-stent restenosis, obviously culprit vessel at this point. DESCRIPTION OF PROCEDURE: A 5-Maltese sheath was exchanged for a 6-Maltese sheath. A JR right guiding catheter provided fair guide catheter support followed by 300 cm Whisper wire. We used a 3.5 x 15 mm balloon up to 6 and 8 atmospheres. This shows good resolution of 90% stenosis to less than 10% residual. GAYLE flow was 3 throughout post-procedure with some plumping distal vasculature as well. Sheath closed with ExoSeal device. The patient placed on Plavix. Heparin was used during the case. TRANSINT:[id number] Voice Confirmation ID: [id number] DOCUMENT ID: [id number] RAY FAITH MD CC: [id number] DICTATION DATE: 10/21/19 1138 EYEGLASS FITTER: 10/21/192152 DIS IN 10/21/19 [facility] [address] [place] [address]
--- NOTE | ~2019-10-20 | HEMODYNAMI ---
PATIENT:DASHAWN REID MEDICAL RECORD: [id number] : 51 [id number] ADMISSION DATE: 10/20/19 Generatedon:10/21/201911:29 Patient name: DASHAWN REID Patient #: [id number] SSN: [id number] : 1955 Date of study: 10/21/2019 Page: Of Hemodynamic Procedure Report Patient Data Patient Demographics Procedure consent was obtained First Name: DASHAWN Gender: Male Last Name: FRANKLIN : 1955 Middle Initial: F Age: 63 year(s) Patient #: [id number] Race: SSN: [id number] Additional ID: [id number] Contact details Address: [place] [address] State: [place] City: [place] Zip code: [address] Past Medical History Allergies Allergen Reaction Date Comments Reported Other allergy Other 01/12/2019 penicillins, morhpine, heparin Other allergy 10/21/2019 PCN/MORPHINE Admission Admission Data Admission Date: 10/20/2019 Admission Time: 21:19 Arrival Date: 10/21/2019 Arrival Time: 0:00 Room #: [facility] Height (in.): 72 BSA: 1.99 (m2) Height (cm.): 182.88 BMI: 23.19 (kg/m2) Weight (lbs.): 171 Weight (kg.): 77.56 Lab Results Lab Result Date: 10/21/2019 Lab Result Time: 0:00 Biochemistry Name Units Result Min Max BUN mg/dl 48 --(----)-* 7 18 Creatinine mg/dl 2.3 --(----)-* 0.6 1.3 eGFR ml/min 30 *-(----)-- 90 120 NONAFRICAN Troponin l ng/ml 0.017 --(-*--)-- 0 0.06 CBC Name Units Result Min Max Hematocrit % 34.9 *-(----)-- 42 54 Hemoglobin g/dl 10.7 *-(----)-- 13.5 17.5 Procedure Procedure Types Cath Procedure Diagnostic Procedure [facility] w/Coronaries w/Grafts Sedation Charges Moderate Sedation up to 15 minutes PCI Procedure AMI/SVG/QUALITY MANAGEMENT COORDINATOR PTCA or Stent SVG-BMS/MODESTO Initial Procedure Description Procedure Date Procedure Date: 10/21/2019 Procedure Start Time: 11:00 Procedure End Time: 11:27 Procedure Staff Name Function Ector Balderas MD Performing Physician Janette Pablo RN Nurse Kelle Batista RT Monitor Ginny Emmanuel RT Scrub Indication Chest pain Procedure Data Cath Procedure Fluoroscopy Diagnostic fluoroscopy Total fluoroscopy Time: 7.9 time: 7.9 min min Diagnostic fluoroscopy Total fluoroscopy dose: dose: 1224 mGy 1224 mGy Contrast Material Contrast Material Type Amount (ml) Isovue 300 140 Entry Location Entry Primary Successful Side Size Upsize Upsize Entry Closure Succes sful Closure Location (Fr) 1 (Fr) 2 (Fr) Remarks Device Remarks Femoral Right 5 Fr 6 Fr Exoseal artery Short Estimated blood loss: 10 ml Diagnostic catheters Device Type Used For End Catheter Placement MULTIPACK JL 4.0 5Fr Left Coronary catheter Angiography MULTIPACK 3DRC 5Fr Procedure catheter MULTIPACK Pigtail 5 Fr Procedure catheter Procedure Complications No complications Procedure Medications Medication Administration Route Dosage 0.9% NaCl I.V. 100 ml/hr Oxygen etCO2 Nasal cannula 2 l/min Lidocaine 2% added to field 20 Heparin Flush Bag added to field 2 bags (1000units/500ml NS) Versed I.V. 2 mg Fentanyl I.V. 50 mcg Heparin Bolus I.V. 5000 units Hemodynamics Rest BSA: 1.99 (m2) O2 Consumption: Estimated: 227.71 (ml/min) O2 Consumption indexed : Estimated:114.43 (ml/min/m) Heart Rate: 64 (bpm) Pressure Samples Time Site Value (mmHg) Purpose Heart Use Rate(bpm) 11:06 LV 157/4,9 Snapshot 66 Gradients Valve Time Site Site Mean SEP/DFP Peak To Heart Use 1 2 (mmHg) (sec/min) Peak Rate (mmHg) (bpm) Aortic 11:07 LV AO 66 Snapshots Pre Cath Intra NCS Post Cath Vital Signs Time Heart Resp SPO2 etCO2 NIBP (mmHg) Rhythm Pain Sedation Rate (ipm) (%) (mmHg) Status Level (bpm) 10:54:57 64 13 99 36.7 173/89(144) NSR 0 (11) 10(A) , No pain 10:59:23 64 14 100 34.4 161/77(124) NSR 0 (11) 10(A) , No pain 11:03:43 65 15 100 37.4 156/80(123) NSR 0 (11) 10(A) , No pain 11:08:03 66 14 99 39.6 154/75(95) NSR 0 (11) 10(A) , No pain 11:12:23 67 16 99 37.4 151/75(101) NSR 0 (11) 10(A) , No pain 11:16:40 67 17 100 38.1 141/79(90) NSR 0 (11) 10(A) , No pain 11:21:38 67 16 24.7 Measuring NSR 0 (11) 10(A) , No pain 11:21:45 67 16 32.9 158/84(104) NSR 0 (11) 10(A) , No pain 11:26:03 67 10 36.7 168/85(108) NSR 0 (11) 10(A) , No pain Medications Time Medication Route Dose Verified Delivered Reason Notes Effectiveness by by 10:51:14 0.9% NaCl I.V. 100 Ector Janette used for ml/hr [place] [facility] procedure MD ROSEN 10:51:19 Oxygen etCO2 2 Ector Janette used for Nasal l/min [facility] procedure cannula MD ROSEN 10:51:25 Lidocaine 2% added 20ml Ector Barney for local to vial [facility] anesthetic field MD MCDANIELS 10:51:30 Heparin Flush added 2 Ector Ector used for Bag to bags [facility] procedure (1000units/500ml field MD MCDANIELS NS) 11:01:05 Fentanyl I.V. 50 Ector Janette for sedation mcg [facility] Pablo MD RN 11:01:56 Versed I.V. 2 mg Ector Janette for sedation [facility] Pablo MD RN 11:10:48 Heparin Bolus I.V. 5000 Ector Byrda for verif ied units [facility] anticoagulation with Dr. MCDANIELS RN [place] Procedure Log Time Note 10:27:12 Informed consent obtained and on chart 10:28:10 Indication : Chest pain 10::32 Lab Result : Troponin l 0.017 ng/ml 10:: Lab Result : Creatinine 2.3 mg/dl :: Lab Result : BUN 48 mg/dl :: Lab Result : Hematocrit 34.9 % 10:: Lab Result : Hemoglobin 10.7 g/dl 10::32 Lab Result : eGFR NONAFRICAN 30 ml/min 10:29:48 Arrival Date: 10/21/2019 12:00:00 AM 10:30:03 Patient Height : 72 inches 10:30:09 Patient Weight : 171 lbs 10:30:46 [employer] RT(R) sent for patient. Start room use. 10:32:35 Patient allergic to Other allergyPCN/MORPHINE 10:32:41 Time tracking: Regular hours (M-F 7:00 - 5:00) 10:32:46 Procedure Status Urgent Heart Cath (IP). 10:32:56 Plan of Care:Hemodynamics will remain stable., Cardiac rhythm will remain stable., Comfort level will be maintained., Respiratory function will remain adequate., Patient/ family verbilizes understanding of procedure., Procedure tolerated without complication., Recovers from procedure without complications.. 10:40:51 Patient received from Med II to CCL 2 Alert and oriented. Tansferred to table in Supine position. 10:40:53 Warm blankets applied, and sakshi hugger turned on for patient comfort. 10:40:54 Correct patient and procedure confirmed by team. 10:40:55 ECG and BP/O2 sat monitors applied to patient. 10:41:10 H&P Date Dictated: 10/21/2019 Within 30 days and on chart., ER History on chart.. 10:41:12 Pre-procedure instructions explained to patient. 10:41:13 Pre-op teaching completed and patient verbalized understanding. 10:41:16 Patient NPO since Midnight. 10:41:20 Is the patient allergic to Iodine/contrast media? No. 10:41:23 Was the patient premedicated? Yes 10:41:26 Is patient on blood thinner?Yes 10:51:14 0.9% NaCl 100 ml/hr I.V. was administered by Janette Pablo RN; used for procedure; Verbal order read back and verified. 10:51:19 Oxygen 2 l/min etCO2 Nasal cannula was administered by Janette Pablo RN ; used for procedure; Verbal order read back and verified. 10:51:25 Lidocaine 2% 20ml vial added to field was administered by Ector Balderas MD; for local anesthetic; Verbal order read back and verified. 10:51:30 Heparin Flush Bag (1000units/500ml NS) 2 bags added to field was administered by Ector Balderas MD; used for procedure; Verbal order read back and verified. 10:53:46 Vital chart was started 10:54:56 Baseline sample Acquired. 10:55:02 Rhythm: sinus rhythm 10:55:04 Full Disclosure recording started 10:55:05 - 10:55:08 Family unavailable. 10:55:18 ACC The patient was administered the following blood thiners within the last 24 hours: ACCPlavix 10:55:26 Patient diabetic? Yes. 10:55:33 ----Pre-sedation anethsthesia assessment.---- 10:56:31 Pt allergy list shows "opiates" and Heparin. Pt not allergic to heparin and has received on multiple occasions w/out issue. Pt states the allergy is "it makes me bleed alot". Pt also states he is not allergic to opiates, only morphine. No s/s of reaction after previous caths from either opiates or heparin.. 10:56:51 Previous problem with sedation/anesthesia? No ? 10:58:52 Snore? Yes 10:58:55 Sleep apnea? No 10:58:58 Opens mouth fully? Yes 10:59:00 Sticks out tongue? Yes 10:59:05 Airway obstruction? Yes COPD 10:59:10 Dentures? No ? 10:59:15 Pre procedure: right dorsailis pedis pulse 1+ Palpable, but thready & weak; easily obliterated 10:59:24 IV patent on arrival in left hand with 0.9% NaCl at [facility]. 10:59:33 Lab results completed and on chart. 10:59:38 Right groin area was prepped with chlora-prep and draped in sterile fashion 10:59:40 Alarms reviewed by R. N. 10:59:40 Sharps counted by scrub and verified by R.N. 10:59:42 Physician arrived 10:59:42 --------ALL STOP TIME OUT------ 10:59:44 Final Timeout: patient, procedure, and site verified with staff and physician. All members of the team are in agreement. 10:59:46 Right groin site verified by team. 10:59:53 Fire Safety Assessment: A--An alcohol-based skin anteseptic being used preoperatively., C--Open oxygen or nitrous oxide is being used., D--An ESU, laser, or fiber-optic light is being used. 11:00:00 Physical assessment completed. ASA score P 2 - A patient with mild systemic disease as per Ector Balderas MD. 11:00:07 3b) 30-44 Moderately reduced kidney function. 11:00:12 Maximum allowable contrast dose (3.7 X eGFR X 0.75)83 ml. 11:00:18 Sedation plan: IV Moderate Sedation Medication:Versed, Fentanyl 11:00:23 Use device set Femoral Dx 11:00:25 ACIST Syringe (89705) opened to sterile field. 11:00:26 Bag Decanter (2002S) opened to sterile field. 11:00:27 Medline Cath Pack ([id number]) opened to sterile field. 11:00:28 ACIST Hand Control (65022) opened to sterile field. 11:00:29 ACIST Manifold (24263) opened to sterile field. 11:00:29 DIAGNOSTIC Multipack 5Fr catheter set (OV1074) opened to sterile field. 11:00:30 Tegaderm 4 x 4 (1626W) opened to sterile field. 11:00:32 SHEATH 5FR [place] (IEN801) opened to sterile field. 11:00:33 EMERALD Guide Wire (511-442) opened to sterile field. 11:00:38 Procedure started. 11:00:47 Local anesthetic to right femoral artery with Lidocaine 2% by Ector Guillen MD.INITIAL ACCESS ONLY 11:01:05 Fentanyl 50 mcg I.V. was administered by Janette Pablo RN; for sedation ; Verbal order read back and verified. 11::13 A 5 Fr sheath was inserted into the Right Femoral artery 11::22 A MULTIPACK JL 4.0 5Fr catheter was advanced over the wire and used for Left Coronary Angiography. 11:01:25 Zero performed for pressure channel P1 11:01:30 LCA angiography performed. 11::35 Injector settings: Ml/sec: 3, Volume: 6, 11::42 Catheter removed. 11::50 A MULTIPACK 3DRC 5Fr catheter was advanced over the wire and used for Procedure. 11::56 Versed 2 mg I.V. was administered by Janette Pablo RN; for sedation; Verbal order read back and verified. 11:02:58 SVG to Circ angiography performed. 11:03:02 Injector settings: Ml/sec: 3, Volume: 6, 11:04:04 SVG to RCA angiography performed. 11:05:19 MOODY to LAD angiography performed. 11:05:23 Injector settings: Ml/sec: 3, Volume: 5, 11:05:56 RCA angiography performed. 11:06:03 Injector settings: Ml/sec: 3, Volume: 6, 11:06:04 Catheter removed. 11:06:13 A MULTIPACK Pigtail 5 Fr catheter was advanced over the wire and used for Procedure. 11:06:49 LV gram done using PEREZ 11:07:08 EF : 35 % 11:07:10 LV hemodynamics recorded. 11:07:14 Catheter removed. 11:07:15 Proceeding to intervention. 11:08:17 WHISPER 300cm guide wire ([id number]) opened to sterile field. 11:08:18 INFLATOR Merit BasixCompak (IX1098) opened to sterile field. 11:08:19 SHEATH 6FR [place] (DFN751) opened to sterile field. 11:08:31 GUIDE 6FR JR 4.0 catheter (ZZ4SP61) opened to sterile field. 11:08:50 Sheath upsized to a 6 Fr Short. 11:08:56 ACC Pre-intervention GAYLE Flow is 3. 11:09:05 6 Fr JR4 guide catheter was inserted over the wire 11::13 [id number] wire advanced. 11:09:47 Pre PCI Site: Vein Graft mCirc has 90% stenosis. 11:10:48 Heparin Bolus 5000 units I.V. was administered by Janette Pablo RN; for anticoagulation; verified with Dr. Yeboah Verbal order read back and verified. 11:16:09 Inflate balloon Inflation number: 1 A EUPHORA 3.5 x 15 Balloon ([id number]) was prepped and advanced across the Aorta Left -> Mid CX , then inflated to 10 BILLY for 0:11 (min:sec) . 11:18:29 Balloon removed over the wire. 11:18:31 Wire removed. 11:18:32 Guide catheter removed. 11:18:35 ACC Post-intervention GAYLE Flow is 3. 11:18:44 Post PCI Site: Vein Graft mCirc has 0% stenosis. 11:18:55 EXOSEAL 6Fr (EX600) opened to sterile field. 11:19:19 Sheath removed intact; hemostasis achieved with Exoseal to the Right Femoral artery. 11:19:22 Procedure ended.(Physican Out) 11:19:41 Contrast amount:Isovue 300 140ml. 11:19:44 Maximum allowable dose exceeded? Yes. 11:19:46 Sharps counted by scrub and verified by R.N. 11:19:54 Fluoroscopy time 07.90 minutes. 11:20:02 Flurop Dose total: 1224 11:20:02 Fluoroscopy dose: 1224 mGy 11:20:12 Dose Area Product 98246 mGy/cm. 11:20:21 Post-op/insertion site Right Femoral artery dressed using a 4 x 4 and Tegaderm. 11:20:30 Post-procedure physical assessment completed. ASA score P 2 - A patient with mild systemic disease as per Ector Balderas MD. 11:20:52 Estimated blood loss: 10 ml 11:20:55 Post procedure instruction explained to patient.Patient verbalizes understanding. 11:21:32 ACT drawn and resulted at 301 seconds. (normal therapeutic range 180-24 0 seconds). 11:23:42 Risk of Mortality: 0.8 11:23:46 Risk of blood transfusion: 2.3 11:23:51 Risk of MAGY: 8.6 11:24:09 Patient needs reinforcement of post procedure teaching. 11:25:05 Procedure type changed to Cath procedure, Diagnostic procedure, LHC, C w/Coronaries w/Grafts, Sedation Charges, Moderate Sedation up to 15 minutes, PCI procedure, AMI/SVG/QUALITY MANAGEMENT COORDINATOR PTCA or Stent, SVG-BMS/MODESTO Initial 11:25:09 Procedure and supply charges have been captured, reviewed, submitted an d are correct. 11:25:21 Procedure Complication : No complications 11:27:11 Vital chart was stopped 11::13 [facility] Findings: MVD- PCI performed (see procedure note) 11::18 Operative report dictated upon procedure completion. 11::19 See physician's report for complete and final results. 11::22 Report given [address] [facility]. 11::27 Patient transfered to [facility] with Bed. 11::31 Procedure ended. 11::31 Full Disclosure recording stopped 11::42 ACC-PCI Only Patient was given prescriptions, or instructed by Ector Balderas MD to start/continue the following medications upon discharge: Plavix 11::44 End room use (Document Last) Intervention Summary Intervention Notes Time ActionType Lesion and Equipment Action# Pressure Duration Attributes Used 11:16:09 Inflate Aorta Left EUPHORA 1 10 00:11 balloon -> Mid CX 3.5 x 15 Balloon ([id number]) Device Usage Item Name Manufacture Quantity Catalog Hospital Part Current Minimal L ot# / Number Charge Number Stock Stock Serial# Code ACIST Acist 1 86779 044059 900644 419797 20 Syringe Medical (11210) Systems Inc Bag Microtek 1 740977 92618 597058 5 Decanter Medical Inc. () Medline Medline 1 [id number] 299431 04734 242545 5 Cath Pack ([id number]) ACIST Hand Acist 1 46550 699751 115398 266994 5 Control Medical (00501) Systems Inc ACIST Acist 1 86946 828694 716558 189744 5 Manifold Medical (67840) Systems Inc DIAGNOSTIC Cardinal 1 [id number] 392741 02109 930914 30 Exotel 5Fr catheter set (AU2190) Tegaderm 4 3M 1 1626W 835617 466607 553587 5 x 4 (1626W) SHEATH 5FR Terumo 1 SPE352 389235 248763 980713 5 [place] (EIE534) EMERALD Cardinal 1 502-062 247869 049458 298643 5 Guide Wire Health (502455) MULTIPACK Cardinal 1 874643 5 JL 4.0 5Fr Health catheter MULTIPACK Cardinal 1 218762 5 3DRC 5Fr Health catheter MULTIPACK Cardinal 1 836245 5 Pigtail 5 Health Fr catheter WHISPER Bartholomew 1 [id number] 475990 232555 963798 5 300cm guide Vascular wire (3346094DB) INFLATOR Merit 1 BJ4335 424492 593910 911301 15 Merit Medical BasixCompak (NM8291) SHEATH 6FR Terumo 1 GCU742 893534 970158 206344 40 [place] (ASU736) GUIDE 6FR Medtronic 1 HM6QA61 086883 94496 627800 1 JR 4.0 catheter (FE6WZ57) EUPHORA 3.5 Medtronic 1 [id number] 143488 853286 781452 5 2 [id number] x 15 Balloon ([id number]) EXOSEAL 6Fr Cardinal 1 EX600 169678 414217 192004 10 (EX600) Health Signature Audit Kinde Stage Time Signature Unsigned Intra-Procedure 10/21/2019 Kelle 11:28:04 AM Lynne VOGEL) (RADHA) Intra-Procedure 10/21/2019 Janette Pablo 11:28:35 AM SILAS Intra-Procedure 10/21/2019 Ector Araujo 11:29:04 AM Wilmer MCDANIELS Signatures Performing Physician : Signature : Ector Balderas MD Date : Time : Nurse : Janette Pablo RN Signature : Date : Time : Monitor : Kelle Signature : Lynne RT Date : Time : [address] [place] [address]
--- NOTE | ~2019-10-20 | HP ---
PATIENT: DASHAWN REID MEDICAL RECORD: [id number] ACCOUNT: [id number] LOCATION:[address] : [birth year] ADMISSION DATE: 10/20/19 PCP: JANETH, HISTORY AND PHYSICAL EXAMINATION HISTORY OF PRESENT ILLNESS: A 63-year-old gentleman with known history of coronary artery disease, status post coronary artery bypass grafting, most recently had intervention to the circumflex in April of this year, presented with rest symptoms, chest pain radiating to the jaw, no evidence of previous angina, relieved with nitroglycerin in the Emergency Room. He has a history of myopathy as well and has noted some effort intolerance over the past 2-3 weeks. We are asked to see him concerning his cardiovascular status. PAST MEDICAL HISTORY: Includes; 1. History of hypertension. 2. Hyperlipidemia. 3. Coronary artery disease as described above. 4. Diabetes mellitus. 5. Parkinson's disease. 6. Chronic renal insufficiency, creatinine 2 to 2.4. MEDICATIONS: Include albuterol 2 puffs q.i.d., Plavix 75 every day, metoprolol 100 mg p.o. daily, Imdur 10 mg p.o. t.i.d., Lyrica 150 mg p.o. b.i.d., Carafate 1 g before meals and at bedtime, Glucotrol 2.5 b.i.d. ALLERGIES: OPIATES, PENICILLIN. SOCIAL HISTORY: Nonsmoker, nondrinker. Easily takes care of all his ADLs. REVIEW OF SYSTEMS: The patient reports easy bruising but reports no swollen glands. The patient reports no fever, no night sweats, no significant weight gain, no significant weight loss. No significant exercise tolerance. The patient reports no dry eyes, no irritation, no vision change. Patient reports no difficulty hearing and no ear pain. Patient reports no frequent nose bleeds or nose and sinus problems. Patient reports on arm pain on exertion. No shortness of breath while lying down. No history of heart murmur. Patient reports no cough, no wheezing or coughing up blood. Patient reports no abdominal pain, no vomiting. Normal appetite. No diarrhea and not vomiting blood. No nausea and no constipation. Patient reports no incontinence. No difficulty urinating. No hematuria. No increased frequency. Patient reports no muscle aches. No weakness, no arthralgias, no back pain. No swelling of the extremities. Patient reports no abnormal mole, no jaundice, no rashes. Reports no loss of consciousness. No weakness and no numbness. No seizures, dizziness, or headaches. The patient reports no depression, no sleep disturbance, feeling safe in a relationship and no alcohol abuse. Patient reports on fatigue. Reports no runny nose or sinus pressure. No itching, no hives, and no frequent sneezing. PHYSICAL EXAMINATION: GENERAL: Pleasant, no acute distress, appears stated age. VITAL SIGNS: Blood pressure 181/93, pulse 60 and regular. HEENT: Normocephalic, atraumatic. NECK: No bruits noted. HEART: Regular, II/ systolic ejection murmur. Soft S3 is probably noted. ABDOMEN: Soft, nontender. HISTORY AND PHYSICAL [id number] DASHAWN REID EXTREMITIES: Pulses decreased, 1+. There is no edema. IMPRESSION: Acute coronary syndrome. The patient with known coronary disease, ischemic cardiomyopathy, multiple risk factors well within a window for restenosis. PLAN: For angiography, intervention based on the above. TRANSINT:[id number] Voice Confirmation ID: [id number] DOCUMENT ID: [id number] RAY FAITH MD CC: [id number] DICTATION DATE: 10/21/19 1047 SENIOR PROGRAMMER: 10/21/19 1439 ADM IN [facility] [address] [id number]
[2019-10-20 19:00] VITALS: BP 184/72
--- NOTE | 2019-10-20 19:00 | NUR ---
REPORT TO SILAS CRISOSTOMO
[2019-10-20 19:28] LABS: BASOPHILS 0.3 % (0-2); EOSINOPHILS 3.3 % (0-7); HEMATOCRIT 35.4 % (42.0-54.0); HEMOGLOBIN 10.9 g/dL (13.5-17.5); IMMATURE GRANULOCYTES 0.3 % (0-5); LYMPHOCYTES 30.6 % (15-50); MCH 30.5 pg (26.0-34.0); MCHC 30.8 g/dL (31.0-37.0); MCV 99.2 fL (80.0-100.0); MEAN PLATELET VOLUME 13.4 fL (7.4-10.4); MONOCYTES 8.1 % (2-11); NEUTROPHILS 57.4 % (40-80); PLATELET COUNT 78 10x3/uL (130-400); RBC 3.57 10x6/uL (4.20-6.10); RDW 13.8 % (11.5-14.5)
[2019-10-20 19:44] LABS: APTT 28.6 SECONDS (22.8-39.4); CALC OSMOLALITY 306 mosm/kg (275-300); CALCIUM 7.8 mg/dL (8.5-10.1); CARBON DIOXIDE 23.7 mmol/L (21.0-32.0); CHLORIDE - SERUM 108 mmol/L (98-107); CREATININE - SERUM 2.4 mg/dL (0.6-1.3); INR 0.99 (0.85-1.17); POTASSIUM - SERUM 4.5 mmol/L (3.5-5.1); SODIUM 141 mmol/L (136-145); UREA NITROGEN 53 mg/dL (7-18); eGFR NON AFRICAN AMERICAN 29 mL/min (90-120)
[2019-10-20 19:52] LABS: GLUCOSE 314 mg/dL (74-106)
[2019-10-20 20:01] LABS: ALBUMIN 3.4 g/dL (3.4-5.0); ALKALINE PHOSPHATASE 157 U/L (30-120); ALT (SGPT) 51 U/L (10-68); CKMB 3.2 U/L (0.0-3.6); CREATINE KINASE 158 UL (21-232); MAGNESIUM - SERUM 1.9 mg/dL (1.8-2.4); PROTEIN - SERUM 6.4 g/dL (6.4-8.2); TROPONIN-I < 0.017 ng/mL (0.000-0.060)
[2019-10-20 20:33] LABS: PLATELET ESTIMATE DECREASED
--- NOTE | 2019-10-20 20:42 | NUR ---
PT LYING IN BED RESTING, BREATHS EVEN. NO NEEDS EXPRESSED AT THIS TIME.
[2019-10-20 21:00] VITALS: BP 192/91
[2019-10-20 21:46] LABS: CKMB 3.5 U/L (0.0-3.6); CREATINE KINASE 164 UL (21-232)
[2019-10-20 21:47] LABS: TROPONIN-I < 0.017 ng/mL (0.000-0.060)
[2019-10-20] MEDS ORDERED: GLUCOTROL ER2.5 MG PO (23:42)
[2019-10-20 23:47] VITALS: Ht 182.9 cm; Wt 77.6 kg
[2019-10-20 23:57] VITALS: BP 170/74
[2019-10-21 01:59] LABS: BILIRUBIN NEGATIVE (NEGATIVE); GLUCOSE 250 mg/dL (NEGATIVE); KETONE NEGATIVE (NEGATIVE); NITRITE NEGATIVE (NEGATIVE); SPECIFIC GRAVITY 1.015 (1.005-1.020); UROBILINOGEN NORMAL (NORMAL)
[2019-10-21 02:00] LABS: BACTERIA FEW /hpf (NEGATIVE); EPITHELIAL CELLS 0-5 /hpf (0-5); RED CELLS - URINE 0-5 /hpf (0-5); WHITE CELLS - URINE 0-5 /hpf (NEGATIVE)
[2019-10-21] MEDS ORDERED: ISOSORBIDE MONO10 MG PO (02:33)
[2019-10-21 04:34] VITALS: BP 174/82
[2019-10-21 04:48] LABS: BASOPHILS 0.3 % (0-2); EOSINOPHILS 4.3 % (0-7); HEMATOCRIT 34.9 % (42.0-54.0); HEMOGLOBIN 10.7 g/dL (13.5-17.5); IMMATURE GRANULOCYTES 0.3 % (0-5); LYMPHOCYTES 33.2 % (15-50); MCH 29.9 pg (26.0-34.0); MCHC 30.7 g/dL (31.0-37.0); MCV 97.5 fL (80.0-100.0); MEAN PLATELET VOLUME 12.5 fL (7.4-10.4); MONOCYTES 9.2 % (2-11); NEUTROPHILS 52.7 % (40-80); PLATELET COUNT 75 10x3/uL (130-400); RBC 3.58 10x6/uL (4.20-6.10); RDW 13.6 % (11.5-14.5); WBC 3.9 10x3/uL (4.8-10.8)
[2019-10-21 05:24] LABS: ALBUMIN 3.3 g/dL (3.4-5.0); ALKALINE PHOSPHATASE 141 U/L (30-120); ALT (SGPT) 48 U/L (10-68); BILIRUBIN - TOTAL 0.29 mg/dL (0.2-1.3); CALCIUM 8.2 mg/dL (8.5-10.1); CARBON DIOXIDE 25.7 mmol/L (21.0-32.0); CHLORIDE - SERUM 111 mmol/L (98-107); CKMB 2.7 U/L (0.0-3.6); CREATINE KINASE 145 UL (21-232); CREATININE - SERUM 2.3 mg/dL (0.6-1.3); POTASSIUM - SERUM 4.3 mmol/L (3.5-5.1); PROTEIN - SERUM 6.6 g/dL (6.4-8.2); SODIUM 145 mmol/L (136-145); TROPONIN-I < 0.017 ng/mL (0.000-0.060); UREA NITROGEN 48 mg/dL (7-18); eGFR NON AFRICAN AMERICAN 30 mL/min (90-120)
[2019-10-21 05:28] LABS: CALC OSMOLALITY 302 mosm/kg (275-300); GLUCOSE 116 mg/dL (74-106)
[2019-10-21 08:52] LABS: CHOL - HDL RATIO 2.5 ratio (2.3-4.9); LDL-HDL RATIO 1.3 ratio (1.5-3.5)
[2019-10-21 09:00] VITALS: BP 181/93
[2019-10-21 10:34] LABS: CKMB 2.6 U/L (0.0-3.6); CREATINE KINASE 134 UL (21-232); TROPONIN-I < 0.017 ng/mL (0.000-0.060)
--- NOTE | 2019-10-21 10:38 | NUR ---
CONSENTS SIGNED. PRE-OPS GIVEN. TO HAND TOOL FILER BY BED.
[2019-10-21 11:00] VITALS: BP 147/80
--- NOTE | 2019-10-21 11:45 | NUR ---
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 VS WNL. RIGHT GROIN STABLE WITHOUT BLEEDING OR HEMATOMA NOTED. WILL MONITOR.
--- NOTE | 2019-10-21 13:16 | NUR ---
BLEEDING AND SM HEMATOMA STRTING TO FORM. FEMSTOP APPLIED. WILL CONT. TO MONITOR.
--- NOTE | 2019-10-21 15:46 | NUR ---
FEMSTOP OFF WITHOUT BLEEDING OR HEMATOMA. DRSG CHANGED TO SITE. WILL MONITOR.
--- NOTE | 2019-10-21 17:00 | NUR ---
BED REST UP. GROIN STABLE.
--- NOTE | 2019-10-21 20:22 | NUR ---
WENT OVER DISCHARGE INSTRUCTIONS. IV AND TELEMETRY REMOVED BY DAYSHIFT. RIGHT GROIN SOFT, DRESSING CLEAN/DRY.INTACT. PATIENT ESCORTED OFF FLOOR, VIA WHEELCHAIR.
== END 2019-10-21 20:22 | disposition home or self-care (01) ==
LOC: D.ER 18:14 → OBSVTIME 21:19 → D.M2 21:19
PROVIDERS: Family Medicine; Internal Medicine Interventional Cardiology; ADMIT Family Medicine; ATTEND Family Medicine
DX: I25.110 Atherosclerotic heart disease of native coronary artery with unstable angina pectoris (principal); E11.65 Type 2 diabetes mellitus with hyperglycemia; I13.0 Hypertensive heart and chronic kidney disease with heart failure and stage 1 through stage 4 chronic kidney disease, or unspecified chronic kidney disease; E11.22 Type 2 diabetes mellitus with diabetic chronic kidney disease; N18.9 Chronic kidney disease, unspecified; I50.22 Chronic systolic (congestive) heart failure; I25.5 Ischemic cardiomyopathy; J44.9 Chronic obstructive pulmonary disease, unspecified; J45.909 Unspecified asthma, uncomplicated; K21.9 Gastro-esophageal reflux disease without esophagitis; D64.9 Anemia, unspecified; G20 Parkinson's disease; D61.818 Other pancytopenia

== ENCOUNTER 2019-10-24 18:56 | Inpatient (IN) | payer OTHER ==
[~2019-10-24] VITALS: Ht 185.4 cm; Wt 86.5 kg
--- NOTE | ~2019-10-24 | HEMODYNAMI ---
PATIENT:DASHAWN REID MEDICAL RECORD: [id number] : 51 [id number] ADMISSION DATE: 10/24/19 Generatedon:10/25/201910:33 Patient name: DASHAWN REID Patient #: [id number] SSN: [id number] : 1955 Date of study: 10/25/2019 Page: Of Hemodynamic Procedure Report Patient Data Patient Demographics Procedure consent was obtained First Name: DASHAWN Gender: Male Last Name: FRANKLIN : 1955 Middle Initial: F Age: 63 year(s) Patient #: [id number] Race: SSN: [id number] Additional ID: [id number] Contact details Address: [place] [place] [address] State: [place] City: [place] Zip code: [address] Past Medical History Allergies Allergen Reaction Date Comments Reported Other allergy Other 01/12/2019 penicillins, morhpine, heparin Other allergy 10/21/2019 PCN/MORPHINE Admission Admission Data Admission Date: 10/24/2019 Admission Time: 21:09 Room #: [id number] Lab Results Lab Result Date: 10/21/2019 Lab Result Time: 0:00 Biochemistry Name Units Result Min Max BUN mg/dl 48 --(----)-* 7 18 Creatinine mg/dl 2.3 --(----)-* 0.6 1.3 eGFR ml/min 30 *-(----)-- 90 120 NONAFRICAN Troponin l ng/ml 0.017 --(-*--)-- 0 0.06 CBC Name Units Result Min Max Hematocrit % 34.9 *-(----)-- 42 54 Hemoglobin g/dl 10.7 *-(----)-- 13.5 17.5 Procedure Procedure Types Cath Procedure Diagnostic Procedure LHC Coronaries w/Grafts Sedation Charges Moderate Sedation up to 45 minutes PCI Procedure AMI/SVG/BACK END WEB DEVELOPER PTCA or Stent SVG-BMS/MODESTO Initial Hemochron ACT Test Procedure Description Procedure Date Procedure Date: 10/25/2019 Procedure Start Time: 9:39 Procedure End Time: 10:30 Procedure Staff Name Function Carl Partida MD Performing Physician Madhavi Guaman RT Monitor Rose Marie Brambila RT Scrub Ni Rodgers RN Nurse Procedure Data Cath Procedure Fluoroscopy Diagnostic fluoroscopy Total fluoroscopy Time: time: 15.7 min 15.7 min Diagnostic fluoroscopy Total fluoroscopy dose: dose: 1597 mGy 1597 mGy Contrast Material Contrast Material Type Amount (ml) Isovue 300 190 Entry Location Entry Primary Successful Side Size Upsize Upsize Entry Closure Succes sful Closure Location (Fr) 1 (Fr) 2 (Fr) Remarks Device Remarks Femoral Left 6 Fr Exoseal artery Short Estimated blood loss: 5 ml Diagnostic catheters Device Type Used For End Catheter Placement DIAGNOSTIC AR MOD 5Fr Multi-vessel Catheter ([id number]) Angiography DIAGNOSTIC AR2 MOD 5 Fr Multi-vessel catheter ([id number]) Angiography DIAGNOSTIC IM 5Fr SVG Angiography catheter ([id number]) Procedure Complications No complications Procedure Medications Medication Administration Route Dosage Oxygen etCO2 Nasal cannula 2 l/min Lidocaine 2% added to field 20 Heparin Flush Bag added to field 2 bags (1000units/500ml NS) 0.9% NaCl I.V. 100 ml/hr Zofran I.V. 4 mg Versed I.V. 1 mg Fentanyl I.V. 50 mcg Versed I.V. 1 mg Fentanyl I.V. 50 mcg Heparin Bolus I.V. 7000 units Versed I.V. 1 mg Versed I.V. 1 mg Hemodynamics Rest HGB: 10.7 (g/dl) Heart Rate: 76 (bpm) Snapshots Pre Cath Intra NCS Post Cath Vital Signs Time Heart Resp SPO2 etCO2 NIBP (mmHg) Rhythm Pain Sedation Rate (ipm) (%) (mmHg) Status Level (bpm) 9:23:25 75 18 100 38.8 160/91(131) NSR 0 (11) 10(A) , No pain 9:27:53 77 11 100 35.1 162/88(127) NSR 0 (11) 10(A) , No pain 9:32:18 73 10 100 35.8 152/79(119) NSR 0 (11) 10(A) , No pain 9:36:44 73 14 100 35.8 142/78(118) NSR 0 (11) 10(A) , No pain 9:41:10 73 16 100 36.6 145/73(117) NSR 0 (11) 10(A) , No pain 9:45:34 73 17 100 37.3 145/74(108) NSR 0 (11) 9(A) , No pain 9:49:56 73 15 100 35.8 137/76(111) NSR 0 (11) 9(A) , No pain 9:54:16 73 14 100 17.1 139/84(115) NSR 0 (11) 10(A) , No pain 9:58:39 72 15 100 38 146/81(120) NSR 0 (11) 10(A) , No pain 10:03:01 73 14 100 41.8 150/75(122) NSR 0 (11) 10(A) , No pain 10:07:27 75 12 100 37.3 146/79(121) NSR 0 (11) 10(A) , No pain 10:11:49 74 14 100 24.6 136/77(116) NSR 0 (11) 9(A) , No pain 10:16:11 72 15 100 27.6 137/74(111) NSR 0 (11) 9(A) , No pain 10:20:34 71 15 100 23.1 136/73(110) NSR 0 (11) 10(A) , No pain 10:24:56 70 17 100 13.4 132/75(115) NSR 0 (11) 10(A) , No pain 10:29:14 70 15 100 24.6 148/83(120) NSR 0 (11) 10(A) , No pain Medications Time Medication Route Dose Verified Delivered Reason Notes Effectiveness by by 9:24:28 Oxygen etCO2 2 Carl Buffie used for Nasal l/min Jaquan Rodgers deputy sheriff k9 handler cannula 9:24:35 Lidocaine 2% added 20ml Carl Buffie for local to vial Jaquan Rodgers RN anesthetic field 9:24:41 Heparin Flush added 2 Carl Buffie used for Bag to bags Jaquan Rodgers RN procedure (1000units/500ml field NS) 9:24:48 0.9% NaCl I.V. 100 Carl Buffie Per physician ml/hr Jaquan Rodgers RN 9:27:32 Zofran I.V. 4 mg Carl Buffie Per physician Jaquan Rodgers RN 9:30:44 Versed I.V. 1 mg Carl Buffie for sedation Jaquan Rodgers RN 9:30:50 Fentanyl I.V. 50 Carl Buffie for sedation mcg Jaquan Rodgers RN 9:39:27 Versed I.V. 1 mg Carl Buffie for sedation Jaquan Rodgers RN 9:39:31 Fentanyl I.V. 50 Carl Buffie for sedation mcg Jaquan Rodgers RN 9:57:51 Heparin Bolus I.V. 7000 Carl Buffie for verif ied units Jaquan Rodgers RN anticoagulation with dr partida 10:06:35 Versed I.V. 1 mg Carl Buffie for sedation Jaquan Rodgers RN 10:11:22 Versed I.V. 1 mg Carl Buffie for sedation Jaquan Rodgers RN Procedure Log Time Note 8:51:48 Informed consent obtained and on chart 8:52:03 Diagnostic Cath Status : Urgent 9:06:52 Ni Rodgers RN sent for patient. Start room use. 9:13:49 Procedure Status Urgent Heart Cath (IP). 9:14:06 Time tracking: Call back (After hours or weekends) 9:14:11 Plan of Care:Hemodynamics will remain stable., Cardiac rhythm will remain stable., Comfort level will be maintained., Respiratory function will remain adequate., Patient/ family verbilizes understanding of procedure., Procedure tolerated without complication., Recovers from procedure without complications.. 9:14:17 Patient received from CVICU to CCL 1 Alert and oriented. Tansferred to table in Supine position. 9:22:01 Warm blankets applied, and sakshi hugger turned on for patient comfort. 9:22:01 Correct patient and procedure confirmed by team. 9:22:02 ECG and BP/O2 sat monitors applied to patient. 9:22:06 Baseline sample Acquired. 9:22:06 Vital chart was started 9:22:12 Rhythm: sinus rhythm 9:22:13 Full Disclosure recording started 9:22:18 H&P Date Dictated: 10/25/2019 New H&P dictated by physician.. 9:22:20 Pre-procedure instructions explained to patient. 9:22:20 Pre-op teaching completed and patient verbalized understanding. 9:22:24 Family unavailable. 9:22:26 Patient NPO since Midnight. 9::34 Is the patient allergic to Iodine/contrast media? No. 9::35 Was the patient premedicated? Yes 9:22:38 Is patient on blood thinner?Yes 9::41 ACC The patient was administered the following blood thiners within the last 24 hours: ACCPlavix 9:22:43 Patient diabetic? Yes. 9:22:44 If diabetic: On Metformin? No 9:22:46 Previous problem with sedation/anesthesia? No ? 9:22:48 Snore? Yes 9::51 Sleep apnea? No 9::54 Deviated septum? No 9::55 Opens mouth fully? Yes 9::56 Sticks out tongue? Yes 9:23:03 Airway obstruction? Yes asthma, copd 9:23:25 Dentures? No ? 9:24:28 Oxygen 2 l/min etCO2 Nasal cannula was administered by Ni Rodgers RN; used for procedure; Verbal order read back and verified. 9:24:35 Lidocaine 2% 20ml vial added to field was administered by Ni Rodgers RN; for local anesthetic; Verbal order read back and verified. 9:24:41 Heparin Flush Bag (1000units/500ml NS) 2 bags added to field was administered by Ni Rodgers RN; used for procedure; Verbal order read back and verified. 9:24:48 0.9% NaCl 100 ml/hr I.V. was administered by Ni Rodgers RN; Per physician; Verbal order read back and verified. 9:24:59 Pre procedure: right dorsailis pedis pulse 1+ Palpable, but thready & weak; easily obliterated 9:25:01 Pre procedure: left dorsailis pedis pulse 1+ Palpable, but thready & weak; easily obliterated 9:25:19 Patient pain scale 5/10 ?. 9:27:06 IV patent on arrival in left forearm with 0.9% NaCl at [facility]. 9:27:10 Lab results completed and on chart. 9:27:17 Stress Test: no; N/A ? 9:27:23 Left groin area was prepped with chlora-prep and draped in sterile fashion 9:27:24 Alarms reviewed by R. N. 9:: Sharps counted by scrub and verified by R.N. :: Physician arrived --------ALL STOP TIME OUT------ Final Timeout: patient, procedure, and site verified with staff and physician. All members of the team are in agreement. 9::30 Left groin site verified by team. 9::32 Zofran 4 mg I.V. was administered by Ni Rodgers RN; Per physician; Verbal order read back and verified. 9::33 Fire Safety Assessment: A--An alcohol-based skin anteseptic being used preoperatively., C--Open oxygen or nitrous oxide is being used., D--An ESU, laser, or fiber-optic light is being used. 9:27:37 Physical assessment completed. ASA score P 2 - A patient with mild systemic disease as per Carl Partida MD. 9:28:38 4) 15-29 Severley reduced kidney function. 9:30:44 Versed 1 mg I.V. was administered by Ni Rodgers RN; for sedation; Verbal order read back and verified. 9:30:50 Fentanyl 50 mcg I.V. was administered by Ni Rodgers RN; for sedation; Verbal order read back and verified. 9:33:48 Maximum allowable contrast dose (3.7 X eGFR X 0.75)80 ml. 9:33:55 Sedation plan: IV Moderate Sedation Medication:Versed, Fentanyl 9:34:04 Use device set CATH PACK 9:34:06 ACIST Syringe (01628) opened to sterile field. 9:34:06 ACIST Hand Control (27548) opened to sterile field. 9:34:07 ACIST Manifold (11714) opened to sterile field. 9:34:07 Medline Cath Pack ([id number]) opened to sterile field. 9:34:08 Bag Decanter (2002S) opened to sterile field. 9:34:08 EMERALD Guide Wire (937-832) opened to sterile field. 9:34:17 SHEATH 6FR Boyds (MOM481) opened to sterile field. 9:34:32 Procedure started. 9:38:01 DIAGNOSTIC Multipack 5Fr catheter set (MU6075) opened to sterile field. 9:39:14 Local anesthetic to left femerol artery with Lidocaine 2% by Carl Partida MD.INITIAL ACCESS ONLY 9:39:27 Versed 1 mg I.V. was administered by Ni Rodgers RN; for sedation; Verbal order read back and verified. 9:39:28 A 6 Fr Short sheath was inserted into the Left Femoral artery 9:39:31 Fentanyl 50 mcg I.V. was administered by Ni Rodgers RN; for sedation; Verbal order read back and verified. 9:41:03 5 Fr jl 4 guide catheter was inserted over the wire 9:41:18 LCA angiography performed. 9:41:21 Injector settings: Ml/sec: 3, Volume: 6, 9:42:00 Catheter removed. 9:42:50 A DIAGNOSTIC AR MOD 5Fr Catheter ([id number]) was advanced over the wire and used for Multi-vessel Angiography. 9:43:55 RCA angiography performed. 9:43:58 Injector settings: Ml/sec: 3, Volume: 6, 9:44:06 SVG to RCA angiography performed. 9:45:59 Catheter removed. 9:47:08 A DIAGNOSTIC AR2 MOD 5 Fr catheter ([id number]) was advanced over the wire and used for Multi-vessel Angiography. 9:50:47 SVG to Circ angiography performed. 9:51:00 Catheter removed. 9:51:10 GUIDE 6FR JR 4.0 catheter ([id number]) opened to sterile field. 9:51:11 INFLATOR Merit BasixCompak (KR8624) opened to sterile field. 9:51:12 BMW 300cm [place] 2 J wire ([id number]) opened to sterile field. 9:51:13 TUBING High Pressure Extension Tubing (Partida) ([id number]) opened to sterile field. 9:54:06 A DIAGNOSTIC IM 5Fr catheter ([id number]) was advanced over the wire and used for SVG Angiography. 9:54:39 MOODY to LAD angiography performed. 9:55:18 Catheter removed. 9:55:31 ACC Pre-intervention GAYLE Flow is 3. 9:55:40 Pre PCI Site: Vein Graft mCirc has 80% stenosis. 9:55:52 6 Fr jr 4 guide catheter was inserted over the wire 9:56:29 BMW wire advanced. 9:57:51 Heparin Bolus 7000 units I.V. was administered by Ni Rodgers RN; for anticoagulation; verified with dr partida Verbal order read back and verified. 9:59:25 Wire advanced across lesion. 10:06:35 Versed 1 mg I.V. was administered by Ni Rodgers RN; for sedation; Verbal order read back and verified. 10:07:46 Place stent Inflation Number: 1 A INTEGRITY RX 3.5 x 26 stent ([id number]) was prepped and advanced across the Aorta Left -> Mid CX 80. The stent was deployed at 12 BILLY for 0:10 (min:sec) 0. 10:08:37 Stent catheter was removed intact over wire. 10:11:22 Versed 1 mg I.V. was administered by Ni Rodgers RN; for sedation; Verbal order read back and verified. 10:12:49 The EMERGE OTW 2.0 x 15 balloon ([id number]) was advanced and then removed because in body, not inflated 10:12:53 Balloon removed over the wire. 10:12:54 Wire removed. 10:12:54 Guide catheter removed. 10:13:02 GUIDE 6FR LCB catheter (LA6LCB) opened to sterile field. 10:13:12 6 Fr lcb guide catheter was inserted over the wire 10:17:51 bmw wire advanced. 10:17:56 Wire advanced across lesion. 10:21:18 Inflate balloon Inflation number: 2 A EMERGE OTW 2.0 x 15 balloon ([id number]) was prepped and advanced across the Aorta Left -> Mid CX 90, then inflated to 10 BILLY for 0:30 (min:sec) 0. 10:21:46 Inflation number: 3 The EMERGE OTW 2.0 x 15 balloon ([id number]) was reinflated across the Aorta Left -> Mid CX 90, to 12 BILLY for 0:10 (min:sec) 0. 10:23:24 Balloon removed over the wire. 10:23:25 Wire removed. 10:23:26 Guide catheter removed. 10:24:40 EXOSEAL 6Fr (EX600) opened to sterile field. 10:25:06 Sheath removed intact; hemostasis achieved with Exoseal to the Left Femoral artery. 10:25:11 Procedure ended.(Physican Out) 10:25:22 Fluoroscopy time 15.70 minutes. 10:25:26 Flurop Dose total: 1597 10:25: Fluoroscopy dose: 1597 mGy 10::32 Dose Area Product 33084 mGy/cm. 10:25:45 Contrast amount:Isovue 300 190ml. 10:26:02 Maximum allowable dose exceeded? Yes. 10:26:04 Sharps counted by scrub and verified by R.N. 10:26:15 Insertion/operative site no bleeding no hematoma. 10:26:20 Post-op/insertion site Left Femoral artery dressed using a 4 x 4 and Tegaderm. 10::41 Post Procedure Pulses reassessed and unchanged 10::52 Post procedure rhythm: unchanged. 10::55 Estimated blood loss: 5 ml 10::58 Post procedure instruction explained to patient.Patient verbalizes understanding. 10::58 Patient needs reinforcement of post procedure teaching. 10:27:33 Procedure type changed to Cath procedure, Diagnostic procedure, C, Coronaries w/Grafts, Sedation Charges, Moderate Sedation up to 45 minutes, PCI procedure, AMI/SVG/BACK END WEB DEVELOPER PTCA or Stent, SVG-BMS/MODESTO Initial, Hemochron ACT Test 10:29:38 Procedure and supply charges have been captured, reviewed, submitted and are correct. 10:29:43 Procedure Complication : No complications 10:29:44 Vital chart was stopped 10:29:48 [facility] Findings: MVD- PCI performed (see procedure note) 10:29:50 Operative report dictated upon procedure completion. 10:29:51 See physician's report for complete and final results. 10:29:54 Report given to CVICU. 10:29:57 Patient transfered to CVICU with Stretcher. 10:30:03 Procedure ended. 10:30:03 Full Disclosure recording stopped 10:30:11 ACC-PCI Only Patient was given prescriptions, or instructed by Carl Partida MD to start/continue the following medications upon discharge: Plavix 10:30:12 End room use (Document Last) 10:32:03 ACT drawn and resulted at OOR seconds. (normal therapeutic range 180-240 seconds). 10:33:29 ACT drawn and resulted at ? seconds. (normal therapeutic range 180-240 seconds). Intervention Summary Intervention Notes Time ActionType Lesion and Equipment Action# Pressure Duration Attributes Used 10:07:46 Place stent Aorta Left INTEGRITY RX 1 12 00:10 -> Mid CX 3.5 x 26 stent ([id number]) 10:12:49 Discard EMERGE OTW Balloon 2.0 x 15 balloon ([id number]) 10:21:18 Inflate Aorta Left EMERGE OTW 2 10 00:30 balloon -> Mid CX 2.0 x 15 balloon ([id number]) 10:21:46 Reinflate Aorta Left EMERGE OTW 3 12 00:10 balloon -> Mid CX 2.0 x 15 balloon ([id number]) Device Usage Item Name Manufacture Quantity Catalog Number Hospital Part Current Mini mal Lot# / Charge Number Stock Stock Serial# Code ACIST Acist 1 09938 967630 618994 872847 20 Syringe Medical (84752) Systems Inc ACIST Hand Acist 1 42155 251047 455519 231255 5 Control Medical (27862) Systems Inc ACIST Acist 1 08869 328399 998973 272830 5 Manifold Medical (20629) Systems Inc Medline Cath Medline 1 [id number] 034765 57519 343207 5 Pack ([id number]) Bag Decanter Microtek 1 2001S 435390 98330 643656 5 (2002S) Medical Inc. EMERALD Cardinal 1 502-455 657984 710712 033982 5 Guide Wire Health (502-455) SHEATH 6FR Terumo 1 CQF261 327125 088376 753031 40 Boyds (WWB757) DIAGNOSTIC Cardinal 1 KX4596 994947 45028 192185 30 Multipack Health 5Fr catheter set (TG3276) DIAGNOSTIC Cardinal 1 [id number] 651770 938344 425588 15 AR MOD 5Fr Health Catheter (543987Z) DIAGNOSTIC Cardinal 1 934642Q 697316 483381 173389 20 AR2 MOD 5 Fr Health catheter (929684Y) GUIDE 6FR JR Medtronic 1 [id number] 564421 39288 282605 1 4.0 catheter (SJ1LL58) INFLATOR [facility] 1 ZO6055 234539 450970 498282 15 [facility] Medical BasixCompak (WR3141) BMW 300cm Bartholomew 1 [id number] 038313 859175 421778 5 [place] 2 Vascular J wire (0742943G) TUBING High Merit 1 [id number] 645741 26195 445495 10 Pressure Medical Extension Tubing (Jaquan) (LM4432I) DIAGNOSTIC Cardinal 1 219383E 352641 427617 328520 5 IM 5Fr Health catheter (894060M) INTEGRITY RX Medtronic 1 [id number] 442848 638783 380392 5 [id number] 3.5 x 26 stent ([id number]) EMERGE OTW [place] 1 [id number] 174716 318144 803402 5 [id number] 2.0 x 15 Scientific balloon ([id number]) GUIDE 6FR Medtronic 1 LA6LCB 285307 20671 966003 1 LCB catheter (LA6LCB) EXOSEAL 6Fr Cardinal 1 EX600 645385 290130 096059 10 (EX600) Health Signature Audit [place] Stage Time Signature Unsigned Intra-Procedure 10/25/2019 Madhavi Guaman 10:33:00 AM RT(R) Intra-Procedure 10/25/2019 Ni Rodgers RN 10:33:29 AM Intra-Procedure 10/25/2019 Carl Partida MD 10:33:56 AM [facility] [address] [place] [address]
[~2019-10-24 18:56] MED LIST changes: +GLUCOTROL ER2.5 MG PO; +ISOSORBIDE MONO10 MG PO
[2019-10-24 19:44] LABS: BASOPHILS 0.2 % (0-2); EOSINOPHILS 3.4 % (0-7); HEMATOCRIT 29.9 % (42.0-54.0); HEMOGLOBIN 9.3 g/dL (13.5-17.5); MCH 30.5 pg (26.0-34.0); MCHC 31.1 g/dL (31.0-37.0); MEAN PLATELET VOLUME 12.7 fL (7.4-10.4); MONOCYTES 8.2 % (2-11); NEUTROPHILS 60.2 % (40-80); PLATELET COUNT 67 10x3/uL (130-400); RBC 3.05 10x6/uL (4.20-6.10); RDW 13.9 % (11.5-14.5); WBC 4.4 10x3/uL (4.8-10.8)
[2019-10-24 19:55] LABS: CALCIUM 7.9 mg/dL (8.5-10.1); CARBON DIOXIDE 23.9 mmol/L (21.0-32.0); CHLORIDE - SERUM 109 mmol/L (98-107); CREATININE - SERUM 2.7 mg/dL (0.6-1.3); POTASSIUM - SERUM 4.7 mmol/L (3.5-5.1); SODIUM 142 mmol/L (136-145); UREA NITROGEN 53 mg/dL (7-18); eGFR NON AFRICAN AMERICAN 25 mL/min (90-120)
[2019-10-24 19:59] LABS: APTT 33.8 SECONDS (22.8-39.4); INR 0.94 (0.85-1.17); PROTIME 12.5 SECONDS (11.6-15.0)
[2019-10-24 20:00] LABS: PLATELET ESTIMATE DECREASED
[2019-10-24 20:17] LABS: ALKALINE PHOSPHATASE 137 U/L (30-120); ALT (SGPT) 31 U/L (10-68); BILIRUBIN - TOTAL 0.46 mg/dL (0.2-1.3); CALC OSMOLALITY 300 mosm/kg (275-300); CKMB 8.2 U/L (0.0-3.6); CREATINE KINASE 258 UL (21-232); GLUCOSE 171 mg/dL (74-106); MAGNESIUM - SERUM 1.9 mg/dL (1.8-2.4); PROTEIN - SERUM 6.2 g/dL (6.4-8.2)
[2019-10-24 20:18] LABS: TROPONIN-I 6.236 ng/mL (0.000-0.060)
[2019-10-24 22:30] VITALS: BP 145/81
[2019-10-24 23:42] VITALS: BP 162/82
--- NOTE | 2019-10-24 23:50 | NUR ---
PT REC'D TO ROOM CVO5, STOOD AND TRANSFERRED SELF TO BED, ALL MONITORS ESTABLISHED, PT AWAKE, ALERT, AND ORIENTED , PT ON ROOM AIR, COMPLAINS OF LEFT CHEST PAIN, RATING "7" ON 0-10 PAIN SCALE, DESCRIBES PAIN DULL PAIN, LEFT FOREARM PIV WITH NS @ 75CC/HR, MAEE, SLIGHT TREMORS NOTED, PT REPORTS HISTORY OF PARKINSON'S, SR UP X 2, BED IN LOW POSITION. CALL LIGHT IN REACH.
[2019-10-24 23:52] VITALS: BP 165/80; BMI 21.5
[2019-10-24] MEDS ORDERED: METOPROLOL TART50 MG PO (23:54)
[2019-10-24] MEDS ORDERED: LOKELMA10 GM PO (23:55)
[2019-10-25] VITALS (15 sets, daily range): BP systolic 108–163; BP diastolic 59–83
[2019-10-25 01:26] LABS: CKMB 6.3 U/L (0.0-3.6); CREATINE KINASE 260 UL (21-232)
[2019-10-25 01:28] LABS: TROPONIN-I 5.454 ng/mL (0.000-0.060)
--- NOTE | 2019-10-25 01:30 | NUR ---
PT RESTING QUIETLY IN BED WATCHING TV, DENIES NEEDS, VSS.
--- NOTE | 2019-10-25 04:00 | NUR ---
PT RESTING EYES CLOSED, RESP EVEN AND UNLABORED, VSS.
--- NOTE | 2019-10-25 06:00 | NUR ---
AM MEDS GIVEN ORDERED.
[2019-10-25 06:30] LABS: HEMATOCRIT 30.3 % (42.0-54.0); HEMOGLOBIN 9.5 g/dL (13.5-17.5); MCH 30.4 pg (26.0-34.0); MCHC 31.4 g/dL (31.0-37.0); MCV 96.8 fL (80.0-100.0); MEAN PLATELET VOLUME 12.8 fL (7.4-10.4); NEUTROPHILS 55.6 % (40-80); PLATELET COUNT 64 10x3/uL (130-400); RBC 3.13 10x6/uL (4.20-6.10); RDW 12.9 % (11.5-14.5); WBC 3.3 10x3/uL (4.8-10.8)
[2019-10-25 06:54] LABS: PLATELET ESTIMATE DECREASED
[2019-10-25 07:13] LABS: CARBON DIOXIDE 24.2 mmol/L (21.0-32.0); CHLORIDE - SERUM 113 mmol/L (98-107); CKMB 5.1 U/L (0.0-3.6); CREATINE KINASE 227 UL (21-232); CREATININE - SERUM 2.4 mg/dL (0.6-1.3); MAGNESIUM - SERUM 1.9 mg/dL (1.8-2.4); POTASSIUM - SERUM 4.7 mmol/L (3.5-5.1); SODIUM 146 mmol/L (136-145); UREA NITROGEN 46 mg/dL (7-18); eGFR NON AFRICAN AMERICAN 29 mL/min (90-120)
[2019-10-25 07:15] LABS: CALC OSMOLALITY 300 mosm/kg (275-300); GLUCOSE 66 mg/dL (74-106); TROPONIN-I 4.966 ng/mL (0.000-0.060)
[2019-10-25 09:08] LABS: CHOL - HDL RATIO 2.4 ratio (2.3-4.9)
--- NOTE | 2019-10-25 10:09 | NUR ---
0740: DR. FERMIN HERE. NEW ORDERS REC'D. 0913: TO VARNISH INSPECTOR VIA BED.
--- NOTE | 2019-10-25 11:01 | NUR ---
1049: RETURN FROM NAIL TECHNICIAN TEACHER VIA BED. CONNECTED TO MONITOR. VS OBTAINED. FEM STOP TO L GROIN. AREA OF FIRMNESS NOTED BELOW CATH SITE AND FEM STOP. AREA MARKED AND WILL CONTINUE TO MONITOR.
--- NOTE | 2019-10-25 13:31 | NUR ---
1130: AREA OF FIRMNESS APPEARS TO BE INCREASING IN SIZE. FEM STOP DEFLATED AND REPOSITIONED OVER ARTERY UNTIL PEDAL PULSE DIMINISHED BUT REMAINS AUDIBLE WITH DOPPLER. 1200: NO FURTHER INCREASE IN SIZE NOTED AND AREA APPEARS TO BE SOFTER UPON PALPATION.
--- NOTE | 2019-10-25 14:33 | NUR ---
1400: FEM STOP REMOVED FROM L GROIN SITE. CATH SITE SOFTER AND SITE DRESSED WITH 4X4 AND TEGADERM.
--- NOTE | 2019-10-25 17:10 | NUR ---
REPORT CALLED TO TAMERA ROSEN
--- NOTE | 2019-10-25 17:27 | NUR ---
ARRIVE TO ROOM VIA WHEELCHAIR FROM CVICU. ALERT AND ORIENTED X4. AMBULATES TO BED WITH OUT ASSISTANCE. LT GROIN HEMATOMA MARKED. HEMATOMA SOFTENING. RT GROIN BRUISED FROM HEART CATH LAST WEEK. IV INFUSING ORDERED THROUGH RT FA. DENIES ANY NEEDS. CONTINUE PLAN OF CARE AND SAFEY PRECAUTIONS.
--- NOTE | 2019-10-25 17:29 | NUR ---
1725: TRANSFERRED TO ROOM 2126 VIA WHEELCHAIR. ASSISTED TO BED. RECEIVING NURSE AT BEDSIDE.
--- NOTE | 2019-10-26 00:02 | NUR ---
INITIAL ROUNDS COMPLETED AT 1915 HRS. PT DENIED ANY DISCOMFORT. ASSESSMENT COMPLETED AT 2019 HRS. VSS. SR PER CM HR 86. ALERT AND ORIENTED TO PERSON, PLACE AND TIME. [place]. TREMORS NOTED TO UPPER EXTREMITIES. LUNGS ESSENTIALLY CTA. ABD SOFT WITH ACTIVE BS NOTED. BRUISING NOTED TO BILAT GROINS. PALPABLE PERIPHERAL PULSE. IV TO LFA SL. DILAUDID 1MG SIVP GIVEN FOR C/O CP 11/22 AT 2030 HRS. PM FSBS 314. 12 UNTS HUMALOG GIVEN SUB-Q TO UPPER L ARM PER S/S. PM MEDS GIVEN. PT CURRENTLY RESTING WITH EYES CLOSED. RESP EVEN AND REGULAR. SR UP X2, CALL LIGHT WITHIN REACH.
--- NOTE | 2019-10-26 03:32 | NUR ---
PT RESTING WITH EYES CLOSED. RESP EVEN AND REGULAR. CALL LIGHT WITHIN REACH.
[2019-10-26 04:29] VITALS: BP 106/62
--- NOTE | 2019-10-26 06:06 | NUR ---
VSS THROUGHOUT NIGHT. SR PER CM. PT STATED IV DILAUDID ALLEVIATED HIS CP. NEEDS MET; WILL CONTINUE TO MONITOR.
--- NOTE | 2019-10-26 07:20 | NUR ---
RECIEVE REPORT. ALERT AND ORIENTED X 4. SITTING UP IN BED. LAB AT BEDSIDE. DRAWING BLOOD. DENIES SOB OR PAIN. CONTINUE PLAN OF CARE AND SAFETY PRECAUTIONS.
[2019-10-26 09:00] VITALS: BP 101/55
[2019-10-26 10:06] LABS: ANION GAP 11.9 mmol/L (8-16); CALCIUM 7.2 mg/dL (8.5-10.1); CARBON DIOXIDE 23.8 mmol/L (21.0-32.0); CREATININE - SERUM 2.9 mg/dL (0.6-1.3); POTASSIUM - SERUM 4.7 mmol/L (3.5-5.1)
[2019-10-26 11:22] LABS: LYMPHOCYTES 22.7 % (15-50); MCH 30.8 pg (26.0-34.0); MCHC 32.1 g/dL (31.0-37.0); MCV 95.9 fL (80.0-100.0); MEAN PLATELET VOLUME 13.6 fL (7.4-10.4); NEUTROPHILS 66.5 % (40-80); PLATELET COUNT 69 10x3/uL (130-400); RDW 13.5 % (11.5-14.5); WBC 3.5 10x3/uL (4.8-10.8)
[2019-10-26 11:33] LABS: RBC 2.21 10x6/uL (4.20-6.10)
[2019-10-26 11:34] LABS: HEMATOCRIT 21.2 % (42.0-54.0); HEMOGLOBIN 6.8 g/dL (13.5-17.5)
[2019-10-26 12:00] VITALS: BP 121/68
--- NOTE | 2019-10-26 12:44 | NUR ---
ALERT AND ORIENTED X4. SITTING UP IN BED. NOTIFY OF Hgb 6.8. ORDER H & H LAB REDRAW PER . DENIES ANY NEEDS. CONTINUE PLAN OF CARE AND SAFETY PRECAUTIONS.
[2019-10-26 13:57] LABS: HEMATOCRIT 21.6 % (42.0-54.0)
[2019-10-26 14:02] LABS: HEMOGLOBIN 6.8 g/dL (13.5-17.5)
[2019-10-26 15:00] VITALS: BP 106/50
--- NOTE | 2019-10-26 17:15 | NUR ---
ALERT AND ORIENTED. SITTING UP IN BED. BLOOD CONSENT SIGNED AND ON CHART. INITIATE UNIT 1 OF 2 PRBC TRANSFUSION. INITIAL RATE 75ML/HR. TEMP 98.3, BLOOD PRESSURE 135/66, PULSE 84, RR 18. REMAIN IN ROOM FOR FIRST 15 MINUTES TO MONITOR FOR ANY REACTIONS.
--- NOTE | 2019-10-26 17:23 | NUR ---
ALERT AND ORIENTED X4. ASSIST WITH SILAS JAUREGUI INITIATING PRBC TRANSFUSION.
--- NOTE | 2019-10-26 17:30 | NUR ---
POST 15 MINUTES OF INITIATING PRBC TRANSFUSION PATIENT REMAINS UNCHANGED. TEMP 98.1, BLOOD PRESSURE 126/61, HEART RATE 74, RR 18. INCREASE TRANSFUSION RATE TO 125ML/HR. NO SIGNS OF REACTION. CONTINUE PLAN OF CARE AND SAFETY PRECAUTIONS.
--- NOTE | 2019-10-26 19:38 | NUR ---
ASSESSMENT COMPLETE, PT A&O. RESPERATIONS EVEN ON RA. BILATERAL GROIN BRUISES NOTED FROM CARDIAC CATHS, RIGHT ONE DONE LAST WEEK AND LEFT DONE YESTERDAY. PEDAL PULSES PRESENT. IV TO LEFT ARM NS INFUSING, 1ST UNIT OF PRBCS FINISHED. VITALS STABLE, NO S/S ADVERSE REACTION NOTED. PT DENIES NEEDS AT THIS TIME, BED LOW, CL IN REACH.
[2019-10-26 21:21] VITALS: BP 140/62
--- NOTE | 2019-10-26 23:36 | NUR ---
SECOND UNIT OF PRBCS FINISHED INFUSING, LINE FLUSING WITH NS, VITALS STABLE. NO S/S ADVERSE REACTION NOTED.
[2019-10-27 00:39] VITALS: BP 109/58
[2019-10-27 06:27] VITALS: BP 129/57
--- NOTE | 2019-10-27 07:20 | NUR ---
RECIEVE REPORT. SITTING UP IN BED. ALERT AND ORIENTED X4. SINUS RYTHM ON TELEMETRY. DENIES ANY NEEDS. NO SIGNS OF DISTRESS. CONTINUE PLAN OF CARE AND SAFETY PRECAUTIONS.
[2019-10-27 08:20] LABS: ANION GAP 10.8 mmol/L (8-16); CALCIUM 7.7 mg/dL (8.5-10.1); CARBON DIOXIDE 24.1 mmol/L (21.0-32.0); CREATININE - SERUM 2.6 mg/dL (0.6-1.3); POTASSIUM - SERUM 4.9 mmol/L (3.5-5.1)
[2019-10-27 08:25] LABS: HEMATOCRIT 25.7 % (42.0-54.0); LYMPHOCYTES 29.1 % (15-50); MCH 31.1 pg (26.0-34.0); MCHC 32.7 g/dL (31.0-37.0); MCV 95.2 fL (80.0-100.0); MEAN PLATELET VOLUME 13.1 fL (7.4-10.4); NEUTROPHILS 58.7 % (40-80); PLATELET COUNT 56 10x3/uL (130-400)
[2019-10-27 08:31] LABS: HEMOGLOBIN 8.4 g/dL (13.5-17.5); WBC 4.4 10x3/uL (4.8-10.8)
[2019-10-27 10:49] VITALS: BP 126/68
[2019-10-27 12:01] LABS: PLATELET ESTIMATE DECREASED
[2019-10-27 12:21] VITALS: BP 117/54
[2019-10-27 16:40] VITALS: BP 140/71
[2019-10-27 21:29] VITALS: BP 137/76
[2019-10-28 06:19] LABS: LYMPHOCYTES 31.4 % (15-50); MCH 31.3 pg (26.0-34.0); MCHC 32.6 g/dL (31.0-37.0); MCV 95.8 fL (80.0-100.0); MEAN PLATELET VOLUME 13.3 fL (7.4-10.4); NEUTROPHILS 57.1 % (40-80); PLATELET COUNT 58 10x3/uL (130-400); RDW 13.8 % (11.5-14.5); WBC 3.8 10x3/uL (4.8-10.8)
[2019-10-28 06:21] LABS: HEMOGLOBIN 7.5 g/dL (13.5-17.5)
[2019-10-28 06:31] LABS: ALBUMIN 2.5 g/dL (3.4-5.0); ANION GAP 12.7 mmol/L (8-16); BILIRUBIN - TOTAL 0.37 mg/dL (0.2-1.3); CALCIUM 7.7 mg/dL (8.5-10.1); CARBON DIOXIDE 24.3 mmol/L (21.0-32.0); CREATININE - SERUM 2.5 mg/dL (0.6-1.3); PROTEIN - SERUM 4.9 g/dL (6.4-8.2)
[2019-10-28 09:20] LABS: % SATURATION 13 % (15-55); IRON 23 ug/dl (35-150); TOTAL IRON BIND CAPACITY 172 ug/dl (260-445); UNSAT IRON BIND CAPACITY 149 ug/dl (150-375)
[2019-10-28 10:10] VITALS: BP 135/65
--- NOTE | 2019-10-28 11:05 | NUR ---
1ST UNIT PRBC STARTED. VS WNL. LINE IS PATENT. WILL MONITOR.
--- NOTE | 2019-10-28 13:34 | NUR ---
1ST UNIT PRBC COMPLETED WITHOUT ADVERSE REACTIONS NOTED.
[2019-10-28 13:45] VITALS: BP 134/59
--- NOTE | 2019-10-28 14:47 | NUR ---
2ND UNIT BLOOD STARTED.. WILL MONITOR.
--- NOTE | 2019-10-28 15:45 | NUR ---
C/O C/P. DRU STAUFFER NOTIFIED. STATES IT MAY BE DUE TO RECENT BALLONS AND LOW ON BLOOD. EXPLAINED THIS TO PATIENT. UNDERSTANDING VOICED.
[2019-10-28 17:28] VITALS: BP 159/88
[2019-10-28 20:00] VITALS: BP 135/71
--- NOTE | 2019-10-28 22:08 | NUR ---
SPOKE WITH FLY GAUTHIER APN, INFORMED HER THAT PT HAS C/O ABD PAIN AND ASKING FOR PAIN MEDS, PT ALSO STATED THAT HE HAS BLOOD IN HIS STOOL BUT FLUSHED THE COMMODE BEFORE HE CALLED THE NURSE. ORDERS GIVEN FOR KUB AND NORCO FOR PAIN. PLACED HAT IN COMMODE FOR STOOL SPECIMEN AND INFORMED PT TO NOTIFY NURSE WHEN HE HAS BM.
[2019-10-29] VITALS: BP 129/60
--- NOTE | 2019-10-29 06:06 | NUR ---
NORCO 1 TAB GIVEN FOR C/O OF STOMACH PAIN, RATES PAIN AT A 7 ON PAIN SCALE. PT ASKING TO SEE HIS RELIEF MANAGER AND DR CARBAJAL, SO HE CAN ASK FOR "IV DILAUDID TO BE REINSTATED" TOLD PT THAT I WILL PASS ON THE MESSAGE TO DAY SHIFT NURSE SO THAT WHEN THE PHYSICIANS MAKE ROUNDS THE NURSE CAN ASK THEM TO STOP BY.
[2019-10-29 06:35] LABS: ALBUMIN 2.5 g/dL (3.4-5.0); BILIRUBIN - TOTAL 0.49 mg/dL (0.2-1.3); CALCIUM 7.9 mg/dL (8.5-10.1); CARBON DIOXIDE 26.2 mmol/L (21.0-32.0); CREATININE - SERUM 2.5 mg/dL (0.6-1.3); POTASSIUM - SERUM 5.2 mmol/L (3.5-5.1); PROTEIN - SERUM 5.6 g/dL (6.4-8.2)
[2019-10-29 07:22] LABS: LYMPHOCYTES 29.9 % (15-50); MCH 30.3 pg (26.0-34.0); MCV 94.6 fL (80.0-100.0); MEAN PLATELET VOLUME 13.6 fL (7.4-10.4); NEUTROPHILS 57.8 % (40-80); PLATELET COUNT 64 10x3/uL (130-400); RDW 15.2 % (11.5-14.5); WBC 3.9 10x3/uL (4.8-10.8)
[2019-10-29 07:23] LABS: HEMATOCRIT 28.1 % (42.0-54.0); RBC 2.97 10x6/uL (4.20-6.10)
[2019-10-29 11:10] LABS: PLATELET ESTIMATE DECREASED
[2019-10-29 11:25] VITALS: BP 113/57
[2019-10-29 13:29] VITALS: Ht 185.4 cm; Wt 86.5 kg
[2019-10-29 14:34] VITALS: BP 109/58
[2019-10-29 20:00] VITALS: BP 148/81
--- NOTE | 2019-10-29 20:26 | MORECARE ---
CASE MANAGEMENT DISCHARGE SUMMARY PATIENT: DASHAWN REID UNIT: [id number] ADM DATE: 10/25/19 AGE: 63 : 53 SEX: M ROOM/BED: D.2126 AUTHOR: DONOVAN OCONNELL PHYSICIAN: REFERRING PHYSICIAN: RAY RANDALL MD DATE OF SERVICE: 10/29/19 Discharge Plan Patient Name: DASHAWN REID Facility: [facility]:[place] : 1955 Planned Disposition: Home Anticipated Discharge Date: Discharge Date: Expected LOS: Initial Reviewer: [email or web address] Initial Review Date: 10/24/2019 Generated: 10/29/19 9:25 pm DCP- Discharge Planning Updated by [email or web address]: Camila Juarez on 10/29/19 6:[address] CM SPOKE WITH [facility] EXPEDITOR WITH UPDATED CONTINION. PROVIDED NUMBER TO [facility] 2 NURSES STATION IF BED BECOMES AVAILABLE. DCPIA - Discharge Planning Initial Assessment Updated by [email or web address]: Camila Juarez on 10/29/19 8:24 pm * Is the patient Alert and Oriented? Yes * How many steps to enter\exit or inside your home? 0/0 * PCP ALYX HOLLAND * Pharmacy [facility] * Preadmission Environment Home Alone * ADLs Independent * Equipment Cane Shower Chair * Community resources currently utilized None * Additional services required to return to the preadmission environment? No * Can the patient safely return to the preadmission environment? Yes * Has this patient been hospitalized within the prior 30 days at any hospital? No Patient Name: DASHAWN REID Page [phone] at 2025 All edits/amendments must be made on the electronic document DICTATION DATE: 10/29/192024 YOKE SETTER: KATIE 10/29/192024 RPT#: [id number] DC DATE: STATUS: ADM IN [facility] [address] [place] [address] END OF REPORT
--- NOTE | 2019-10-29 20:32 | MORECARE ---
CASE MANAGEMENT DISCHARGE SUMMARY PATIENT: DASHAWN REID UNIT: [id number] ADM DATE: 10/25/19 AGE: 63 : 53 SEX: M ROOM/BED: D.1654 AUTHOR: DONOVAN OCONNELL PHYSICIAN: REFERRING PHYSICIAN: RAY RANDALL MD DATE OF SERVICE: 10/29/19 Discharge Plan Patient Name: DASHAWN REID Facility: [facility]:[place] : 1955 Planned Disposition: Home Anticipated Discharge Date: Discharge Date: Expected LOS: Initial Reviewer: [email or web address] Initial Review Date: 10/24/2019 Generated: 10/29/19 9:32 pm Comments DCP- Discharge Planning Updated by [email or web address]: Camila Juarez on 10/29/19 7:[address] Patient Name: DASHAWN REID Admission Status: ER Accout number: [id number] Admission Date: 10-25-2019 : 1955 Admission Diagnosis:CHEST PAIN, UNSPECIFIED Attending: SUHA Current LOS: 4 Anticipated DC Date: Planned Disposition: Home Primary Insurance: [employer] LATE ENTRY ASSESSMENT COMPLETED. 10/26 @ 1140 Discharge Planning Comments: CM met with patient to complete initial dc planning assessment. CM educated patient on the CM role and verbal consent given by patient to complete assessment. CM verified patient's address, phone number, and emergency contact phone numbers. Patient lives at home alone and is independent with is ADL's. Pt reports he has a cane if he needs it and a shower chair. At discharge patient plans to return home and feels this is a safe discharge. CM discussed availability of home health, rehab services, and medical equipment. Patient denied known discharge needs at this time. Declination signed for IP rehab, or home health services. Transportation provider at discharge will be his daughter Tiara ([phone]) . CM will continue to follow and will assist as needed with dc plans/needs. Model Making Supervisor: Camila Juarez DCP- Discharge Planning Updated by [email or web address]: Camila Juarez on 10/29/19 6:[address] CM SPOKE WITH DC EXPEDITOR WITH UPDATED CONTINION. PROVIDED NUMBER TO [facility] 2 NURSES STATION IF BED BECOMES AVAILABLE. DCPIA - Discharge Planning Initial Assessment Updated by [email or web address]: Camila Juarez on 10/29/19 8:24 pm * Is the patient Alert and Oriented? Yes * How many steps to enter\exit or inside your home? 0/0 * PCP ALYX HOLLAND * Pharmacy [facility] * Preadmission Environment Home Alone * ADLs Independent * Equipment Cane Shower Chair * Community resources currently utilized None * Additional services required to return to the preadmission environment? No * Can the patient safely return to the preadmission environment? Yes * Has this patient been hospitalized within the prior 30 days at any hospital? No Last DP export: 10/29/19 7:26 p Patient Name: DASHAWN REID Page [phone] at 2031 All edits/amendments must be made on the electronic document DICTATION DATE: 10/29/192031 SPECIAL EVENTS PLANNER: KATIE 10/29/192031 RPT#: [id number] [place] DATE: STATUS: ADM IN [facility] [address] [place] [address] END OF REPORT
--- NOTE | 2019-10-30 03:05 | NUR ---
I have reviewed this patient and I concur with the Shift Assessment completed by the Licensed Practical Nurse today this shift.
[2019-10-30 04:00] VITALS: BP 140/76
[2019-10-30 05:57] LABS: ALBUMIN 2.5 g/dL (3.4-5.0); BILIRUBIN - TOTAL 0.67 mg/dL (0.2-1.3); CALCIUM 7.7 mg/dL (8.5-10.1); CARBON DIOXIDE 26.2 mmol/L (21.0-32.0); CREATININE - SERUM 2.5 mg/dL (0.6-1.3); PROTEIN - SERUM 5.8 g/dL (6.4-8.2)
[2019-10-30 06:24] LABS: HEMATOCRIT 27.9 % (42.0-54.0); HEMOGLOBIN 8.9 g/dL (13.5-17.5); LYMPHOCYTES 21.4 % (15-50); MCH 30.7 pg (26.0-34.0); MCHC 31.9 g/dL (31.0-37.0); MCV 96.2 fL (80.0-100.0); MEAN PLATELET VOLUME 13.5 fL (7.4-10.4); NEUTROPHILS 65.3 % (40-80); PLATELET COUNT 67 10x3/uL (130-400); RDW 14.6 % (11.5-14.5); WBC 3.7 10x3/uL (4.8-10.8)
[2019-10-30 07:30] LABS: ANION GAP 9.2 mmol/L (8-16); POTASSIUM - SERUM 5.4 mmol/L (3.5-5.1)
[2019-10-30 11:18] VITALS: BP 138/77
--- NOTE | 2019-10-30 19:10 | NUR ---
REPORT RECEIVED, PT CARE ASSUMED. INTRODUCED SELF, WROTE NAME ON BOARD. PT LYING IN BED WITH EYES CLOSED, RR EVEN AND NONLABORED, NO S/S OF DISTRESS, AROUSES EASILY TO VOICE, ORIENTED X4. DENIES ANY NEEDS AT THIS TIME. BED IN LOWEST, SRX1, CALL LIGHT WITHIN REACH. WILL CTM.
[2019-10-30 20:27] VITALS: BP 129/66
[2019-10-31 04:39] VITALS: BP 136/70
--- NOTE | 2019-10-31 07:00 | NUR ---
RECEIVED REPORT. ASSUMED CARE OF PATIENT. CALL LIGHT WITHIN REACH. PATIENT SITTING TO CHAIR AT BEDSIDE. DENIES NEEDS. NO DISTRESS. SR ON TELEMETRY, RATE OF 83.
[2019-10-31 08:00] VITALS: BP 129/61
--- NOTE | 2019-10-31 10:22 | NUR ---
MEDICATED FOR PAIN AT THIS TIME. NO DISTRESS.
[2019-10-31 10:24] LABS: BASOPHILS 0.6 % (0-2); EOSINOPHILS 5.1 % (0-7); HEMATOCRIT 28.2 % (42.0-54.0); HEMOGLOBIN 8.6 g/dL (13.5-17.5); IMMATURE GRANULOCYTES 0.3 % (0-5); LYMPHOCYTES 22.2 % (15-50); MCHC 30.5 g/dL (31.0-37.0); MEAN PLATELET VOLUME 11.6 fL (7.4-10.4); MONOCYTES 13.1 % (2-11); NEUTROPHILS 58.7 % (40-80); PLATELET COUNT 74 10x3/uL (130-400); RBC 2.87 10x6/uL (4.20-6.10); RDW 14.8 % (11.5-14.5); WBC 3.5 10x3/uL (4.8-10.8)
[2019-10-31 10:27] LABS: MCV 98.3 fL (80.0-100.0)
[2019-10-31 10:42] LABS: ANION GAP 12.6 mmol/L (8-16); CALCIUM 8.1 mg/dL (8.5-10.1); CARBON DIOXIDE 24.6 mmol/L (21.0-32.0); CREATININE - SERUM 2.3 mg/dL (0.6-1.3); POTASSIUM - SERUM 5.2 mmol/L (3.5-5.1)
[2019-10-31 10:46] LABS: PLATELET ESTIMATE DECREASED
[2019-10-31 11:00] VITALS: BP 148/78
--- NOTE | 2019-10-31 12:28 | NUR ---
FSBS 164. 4 UNITS HUMALOG ADMINISTERED PER SLIDING SCALE. NO DISTRESS.
[2019-10-31 15:00] VITALS: BP 153/80
--- NOTE | 2019-10-31 15:50 | NUR ---
MEDICATED FOR NAUSEA.
--- NOTE | 2019-10-31 16:50 | NUR ---
FSBS 89. NO INSULIN COVERAGE PER SLIDING SCALE.
--- NOTE | 2019-10-31 19:10 | NUR ---
REPORT RECEIVED, PT CARE ASSUMED. WROTE NAME ON BOARD. PT SITTING UP IN BED, WATCHING TV, AAOX4. 600 ML CLEAR YELLOW URINE EMPTIED FROM URINAL. DENIES ANY OTHER NEEDS AT THIS TIME. BED IN LOWEST, SRX1, CALL LIGHT AND URINAL WITHIN REACH. WILL CTM.
[2019-10-31 21:00] VITALS: BP 154/83
[2019-11-01 00:45] VITALS: BP 142/76
[2019-11-01 04:24] VITALS: BP 148/78
[2019-11-01 05:16] LABS: BASOPHILS 0.3 % (0-2); EOSINOPHILS 5.6 % (0-7); HEMATOCRIT 27.7 % (42.0-54.0); HEMOGLOBIN 8.3 g/dL (13.5-17.5); IMMATURE GRANULOCYTES 0.3 % (0-5); LYMPHOCYTES 24.7 % (15-50); MCH 29.5 pg (26.0-34.0); MCV 98.6 fL (80.0-100.0); MEAN PLATELET VOLUME 12.6 fL (7.4-10.4); MONOCYTES 11.6 % (2-11); NEUTROPHILS 57.5 % (40-80); PLATELET COUNT 84 10x3/uL (130-400); RBC 2.81 10x6/uL (4.20-6.10); RDW 14.6 % (11.5-14.5); WBC 3.7 10x3/uL (4.8-10.8)
[2019-11-01 06:11] LABS: ALBUMIN 2.6 g/dL (3.4-5.0); ANION GAP 20.1 mmol/L (8-16); BILIRUBIN - TOTAL 0.71 mg/dL (0.2-1.3); CALCIUM 8.2 mg/dL (8.5-10.1); CREATININE - SERUM 2.4 mg/dL (0.6-1.3); MAGNESIUM - SERUM 1.6 mg/dL (1.8-2.4); PHOSPHOROUS 3.2 mg/dL (2.5-4.9); POTASSIUM - SERUM 4.9 mmol/L (3.5-5.1); PROTEIN - SERUM 5.8 g/dL (6.4-8.2)
[2019-11-01 06:21] LABS: CARBON DIOXIDE 16.8 mmol/L (21.0-32.0)
--- NOTE | 2019-11-01 07:00 | NUR ---
RECEIVED REPORT. ASSUMED CARE OF PATIENT. PATIENT AWAKE WITH ATTENTION TOWARD TELEVISION. CALL LIGHT WITHIN REACH. BEDSIDE SHIFT REPORT COMPLETED, WHITE BOARD UPDATED, IV FLUIDS INFUSING ORDERED. PATIENT DENIES ANY NEEDS THIS AM. NO DISTRESS.
[2019-11-01 08:45] VITALS: BP 148/83
--- NOTE | 2019-11-01 09:06 | NUR ---
PATIENT PROVIDED WITH CLEAR LIQUIDS HE IS COMPLAINING THAT HE IS SICK TO HIS STOMACH AND COULD NOT EAT HIS AM MEAL. PATIENT TOLERATED JELLO AND DIET LEMON COMANCHE SODA VERY WELL. NO DISTRESS.
--- NOTE | 2019-11-01 11:07 | NUR ---
FSBS 197. 4 UNITS HUMALOG ADMINISTERED PER SLIDING SCALE. NO DISTRESS.
--- NOTE | 2019-11-01 11:24 | NUR ---
NS ORDERS CLARIFIED WITH RENAL ADMINISTRATIVE OFFICE ASSISTANT CARLOS. NEW ORDERS RECEIVED.
[2019-11-01 12:07] VITALS: BP 133/77
--- NOTE | 2019-11-01 16:23 | NUR ---
FSBS 123. NO INSULIN COVERAGE PER SLIDING SCALE.
--- NOTE | 2019-11-01 17:25 | NUR ---
MEDICATED FOR NAUSEA. PATIENT STATES HE WAS NAUSEATED BUT ATE HIS [place] ANYWAY.
[2019-11-01 20:30] VITALS: BP 159/85
[2019-11-02 04:41] VITALS: BP 147/80
[2019-11-02 07:31] LABS: BASOPHILS 0.4 % (0-2); EOSINOPHILS 5.8 % (0-7); HEMATOCRIT 31.4 % (42.0-54.0); HEMOGLOBIN 9.4 g/dL (13.5-17.5); IMMATURE GRANULOCYTES 0.2 % (0-5); LYMPHOCYTES 27.1 % (15-50); MCH 29.5 pg (26.0-34.0); MCHC 29.9 g/dL (31.0-37.0); MCV 98.4 fL (80.0-100.0); MEAN PLATELET VOLUME 12.7 fL (7.4-10.4); MONOCYTES 10.5 % (2-11); RBC 3.19 10x6/uL (4.20-6.10); RDW 14.5 % (11.5-14.5)
[2019-11-02 07:34] LABS: PLATELET COUNT 127 10x3/uL (130-400); WBC 4.7 10x3/uL (4.8-10.8)
[2019-11-02 07:36] LABS: ALBUMIN 3.1 g/dL (3.4-5.0); ALKALINE PHOSPHATASE 136 U/L (30-120); ALT (SGPT) 25 U/L (10-68); BILIRUBIN - TOTAL 0.87 mg/dL (0.2-1.3); CALC OSMOLALITY 291 mosm/kg (275-300); CALCIUM 8.7 mg/dL (8.5-10.1); CHLORIDE - SERUM 110 mmol/L (98-107); CREATINE KINASE 611 UL (21-232); CREATININE - SERUM 2.2 mg/dL (0.6-1.3); GLUCOSE 122 mg/dL (74-106); LDH 371 U/L (85-227); MAGNESIUM - SERUM 1.7 mg/dL (1.8-2.4); POTASSIUM - SERUM 4.9 mmol/L (3.5-5.1); PROTEIN - SERUM 6.8 g/dL (6.4-8.2); SODIUM 143 mmol/L (136-145); UREA NITROGEN 28 mg/dL (7-18); eGFR NON AFRICAN AMERICAN 32 mL/min (90-120)
[2019-11-02 07:43] LABS: CARBON DIOXIDE 22.6 mmol/L (21.0-32.0); PHOSPHOROUS 4.4 mg/dL (2.5-4.9)
[2019-11-02 07:44] LABS: CKMB 4.2 U/L (0.0-3.6)
--- NOTE | 2019-11-02 09:21 | NUR ---
AM MEDS GIVEN AT THIS TIME. PT IN BED, WATCHING TV. A/O X4, RESP EVEN AND NONLABORED ON RA. LT FA IV INFUSING ANTIBIOTIC. PT DENIES ANY NEEDS AT THIS TIEM. CALL LIGHT IN REACH, NAD NOTED,WILL CONTINUE TO MONITOR.
[2019-11-02 09:32] VITALS: BP 137/62
[2019-11-02] MEDS ORDERED: PRAVACHOL20 MG PO (11:58)
[2019-11-02] MEDS ORDERED: PLAVIX75 MG PO (11:58)
[2019-11-02] MEDS ORDERED: ASPIRIN81 MG PO (11:59)
[2019-11-02] MEDS ORDERED: OMNICEF300 MG PO (12:00)
--- NOTE | 2019-11-02 12:44 | MORECARE ---
CASE MANAGEMENT DISCHARGE SUMMARY PATIENT: DASHAWN REID UNIT: [id number] ADM DATE: 10/25/19 AGE: 63 : 51 SEX: M ROOM/BED: D.7965 AUTHOR: DONOVAN OCONNELL PHYSICIAN: REFERRING PHYSICIAN: RAY RANDALL MD DATE OF SERVICE: 11/02/19 Discharge Plan Patient Name: DASHAWN REID Facility: [facility]:[place] : 1955 Planned Disposition: Home Anticipated Discharge Date: Discharge Date: Expected LOS: Initial Reviewer: [email or web address] Initial Review Date: 10/24/2019 Generated: 11/02/19 1:44 pm Comments DCP- Discharge Planning Updated by [email or web address]: Camila Juarez on 11/02/19 11:[address] Patient Name: DASHAWN REID Encounter No: [id number] : 1955 Primary Insurance: [employer] ADMINISTRATION Anticipated DC Date: Planned Disposition: Home External Planned Provider: : DCP follow-up note: CM met with pt to discuss discharge arrangements. Patient states he is feeling much better and would like to go home. CM discussed availability of home health, rehab services, and medical equipment. Patient denied known discharge needs at this time. Transportation provider at discharge will be his step daughter. Patient in agreement with discharge plan. No changes to plan. Case management will follow and assist as needed. Camila Juarez DCP- Discharge Planning Updated by [email or web address]: Camila Juarez on 10/29/19 7:[address] Patient Name: DASHAWN REID Admission Status: ER Accout number: [id number] Admission Date: 10-25-2019 : 1955 Admission Diagnosis:CHEST PAIN, UNSPECIFIED Attending: SUHA Current LOS: 4 Anticipated DC Date: Planned Disposition: Home Primary Insurance: [employer] ADMINISTRATION LATE ENTRY ASSESSMENT COMPLETED. 10/26 @ 1140 Discharge Planning Comments: CM met with patient to complete initial dc planning assessment. CM educated patient on the CM role and verbal consent given by patient to complete assessment. CM verified patient's address, phone number, and emergency contact phone numbers. Patient lives at home alone and is independent with is ADL's. Pt reports he has a cane if he needs it and a shower chair. At discharge patient plans to return home and feels this is a safe discharge. CM discussed availability of home health, rehab services, and medical equipment. Patient denied known discharge needs at this time. Declination signed for IP rehab, or home health services. Transportation provider at discharge will be his daughter Tiara ([phone]) . CM will continue to follow and will assist as needed with dc plans/needs. Speech Language Pathologist Travel: Camila Juarez DCP- Discharge Planning Updated by [email or web address]: Camila Juarez on 10/29/19 6:[address] CM SPOKE WITH PR EXPEDITOR WITH UPDATED CONTINION. PROVIDED NUMBER TO [facility] 2 NURSES STATION IF BED BECOMES AVAILABLE. DCPIA - Discharge Planning Initial Assessment Updated by [email or web address]: Camila Juarez on 10/29/19 8:24 pm * Is the patient Alert and Oriented? Yes * How many steps to enter\exit or inside your home? 0/0 * PCP ALYX HOLLAND * Pharmacy [facility] * Preadmission Environment Home Alone * ADLs Independent * Equipment Cane Shower Chair * Community resources currently utilized None * Additional services required to return to the preadmission environment? No * Can the patient safely return to the preadmission environment? Yes * Has this patient been hospitalized within the prior 30 days at any hospital? No Last DP export: 10/29/19 7:32 p Patient Name: DASHAWN REID Page [phone] at 1244 All edits/amendments must be made on the electronic document DICTATION DATE: 11/02/19 124 RESEARCH SOFTWARE ENGINEER: KATIE 11/02/19 1244 RPT#: [id number] DC DATE: STATUS: ADM IN [facility] [address] [place] [address] END OF REPORT
--- NOTE | 2019-11-02 13:03 | NUR ---
PROVIDED VERBAL AND WRITTEN DISCHARGE TEACHING TO PT WHO VERBALIZED UNDERSTANDING REGARDING TEACHING. D/C LT FA IV WITH CATHETER TIP INTACT. HEART MONITOR REMOVED AND TAKEN TO WALLPAPER INSPECTOR AND SHIPPER, PT LEFT UNIT VIA WHEELCHAIR, WITH ALL BELONGINGS, NAD NOTED.
== END 2019-11-02 13:08 | disposition home or self-care (01) | DRG 248 ==
LOC: D.ER 18:56 → D.CVICU 21:09 → OBSVTIME 21:09 → D.CVICU 23:55 → D.M2 10-25 17:26
PROVIDERS: Emergency Medicine; Family Medicine; Internal Medicine Cardiovascular Disease; Internal Medicine Hematology & Oncology; Internal Medicine Nephrology; ADMIT Family Medicine; ATTEND Family Medicine
PROC: B2111ZZ Fluoroscopy of Multiple Coronary Arteries using Low Osmolar Contrast (ICD-10-PCS; 2019-10-25)
PROC: B2181ZZ Fluoroscopy of Left Internal Mammary Bypass Graft using Low Osmolar Contrast (ICD-10-PCS; 2019-10-25)
PROC: B2121ZZ Fluoroscopy of Single Coronary Artery Bypass Graft using Low Osmolar Contrast (ICD-10-PCS; 2019-10-25)
PROC: 02703DZ Dilation of Coronary Artery, One Artery with Intraluminal Device, Percutaneous Approach (ICD-10-PCS; principal; 2019-10-25 09:06)
PROC: 4A023N7 Measurement of Cardiac Sampling and Pressure, Left Heart, Percutaneous Approach (ICD-10-PCS; 2019-10-25 09:06)
DX: T82.855A Stenosis of coronary artery stent, initial encounter (principal); I21.A1 Myocardial infarction type 2; I13.0 Hypertensive heart and chronic kidney disease with heart failure and stage 1 through stage 4 chronic kidney disease, or unspecified chronic kidney disease; I50.22 Chronic systolic (congestive) heart failure; N17.9 Acute kidney failure, unspecified; I25.110 Atherosclerotic heart disease of native coronary artery with unstable angina pectoris; E11.22 Type 2 diabetes mellitus with diabetic chronic kidney disease; E11.65 Type 2 diabetes mellitus with hyperglycemia; J44.9 Chronic obstructive pulmonary disease, unspecified; I25.5 Ischemic cardiomyopathy; K21.9 Gastro-esophageal reflux disease without esophagitis; D63.1 Anemia in chronic kidney disease; N18.3 Chronic kidney disease, stage 3 (moderate); D69.6 Thrombocytopenia, unspecified; Y83.9 Surgical procedure, unspecified as the cause of abnormal reaction of the patient, or of later complication, without mention of misadventure at the time of the procedure; Z86.73 Personal history of transient ischemic attack (TIA), and cerebral infarction without residual deficits

== ENCOUNTER 2019-11-07 12:49 | Emergency (ER) | payer OTHER ==
[~2019-11-07] VITALS: Ht 185.4 cm; Wt 76.4 kg
[~2019-11-07 12:49] MED LIST changes: +ASPIRIN81 MG PO; +LOKELMA10 GM PO; +METOPROLOL TART50 MG PO; +PRAVACHOL20 MG PO
[2019-11-07 13:02] VITALS: Ht 185.4 cm; Wt 76.4 kg
[2019-11-07 13:54] LABS: BASOPHILS 0.3 % (0-2); EOSINOPHILS 4.2 % (0-7); HEMATOCRIT 30.9 % (42.0-54.0); HEMOGLOBIN 9.4 g/dL (13.5-17.5); IMMATURE GRANULOCYTES 0.5 % (0-5); LYMPHOCYTES 24.6 % (15-50); MCH 29.8 pg (26.0-34.0); MCHC 30.4 g/dL (31.0-37.0); MCV 98.1 fL (80.0-100.0); MEAN PLATELET VOLUME 12.1 fL (7.4-10.4); MONOCYTES 7.3 % (2-11); NEUTROPHILS 63.1 % (40-80); PLATELET COUNT 138 10x3/uL (130-400); RBC 3.15 10x6/uL (4.20-6.10); RDW 14.7 % (11.5-14.5); WBC 3.8 10x3/uL (4.8-10.8)
[2019-11-07 13:59] LABS: CALC OSMOLALITY 297 mosm/kg (275-300); CALCIUM 7.8 mg/dL (8.5-10.1); CARBON DIOXIDE 25.7 mmol/L (21.0-32.0); CHLORIDE - SERUM 109 mmol/L (98-107); CREATININE - SERUM 2.4 mg/dL (0.6-1.3); GLUCOSE 255 mg/dL (74-106); POTASSIUM - SERUM 4.3 mmol/L (3.5-5.1); SODIUM 140 mmol/L (136-145); UREA NITROGEN 40 mg/dL (7-18); eGFR NON AFRICAN AMERICAN 29 mL/min (90-120)
[2019-11-07 14:18] LABS: APTT 31.4 SECONDS (22.8-39.4); INR 1.1 (0.85-1.17); PROTIME 14.1 SECONDS (11.6-15.0)
[2019-11-07 14:31] LABS: ALBUMIN 2.8 g/dL (3.4-5.0); ALKALINE PHOSPHATASE 116 U/L (30-120); ALT (SGPT) 25 U/L (10-68); BILIRUBIN - TOTAL 0.58 mg/dL (0.2-1.3); CKMB 1.7 U/L (0.0-3.6); CREATINE KINASE 159 UL (21-232); MAGNESIUM - SERUM 1.8 mg/dL (1.8-2.4); PRO BNP 10735 pg/mL (0-125); PROTEIN - SERUM 6.2 g/dL (6.4-8.2); TROPONIN-I 0.016 ng/mL (0.000-0.060)
[2019-11-07] MEDS ORDERED: FUROSEMIDE20 MG PO (15:15)
[2019-11-07 15:55] VITALS: BP 138/61
== END 2019-11-07 15:55 | disposition home or self-care (01) ==
LOC: D.ER 12:49
PROVIDERS: Emergency Medicine
DX: I50.9 Heart failure, unspecified (principal); R07.9 Chest pain, unspecified; D64.9 Anemia, unspecified; R79.89 Other specified abnormal findings of blood chemistry; I12.9 Hypertensive chronic kidney disease with stage 1 through stage 4 chronic kidney disease, or unspecified chronic kidney disease; E11.22 Type 2 diabetes mellitus with diabetic chronic kidney disease; N18.9 Chronic kidney disease, unspecified; Z79.84 Long term (current) use of oral hypoglycemic drugs; Z86.73 Personal history of transient ischemic attack (TIA), and cerebral infarction without residual deficits; J44.9 Chronic obstructive pulmonary disease, unspecified; K21.9 Gastro-esophageal reflux disease without esophagitis

== ENCOUNTER 2019-11-09 20:44 | Emergency (ER) | payer OTHER ==
[~2019-11-09] VITALS: Ht 185.4 cm; Wt 76.2 kg
[2019-11-09 20:55] VITALS: Ht 185.4 cm; Wt 76.2 kg
[2019-11-09 21:28] LABS: BASOPHILS 0.4 % (0-2); EOSINOPHILS 2.6 % (0-7); HEMATOCRIT 36.9 % (42.0-54.0); HEMOGLOBIN 11.3 g/dL (13.5-17.5); IMMATURE GRANULOCYTES 0.4 % (0-5); LYMPHOCYTES 33.8 % (15-50); MCH 30.1 pg (26.0-34.0); MCHC 30.6 g/dL (31.0-37.0); MCV 98.1 fL (80.0-100.0); MEAN PLATELET VOLUME 11.5 fL (7.4-10.4); MONOCYTES 7.9 % (2-11); NEUTROPHILS 54.9 % (40-80); PLATELET COUNT 129 10x3/uL (130-400); RBC 3.76 10x6/uL (4.20-6.10); RDW 14.8 % (11.5-14.5); WBC 5.4 10x3/uL (4.8-10.8)
[2019-11-09 21:40] LABS: APTT 30.6 SECONDS (22.8-39.4); INR 1.03 (0.85-1.17); PROTIME 13.5 SECONDS (11.6-15.0)
[2019-11-09 21:41] LABS: CALC OSMOLALITY 305 mosm/kg (275-300); CALCIUM 8.3 mg/dL (8.5-10.1); CARBON DIOXIDE 31.8 mmol/L (21.0-32.0); CHLORIDE - SERUM 103 mmol/L (98-107); CREATININE - SERUM 3.5 mg/dL (0.6-1.3); GLUCOSE 257 mg/dL (74-106); POTASSIUM - SERUM 4.1 mmol/L (3.5-5.1); SODIUM 139 mmol/L (136-145); UREA NITROGEN 65 mg/dL (7-18); eGFR NON AFRICAN AMERICAN 19 mL/min (90-120)
[2019-11-09 21:57] LABS: ALBUMIN 3.2 g/dL (3.4-5.0); ALKALINE PHOSPHATASE 152 U/L (30-120); ALT (SGPT) 31 U/L (10-68); BILIRUBIN - TOTAL 0.75 mg/dL (0.2-1.3); CREATINE KINASE 111 UL (21-232); MAGNESIUM - SERUM 1.7 mg/dL (1.8-2.4); PROTEIN - SERUM 7.2 g/dL (6.4-8.2)
[2019-11-09 22:06] LABS: TROPONIN-I < 0.017 ng/mL (0.000-0.060)
[2019-11-09 23:15] LABS: BILIRUBIN NEGATIVE (NEGATIVE); GLUCOSE 100 mg/dL (NEGATIVE); KETONE NEGATIVE (NEGATIVE); NITRITE NEGATIVE (NEGATIVE); UROBILINOGEN NORMAL (NORMAL)
[2019-11-09 23:16] LABS: BACTERIA NONE SEEN /hpf (NEGATIVE); EPITHELIAL CELLS NSEEN /hpf (0-5); RED CELLS - URINE 0-5 /hpf (0-5); WHITE CELLS - URINE NSEEN /hpf (NEGATIVE)
[2019-11-10] MEDS ORDERED: ULTRAM50 MG PO (00:37)
[2019-11-10 00:55] VITALS: BP 132/72
== END 2019-11-10 00:55 | disposition home or self-care (01) ==
LOC: D.ER 20:44
PROVIDERS: Emergency Medicine
DX: R07.9 Chest pain, unspecified (principal); E11.9 Type 2 diabetes mellitus without complications; I11.0 Hypertensive heart disease with heart failure; I50.9 Heart failure, unspecified; Z86.73 Personal history of transient ischemic attack (TIA), and cerebral infarction without residual deficits; K21.9 Gastro-esophageal reflux disease without esophagitis; J44.9 Chronic obstructive pulmonary disease, unspecified; Z79.84 Long term (current) use of oral hypoglycemic drugs; M79.602 Pain in left arm

== ENCOUNTER 2019-11-12 16:26 | Inpatient (IN) | payer OTHER ==
[~2019-11-12] VITALS: Ht 185.4 cm; Wt 66.4 kg
[~2019-11-12 16:26] MED LIST changes: +ULTRAM50 MG PO
[2019-11-12 17:10] LABS: BASOPHILS 0.6 % (0-2); EOSINOPHILS 2.4 % (0-7); HEMATOCRIT 32.8 % (42.0-54.0); HEMOGLOBIN 10.1 g/dL (13.5-17.5); IMMATURE GRANULOCYTES 0.4 % (0-5); LYMPHOCYTES 28.1 % (15-50); MCHC 30.8 g/dL (31.0-37.0); MCV 97.3 fL (80.0-100.0); MEAN PLATELET VOLUME 12.2 fL (7.4-10.4); MONOCYTES 12.1 % (2-11); NEUTROPHILS 56.4 % (40-80); PLATELET COUNT 132 10x3/uL (130-400); RBC 3.37 10x6/uL (4.20-6.10); RDW 14.8 % (11.5-14.5); WBC 4.9 10x3/uL (4.8-10.8)
[2019-11-12 17:32] LABS: APTT 23.6 SECONDS (22.8-39.4); INR 1.03 (0.85-1.17); PROTIME 13.4 SECONDS (11.6-15.0)
[2019-11-12 17:41] LABS: ALBUMIN 3.1 g/dL (3.4-5.0); ALKALINE PHOSPHATASE 156 U/L (30-120); ALT (SGPT) 28 U/L (10-68); AMYLASE - SERUM 108 U/L (25-115); CALCIUM 8.4 mg/dL (8.5-10.1); CARBON DIOXIDE 28.2 mmol/L (21.0-32.0); CHLORIDE - SERUM 103 mmol/L (98-107); CREATINE KINASE 89 UL (21-232); CREATININE - SERUM 3.1 mg/dL (0.6-1.3); LIPASE 781 U/L (73-393); PROTEIN - SERUM 6.4 g/dL (6.4-8.2); SODIUM 139 mmol/L (136-145); UREA NITROGEN 92 mg/dL (7-18); eGFR NON AFRICAN AMERICAN 21 mL/min (90-120)
[2019-11-12 17:43] LABS: CALC OSMOLALITY 323 mosm/kg (275-300); GLUCOSE 419 mg/dL (74-106); TROPONIN-I < 0.017 ng/mL (0.000-0.060)
--- NOTE | 2019-11-12 17:48 | NUR ---
CRITICAL LAB: GLUCOSE 419 MG/DL PRETTY GUPTA NOTIFIED
[2019-11-12 17:50] VITALS: BP 161/77
--- NOTE | 2019-11-12 17:50 | NUR ---
URINE SPEC COLLECTED, LABELED AT BS AND SENT TO LAB
[2019-11-12 17:58] LABS: BILIRUBIN NEGATIVE (NEGATIVE); GLUCOSE 100 mg/dL (NEGATIVE); KETONE NEGATIVE (NEGATIVE); NITRITE NEGATIVE (NEGATIVE); UROBILINOGEN NORMAL (NORMAL)
[2019-11-12 18:16] LABS: BACTERIA FEW /hpf (NEGATIVE); EPITHELIAL CELLS 0-5 /hpf (0-5); RED CELLS - URINE 0-5 /hpf (0-5); WHITE CELLS - URINE 0-5 /hpf (NEGATIVE)
--- NOTE | 2019-11-12 18:51 | NUR ---
FSBS= 158 MG/DL
[2019-11-12 18:55] VITALS: BP 161/70
--- NOTE | 2019-11-12 19:06 | NUR ---
BS REPORT TO SILAS CRISOSTOMO
--- NOTE | 2019-11-12 19:07 | NUR ---
ATTEMPTED TO CALL REPORT TO MED SURG CN REPORTS NURSES ARE IN REPORT AN UNAVAIALBE TO TAKE REPORT AT THIS TIME
--- NOTE | 2019-11-12 20:00 | NUR ---
RECEIVED PT FROM ER VIA W/C. ALERT AND ORIENTED X4. C/O ABD PAININ ABD 8. RECEIVED FENTANYL IN ER FOR PAIN. PT HAS HX OF BIPOLAR D/O AND RATES LEVEL 2 RISK FOR SUICIDE. NOTIFIED HOUSE SUP OF THIS FOR SUICIDE EVAL. DENIES ANY CURRENT THOUGHTS OR PLANS. AMBULATORY. RESP EVEN AND NONLABORED. LARGE BRUISE NOTED TO BILAT INNER THIGHS FROM RECENT STENTS X2 ON 10/29/19. HAD HARD FORMED BM WITH SMALL AMOUNT OF BLOOD. STATES HE HAS HEMORRHOIDS. SCDS ON BILAT. NS @ 125 MLHR INFUSING IN RT AV. V/S STABLE. SR ELEVATED X2. CL IN REACH.
--- NOTE | 2019-11-12 21:07 | NUR ---
PATIENT IN ROOM 2232, HX. OF COMMITTING SUICIDE X2. LAST ATTEMPT WAS 2014. HE IS NOT SUICIDIAL AT THIS TIME. HE IS ALERT AND ORIENTED. HE HAS REASONS FOR LIVING. HE IS CURRENTLY TAKING MEDS FOR BIPOLAR AND HIS MEDS ARE MANAGE BY HIS . 1800 NUMBER GIVEN FOR FUTURE REFERENCE
--- NOTE | 2019-11-12 21:11 | NUR ---
MEDICATED WITH DILAUDID FOR C/O ABD PAIN. EKG PERFORMED. CL IN REACH.
[2019-11-12 23:50] VITALS: BP 124/76; Ht 185.4 cm; Wt 66.4 kg
[2019-11-13] VITALS: BP 138/74
[2019-11-13 00:32] LABS: CKMB 1.7 U/L (0.0-3.6); CREATINE KINASE 110 UL (21-232)
[2019-11-13 00:34] LABS: TROPONIN-I < 0.017 ng/mL (0.000-0.060)
--- NOTE | 2019-11-13 01:10 | NUR ---
MEDICATED WITH DILAUDID FOR C/O ABD PAIN. CL IN REACH.
--- NOTE | 2019-11-13 03:10 | NUR ---
EKG PERFORMED AT THIS TIME. PT DENIES ANY CHEST PAIN. CARDIAC ENZYMES NEGATIVE. TELEMETRY SHOWS SR WITH RATE OF 63. NO DISTRESS. DENIES NEEDS. CL IN REACH.
[2019-11-13 04:00] VITALS: BP 138/69
[2019-11-13 05:25] LABS: BASOPHILS 0.5 % (0-2); EOSINOPHILS 5.9 % (0-7); HEMATOCRIT 38.8 % (42.0-54.0); IMMATURE GRANULOCYTES 1.2 % (0-5); LYMPHOCYTES 35.8 % (15-50); MCH 30.1 pg (26.0-34.0); MCHC 30.9 g/dL (31.0-37.0); MCV 97.2 fL (80.0-100.0); MEAN PLATELET VOLUME 12.4 fL (7.4-10.4); MONOCYTES 10.2 % (2-11); NEUTROPHILS 46.4 % (40-80); PLATELET COUNT 121 10x3/uL (130-400); RBC 3.99 10x6/uL (4.20-6.10); RDW 14.6 % (11.5-14.5); WBC 4.2 10x3/uL (4.8-10.8)
[2019-11-13 06:27] LABS: ALBUMIN 3.1 g/dL (3.4-5.0); ALKALINE PHOSPHATASE 142 U/L (30-120); ALT (SGPT) 26 U/L (10-68); AMYLASE - SERUM 94 U/L (25-115); BILIRUBIN - TOTAL 0.49 mg/dL (0.2-1.3); CALCIUM 8.1 mg/dL (8.5-10.1); CARBON DIOXIDE 27.3 mmol/L (21.0-32.0); CHLORIDE - SERUM 107 mmol/L (98-107); CKMB 1.9 U/L (0.0-3.6); CREATINE KINASE 150 UL (21-232); CREATININE - SERUM 2.7 mg/dL (0.6-1.3); MAGNESIUM - SERUM 1.8 mg/dL (1.8-2.4); PHOSPHOROUS 4.7 mg/dL (2.5-4.9); POTASSIUM - SERUM 3.8 mmol/L (3.5-5.1); PRO BNP 3939 pg/mL (0-125); PROTEIN - SERUM 6.6 g/dL (6.4-8.2); SODIUM 144 mmol/L (136-145); THYROID STIMULATING HORMONE 1.37 uIU/mL (0.36-3.74); UREA NITROGEN 82 mg/dL (7-18); eGFR NON AFRICAN AMERICAN 25 mL/min (90-120)
--- NOTE | 2019-11-13 07:00 | NUR ---
RESTING IN BED WITH EYES OPEN. NO C/O PAIN. NO S/S OF ACUTE DISTRESS NOTED. SCDS ON. IV TO RIGHT AC, SL. SITE PATENT WITHOUT REDNESS OR SWELLING. BRUISING TO RIGHT GROIN/THIGH AREA D/T STENT PLACEMENT ON THE OF THIS MONTH. FSBS Q4 HOURS. ON TELEMETRY SB 59. DENIES ANY NEEDS AT THIS TIME. CALL LIGHT IN REACH. WILL CONTINUE TO MONITOR.
[2019-11-13 07:42] LABS: CALC OSMOLALITY 311 mosm/kg (275-300); GLUCOSE 100 mg/dL (74-106); LIPASE 306 U/L (73-393); TROPONIN-I < 0.017 ng/mL (0.000-0.060)
--- NOTE | 2019-11-13 10:34 | NUR ---
I have reviewed this patient and I concur with the Shift Assessment completed by the Licensed Practical Nurse today this shift.
[2019-11-13 11:05] VITALS: BP 146/76
[2019-11-13 11:34] LABS: CKMB 2.2 U/L (0.0-3.6); CREATINE KINASE 150 UL (21-232); TROPONIN-I < 0.017 ng/mL (0.000-0.060)
[2019-11-13 13:31] VITALS: BP 138/69
[2019-11-13 17:31] VITALS: BP 143/50
[2019-11-13 20:00] VITALS: BP 165/78
--- NOTE | 2019-11-13 20:00 | NUR ---
PATIENT RESTING IN BED WATCHING TV. NO S/S OF ACUTE DISTRESS. NO C/O AT THIS TIME. PATIENT IS A&O X4, PATIENT IS SLOW TO RESPOND. PATIENT HAS RIGHT AC, SALINE LOC. IV IS PATENT WITHOUT REDNESS, SWELLING, OR TENDERNESS. PATIENT HAS TELEMTRY. PATIENT HAS A RIGHT GROIN AND THIGH BRUISING. PATIENT IS UP ADLIB TO THE BATHROOM. CALL LIGHT WITHIN REACH. WILL CONTINUE TO MONITOR.
--- NOTE | 2019-11-14 02:29 | NUR ---
I have reviewed this patient and I concur with the Shift Assessment completed by the Licensed Practical Nurse today this shift.
[2019-11-14 04:00] VITALS: BP 105/72
[2019-11-14 06:41] LABS: BASOPHILS 0.1 % (0-2); EOSINOPHILS 0 % (0-7); HEMATOCRIT 38.2 % (42.0-54.0); IMMATURE GRANULOCYTES 0.2 % (0-5); LYMPHOCYTES 9.3 % (15-50); MCH 30.5 pg (26.0-34.0); MCHC 31.4 g/dL (31.0-37.0); MEAN PLATELET VOLUME 13.2 fL (7.4-10.4); MONOCYTES 7.9 % (2-11); NEUTROPHILS 82.5 % (40-80); RBC 3.94 10x6/uL (4.20-6.10); RDW 14.5 % (11.5-14.5)
[2019-11-14 06:42] LABS: PLATELET COUNT 148 10x3/uL (130-400); WBC 9.7 10x3/uL (4.8-10.8)
[2019-11-14 07:00] LABS: ANION GAP 12.6 mmol/L (8-16); CALCIUM 8.2 mg/dL (8.5-10.1); CARBON DIOXIDE 28.6 mmol/L (21.0-32.0); CREATININE - SERUM 2.8 mg/dL (0.6-1.3); MAGNESIUM - SERUM 1.8 mg/dL (1.8-2.4); PHOSPHOROUS 4.5 mg/dL (2.5-4.9); POTASSIUM - SERUM 4.2 mmol/L (3.5-5.1)
--- NOTE | 2019-11-14 08:00 | NUR ---
AWAKE AND ALERT. NO NEEDS AT THIS TIME. WCTM
[2019-11-14 09:42] VITALS: BP 121/64
[2019-11-14 12:52] VITALS: BP 133/71
--- NOTE | 2019-11-14 13:00 | NUR ---
PT REQUESTING A BREATHING TX. RESP NOTIFIED. CO OF PAIN AT A 8 OUT OF 10. CL IN REACH. WCTM
[2019-11-14 17:15] VITALS: BP 112/64
--- NOTE | 2019-11-14 17:46 | NUR ---
PT CO OF CHEST PAIN AND RADIATING DOWN TO ARMS. NEURO CHECKS ARE GOOD. 79 SR WITH 1ST DEGREE BLOCK AND PVC. CALLED Kaleigh CANTRELL APN AND Judith TORRES APN TO NOTIFY. BP WAS 158/84 AT 1725 PT STATES HARD TO BREATH O2 APPLIED AT 2 L NC. OX SAT IS 99 % AT THIS TIME. BP IS 125/77 44 HR.
--- NOTE | 2019-11-14 17:51 | NUR ---
PT CO OF A DULL PAIN 9 OUT OF 10 ON THE PAIN SCALE. BP NOW 113/73 HR 75 O2 SAT IS 99% ON 2 L. SAYS IT IS THE SAME PAIN WHEN HE HAD STENTS PLACED. 3RD NITRO SUB-LINGAL GIVEN. IN ROOM MONITORING. WILL CALL RAPID IF NO ONE RETURNS MY CALL OR NITRO DOESN'T WORK.
[2019-11-14 18:16] VITALS: BP 136/79
[2019-11-14 18:38] LABS: PROTIME 13.2 SECONDS (11.6-15.0)
[2019-11-14 18:39] LABS: APTT 44.3 SECONDS (22.8-39.4)
[2019-11-14 18:40] LABS: D-DIMER-QUANTITATIVE 0.45 ug/mLFEU (0.20-0.54)
[2019-11-14 18:56] LABS: CKMB 2.2 U/L (0.0-3.6); CREATINE KINASE 134 UL (21-232)
[2019-11-14 19:04] LABS: TROPONIN-I < 0.017 ng/mL (0.000-0.060)
[2019-11-14 20:00] VITALS: BP 155/74
[2019-11-14 23:37] LABS: CKMB 2.2 U/L (0.0-3.6); CREATINE KINASE 129 UL (21-232); TROPONIN-I < 0.017 ng/mL (0.000-0.060)
[2019-11-15] VITALS: BP 127/66
--- NOTE | 2019-11-15 02:43 | NUR ---
ALERT AND ORENTED ABLE TO VOICE NEEDS TO STAFF. RESTING IN BED WITH NO NEEDS AT THIS TIME. IV TO RIGHT AC. fsbs PER ORDERS. WATER AND CALL LIGHT IN REACH CHECKED OFTEN FOR NEEDS AND SAFETY.
[2019-11-15 04:00] VITALS: BP 123/59
--- NOTE | 2019-11-15 08:09 | NUR ---
RESTING IN BED, NO DISTRESS NOTED, EYES CLOSED, O2 IN PLACE, TELE IN PLACE, CONT TO MONITOR SUGARS
[2019-11-15 09:13] VITALS: BP 111/73
[2019-11-15 09:36] LABS: BASOPHILS 0.5 % (0-2); EOSINOPHILS 3.9 % (0-7); HEMATOCRIT 36.1 % (42.0-54.0); HEMOGLOBIN 11.2 g/dL (13.5-17.5); LYMPHOCYTES 28.5 % (15-50); MCH 30.1 pg (26.0-34.0); MEAN PLATELET VOLUME 12.6 fL (7.4-10.4); MONOCYTES 7.5 % (2-11); NEUTROPHILS 59.6 % (40-80); RBC 3.72 10x6/uL (4.20-6.10); RDW 14.5 % (11.5-14.5)
[2019-11-15 09:38] LABS: PLATELET COUNT 103 10x3/uL (130-400); WBC 4.1 10x3/uL (4.8-10.8)
[2019-11-15 09:56] LABS: CALCIUM 8.5 mg/dL (8.5-10.1); CARBON DIOXIDE 31.1 mmol/L (21.0-32.0); CHLORIDE - SERUM 105 mmol/L (98-107); CKMB 2.5 U/L (0.0-3.6); CREATINE KINASE 108 UL (21-232); CREATININE - SERUM 2.8 mg/dL (0.6-1.3); PHOSPHOROUS 3.9 mg/dL (2.5-4.9); POTASSIUM - SERUM 4.2 mmol/L (3.5-5.1); SODIUM 142 mmol/L (136-145); UREA NITROGEN 70 mg/dL (7-18); eGFR NON AFRICAN AMERICAN 24 mL/min (90-120)
[2019-11-15 09:57] LABS: CALC OSMOLALITY 311 mosm/kg (275-300); GLUCOSE 251 mg/dL (74-106); TROPONIN-I < 0.017 ng/mL (0.000-0.060)
[2019-11-15 13:28] VITALS: BP 107/68
--- NOTE | 2019-11-15 14:36 | NUR ---
REMOVED IV, TIP INTACT, REVIEWED DC ORDERS WITH PT, VOICED NO CONCERNS
--- NOTE | 2019-11-15 15:16 | NUR ---
TAKEN FROM HOSPITAL PER W/C
--- NOTE | 2019-11-15 18:12 | MORECARE ---
CASE MANAGEMENT DISCHARGE SUMMARY PATIENT: DASHAWN REID UNIT: [id number] ADM DATE: 11/12/19 AGE: 63 : 51 SEX: M ROOM/BED: D.2232 AUTHOR: DONOVAN OCONNELL PHYSICIAN: REFERRING PHYSICIAN: MAGALI CLEANING MD DATE OF SERVICE: 11/15/19 Discharge Plan Patient Name: DASHAWN REID Facility: [facility]:[place] : 1955 Planned Disposition: Home Anticipated Discharge Date: Discharge Date: 11/15/2019 Expected LOS: Initial Reviewer: [email or web address] Initial Review Date: 11/12/2019 Generated: 11/15/19 7:12 pm Comments DCP- Discharge Planning Updated by [email or web address]: Darcy Magdaleno on 11/15/19 5:[address] Patient Name: DASHAWN REID Admission Status: ER Accout number: [id number] Admission Date: 11-12-2019 : 1955 Admission Diagnosis: Attending: MAGALI CLEANING Current LOS: 3 Anticipated DC Date: Planned Disposition: Home Primary Insurance: [employer] ADMINISTRATION Discharge Planning Comments: CM met with patient to complete initial dc planning assessment. CM educated patient on the CM role and verbal consent given by patient to complete assessment. Patient lives at home with family. Patient is independent. At discharge patient plans to return home and feels this is a safe discharge. CM discussed availability of home health, rehab services, and medical equipment. Patient will have family to transport home. Patient denied known discharge needs at this time. CM will continue to follow and will assist as needed with dc plans/needs. Clinical Research Associate: Darcy Magdaleno DCPIA - Discharge Planning Initial Assessment Updated by [email or web address]: Darcy Magdaleno on 11/15/19 6:09 pm * Is the patient Alert and Oriented? Yes * How many steps to enter\exit or inside your home? * [facility]CP [facility] * Preadmission Environment Home with Family * ADLs Independent * Equipment None * List name and contact numbers for known caregivers / representatives who currently or will assist patient after discharge: WALLY REID - [facility] - [phone] * Verbal permission to speak to the caregivers and representatives has been obtained from the patient. N/A * Community resources currently utilized None * Additional services required to return to the preadmission environment? No * Can the patient safely return to the preadmission environment? Yes * Has this patient been hospitalized within the prior 30 days at any hospital? No Patient Name: DASHAWN REID Page 18839 at 1812 All edits/amendments must be made on the electronic document DICTATION DATE: 11/15/191811 PMP CERTIFIED PROJECT MANAGER: KATIE 11/15/191811 RPT#: [id number] DC DATE:11/15/19 STATUS: DIS IN [facility] [address] [place] [address] END OF REPORT
== END 2019-11-15 15:10 | disposition home or self-care (01) | DRG 439 ==
LOC: D.ER 16:26 → D.MS 18:20
PROVIDERS: Family Medicine; ADMIT Family Medicine; ATTEND Family Medicine
DX: K85.90 Acute pancreatitis without necrosis or infection, unspecified (principal); N17.9 Acute kidney failure, unspecified; I12.9 Hypertensive chronic kidney disease with stage 1 through stage 4 chronic kidney disease, or unspecified chronic kidney disease; E11.22 Type 2 diabetes mellitus with diabetic chronic kidney disease; N18.9 Chronic kidney disease, unspecified; D64.9 Anemia, unspecified; E78.5 Hyperlipidemia, unspecified; J44.9 Chronic obstructive pulmonary disease, unspecified; G47.33 Obstructive sleep apnea (adult) (pediatric); F31.9 Bipolar disorder, unspecified; J45.909 Unspecified asthma, uncomplicated; I25.10 Atherosclerotic heart disease of native coronary artery without angina pectoris; N40.0 Benign prostatic hyperplasia without lower urinary tract symptoms

== ENCOUNTER → 2019-11-17 | Emergency (ER) | payer OTHER ==
[~2019-11-17] VITALS: Ht 185.4 cm; Wt 84.1 kg
[2019-11-17 02:18] VITALS: BP 159/85; Ht 185.4 cm; Wt 84.1 kg
[2019-11-17 02:38] LABS: BASOPHILS 0.3 % (0-2); EOSINOPHILS 3.9 % (0-7); HEMATOCRIT 31.4 % (42.0-54.0); HEMOGLOBIN 9.6 g/dL (13.5-17.5); IMMATURE GRANULOCYTES 0.3 % (0-5); LYMPHOCYTES 29.8 % (15-50); MCH 29.5 pg (26.0-34.0); MCHC 30.6 g/dL (31.0-37.0); MCV 96.6 fL (80.0-100.0); MEAN PLATELET VOLUME 12.1 fL (7.4-10.4); MONOCYTES 7.1 % (2-11); NEUTROPHILS 58.6 % (40-80); PLATELET COUNT 94 10x3/uL (130-400); RBC 3.25 10x6/uL (4.20-6.10); RDW 14.6 % (11.5-14.5); WBC 3.8 10x3/uL (4.8-10.8)
[2019-11-17 02:47] LABS: CALC OSMOLALITY 315 mosm/kg (275-300); CALCIUM 8.4 mg/dL (8.5-10.1); CARBON DIOXIDE 29.3 mmol/L (21.0-32.0); CHLORIDE - SERUM 104 mmol/L (98-107); GLUCOSE 288 mg/dL (74-106); POTASSIUM - SERUM 3.9 mmol/L (3.5-5.1); SODIUM 140 mmol/L (136-145); UREA NITROGEN 84 mg/dL (7-18); eGFR NON AFRICAN AMERICAN 22 mL/min (90-120)
[2019-11-17 03:00] LABS: ALKALINE PHOSPHATASE 183 U/L (30-120); ALT (SGPT) 30 U/L (10-68); BILIRUBIN - TOTAL 0.36 mg/dL (0.2-1.3); MAGNESIUM - SERUM 2.1 mg/dL (1.8-2.4); PRO BNP 5096 pg/mL (0-125); PROTEIN - SERUM 7.1 g/dL (6.4-8.2); TROPONIN-I < 0.017 ng/mL (0.000-0.060)
[2019-11-17 03:02] LABS: LIPASE 709 U/L (73-393)
== END | disposition home or self-care (01) ==
LOC: D.ER 01:54
PROVIDERS: Family Medicine
DX: K86.1 Other chronic pancreatitis (principal); I50.9 Heart failure, unspecified; E11.22 Type 2 diabetes mellitus with diabetic chronic kidney disease; N18.9 Chronic kidney disease, unspecified; R10.9 Unspecified abdominal pain; Z79.84 Long term (current) use of oral hypoglycemic drugs

== ENCOUNTER 2019-11-21 14:05 | Inpatient (IN) | payer OTHER, MEDICARE ==
[~2019-11-21] VITALS: Ht 185.4 cm; Wt 85.7 kg
[2019-11-21] VITALS (9 sets, daily range): BP systolic 127–149; BP diastolic 68–83; BMI 24.9
--- NOTE | ~2019-11-21 | HEMODYNAMI ---
PATIENT:DASHAWN REID MEDICAL RECORD: [id number] : 51 LOCATION:[facility] D.[address] [facility]# [id number] ADMISSION DATE: 11/21/19 Generatedon:11/23/20199:32 Patient name: DASHAWN REID Patient #: [id number] SSN: [id number] : 1955 Date of study: 11/23/2019 Page: Of Hemodynamic Procedure Report Patient Data Patient Demographics Procedure consent was obtained First Name: DASHAWN Gender: Male Last Name: FRANKLIN : 1955 Middle Initial: F Age: 63 year(s) Patient #: [id number] Race: SSN: [id number] Additional ID: [id number] Contact details Address: [address] [address] State: [place] City: [place] Zip code: [address] Past Medical History Allergies Allergen Reaction Date Comments Reported Other allergy Other 01/12/2019 penicillins, morhpine, heparin Other allergy 10/21/2019 PCN/MORPHINE Other allergy 11/23/2019 PCN, MORPHINE, HEPARIN Admission Admission Data Admission Date: 11/21/2019 Admission Time: 18:15 Arrival Date: 11/23/2019 Arrival Time: 0:00 Admit Source: Other Insurance Payor: [facility] Room #: D.[address] [place] [address] #: [id number] Height (in.): 73 BSA: 2.1 (m2) Height (cm.): 185.42 BMI: 24.99 (kg/m2) Weight (lbs.): 189.38 Weight (kg.): 85.9 Lab Results Lab Result Date: 11/23/2019 Lab Result Time: 0:00 Biochemistry Name Units Result Min Max BUN mg/dl 77 --(----)-* 7 18 Creatinine mg/dl 2.7 --(----)-* 0.6 1.3 eGFR ml/min 25 *-(----)-- 90 120 NONAFRICAN CBC Name Units Result Min Max Hematocrit % 36.7 *-(----)-- 42 54 Hemoglobin g/dl 11.3 *-(----)-- 13.5 17.5 Procedure Procedure Types Cath Procedure Diagnostic Procedure LHC Coronaries w/Grafts Sedation Charges Moderate Sedation up to 15 minutes PCI Procedure AMI/SVG/PUBLIC HEALTH SOCIAL WORKER PTCA or Stent SVG-BMS/MODESTO Initial Hemochron ACT Test Procedure Description Procedure Date Procedure Date: 11/23/2019 Procedure Start Time: 9:02 Procedure End Time: 9:30 Procedure Staff Name Function Tyler Robison RN Nurse Rose Marie Brambila RT Monitor Kelle Batista RT Scrub Ector Balderas MD Performing Physician Procedure Data Cath Procedure Fluoroscopy Diagnostic fluoroscopy Total fluoroscopy Time: 5.6 time: 5.6 min min Diagnostic fluoroscopy Total fluoroscopy dose: 950 dose: 950 mGy mGy Contrast Material Contrast Material Type Amount (ml) Isovue 370 119 Entry Location Entry Primary Successful Side Size Upsize Upsize Entry Closure Succes sful Closure Location (Fr) 1 (Fr) 2 (Fr) Remarks Device Remarks Femoral Right 5 Fr 6 Fr Exoseal artery Short Estimated blood loss: 10 ml Diagnostic catheters Device Type Used For End Catheter Placement MULTIPACK JL 4.0 5Fr Procedure catheter MULTIPACK 3DRC 5Fr Procedure catheter DIAGNOSTIC AR MOD 5Fr Procedure Catheter ([id number]) MULTIPACK Pigtail 5 Fr Procedure catheter Procedure Complications No complications Procedure Medications Medication Administration Route Dosage 0.9% NaCl I.V. 100 ml/hr Oxygen etCO2 Nasal cannula 2 l/min Heparin Flush Bag added to field 2 bags (1000units/500ml NS) Lidocaine 2% added to field 20 Versed I.V. 2 mg Fentanyl I.V. 100 mcg Heparin Bolus I.V. 4000 units Hemodynamics Rest BSA: 2.1 (m2) HGB: 11.3 (g/dl) O2 Consumption: Estimated: 253.3 (ml/min) O2 Cons umption indexed: Estimated:120.62 (ml/min/m) Heart Rate: 81 (bpm) Pressure Samples Time Site Value (mmHg) Purpose Heart Use Rate(bpm) 9:12 LV 142/15,17 Snapshot 79 Gradients Valve Time Site Site Mean SEP/DFP Peak To Heart Use 1 2 (mmHg) (sec/min) Peak Rate (mmHg) (bpm) Aortic 9:12 LV AO 80 Snapshots Pre Cath Intra NCS Post Cath Vital Signs Time Heart Resp SPO2 etCO2 NIBP (mmHg) Rhythm Pain Sedation Rate (ipm) (%) (mmHg) Status Level (bpm) 8:51:44 79 13 100 37.6 160/83(124) NSR 0 (11) 10(A) , No pain 8:56:00 78 11 100 38.3 141/79(110) NSR 0 (11) 10(A) , No pain 9:00:16 78 11 100 38.3 129/73(96) NSR 0 (11) 10(A) , No pain 9:04:26 78 14 100 38.3 144/77(101) NSR 0 (11) 10(A) , No pain 9:08:42 79 11 100 27 135/75(102) NSR 0 (11) 10(A) , No pain 9:12:56 80 13 100 38.3 143/74(112) NSR 0 (11) 10(A) , No pain 9:17:12 80 11 100 40.6 148/74(119) NSR 0 (11) 10(A) , No pain 9:21:30 80 10 100 42.1 143/73(108) NSR 0 (11) 10(A) , No pain 9:25:44 80 18 100 39.8 152/80(122) NSR 0 (11) 10(A) , No pain 9:30:00 78 17 39.1 154/84(118) NSR 0 (11) 10(A) , No pain Medications Time Medication Route Dose Verified Delivered Reason Notes Effectiveness by by 8:51:28 0.9% NaCl I.V. 100 Tyler Tyler Per physician ml/hr Ricki Robison RN RN 8:51:37 Oxygen etCO2 2 Tyler Tyler for low 02 sats Nasal l/min Ricki Robison cannula RN RN 8:51:50 Heparin Flush added 2 Tyler Tyler used for Bag to bags Ricki Robison procedure (1000units/500ml field ROSEN RN NS) 8:52:02 Lidocaine 2% added 20ml Tyler Tyler for local to vial Ricki Robison anesthetic field ROSEN RN 9:04:08 Versed I.V. 2 mg Tyler Tyler for sedation Ricki Robison RN RN 9:04:16 Fentanyl I.V. 100 Tyler Tyler for sedation mcg Ricki Robison RN RN 9:14:55 Heparin Bolus I.V. 4000 Tyler Tyler for units Ricki Robison anticoagulation RN pulley man Log Time Note 8:11:11 Informed consent obtained and on chart 8:12:54 Lab Result : eGFR NONAFRICAN 25 ml/min 8:12:54 Lab Result : Creatinine 2.7 mg/dl 8:12:54 Lab Result : BUN 77 mg/dl 8:12:54 Lab Result : Hematocrit 36.7 % 8:12:54 Lab Result : Hemoglobin 11.3 g/dl 8:14:28 Arrival Date: 11/23/2019 12:00:00 AM 8:14:30 Admit Source: Other 8:14:47 Insurance Payor : [facility] 8:15:13 Patient Height : 73 inches 8:15:19 Patient Weight : 189.38 lbs 8:15:28 Diagnostic Cath Status : Urgent 8:15:47 ACC Patient presents with Stable Angina CCS Anginal Class 2--Slight limitation of ordinary activity. 8:15:50 Procedure Status Urgent Heart Cath (IP). 8:15:53 Time tracking: Regular hours (M-F 7:00 - 5:00) 8:15:57 Plan of Care:Hemodynamics will remain stable., Cardiac rhythm will remain stable., Comfort level will be maintained., Respiratory function will remain adequate., Patient/ family verbilizes understanding of procedure., Procedure tolerated without complication., Recovers from procedure without complications.. 8:16:14 H&P Date Dictated: 11/21/2019 Within 30 days and on chart.. 8:16:16 Pre-procedure instructions explained to patient. 8:16:16 Pre-op teaching completed and patient verbalized understanding. 8:16:37 Patient allergic to Other allergyPCN, MORPHINE, HEPARIN 8:16:44 Lab results completed and on chart. 8:16:47 Stress Test: no; N/A ? 8:16:48 Alarms reviewed by R. N. 8:16:48 Sharps counted by scrub and verified by R.N. 8:18:59 Risk of Mortality: 0.4 8:19:02 Risk of blood transfusion: 3.2 8:21:54 Risk of MAGY: 9.2 8:34:37 4) 15-29 Mookie reduced kidney function. 8:34:40 Maximum allowable contrast dose (3.7 X eGFR X 0.75)69 ml. 8:34:47 Tyler Robison RN sent for patient. Start room use. 8:41:21 Patient received from Med II to CCL 2 Alert and oriented. Tansferred to table in Supine position. 8:41:22 Warm blankets applied, and sakshi hugger turned on for patient comfort. 8:41:22 Correct patient and procedure confirmed by team. 8:41:23 ECG and BP/O2 sat monitors applied to patient. 8:41:26 Family unavailable. 8:41:28 Patient NPO since Midnight. 8:50:31 Vital chart was started 8:50:32 Full Disclosure recording started 8:50:36 Rhythm: sinus rhythm 8:50:38 Baseline sample Acquired. 8:50:41 Is the patient allergic to Iodine/contrast media? No. 8:50:43 Was the patient premedicated? Yes 8:50:44 Is patient on blood thinner?Yes 8:50:48 ACC The patient was administered the following blood thiners within the last 24 hours: ACCPlavix 8:50:50 Patient diabetic? Yes. 8:50:52 If diabetic: On Metformin? No 8:50:53 ----Pre-sedation anethsthesia assessment.---- 8:50:56 Previous problem with sedation/anesthesia? No ? 8:50:59 Snore? Yes 8:51:00 Sleep apnea? Yes 8:51:02 Deviated septum? No 8:51:03 Opens mouth fully? Yes 8:51:04 Sticks out tongue? Yes 8:51:07 Airway obstruction? Yes COPD 8:51:10 Dentures? No ? 8:51:28 0.9% NaCl 100 ml/hr I.V. was administered by Tyler Robison RN; Per physician; Verbal order read back and verified. 8:51:35 Patient pain scale 0/10 ?. 8:51:37 Oxygen 2 l/min etCO2 Nasal cannula was administered by Tyler Robison RN; for low 02 sats; Verbal order read back and verified. 8:51:39 IV patent on arrival in left antecubital with 0.9% NaCl at KVO. 8:51:45 Right groin area was prepped with chlora-prep and draped in sterile fashion 8:51:48 Use device set Femoral Dx 8:51:50 Heparin Flush Bag (1000units/500ml NS) 2 bags added to field was administered by Tyler Robison RN; used for procedure; Verbal order read back and verified. 8:51:50 ACIST Syringe (83305) opened to sterile field. 8:51:50 Bag Decanter (2002S) opened to sterile field. 8:51:51 Medline Cath Pack ([id number]) opened to sterile field. 8:51:53 ACIST Hand Control (97983) opened to sterile field. 8:51:54 ACIST Manifold (89612) opened to sterile field. 8:51:55 DIAGNOSTIC Multipack 5Fr catheter set ([id number]) opened to sterile field. 8:51:56 SHEATH 5FR Lynndyl (COI851) opened to sterile field. 8:51:57 EMERALD Guide Wire (819-029) opened to sterile field. 8:52:02 Lidocaine 2% 20ml vial added to field was administered by Tyler Robisno RN; for local anesthetic; Verbal order read back and verified. 9:02:32 --------ALL STOP TIME OUT------ 9:02:32 Final Timeout: patient, procedure, and site verified with staff and physician. All members of the team are in agreement. 9:02:34 Right groin site verified by team. 9:02:37 Fire Safety Assessment: A--An alcohol-based skin anteseptic being used preoperatively., C--Open oxygen or nitrous oxide is being used., D--An ESU, laser, or fiber-optic light is being used. 9:02:40 Physical assessment completed. ASA score P 2 - A patient with mild systemic disease as per Ector Balderas MD. 9:02:44 Sedation plan: IV Moderate Sedation Medication:Versed, Fentanyl 9:02:47 Procedure started. 9:02:58 Local anesthetic to right femoral artery with Lidocaine 2% by Ector Balderas MD.INITIAL ACCESS ONLY 9:03:52 A 5 Fr sheath was inserted into the Right Femoral artery 9:04:08 Versed 2 mg I.V. was administered by Tyler Lorigan RN; for sedation; Verbal order read back and verified. 9:04:16 Fentanyl 100 mcg I.V. was administered by Tyler Robison RN; for sedation; Verbal order read back and verified. 9:05:08 A MULTIPACK JL 4.0 5Fr catheter was advanced over the wire and used for Procedure. 9:05:59 LCA angiography performed. 9:06:02 Injector settings: Ml/sec: 3, Volume: 6, 9:06:32 Catheter removed. 9:06:39 A MULTIPACK 3DRC 5Fr catheter was advanced over the wire and used for Procedure. 9:07:39 RCA angiography performed. 9:07:44 Injector settings: Ml/sec: 3, Volume: 6, 9:08:01 SVG to Circ angiography performed. 9:08:06 Injector settings: Ml/sec: 3, Volume: 6, 9:09:59 MOODY to LAD angiography performed. 9:10:18 Injector settings: Ml/sec: 3, Volume: 6, 9:10:19 Catheter removed. 9:10:41 A DIAGNOSTIC AR MOD 5Fr Catheter ([id number]) was advanced over the wire and used for Procedure. 9:11:14 SVG to RCA angiography performed. 9:11:17 Injector settings: Ml/sec: 3, Volume: 6, 9:11:25 Catheter removed. 9:11:34 A MULTIPACK Pigtail 5 Fr catheter was advanced over the wire and used for Procedure. 9:12:23 LV gram done using PEREZ 9:12:26 Injector settings: Ml/sec: 5, Volume: 15, 9:12:33 LV hemodynamics recorded. 9:12:40 EF : 35 % 9:12:45 Catheter removed. 9:12:46 Proceeding to intervention. 9:13:40 Pre PCI Site: Vein Graft Circ has 95% stenosis. 9:13:56 Use device set KIRKLAND PCI 9:14:03 WHISPER 300cm guide wire ([id number]) opened to sterile field. 9:14:04 INFLATOR Merit BasixCompak (RG0473) opened to sterile field. 9:14:22 SHEATH 6FR Lynndyl (SLC114) opened to sterile field. 9:14:28 Sheath upsized to a 6 Fr Short. 9:14:46 GUIDE 6FR LCB catheter (LA6LCB) opened to sterile field. 9:14:55 Heparin Bolus 4000 units I.V. was administered by Tyler Robison RN; for anticoagulation; Verbal order read back and verified. 9:14:56 6 Fr LCB guide catheter was inserted over the wire 9:17:57 WHISPER 300 wire advanced. 9:22:40 Place stent Inflation Number: 1 A INTEGRITY RX 3.0 x 18 stent ([id number]) was prepped and advanced across the Aorta Left -> Dist CX 95. The stent was deployed at 12 BILLY for 0:00 (min:sec) . 9:23:09 Inflation number: 2 The stent balloon was then re-inflated across the Aorta Left -> Dist CX to 14 BILLY for 0:00 (min:sec) . 9:24:26 Stent catheter was removed intact over wire. 9:24:27 Wire removed. 9:24:27 Guide catheter removed. 9:24:32 EXOSEAL 6Fr (EX600) opened to sterile field. 9:25:19 Sheath removed intact; hemostasis achieved with Exoseal to the Right Femoral artery. 9:25:24 Procedure ended.(Physican Out) 9:25:35 Fluoroscopy time 05.60 minutes. 9:25:39 Flurop Dose total: 950 9:25:39 Fluoroscopy dose: 950 mGy 9:25:43 Dose Area Product 13329 mGy/cm. 9::55 Contrast amount:Isovue 370 119ml. 9:25:57 Maximum allowable dose exceeded? Yes. 9:25:58 Sharps counted by scrub and verified by R.N. 9:26:05 Post-op/insertion site Right Femoral artery dressed using a 4 x 4 and Tegaderm. 9:26:14 Post right femoral artery:stable, soft, clean and dry 9:26:15 Post Procedure Pulses reassessed and unchanged 9:26:18 Post procedure: right dorsailis pedis pulse 2+ Normal; easily identifiable; not easily obliterated. 9:26:21 Post-procedure physical assessment completed. ASA score P 2 - A patient with mild systemic disease as per Ector Balderas MD. 9:26:24 Post procedure rhythm: unchanged. 9:26:27 Estimated blood loss: 10 ml 9:26:29 Post procedure instruction explained to patient.Patient verbalizes understanding. 9:26:29 Patient needs reinforcement of post procedure teaching. 9:27:13 Procedure type changed to Cath procedure, Diagnostic procedure, LHC, Coronaries w/Grafts, Sedation Charges, Moderate Sedation up to 15 minutes, PCI procedure, AMI/SVG/PUBLIC HEALTH SOCIAL WORKER PTCA or Stent, SVG-BMS/MODESTO Initial, Hemochron ACT Test 9:28:29 Procedure and supply charges have been captured, reviewed, submitted and are correct. 9:28:34 Procedure Complication : No complications 9:28:40 [facility] Findings: MVD- PCI performed (see procedure note) 9:28:41 Operative report dictated upon procedure completion. 9:28:42 See physician's report for complete and final results. 9:28:44 Report given to [facility]. 9:28:47 Patient transfered to [facility] with Bed. 9:29:56 ACT drawn and resulted at 183 seconds. (normal therapeutic range 180-240 seconds). 9:30:50 Vital chart was stopped 9:30:53 Procedure ended. 9:30:53 Full Disclosure recording stopped 9:31:06 ACC-PCI Only Patient was given prescriptions, or instructed by Ector Balderas MD to start/continue the following medications upon discharge: Plavix 9:31:07 End room use (Document Last) 9:31:18 End room use (Document Last) 9:31:55 End room use (Document Last) Intervention Summary Intervention Notes Time ActionType Lesion and Equipment Action# Pressure Duration Attributes Used 9:22:40 Place stent Aorta Left INTEGRITY RX 1 12 00:00 -> Dist CX 3.0 x 18 stent ([id number]) 9:23:09 Reinflate Aorta Left INTEGRITY RX 2 14 00:00 stent -> Dist CX 3.0 x 18 balloon stent ([id number]) Device Usage Item Name Manufacture Quantity Catalog Hospital Part Current Minimal Lot# / Number Charge Number Stock Stock Serial# Code ACIST Acist 1 05991 006170 688669 625201 20 Syringe [employer] (97357) Systems Inc Bag Decanter Microtek 1 317538 09142 577749 5 () Medical Inc. Medline Cath Medline 1 [id number] 687955 24325 149891 5 Pack ([id number]) ACIST Hand Acist 1 55496 871705 198723 838090 5 Control Medical (95454) Systems Inc ACIST Acist 1 64127 833210 871122 052148 5 Integrated Corporate Health Medical (95290) Systems Inc DIAGNOSTIC Cardinal 1 QL7876 815028 79542 747423 30 Multipack Health 5Fr catheter set (MM0316) SHEATH 5FR Terumo 1 XMA539 613905 299194 141958 5 Lynndyl (KSD321) EMERALD Cardinal 1 502-455 186679 922444 171775 5 Guide Wire Health (502455) MULTIPACK JL Cardinal 1 206190 5 4.0 5Fr Health catheter MULTIPACK Cardinal 1 813564 5 3DRC 5Fr Health catheter DIAGNOSTIC Cardinal 1 [id number] 875074 862115 370638 15 AR MOD 5Fr Health Catheter (986437Q) MULTIPACK Cardinal 1 542222 5 Pigtail 5 Fr Health catheter WHISPER Bartholomew 1 [id number] 675792 323850 941906 5 300cm guide Vascular wire (3451555VQ) INFLATOR Merit 1 HB8824 768470 251509 283880 15 Traxer Medical BasixCompak (VG9809) SHEATH 6FR Terumo 1 MTM556 583501 967434 123356 40 Lynndyl (HVK483) GUIDE 6FR Medtronic 1 LA6LCB 027786 83792 072480 1 LCB catheter (LA6LCB) INTEGRITY RX Medtronic 1 [id number] 714612 136738 476228 5 [id number] 3.0 x 18 stent ([id number]) EXOSEAL 6Fr Cardinal 1 EX600 556401 002598 942069 10 (EX600) Health Signature Audit [place] Stage Time Signature Unsigned Intra-Procedure 11/23/2019 Rose Marie Brambila 9:31:18 AM RT(R) Intra-Procedure 11/23/2019 Tyler 9:31:55 AM Ricki ROSEN Intra-Procedure 11/23/2019 Ector Araujo 9:32:18 AM Wilmer MCDANIELS Signatures Nurse : Tyler Robison Signature : RN Date : Time : Monitor : Rose Marie Brambila Signature : RT Date : Time : Performing Physician : Signature : Ector Sherrie MD Date : Time : [address] [place] [address]
[2019-11-21 14:49] LABS: BASOPHILS 0.2 % (0-2); EOSINOPHILS 1.6 % (0-7); HEMATOCRIT 32.7 % (42.0-54.0); HEMOGLOBIN 10.2 g/dL (13.5-17.5); IMMATURE GRANULOCYTES 0.5 % (0-5); LYMPHOCYTES 23.5 % (15-50); MCH 30.4 pg (26.0-34.0); MCHC 31.2 g/dL (31.0-37.0); MCV 97.6 fL (80.0-100.0); MONOCYTES 6.9 % (2-11); NEUTROPHILS 67.3 % (40-80); PLATELET COUNT 77 10x3/uL (130-400); RBC 3.35 10x6/uL (4.20-6.10); RDW 14.9 % (11.5-14.5); WBC 5.7 10x3/uL (4.8-10.8)
[2019-11-21 15:02] LABS: APTT 29.6 SECONDS (22.8-39.4); INR 1.06 (0.85-1.17); PROTIME 13.8 SECONDS (11.6-15.0)
[2019-11-21 15:11] LABS: ALBUMIN 3.2 g/dL (3.4-5.0); ALKALINE PHOSPHATASE 149 U/L (30-120); ALT (SGPT) 38 U/L (10-68); BILIRUBIN - TOTAL 0.45 mg/dL (0.2-1.3); CALCIUM 7.9 mg/dL (8.5-10.1); CARBON DIOXIDE 30.4 mmol/L (21.0-32.0); CHLORIDE - SERUM 101 mmol/L (98-107); CKMB 1.2 U/L (0.0-3.6); CREATINE KINASE 84 UL (21-232); CREATININE - SERUM 2.9 mg/dL (0.6-1.3); MAGNESIUM - SERUM 2.1 mg/dL (1.8-2.4); PROTEIN - SERUM 6.6 g/dL (6.4-8.2); SODIUM 141 mmol/L (136-145); UREA NITROGEN 86 mg/dL (7-18); eGFR NON AFRICAN AMERICAN 23 mL/min (90-120)
[2019-11-21 15:17] LABS: CALC OSMOLALITY 327 mosm/kg (275-300); GLUCOSE 472 mg/dL (74-106); PLATELET ESTIMATE DECREASED; TROPONIN-I < 0.017 ng/mL (0.000-0.060)
--- NOTE | 2019-11-21 19:37 | NUR ---
INITIAL ROUNDS COMPLETED AT 1900 H RS. PT STATES CP NOW 10/22. ASSESSMENT COMPLETED AT 1930. VSS. SR PER CM HR 68. ALERT AND OREINTED TO PERSON,PLACE AND TIME. [place]. LUNGS ESSENTIALLY CTA. HEART TONES S1S2. PALPABLE PERIPHERAL PULSES. IV TO R HAND SL. SR UP X1, CALL LIGHT WITHIN REACH.
[2019-11-21 20:57] LABS: CKMB 1.8 U/L (0.0-3.6); CREATINE KINASE 87 UL (21-232)
[2019-11-21 20:59] LABS: TROPONIN-I < 0.017 ng/mL (0.000-0.060)
--- NOTE | 2019-11-21 21:34 | NUR ---
PM FSBS 242. 4 UNITS REG INSULIN GIVEN SUB-Q TO UPPER L ARM. PM SNACK GIVEN. PM MEDS GIVEN. SCHEDULED EKG DONE. IV TO R HAND OCCLUDED. DC'D WITH CATHETER INTACT. NEW IV STARTED #22 RO L HAND WITH ATTEMPT X1. PT TOLERATED WELL.
--- NOTE | 2019-11-21 23:28 | NUR ---
KATIE. PT HAS C/O CP 11/22. DILAUDID 1MG SIVP GIVEN. CALL LIGHT WITHIN REACH.
--- NOTE | 2019-11-22 02:10 | NUR ---
PT RESTING WITH EYES CLOSED. RESP EVEN AND REGULAR. CALL LIGHT WITHIN REACH.
[2019-11-22 03:28] VITALS: BP 121/63
--- NOTE | 2019-11-22 03:32 | NUR ---
VSS. PT STATES WANTS HIS DILAUDID WHEN ABLE TO HAVE IT. CALL LIGHT WITHIN REACH.
[2019-11-22 04:00] VITALS: BP 123/67
--- NOTE | 2019-11-22 05:55 | NUR ---
DILAUDID 1MG SIVP GIVEN AT 0530 FOR C/O DULL CP 10/22. CALL LIGHT WITHIN REACH.
[2019-11-22 06:58] LABS: BASOPHILS 0.2 % (0-2); EOSINOPHILS 4.3 % (0-7); HEMATOCRIT 36.7 % (42.0-54.0); HEMOGLOBIN 11.3 g/dL (13.5-17.5); IMMATURE GRANULOCYTES 0.6 % (0-5); LYMPHOCYTES 31.6 % (15-50); MCH 29.7 pg (26.0-34.0); MCHC 30.8 g/dL (31.0-37.0); MCV 96.3 fL (80.0-100.0); MEAN PLATELET VOLUME 13.3 fL (7.4-10.4); MONOCYTES 8.8 % (2-11); NEUTROPHILS 54.5 % (40-80); PLATELET COUNT 87 10x3/uL (130-400); RBC 3.81 10x6/uL (4.20-6.10); RDW 14.8 % (11.5-14.5); WBC 5.1 10x3/uL (4.8-10.8)
[2019-11-22 06:59] LABS: ALBUMIN 3.2 g/dL (3.4-5.0); ALKALINE PHOSPHATASE 142 U/L (30-120); ALT (SGPT) 36 U/L (10-68); BILIRUBIN - TOTAL 0.47 mg/dL (0.2-1.3); CALC OSMOLALITY 310 mosm/kg (275-300); CALCIUM 7.7 mg/dL (8.5-10.1); CARBON DIOXIDE 31.7 mmol/L (21.0-32.0); CHLORIDE - SERUM 104 mmol/L (98-107); CKMB 1.4 U/L (0.0-3.6); CREATINE KINASE 82 UL (21-232); CREATININE - SERUM 2.7 mg/dL (0.6-1.3); POTASSIUM - SERUM 3.7 mmol/L (3.5-5.1); PROTEIN - SERUM 6.7 g/dL (6.4-8.2); SODIUM 142 mmol/L (136-145); TROPONIN-I < 0.017 ng/mL (0.000-0.060); UREA NITROGEN 77 mg/dL (7-18); eGFR NON AFRICAN AMERICAN 25 mL/min (90-120)
[2019-11-22 07:05] LABS: GLUCOSE 192 mg/dL (74-106)
[2019-11-22 08:16] VITALS: BP 147/77
[2019-11-22 08:49] LABS: PLATELET ESTIMATE DECREASED
[2019-11-22 09:23] LABS: CKMB 1.8 U/L (0.0-3.6); CREATINE KINASE 83 UL (21-232)
[2019-11-22 09:26] LABS: TROPONIN-I < 0.017 ng/mL (0.000-0.060)
--- NOTE | 2019-11-22 09:50 | NUR ---
TELEMETRY SR. CONSENTS SIGNED FOR [facility]. WILL CONT. PLAN OF CARE.
[2019-11-22 10:53] LABS: ANION GAP 10.8 mmol/L (8-16); CARBON DIOXIDE 32.9 mmol/L (21.0-32.0); CREATININE - SERUM 2.7 mg/dL (0.6-1.3); POTASSIUM - SERUM 3.7 mmol/L (3.5-5.1)
[2019-11-22 12:57] VITALS: BP 137/78
[2019-11-22 17:15] VITALS: BP 128/71
--- NOTE | 2019-11-22 19:42 | NUR ---
RECIEVED UP IN BED WITH EYES OPEN AND TV ON. ALERT AND ORIENTED X4. UP AD HUNTER TO B/R. IV TO LT HAND SL. TELEMETRY IN PLACE. DENIES ANY NEEDS AT THIS TIME.
[2019-11-22 20:00] VITALS: BP 130/73
[2019-11-23] VITALS: BP 122/71
[2019-11-23 04:00] VITALS: BP 108/71
--- NOTE | 2019-11-23 07:15 | NUR ---
RECEIVED PT IN BED EYES CLOSED RESP UNLABORED NAD NOTED
[2019-11-23 11:35] VITALS: BP 142/73
[2019-11-23 13:20] VITALS: Ht 185.4 cm; Wt 85.7 kg
[2019-11-23 14:47] VITALS: BP 91/43
--- NOTE | 2019-11-23 19:31 | NUR ---
RECEIVED BEDSIDE REPORT. ROUNDING COMPLETE. PATIENT RESTING COMFORTABLY IN BED. RESPIRATIONS ARE EVEN AND UNLABORED. NO S/S OF DISTRESS. NO C/O PAIN. CALL LIGHT WITHIN REACH. WILL CPOC.
[2019-11-23 20:00] VITALS: BP 113/65
--- NOTE | 2019-11-23 22:17 | NUR ---
PATIENT RESTING COMFORTABLY IN BED. RESPIRATIONS ARE EVEN AND UNLABORED. NO S/S OF DISTRESS. NO C/O PAIN. NEEDS MET. CALL LIGHT WITHIN REACH. WILL CPOC.
[2019-11-24 04:00] VITALS: BP 143/72
[2019-11-24 05:41] LABS: BASOPHILS 0.2 % (0-2); EOSINOPHILS 5.7 % (0-7); HEMATOCRIT 31.9 % (42.0-54.0); HEMOGLOBIN 9.8 g/dL (13.5-17.5); IMMATURE GRANULOCYTES 0.5 % (0-5); LYMPHOCYTES 29.7 % (15-50); MCH 29.7 pg (26.0-34.0); MCHC 30.7 g/dL (31.0-37.0); MCV 96.7 fL (80.0-100.0); MEAN PLATELET VOLUME 13.2 fL (7.4-10.4); NEUTROPHILS 52.9 % (40-80); PLATELET COUNT 76 10x3/uL (130-400); RDW 14.9 % (11.5-14.5); WBC 4.4 10x3/uL (4.8-10.8)
[2019-11-24 06:10] LABS: ANION GAP 9.5 mmol/L (8-16); CALCIUM 7.8 mg/dL (8.5-10.1); CARBON DIOXIDE 30.4 mmol/L (21.0-32.0); CREATININE - SERUM 2.3 mg/dL (0.6-1.3); POTASSIUM - SERUM 3.9 mmol/L (3.5-5.1)
[2019-11-24 07:58] VITALS: BP 137/66
[2019-11-24 08:25] LABS: PLATELET ESTIMATE DECREASED
[2019-11-24 11:40] VITALS: BP 122/63
[2019-11-24] MEDS ORDERED: BAYER CHEWABLE81 MG PO (13:19)
[2019-11-24] MEDS ORDERED: ALDACTONE25 MG PO (13:22)
--- NOTE | 2019-11-24 13:34 | MORECARE ---
CASE MANAGEMENT DISCHARGE SUMMARY PATIENT: SATHYA COSME UNIT: [id number] ADM DATE: 11/21/19 AGE: 63 : 53 SEX: M ROOM/BED: D.2116 AUTHOR: DONOVAN OCONNELL PHYSICIAN: REFERRING PHYSICIAN: NANCY SOTELO MD DATE OF SERVICE: 11/24/19 Discharge Plan Patient Name: SATHYA COSME Facility: [facility]:[place] : 1955 Planned Disposition: Home or Self Care Anticipated Discharge Date: 11/24/19 Discharge Date: Expected LOS: 3 Initial Reviewer: [email or web address] Initial Review Date: 11/21/2019 Generated: 11/24/19 2:34 pm Comments DCP- Discharge Planning Updated by [email or web address]: Lori Banegas on 11/24/19 12:[address] CM met with patient to discuss initial discharge planning. Patient is in agreement to proceed with the assessment. Patient reports that he lives at home independently with his and 2 step-children. Patient is alert/oriented. [place] . [place]. Patient states he has been able to obtain all of his prescribed medications. HHS: No, declines. DME: Cane, shower chair, INH. Patient gives permission to speak with family members/care givers. 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 CM discussed the availability of HH, Rehab, SNF, OP Therapy, DME services. Patient denies the need for additional services at this time and feels safe returning to previous environment. Patient was recently hospitalized and DC'd 11/14.. 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 Transportation at time of discharge: Family members. Coverage Notice Reviewer: [email or web address] - Lori Banegas Notice Issued Date-Time: 11/24/2019 13:32 Notice Type: IM Discharge Notice Notice Delivered To: Patient Relationship to Patient: Self Hemodialysis Technician Name: Sathya Cosme Delivery Method: HAND - Hand Delivered Eleonora Days: Prior Verbal Notification: Recipient Understood Notice: Yes Recipient Signature: Yes Med Rec Note Co-signed by Attending: Coverage Notice Comment: DC IMM signed by patient/given to patient. Original to chart. Patient Name: SATHYA COSME Page [phone] at 1334 All edits/amendments must be made on the electronic document DICTATION DATE: 11/24/191333 DECK CADET: KATIE 11/24/191333 RPT#: [id number] DC DATE: STATUS: ADM IN [facility] [address] [place] [address] END OF REPORT
--- NOTE | 2019-11-24 13:42 | MORECARE ---
CASE MANAGEMENT DISCHARGE SUMMARY PATIENT: SATHYA COSME UNIT: [id number] ADM DATE: 11/21/19 AGE: 63 : 51 SEX: M ROOM/BED: D.2116 AUTHOR: DONOVAN OCONNELL PHYSICIAN: REFERRING PHYSICIAN: NANCY SOTELO MD DATE OF SERVICE: 11/24/19 Discharge Plan Patient Name: SATHYA COSME Facility: [facility]:[place] : 1955 Planned Disposition: Home or Self Care Anticipated Discharge Date: 11/24/19 Discharge Date: Expected LOS: 3 Initial Reviewer: [email or web address] Initial Review Date: 11/21/2019 Generated: 11/24/19 2:42 pm Comments DCP- Discharge Planning Updated by [email or web address]: Lori Banegas on 11/24/19 12:[address] CM met with patient to discuss initial discharge planning. Patient is in agreement to proceed with the assessment. Patient reports that he lives at home independently with his and 2 step-children. Patient is alert/oriented. [place]CP[place] . [place]acy[place] Patient states he has been able to obtain all of his prescribed medications. HHS: No, declines. DME: Cane, shower chair, INH. Patient gives permission to speak with family members/care givers. 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 CM discussed the availability of HH, Rehab, SNF, OP Therapy, DME services. Patient denies the need for additional services at this time and feels safe returning to previous environment. Patient was recently hospitalized and DC'd 11/14.. 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 Transportation at time of discharge: Family members. Coverage Notice Reviewer: [email or web address] - Lori Banegas Notice Issued Date-Time: 11/24/2019 13:32 Notice Type: IM Discharge Notice Notice Delivered To: Patient Relationship to Patient: Self Music Researcher Name: Sathya Cosme Delivery Method: HAND - Hand Delivered Eleonora Days: Prior Verbal Notification: Recipient Understood Notice: Yes Recipient Signature: Yes Med Rec Note Co-signed by Attending: Coverage Notice Comment: DC IMM signed by patient/given to patient. Original to chart. Patient Name: SATHYA COSME Page [phone] at 1342 All edits/amendments must be made on the electronic document DICTATION DATE: 11/24/19 1342 CUTTER ALUMINUM SHEET: KATIE 11/24/19 1342 RPT#: [id number] DC DATE: STATUS: ADM IN [facility] [address] [place] [address] END OF REPORT
--- NOTE | 2019-11-24 13:45 | NUR ---
IV AND TELEMETRY DCD. DC PLANS GIVEN. UNDERSTANDING VOICED. ESCORTED TO CAR BY W/C.
--- NOTE | 2019-11-24 14:02 | OP ---
PATIENT NAME: DASHAWN REID MEDICAL RECORD: [id number] :51 LOCATION:D.M2 D.2116 ADMISSION DATE:11/21/19 SURGEON: RAY FAITH MD DATE OF OPERATION: 11/23/2019 PROCEDURE: Left heart catheterization, selective coronary angiography, right femoral artery approach. CATHETERS: A 5-Syriac sheath, 5/4 left and right Maninder, 5/4 pig. The procedure was well tolerated. The patient returned to spaulding, sheath removed. ExoSeal device was placed. FINDINGS: Left ventriculography in 30-degree PEREZ view shows global hypokinesis, reduced EF 35%. CORONARY ANATOMY: LEFT MAIN: Left main fills for a short period of time. LAD: LAD is slightly occluded in its proximal portion and seen to be filling via competitive flow from the LAD apart from the MOODY. CIRCUMFLEX: Circumflex has occluded OM and is grafted. Circumflex itself has luminal irregularities. RIGHT CORONARY ARTERY: Totally occluded proximally. BYPASS GRAFTS: 1. Saphenous vein graft to circumflex: In the area of previous balloon for restenosis, initial stent is a restenosis again of 90%, stent placed via Dr. Partida is widely patent. 2. Saphenous vein graft to right coronary artery is widely patent. MOODY to LAD is widely patent. PLAN: Intervention saphenous vein graft to the OM. PROCEDURE: A 5-Syriac sheath was exchanged for a 6-Syriac sheath. LCB guiding catheter provided good guide catheter support followed by 300 cm Whisper wire was placed across the restenotic stent and restenotic balloon. A 3.0 Integrity 50 mm nondrug-eluting stent was placed down to the area of restenosis inflated up to 14 atmospheres. Final angiography shows excellent resolution of 90% stenosis, no significant residual. GAYLE flow was 3 throughout the procedure. TRANSINT:[id number] Voice Confirmation ID: [id number] DOCUMENT ID: [id number] RAY FAITH MD at 1402 CC: [id number] DICTATION DATE: 11/23/19 0937 SUPPORT SERVICES REP: 11/23/19 2017 DIS IN 11/24/19 [facility] [address] [place] [address]
--- NOTE | 2019-11-24 19:18 | MORECARE ---
CASE MANAGEMENT DISCHARGE SUMMARY PATIENT: SATHYA COSME UNIT: [id number] ADM DATE: 11/21/19 AGE: 63 : 51 SEX: M ROOM/BED: D.2116 AUTHOR: DONOVAN OCONNELL PHYSICIAN: REFERRING PHYSICIAN: NANCY SOTELO MD DATE OF SERVICE: 11/24/19 Discharge Plan Patient Name: SATHYA COSME Facility: [facility]:[place] : 1955 Planned Disposition: Home or Self Care Anticipated Discharge Date: 11/24/19 Discharge Date: 11/24/2019 Expected LOS: 3 Initial Reviewer: [email or web address] Initial Review Date: 11/21/2019 Generated: 11/24/19 8:17 pm Comments DCP- Discharge Planning Updated by [id number]: Lori Banegas on 11/24/19 12:[address] CM met with patient to discuss initial discharge planning. Patient is in agreement to proceed with the assessment. Patient reports that he lives at home independently with his and 2 step-children. Patient is alert/oriented. [place]. Patient states he has been able to obtain all of his prescribed medications. HHS: No, declines. DME: Cane, shower chair, INH. Patient gives permission to speak with family members/care givers. Emergency contact: Cat Cosme () [phone]) Patient is Independent with all ADL's, medication management [facility]. CM discussed the availability of HH, Rehab, SNF, OP Therapy, DME services. Patient denies the need for additional services at this time and feels safe returning to previous environment. Patient was recently hospitalized and DC'd 11/14.. Patient denies the use of community resources [facility]. Transportation at time of discharge: Family members. Coverage Notice Reviewer: [id number] - Lori Banegas Notice Issued Date-Time: 11/24/2019 13:32 Notice Type: IM Discharge Notice Notice Delivered To: Patient Relationship to Patient: Self Benzene Washer Operator Name: Sathya Cosme Delivery Method: HAND - Hand Delivered Eleonora Days: Prior Verbal Notification: Recipient Understood Notice: Yes Recipient Signature: Yes Med Rec Note Co-signed by Attending: Coverage Notice Comment: DC IMM signed by patient/given to patient. Original to chart. Last DP export: 11/24/19 12:42 p Patient Name: SATHYA COSME Page [phone] at 1918 All edits/amendments must be made on the electronic document DICTATION DATE: 11/24/191917 CROP OR GRAIN FARMWORKER: KATIE 11/24/191917 RPT#: [id number] DC DATE:11/24/19 STATUS: DIS IN [facility] [address] [place] [address] END OF REPORT
== END 2019-11-24 13:46 | disposition home or self-care (01) | DRG 249 ==
LOC: D.ER 14:05 → D.M2 16:06 → OBSVTIME 16:06 → D.M2 18:15
PROVIDERS: Family Medicine; Internal Medicine Cardiovascular Disease; Internal Medicine Interventional Cardiology; ADMIT Legal Medicine; ATTEND Legal Medicine
PROC: B2111ZZ Fluoroscopy of Multiple Coronary Arteries using Low Osmolar Contrast (ICD-10-PCS; 2019-11-23)
PROC: B2151ZZ Fluoroscopy of Left Heart using Low Osmolar Contrast (ICD-10-PCS; 2019-11-23)
PROC: 02703DZ Dilation of Coronary Artery, One Artery with Intraluminal Device, Percutaneous Approach (ICD-10-PCS; principal; 2019-11-23 08:34)
PROC: 4A023N7 Measurement of Cardiac Sampling and Pressure, Left Heart, Percutaneous Approach (ICD-10-PCS; 2019-11-23 08:34)
DX: I25.110 Atherosclerotic heart disease of native coronary artery with unstable angina pectoris (principal); E11.22 Type 2 diabetes mellitus with diabetic chronic kidney disease; N18.9 Chronic kidney disease, unspecified; F31.9 Bipolar disorder, unspecified; E78.5 Hyperlipidemia, unspecified; G20 Parkinson's disease; Z86.73 Personal history of transient ischemic attack (TIA), and cerebral infarction without residual deficits

== ENCOUNTER 2019-11-27 20:01 | Emergency (ER) | payer OTHER, MEDICARE ==
[~2019-11-27] VITALS: Ht 185.4 cm; Wt 76.4 kg
[2019-11-27 20:24] VITALS: Ht 185.4 cm; Wt 76.4 kg
[2019-11-27 21:06] LABS: BASOPHILS 0.2 % (0-2); EOSINOPHILS 3.6 % (0-7); HEMATOCRIT 35.1 % (42.0-54.0); HEMOGLOBIN 10.8 g/dL (13.5-17.5); IMMATURE GRANULOCYTES 0.2 % (0-5); LYMPHOCYTES 21.6 % (15-50); MCH 30.3 pg (26.0-34.0); MCHC 30.8 g/dL (31.0-37.0); MCV 98.3 fL (80.0-100.0); MEAN PLATELET VOLUME 13.6 fL (7.4-10.4); MONOCYTES 5.9 % (2-11); NEUTROPHILS 68.5 % (40-80); PLATELET COUNT 85 10x3/uL (130-400); RBC 3.57 10x6/uL (4.20-6.10); RDW 15.1 % (11.5-14.5); WBC 6.1 10x3/uL (4.8-10.8)
[2019-11-27 21:20] LABS: CALC OSMOLALITY 300 mosm/kg (275-300); CALCIUM 8.6 mg/dL (8.5-10.1); CARBON DIOXIDE 29.3 mmol/L (21.0-32.0); CHLORIDE - SERUM 100 mmol/L (98-107); CREATININE - SERUM 2.9 mg/dL (0.6-1.3); SODIUM 138 mmol/L (136-145); UREA NITROGEN 67 mg/dL (7-18); eGFR NON AFRICAN AMERICAN 23 mL/min (90-120)
[2019-11-27 21:21] LABS: APTT 30.6 SECONDS (22.8-39.4); INR 0.97 (0.85-1.17); PROTIME 12.8 SECONDS (11.6-15.0)
[2019-11-27 21:25] LABS: GLUCOSE 204 mg/dL (74-106)
[2019-11-27 21:35] LABS: PLATELET ESTIMATE DECREASED
[2019-11-27 21:41] LABS: ALBUMIN 3.4 g/dL (3.4-5.0); ALKALINE PHOSPHATASE 170 U/L (30-120); ALT (SGPT) 30 U/L (10-68); BILIRUBIN - TOTAL 0.37 mg/dL (0.2-1.3); CKMB 2.7 U/L (0.0-3.6); CREATINE KINASE 148 UL (21-232); MAGNESIUM - SERUM 1.9 mg/dL (1.8-2.4); PROTEIN - SERUM 7.6 g/dL (6.4-8.2)
[2019-11-27 21:58] LABS: TROPONIN-I 0.063 ng/mL (0.000-0.060)
[2019-11-28 02:51] VITALS: BP 156/72
[2019-11-29] MEDS ORDERED: ISOSORBIDE MONO30 M1 PO (20:19)
== END 2019-11-28 01:30 | disposition home or self-care (01) ==
LOC: D.ER 20:01
PROVIDERS: Family Medicine
DX: R07.9 Chest pain, unspecified (principal); D64.9 Anemia, unspecified; N18.9 Chronic kidney disease, unspecified; R79.89 Other specified abnormal findings of blood chemistry; E11.9 Type 2 diabetes mellitus without complications; Z79.84 Long term (current) use of oral hypoglycemic drugs; I25.2 Old myocardial infarction; Z95.1 Presence of aortocoronary bypass graft; J44.9 Chronic obstructive pulmonary disease, unspecified

== ENCOUNTER 2019-11-29 18:23 | Emergency (ER) | payer OTHER, MEDICARE ==
[~2019-11-29] VITALS: Ht 185.4 cm; Wt 76.4 kg
[2019-11-29 18:28] VITALS: Ht 185.4 cm; Wt 76.4 kg
[2019-11-29 19:20] LABS: BASOPHILS 0.5 % (0-2); EOSINOPHILS 3.7 % (0-7); HEMATOCRIT 36.1 % (42.0-54.0); HEMOGLOBIN 11.4 g/dL (13.5-17.5); IMMATURE GRANULOCYTES 0.2 % (0-5); MCH 31.1 pg (26.0-34.0); MCHC 31.6 g/dL (31.0-37.0); MCV 98.4 fL (80.0-100.0); MEAN PLATELET VOLUME 0 fL (7.4-10.4); MONOCYTES 8.6 % (2-11); PLATELET COUNT 66 10x3/uL (130-400); RBC 3.67 10x6/uL (4.20-6.10); RDW 15.2 % (11.5-14.5); WBC 5.5 10x3/uL (4.8-10.8)
[2019-11-29 19:29] LABS: APTT 29.6 SECONDS (22.8-39.4); PROTIME 13.1 SECONDS (11.6-15.0)
[2019-11-29 19:37] LABS: CALC OSMOLALITY 308 mosm/kg (275-300); CALCIUM 7.8 mg/dL (8.5-10.1); CARBON DIOXIDE 30.8 mmol/L (21.0-32.0); CHLORIDE - SERUM 106 mmol/L (98-107); CREATININE - SERUM 3.1 mg/dL (0.6-1.3); POTASSIUM - SERUM 5.1 mmol/L (3.5-5.1); SODIUM 145 mmol/L (136-145); UREA NITROGEN 69 mg/dL (7-18); eGFR NON AFRICAN AMERICAN 21 mL/min (90-120)
[2019-11-29 19:38] LABS: GLUCOSE 93 mg/dL (74-106)
[2019-11-29 19:42] LABS: PLATELET ESTIMATE DECREASED
[2019-11-29 19:52] LABS: ALBUMIN 3.6 g/dL (3.4-5.0); ALKALINE PHOSPHATASE 165 U/L (30-120); ALT (SGPT) 32 U/L (10-68); BILIRUBIN - TOTAL 0.54 mg/dL (0.2-1.3); CKMB 2.7 U/L (0.0-3.6); CREATINE KINASE 115 UL (21-232); MAGNESIUM - SERUM 2.1 mg/dL (1.8-2.4); TROPONIN-I < 0.017 ng/mL (0.000-0.060)
[2019-11-29] MEDS ORDERED: ISOSORBIDE MONO30 M1 PO (20:19)
[2019-11-29 20:50] VITALS: BP 103/67
== END 2019-11-29 20:50 | disposition home or self-care (01) ==
LOC: D.ER 18:23
PROVIDERS: Family Medicine
DX: I25.119 Atherosclerotic heart disease of native coronary artery with unspecified angina pectoris (principal); R07.9 Chest pain, unspecified; E11.9 Type 2 diabetes mellitus without complications; I25.2 Old myocardial infarction; Z95.1 Presence of aortocoronary bypass graft; Z79.84 Long term (current) use of oral hypoglycemic drugs

== ENCOUNTER 2020-01-28 20:31 | Emergency (ER) | payer OTHER ==
[~2020-01-28] VITALS: Ht 185.4 cm; Wt 83.0 kg
[~2020-01-28 20:31] MED LIST changes: +ISOSORBIDE MONO30 M1 PO
[2020-01-28 20:46] VITALS: Ht 185.4 cm; Wt 83.0 kg
[2020-01-28 21:06] LABS: BASOPHILS 0.6 % (0-2); EOSINOPHILS 4.9 % (0-7); HEMATOCRIT 32.6 % (42.0-54.0); HEMOGLOBIN 10.1 g/dL (13.5-17.5); IMMATURE GRANULOCYTES 0.2 % (0-5); LYMPHOCYTES 21.3 % (15-50); MCH 30.7 pg (26.0-34.0); MCV 99.1 fL (80.0-100.0); MONOCYTES 8.2 % (2-11); NEUTROPHILS 64.8 % (40-80); RBC 3.29 10x6/uL (4.20-6.10); RDW 14.7 % (11.5-14.5); WBC 4.7 10x3/uL (4.8-10.8)
[2020-01-28 21:07] LABS: PLATELET COUNT 134 10x3/uL (130-400)
[2020-01-28 21:25] LABS: BILIRUBIN NEGATIVE (NEGATIVE); KETONE NEGATIVE (NEGATIVE); NITRITE NEGATIVE (NEGATIVE); UROBILINOGEN NORMAL mg/dL (< 2)
[2020-01-28 21:26] LABS: ALBUMIN 3.4 g/dL (3.4-5.0); ALKALINE PHOSPHATASE 206 U/L (30-120); ALT (SGPT) 54 U/L (10-68); BILIRUBIN - TOTAL 0.42 mg/dL (0.2-1.3); CALC OSMOLALITY 309 mosm/kg (275-300); CALCIUM 8.2 mg/dL (8.5-10.1); CARBON DIOXIDE 23.2 mmol/L (21.0-32.0); CHLORIDE - SERUM 103 mmol/L (98-107); CREATININE - SERUM 2.6 mg/dL (0.6-1.3); MAGNESIUM - SERUM 1.8 mg/dL (1.8-2.4); POTASSIUM - SERUM 5.3 mmol/L (3.5-5.1); PROTEIN - SERUM 7.4 g/dL (6.4-8.2); SODIUM 139 mmol/L (136-145); TROPONIN-I < 0.017 ng/mL (0.000-0.060); UREA NITROGEN 40 mg/dL (7-18); eGFR NON AFRICAN AMERICAN 26 mL/min (90-120)
[2020-01-28 21:27] LABS: GLUCOSE 491 mg/dL (74-106)
[2020-01-28 21:29] LABS: SQUAMOUS EPITHELIAL 0-5 HPF (0-4); WHITE CELLS - URINE 0-5 HPF (0-1)
[2020-01-28 21:30] LABS: BACTERIA FEW HPF (NONE SEEN)
[2020-01-28 22:51] VITALS: BP 150/74
== END 2020-01-28 22:50 | disposition home or self-care (01) ==
LOC: D.ER 20:31
PROVIDERS: Family Medicine
DX: E11.65 Type 2 diabetes mellitus with hyperglycemia (principal); N28.9 Disorder of kidney and ureter, unspecified; I25.2 Old myocardial infarction; J44.9 Chronic obstructive pulmonary disease, unspecified; Z79.84 Long term (current) use of oral hypoglycemic drugs

== ENCOUNTER 2020-02-01 22:08 | Emergency (ER) | payer OTHER ==
[~2020-02-01] VITALS: Ht 185.4 cm; Wt 83.2 kg
[2020-02-01 22:16] VITALS: Ht 185.4 cm; Wt 83.2 kg
[2020-02-01 22:59] LABS: BASOPHILS 0.3 % (0-2); HEMATOCRIT 29.6 % (42.0-54.0); HEMOGLOBIN 9.2 g/dL (13.5-17.5); LYMPHOCYTES 28.2 % (15-50); MCH 30.3 pg (26.0-34.0); MCHC 31.1 g/dL (31.0-37.0); MCV 97.4 fL (80.0-100.0); MEAN PLATELET VOLUME 11.7 fL (7.4-10.4); MONOCYTES 10.2 % (2-11); NEUTROPHILS 56.3 % (40-80); RBC 3.04 10x6/uL (4.20-6.10); RDW 14.7 % (11.5-14.5); WBC 3.2 10x3/uL (4.8-10.8)
[2020-02-01 23:04] LABS: PLATELET COUNT 98 10x3/uL (130-400)
[2020-02-01 23:05] LABS: PLATELET ESTIMATE DECREASED
[2020-02-01 23:06] LABS: CALC OSMOLALITY 299 mosm/kg (275-300); CALCIUM 8.2 mg/dL (8.5-10.1); CARBON DIOXIDE 22.1 mmol/L (21.0-32.0); CHLORIDE - SERUM 108 mmol/L (98-107); CREATININE - SERUM 2.2 mg/dL (0.6-1.3); SODIUM 141 mmol/L (136-145); UREA NITROGEN 44 mg/dL (7-18); eGFR NON AFRICAN AMERICAN 32 mL/min (90-120)
[2020-02-01 23:10] LABS: APTT 28.5 SECONDS (22.8-39.4); INR 1.08 (0.85-1.17); PROTIME 13.9 SECONDS (11.6-15.0)
[2020-02-01 23:19] LABS: GLUCOSE 239 mg/dL (74-106)
[2020-02-01 23:21] LABS: ALBUMIN 3.2 g/dL (3.4-5.0); ALKALINE PHOSPHATASE 150 U/L (30-120); ALT (SGPT) 35 U/L (10-68); BILIRUBIN - TOTAL 0.16 mg/dL (0.2-1.3); CKMB 4.7 U/L (0.0-3.6); CREATINE KINASE 269 UL (21-232); PROTEIN - SERUM 6.9 g/dL (6.4-8.2)
[2020-02-02 02:34] VITALS: BP 174/88
== END 2020-02-02 02:35 | disposition home or self-care (01) ==
LOC: D.ER 22:08
PROVIDERS: Family Medicine
DX: I25.10 Atherosclerotic heart disease of native coronary artery without angina pectoris (principal); R07.9 Chest pain, unspecified; D61.818 Other pancytopenia; E11.22 Type 2 diabetes mellitus with diabetic chronic kidney disease; N18.9 Chronic kidney disease, unspecified; I25.2 Old myocardial infarction; J44.9 Chronic obstructive pulmonary disease, unspecified; Z79.84 Long term (current) use of oral hypoglycemic drugs

== ENCOUNTER 2020-06-17 16:49 | Emergency (ER) | payer OTHER ==
[~2020-06-17] VITALS: Ht 185.4 cm; Wt 75.5 kg
[~2020-06-17 16:49] MED LIST changes: +FUROSEMIDE10 MG/M1 IV; +ISOSORBIDE MONO20 MG PO; +LANTUS INS100 UNITS/ SC; +LIPITOR20 MG PO; +LYRICA25 MG PO; +NITROSTAT0.4 MG SL; +NORVASC2.5 MG PO; +OPTIVE SENSITI1 EACH EACH EYE; +PROTONIX20 MG PO; +RANEXA500 MG PO; +SODIUM BICARBO325 MG PO; +TOPROL XL25 MG PO; +TORSEMIDE20 MG PO; +VRAYLAR3 MG PO; +ZOCOR40 MG PO; +ZONEGRAN100 MG PO
[2020-06-17 16:52] VITALS: Ht 185.4 cm; Wt 75.5 kg
[2020-06-17 17:10] LABS: BASOPHILS 0.3 % (0-2); EOSINOPHILS 2.4 % (0-7); HEMATOCRIT 30.8 % (42.0-54.0); HEMOGLOBIN 9.4 g/dL (13.5-17.5); LYMPHOCYTE ABS# 0.78 10x3/uL (1.32-3.57); LYMPHOCYTES 26.4 % (15-50); MCH 29.6 pg (26.0-34.0); MCHC 30.5 g/dL (31.0-37.0); MCV 96.9 fL (80.0-100.0); MEAN PLATELET VOLUME 13.2 fL (7.4-10.4); MONOCYTES 9.1 % (2-11); NEUTROPHIL ABS# 1.83 10x3/uL (1.78-5.38); NEUTROPHILS 61.8 % (40-80); PLATELET COUNT 63 10x3/uL (130-400); RBC 3.18 10x6/uL (4.20-6.10); RDW 15.9 % (11.5-14.5)
[2020-06-17 17:20] LABS: APTT 30.7 SECONDS (22.8-39.4); CALC OSMOLALITY 296 mosm/kg (275-300); CALCIUM 7.9 mg/dL (8.5-10.1); CARBON DIOXIDE 26.2 mmol/L (21.0-32.0); CHLORIDE - SERUM 104 mmol/L (98-107); CREATININE - SERUM 2.2 mg/dL (0.6-1.3); GLUCOSE 333 mg/dL (74-106); INR 1.11 (0.85-1.17); POTASSIUM - SERUM 4.4 mmol/L (3.5-5.1); PROTIME 13.2 SECONDS (11.6-15.0); SODIUM 138 mmol/L (136-145); UREA NITROGEN 36 mg/dL (7-18); eGFR NON AFRICAN AMERICAN 32 mL/min (90-120)
[2020-06-17 17:32] LABS: ALBUMIN 3.2 g/dL (3.4-5.0); ALKALINE PHOSPHATASE 193 U/L (30-120); ALT (SGPT) 102 U/L (10-68); BILIRUBIN - TOTAL 0.39 mg/dL (0.2-1.3); CKMB 3.4 U/L (0.0-3.6); CREATINE KINASE 296 UL (21-232); MAGNESIUM - SERUM 1.9 mg/dL (1.8-2.4); PROTEIN - SERUM 6.6 g/dL (6.4-8.2)
[2020-06-17 17:34] LABS: TROPONIN-I < 0.017 ng/mL (0.000-0.060)
[2020-06-17 18:20] LABS: PLATELET ESTIMATE DECREASED
[2020-06-17 19:30] VITALS: BP 159/82
[2020-06-17] MEDS ORDERED: ISOSORBIDE MONO20 MG (20:00)
[2020-06-17] MEDS ORDERED: ISOSORBIDE MONO30 M1 PO (20:00)
[2020-06-17 20:16] LABS: CKMB 3.5 U/L (0.0-3.6); CREATINE KINASE 332 UL (21-232); TROPONIN-I < 0.017 ng/mL (0.000-0.060)
[2020-06-17] MEDS ORDERED: RANEXA500 MG PO (20:41)
[2020-06-17] MEDS ORDERED: LOPRESSOR25 MG PO (20:41)
== END 2020-06-17 22:18 | disposition home or self-care (01) ==
LOC: D.ER 16:49
PROVIDERS: Family Medicine
DX: R07.9 Chest pain, unspecified (principal); E11.65 Type 2 diabetes mellitus with hyperglycemia; E11.22 Type 2 diabetes mellitus with diabetic chronic kidney disease; I13.0 Hypertensive heart and chronic kidney disease with heart failure and stage 1 through stage 4 chronic kidney disease, or unspecified chronic kidney disease; N18.9 Chronic kidney disease, unspecified; Z86.73 Personal history of transient ischemic attack (TIA), and cerebral infarction without residual deficits; E11.40 Type 2 diabetes mellitus with diabetic neuropathy, unspecified; I50.9 Heart failure, unspecified; E78.5 Hyperlipidemia, unspecified; J44.9 Chronic obstructive pulmonary disease, unspecified; K21.9 Gastro-esophageal reflux disease without esophagitis; Z79.4 Long term (current) use of insulin

== ENCOUNTER 2020-06-19 19:51 | Inpatient (IN) | payer OTHER, MEDICARE ==
[~2020-06-19] VITALS: Ht 185.4 cm; Wt 82.1 kg
--- NOTE | ~2020-06-19 | PN ---
PATIENT:DASHAWN REID MEDICAL RECORD: [id number] LOCATION:MAHENDRA Lanza112 ADMISSION DATE: 06/19/20 PROGRESS NOTE DATE OF SERVICE: 06/23/2020 SUBJECTIVE: The patient is 64 years old, has a history of bipolar disorder and was admitted secondary to suicidal statements. He no longer has any suicidal thoughts. His mood is stabilized and I think if his home situation can be assessed as reasonably appropriate he can be discharged. ASSESSMENT: Bipolar disorder. PLAN: Current medicines will be maintained. He hopefully can be discharged soon. TRANSINT:[id number] Voice Confirmation ID: [id number] DOCUMENT ID: [id number] KYLE FLORES MD CC: [id number] DICTATION DATE: 06/23/20 172 ESTHETICIAN FACIALIST: 06/23/202111 ADM IN [place] [id number] [place] [address]
[~2020-06-19 19:51] MED LIST changes: +ISOSORBIDE MONO20 MG; +LOPRESSOR25 MG PO
[2020-06-19 20:10] LABS: BILIRUBIN NEGATIVE (NEGATIVE); KETONE NEGATIVE (NEGATIVE); NITRITE NEGATIVE (NEGATIVE); UROBILINOGEN NORMAL mg/dL (< 2)
[2020-06-19 20:12] LABS: BACTERIA FEW HPF (NONE SEEN); SQUAMOUS EPITHELIAL 0-5 HPF (0-4); WHITE CELLS - URINE NONE SEEN HPF (0-1)
--- NOTE | 2020-06-19 20:22 | NUR ---
PT C/O CHEST PAIN AT THIS TIME. NOTIFIED RODRIGO STAUFFER. EKG, CHEST XRAY, AND TROPONIN ORDERED.
[2020-06-19 20:23] LABS: UDS - AMPHET NEGATIVE QUAL (NEGATIVE); UDS - BARB NEGATIVE QUAL (NEGATIVE); UDS - BENZO NEGATIVE QUAL (NEGATIVE); UDS - COCAINE NEGATIVE QUAL (NEGATIVE); UDS - OPIATE NEGATIVE QUAL (NEGATIVE); UDS - PCP NEGATIVE QUAL (NEGATIVE); UDS - THC NEGATIVE QUAL (NEGATIVE)
[2020-06-19 20:23] LABS: BASOPHILS 0.3 % (0-2); EOSINOPHILS 2.9 % (0-7); HEMATOCRIT 34.4 % (42.0-54.0); HEMOGLOBIN 10.5 g/dL (13.5-17.5); IMMATURE GRANULOCYTES 0.3 % (0-5); LYMPHOCYTE ABS# 0.57 10x3/uL (1.32-3.57); LYMPHOCYTES 18.2 % (15-50); MCH 29.5 pg (26.0-34.0); MCHC 30.5 g/dL (31.0-37.0); MCV 96.6 fL (80.0-100.0); MONOCYTES 10.5 % (2-11); NEUTROPHIL ABS# 2.13 10x3/uL (1.78-5.38); NEUTROPHILS 67.8 % (40-80); PLATELET COUNT 66 10x3/uL (130-400); RBC 3.56 10x6/uL (4.20-6.10); RDW 15.7 % (11.5-14.5); WBC 3.1 10x3/uL (4.8-10.8)
[2020-06-19 20:36] LABS: ANION GAP 14.5 mmol/L (8-16); CALCIUM 8.5 mg/dL (8.5-10.1); CARBON DIOXIDE 26.9 mmol/L (21.0-32.0); CREATININE - SERUM 2.2 mg/dL (0.6-1.3); POTASSIUM - SERUM 4.4 mmol/L (3.5-5.1)
[2020-06-19 20:42] LABS: ALBUMIN 3.7 g/dL (3.4-5.0); BILIRUBIN - TOTAL 0.32 mg/dL (0.2-1.3); PROTEIN - SERUM 6.8 g/dL (6.4-8.2)
[2020-06-19 20:47] LABS: PLATELET ESTIMATE DECREASED
[2020-06-19 21:00] VITALS: BP 192/103
[2020-06-19 21:42] VITALS: BP 182/95
[2020-06-19 22:49] LABS: SARS-CoV-2 ANTIGEN NEGATIVE- SARS-COV-2 (NEGATIVE)
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
[2020-06-19 23:04] VITALS: BP 163/91
--- NOTE | 2020-06-19 23:04 | NUR ---
PT REQUEST SOMETHING FOR HIS CHEST PAIN. RODRIGO STAUFFER NOTIFIED. SHE STATES PT CAN HAVE TYLENOL BUT WILL NOT GIVE HIM OPIODS.
[2020-06-19 23:58] VITALS: BP 96/67; BMI 24.5
[2020-06-20 08:00] VITALS: BP 118/67
[2020-06-20 11:13] VITALS: Ht 185.4 cm; Wt 82.1 kg
[2020-06-20 11:54] LABS: CHOL - HDL RATIO 1.7 ratio (2.3-4.9); LDL-HDL RATIO 0.5 ratio (1.5-3.5); THYROID STIMULATING HORMONE 0.98 uIU/mL (0.36-3.74)
--- NOTE | 2020-06-20 13:00 | NUR ---
PATIENT STATES HE NEEDS TO GO UPSTAIRS BECAUSE HE HAS A GI BLEED AND NEEDS TO BE TRANSFERED TO ROOM UPSTAIRS THAT HAS A TV.
--- NOTE | 2020-06-20 16:08 | PSY ---
PATIENT NAME:DASHAWN REID MEDICAL RECORD: [id number] : 51 LOCATION:MAHENDRA Chapman7 ADMISSION DATE: 06/19/20 ACCOUNT: [id number] PSYCHIATRIC EVALUATION DATE OF EVALUATION: 06/20/20 IDENTIFYING DATA: The patient is 64 years old and he was admitted to the hospital on a voluntary basis. CHIEF COMPLAINT: Suicidal statements. HISTORY OF PRESENT ILLNESS: The patient apparently got into an argument with his family. The argument escalated to the point that an ambulance was called because he was threatening to kill himself. He now denies that he said that, but it is documented by EMS and the Emergency Department. The patient himself now is saying that he is not depressed, but when asked about individual depressive symptoms. He endorses numerous depressive symptoms. He does have a urine drug screen that is negative and so he was not intoxicated or high when he made these statements about wanting to hurt himself. He does agree to allow further investigation and observation. PAST MEDICAL HISTORY: Significant for diabetes, COPD, and gastroesophageal reflux disease. He also is an insulin-dependent diabetic. PAST PSYCHIATRIC HISTORY: Significant for depressive symptoms, but he says he has never tried to hurt himself in the past. FAMILY HISTORY: Unknown. ALLERGIES: PENICILLIN, MORPHINE, CODEINE, AND HEPARIN. CURRENT MEDICATIONS: Include insulin, Pulmicort, Ventolin, Protonix, Ranexa, GlucaGen, and Lopressor. SOCIAL HISTORY: The patient is . He does have a spouse who is involved with his care. He is retired and denies a history of drug or alcohol abuse. He is a and was honorably discharged. MENTAL STATUS EXAMINATION: The patient is awake, alert and oriented to person, place, time and situation. His mood is depressed. His affect is constricted. Thought processes are circumstantial. He denies that he would seek to harm himself or others as well as psychotic symptoms. ASSESSMENT: AXIS I: Major depression, moderate severity, recurrent without psychosis. AXIS II: Deferred. AXIS III: Hypertension, diabetes, and chronic obstructive pulmonary disease. AXIS IV: Moderate. AXIS V: Global assessment of functioning is 40. PLAN: At this time, the patient is admitted to the hospital secondary to suicidal statements. He will be evaluated comprehensively and treated with antidepressant medication. His long-term prognosis is guarded. TRANSINT:[id number] Voice Confirmation ID: [id number] DOCUMENT ID: [id number] KYLE FLORES MD at 1608 CC: [id number] DICTATION DATE: 06/20/20 1448 LEAD BURNER APPRENTICE: 06/20/20 1605 ADM IN [place] [id number] [place] [address]
--- NOTE | 2020-06-20 17:45 | NUR ---
RECEIVED IN PATIENT ROOM. COOPERATIVE WITH CARE AND ASSESSMENT. VERY AGITATED THIS MORNING BECAUSE WHEEL BORER DIDNT CHECK HIS BLOOD SUGAR. YELLING OUT. RUDE AND DEMANDING WITH STAFF. REDIRECT AND REORIENT NEEDED. EATING DINNER AT THIS TIME. CONTINUE PLAN OF CARE.
--- NOTE | 2020-06-20 20:51 | NUR ---
RECEIVED IN HALLWAY. SOCAILIZING WITH PEERS AT TIMES. CALM AND COOPERATIVE WITH CARE AND ASSESSMENT. DEMANDING AT TIMES. NO STATEMENTS OF SELF HARM VOICED THIS EVENING. ENCOURAGE TO EXPRESS NEEDS. RESTING IN BED WITH EYES OPEN AT THIS TIME. CONTINUE PLAN OF CARE.
[2020-06-20 20:52] VITALS: BP 166/71
--- NOTE | 2020-06-20 22:25 | NUR ---
PT STATES CHEST PAIN. DR GALVEZ PAGED. NEW ORDER RECIEVED TO CONTINUE MEDICATIONS THAT ARE RELATED TO MEDICAL ISSUES, NO PSYCH MEDS TO BE CONTINUED BY THIS ORDER.
--- NOTE | 2020-06-20 23:26 | NUR ---
STATES CHEST PAIN OF 0. WILL CONTINUE TO MONITOR.
--- NOTE | 2020-06-21 08:00 | NUR ---
RECEIVED PATIENT IN BED WITH EYES OPEN. AWAKE AND ALERT TO PERSON PLACE AND TIME. CALM AND COOPERATIVE WITH ASSESSMENT AT THIS TIME. PRESCRIBED MEDICATIONS PROVIDED ORDERED. MED COMPLIANT. PATIENT DENIES SUICIDAL IDEATION AT THIS TIME. PATIENT APPEARS TO BE IN PLEASANT MOOD TODAY. REDIRECT AND REORIENT NEEDED. FALL PRECAUTIONS IN PLACE FOR SAFETY. WILL CONTINUE PLAN OF CARE.
[2020-06-21 08:05] VITALS: BP 144/77
[2020-06-21 08:13] LABS: RAPID PLASMA REAGIN Non Reactive (Non Reactive)
[2020-06-21 20:00] VITALS: BP 156/83
--- NOTE | 2020-06-21 20:45 | NUR ---
RECEIVED IN BEDROOM. RESTING IN BED WITH EYES CLOSED. RESPONDS TO VOICE. CALM AND COOPERATIVE WITH CARE AND ASSESSMENT. NO STATEMENTS OF SELF HARM VOICED. ENCOURAGE TO EXPRESS NEEDS. CONTINUES TO REST QUIETLY IN BED. CONTINUE PLAN OF CARE.
--- NOTE | 2020-06-22 08:14 | PN ---
PATIENT:DASHAWN REID MEDICAL RECORD: [id number] LOCATION:MAHENDRA Myla112 ADMISSION DATE: 06/19/20 PROGRESS NOTE DATE OF SERVICE: 06/21/2020 SUBJECTIVE: The patient's case was discussed with staff. He has no new complaint. OBJECTIVE: The patient denies intent to harm himself or others. He is tolerating his medicines well. ASSESSMENT: Bipolar disorder. PLAN: The patient will have his Effexor increased slightly. He is having no suicidal thoughts. I would anticipate he could be transitioned out of the hospital soon. TRANSINT:[id number] Voice Confirmation ID: [id number] DOCUMENT ID: [id number] KYLE FLORES MD at 0814 CC: [id number] DICTATION DATE: 06/21/20 1533 HOSPITAL PRODUCT SPECIALIST: 06/21/20 2359 ADM IN [facility] [address] [place] [address]
[2020-06-22] MEDS ORDERED: ACETAMINOPHEN500 M1 PO (09:41)
[2020-06-22] MEDS ORDERED: ASCORBIC ACID500 MG PO (09:42)
[2020-06-22] MEDS ORDERED: ALPHAGAN 0.2%5 ML EACH EYE (09:43)
[2020-06-22] MEDS ORDERED: VITAMIN B-121000 MCG PO (09:45)
[2020-06-22] MEDS ORDERED: FERROUS SULFAT325 MG PO (09:45)
[2020-06-22] MEDS ORDERED: FLUTICASONE PRO16 GM NASAL (09:47)
[2020-06-22] MEDS ORDERED: GLUCOSE (09:48)
[2020-06-22] MEDS ORDERED: XALATAN 0.0052.5 ML EACH EYE (09:51)
[2020-06-22] MEDS ORDERED: PROCARDIA XL60 MG PO (09:52)
[2020-06-22] MEDS ORDERED: IMODIUM2 MG PO (09:52)
[2020-06-22] MEDS ORDERED: CRESTOR40 MG PO (09:53)
[2020-06-22] MEDS ORDERED: LOKELMA10 GM PO (09:54)
[2020-06-22] MEDS ORDERED: FLOMAX0.4 MG PO (09:55)
[2020-06-22] MEDS ORDERED: TORSEMIDE10 MG PO (09:56)
[2020-06-22] MEDS ORDERED: ZONEGRAN100 MG PO (09:56)
[2020-06-22 10:45] VITALS: BP 150/71
--- NOTE | 2020-06-22 13:26 | NUR ---
Nutrition Follow-up: Eating well. Diet: Diabetic PO intake: 100% x 6 meals (06/20-06/21) Wt: 185.8# (06/20) Labs noted: POC Glu 142 Meds noted: Lantus, Humulin, Protonix, vit D -RD will follow up within 7 days.
--- NOTE | 2020-06-22 18:02 | NUR ---
Rec'd patient up sitting up in hallway this am. He has been very calm and cooperative and is med compliant. He is a pleasant man. He attended group exercises/therapy today and was compliant with helping in group. He is A/O times 2 to person and situation. He has denied any plans for suicide attempt or ideation. He was observed to take meds whole and completely empty mouth of medications with med pass. no reported nose bleeds today.
[2020-06-22 20:00] VITALS: BP 150/66
--- NOTE | 2020-06-22 22:13 | NUR ---
RECEIVED PATIENT ON UNIT IN HIS ROOM, HE IS CALM,. DENIES SUICIDIAL IDEATIONS. COMPLIANT WITH MEDS. ABLE TO MAKE HIS NEEDS KNOWN. HE RECEIVED A SHOWER TONIGHT. WILL FOLLOW POC
[2020-06-23 06:30] LABS: HEMATOCRIT 38.2 % (42.0-54.0)
[2020-06-23 11:15] LABS: BASOPHILS 0.8 % (0-2); IMMATURE GRANULOCYTES 0.2 % (0-5); LYMPHOCYTE ABS# 1.51 10x3/uL (1.32-3.57); LYMPHOCYTES 30.2 % (15-50); MCH 29.5 pg (26.0-34.0); MCHC 31.3 g/dL (31.0-37.0); MCV 94.3 fL (80.0-100.0); MONOCYTES 9.2 % (2-11); NEUTROPHIL ABS# 2.83 10x3/uL (1.78-5.38); NEUTROPHILS 56.6 % (40-80); PLATELET COUNT 77 10x3/uL (130-400); RBC 4.07 10x6/uL (4.20-6.10); RDW 15.7 % (11.5-14.5)
[2020-06-23 11:52] LABS: PLATELET ESTIMATE DECREASED
--- NOTE | 2020-06-23 16:01 | PN ---
PATIENT:DASHAWN COSME MEDICAL RECORD: [id number] LOCATION:MAHENDRA Lanza112 ADMISSION DATE: 06/19/20 PROGRESS NOTE DATE OF SERVICE: 06/22/2020 SUBJECTIVE: Mr. Cosme is 64 years old and has a history of bipolar disorder. He has been sleeping well and eating well. He is tolerating his medicines well and is likely to be ready for discharge soon. There are ongoing problems between him and his . Neither of them seem to be very emotionally healthy and argue a great deal. ASSESSMENT: Bipolar disorder. PLAN: The patient has been started on a mood stabilizer. He will be monitored for clinical changes associated with it. TRANSINT:[id number] Voice Confirmation ID: [id number] DOCUMENT ID: [id number] KYEL FLORES MD at 1601 CC: [id number] DICTATION DATE: 06/22/20 1645 SIGN LANGUAGE INSTRUCTOR: 06/22/20 2314 ADM IN [place] [id number] [place] [id number]
--- NOTE | 2020-06-23 18:07 | NUR ---
Patient rec'd this am up ambulatory in [facility]. He is med compliant. He is very calm, cooperative, and pleasant. He participated in activities/therapy session today. He is very quiet. This nurse provided him educational needs about his blood glucose levels and diet/snack changes.
[2020-06-23 20:00] VITALS: BP 122/68
--- NOTE | 2020-06-24 00:49 | NUR ---
B) Patient is alert and oriented to person and place, calm and cooperative sitting quietly in hallway watching other patients, I) Administered scheduled medications as ordered, monitored for safety, R) Mediation compliant, no S.I., P) Continue plan of care.
[2020-06-24 09:10] VITALS: BP 113/74
[2020-06-24 10:55] VITALS: BP 113/74
--- NOTE | 2020-06-24 17:39 | NUR ---
RECEIVED THIS AM RESTING QUIETLY IN BED.IS ORIENTED X 3.AMBULATORY.COMPLIANT WITH STAFF AND MEDS.DENIES SUICIDAL THOUGHTS.WILL CONTINUE WITH CURRENT PLAN OF CARE,MONITOR FOR CHANGES AND SAFETY.
[2020-06-24 20:00] VITALS: BP 145/73
--- NOTE | 2020-06-24 22:33 | NUR ---
PT IS ALERT AND ORIENTED X4. RECEIVED IN HALLWAY OUTSIDE NURSES STATION. CALM AND COOPERATIVE WITH STAFF. DENIES SI. COMPLIANT WITH ALL MEDICATIONS. ABLE TO AMBULATE AND MAKE NEEDS KNOWN. HE RELATES THAT HE HASNT RECEIVED HIS CATARACT MEDICATIONS SINCE ARRIVING BUT HE CANNOT REMEMBER THE NAMES. EASY TO REDIRECT.
[2020-06-25 07:38] VITALS: BP 151/74
--- NOTE | 2020-06-25 10:21 | NUR ---
The patient is calm in his room this am, he is quiet and does not socialize with other patients. He denies S.I., he denies H.I. He is pleasant. He ambulates, toilets, and eats independently. He has not shown any aggression, he is blunted in affect. He will talk to staff if they initiate a converstation. Provide prescribed meds. The patient is compliant with meds. Continue POC.
--- NOTE | 2020-06-25 17:52 | NUR ---
Patient denies any thoughts of suicide ideations.
[2020-06-25 20:00] VITALS: BP 134/83
--- NOTE | 2020-06-25 21:37 | NUR ---
PT IS ALERT AND ORIENTED X4. CALM AND COOPERATIVE WITH STAFF. RECEIVED IN HALLWAY OUTSIDE NURSES STATION SOCIALIZING WITH PEERS. COMPLIANT WITH ALL MEDICATIONS. DENIES SI. MONITOR FOR SAFETY.
[2020-06-26 08:39] VITALS: BP 142/87
--- NOTE | 2020-06-26 17:06 | NUR ---
RECEIVED IN HALLWAY OUTSIDE OF NURSES STATION. SOCIALIZING WITH STAFF AND PEERS. CALM AND COOPERATIVE WITH CARE AND ASSESSMENT. DENIES SUICIDAL IDEATION. REDIRECT AND REORIENT NEEDED. EATING DINNER AT THIS TIME. CONTINUE PLAN OF CARE.
--- NOTE | 2020-06-26 20:16 | NUR ---
RECEIVED IN HALLWAY SITTING OUTSIDE OF NURSES STATION. SOCAIL WITH PEERS AT TIMES. CALM AND COOPERATIVE WITH CARE AND ASSESSMENT. NO STATEMENTS OF SELF HARM VOICED. ENCOURAGE TO EXPRESS NEEDS. CONTINUES TO SIT IN HALLWAY WITH PEERS AT HIS SIDE. CONTINUE PLAN OF CARE.
[2020-06-26 21:31] VITALS: BP 120/71
--- NOTE | 2020-06-27 17:30 | NUR ---
RECEIVED IN PATIENT ROOM. CALM AND COOPERATIVE WITH CARE AND ASSESSMENT. DENIES SUICIDAL IDEATION. REDIRECT AND REORIENT NEEDED. EATING DINNER AT THIS TIME. CONTINUE PLAN OF CARE.
--- NOTE | 2020-06-27 21:10 | NUR ---
RECEIVED IN HALLWAY. SITTING WITH PEERS SOCIALIZING. CALM AND COOPERATIVE WITH CARE AND ASSESSMENT. NO STATEMENTS OF SELF HARM VOICED AT HIS TIME. ENCOURAGE TO EXPRESS NEEDS. CONTINUES TO SIT WITH PEERS SOCIALIZING AT TIMES. CONTINUE PLAN OF CARE.
[2020-06-27 22:28] VITALS: BP 119/71
[2020-06-28 08:00] VITALS: BP 118/62
--- NOTE | 2020-06-28 11:17 | NUR ---
packing room worker spoke to patient's , Cat, to discuss discharge plans for June 29. Cat was concerned of patient acting out, social media project manager stated patient has had no behaviors on the unit and seems stable. Cat stated there are problems paying for medications. packing room worker made referral back to patient's psychiatrist Dr. Conti for this week so [facility] Cat verbalized understanding of patient's condition and needs for medication compliance. [facility] . No other needs were voiced at this time by Cat. Cat verbalized understanding of discussion.
--- NOTE | 2020-06-28 11:36 | NUR ---
RECEIVED IN PATIENT ROOM. SITTING ON SIDE OF BED. CALM AND COOPERATIVE WITH CARE AND ASSESSMENT. DENIES SUICIDAL IDEATION. REDIRECT AND REORIENT NEEDED. EATING LUNCH AT THIS TIME. CONTINUE PLAN OF CARE.
[2020-06-28] MEDS ORDERED: EFFEXOR50 MG PO (17:20)
--- NOTE | 2020-06-28 19:52 | NUR ---
RECEIVED IN HALLWAY. SITTING IN A CHAIR WITH PEERS AT HIS SIDE. SOCIAL WITH PEERS. CALM AND COOPERATIVE WITH CARE AND ASSESSMENT. NO STATEMENTS OF SELF HARM VOICED. ENCOURAGE TO EXPRESS NEEDS. CONTINUES TO SIT CALMLY IN HALLWAY. CONTINUE PLAN OF CARE.
[2020-06-28 21:38] VITALS: BP 126/71
[2020-06-29 09:36] VITALS: BP 121/70
--- NOTE | 2020-06-29 11:45 | NUR ---
PT DISCHARGED HOME WITH HIS . ALL DISCHARGED PAPERWORK FAXED AND COPY SENT WITH PT AT THIS TIME. NO S/SX OF DISTRESS NOTED AT THIS TIME. ALL BELONGINGS SENT WITH PT AT TIME OF DISCHARGE.
--- NOTE | 2020-06-29 11:57 | NUR ---
Nutrition Re-Assessment Diet: Diabetic PO intake: ~99% average x last 6 meals Last BM: 06/28/20 Wt: 181# (06/29/20); Admit Wt: 185.8# (06/19/20) Meds noted: lantus, SSI Labs noted: POC Glu 180(06/27/20), 163(06/28/20), 234(06/28/20), 105(06/29/20) Estimated nutrition needs and nutrition diagnosis remain unchanged from initial nutrition assessment at this time. Patient is progressing towards meeting nutrition goals at this time. Recommendations/Interventions: -Recommend continue current diet. -RD will follow-up within 7 days.
== END 2020-06-29 11:45 | disposition home or self-care (01) | DRG 881 ==
LOC: D.ER 19:51 → D.PSYCH 23:13 → D.ER 23:28 → D.PSYCH 06-29 11:45
PROVIDERS: Emergency Medicine; Family Medicine; ADMIT Psychiatry & Neurology Psychiatry; ATTEND Psychiatry & Neurology Psychiatry
DX: F32.9 Major depressive disorder, single episode, unspecified (principal); R45.851 Suicidal ideations; I50.22 Chronic systolic (congestive) heart failure; I13.0 Hypertensive heart and chronic kidney disease with heart failure and stage 1 through stage 4 chronic kidney disease, or unspecified chronic kidney disease; Z76.5 Malingerer [conscious simulation]; Z20.822 Contact with and (suspected) exposure to COVID-19; F31.9 Bipolar disorder, unspecified; E11.65 Type 2 diabetes mellitus with hyperglycemia; I25.10 Atherosclerotic heart disease of native coronary artery without angina pectoris; J41.0 Simple chronic bronchitis; G20 Parkinson's disease; N40.0 Benign prostatic hyperplasia without lower urinary tract symptoms; E11.22 Type 2 diabetes mellitus with diabetic chronic kidney disease; N18.32 Chronic kidney disease, stage 3b; E55.9 Vitamin D deficiency, unspecified; D64.9 Anemia, unspecified; H40.9 Unspecified glaucoma

== ENCOUNTER 2020-08-26 12:58 | Emergency (ER) | payer OTHER ==
[~2020-08-26] VITALS: Ht 185.4 cm; Wt 90.0 kg
[~2020-08-26 12:58] MED LIST changes: +ACETAMINOPHEN500 M1 PO; +ALPHAGAN 0.2%5 ML EACH EYE; +ASCORBIC ACID500 MG PO; +CRESTOR40 MG PO; +EFFEXOR50 MG PO; +FLUTICASONE PRO16 GM NASAL; +GLUCOSE; +PROCARDIA XL60 MG PO; +TORSEMIDE10 MG PO
[2020-08-26 13:02] VITALS: BP 146/70; Ht 185.4 cm; Wt 90.0 kg
[2020-08-26 13:51] LABS: CALCIUM 8.5 mg/dL (8.5-10.1); CARBON DIOXIDE 24.6 mmol/L (21.0-32.0); CREATININE - SERUM 2.5 mg/dL (0.6-1.3); POTASSIUM - SERUM 4.6 mmol/L (3.5-5.1)
[2020-08-26 13:55] LABS: BASOPHILS 0.3 % (0-2); EOSINOPHILS 2.5 % (0-7); HEMOGLOBIN 10.7 g/dL (13.5-17.5); IMMATURE GRANULOCYTES 0.3 % (0-5); LYMPHOCYTE ABS# 0.74 10x3/uL (1.32-3.57); LYMPHOCYTES 20.8 % (15-50); MCH 29.2 pg (26.0-34.0); MCHC 30.6 g/dL (31.0-37.0); MCV 95.6 fL (80.0-100.0); NEUTROPHIL ABS# 2.46 10x3/uL (1.78-5.38); NEUTROPHILS 69.1 % (40-80); PLATELET COUNT 73 10x3/uL (130-400); RBC 3.66 10x6/uL (4.20-6.10); RDW 16.1 % (11.5-14.5); WBC 3.6 10x3/uL (4.8-10.8)
[2020-08-26 13:57] LABS: ALBUMIN 3.3 g/dL (3.4-5.0); BILIRUBIN - TOTAL 0.31 mg/dL (0.2-1.3); PROTEIN - SERUM 6.9 g/dL (6.4-8.2)
[2020-08-26 14:10] LABS: APTT 29.7 SECONDS (22.8-39.4); INR 1.17 (0.85-1.17); PROTIME 13.8 SECONDS (11.6-15.0)
== END 2020-08-26 15:21 | disposition home or self-care (01) ==
LOC: D.ER 12:58
PROVIDERS: Family Medicine
DX: D53.9 Nutritional anemia, unspecified (principal); Z86.73 Personal history of transient ischemic attack (TIA), and cerebral infarction without residual deficits; E11.40 Type 2 diabetes mellitus with diabetic neuropathy, unspecified; I13.0 Hypertensive heart and chronic kidney disease with heart failure and stage 1 through stage 4 chronic kidney disease, or unspecified chronic kidney disease; I50.9 Heart failure, unspecified; E78.5 Hyperlipidemia, unspecified; J44.9 Chronic obstructive pulmonary disease, unspecified; K21.9 Gastro-esophageal reflux disease without esophagitis; N18.9 Chronic kidney disease, unspecified; Z79.4 Long term (current) use of insulin